=== PATIENT | male | born 1930 | race Caucasian/White ===

== ENCOUNTER 2017-06-12 16:47 | Emergency (ER) | payer MEDICARE, OTHER ==
[~2017-06-12] VITALS: Ht 167.6 cm; Wt 79.5 kg
[~2017-06-12 16:47] MED LIST: ALPR1 PO; AMLO5TAB22 PO; ASPI81TA82 PO; ATEN-102 PO; ATOR40TA PO; BRIM0.2S OP; COUM5TAB PO; DORZO2%O EACH EYE; DRON400 PO; FISH1000 PO; NITR.4 SL; OMPR20CCR PO
[2017-06-12 16:51] VITALS: BP 178/74; PULSE 58; RESP 16; TEMP 98.4; O2SAT 99
--- NOTE | 2017-06-12 17:21 | RADRPT ---
EXAM DATE/TIME: 06/12/2017 17:09 [facility] COMPARISON: No previous studies available for comparison. INDICATIONS : Right hip pain after slip and fall. MEDICAL HISTORY : Hypertension. Cardiovascular disease Atrial fibrillation. SURGICAL HISTORY : Partial colectomy. ENCOUNTER: Initial ACUITY: 2 days PAIN SCORE: 3/10 LOCATION: Right hip. FINDINGS: Examination of the right hip was performed with AP Pelvis. The primary and secondary trabecular janes tao of the femoral neck is intact. The hip joint is of normal width without significant sclerosis or bony hypertrophy. The acetabulum is grossly intact. CONCLUSION: Negative for fracture. Vlad Luo MD FACR on June 12, 2017 at 17:18 Board Certified Radiologist. This report was verified electronically.
--- NOTE | 2017-06-12 17:43 | RADRPT ---
EXAM DATE/TIME: 06/12/2017 17:19 [facility] COMPARISON: No previous studies available for comparison. INDICATIONS : Trauma, fall yesterday onto head. RADIATION DOSE: 48.66 CTDIvol (mGy) MEDICAL HISTORY : Cardiovascular disease. Hypertension. SURGICAL HISTORY : None. ENCOUNTER: Initial ACUITY: 2 days PAIN SCALE: 5/10 LOCATION: Bilateral head TECHNIQUE: Multiple contiguous axial images were obtained of the head. Using automated exposure control and adj ustment of the mA and/or kV according to patient size, radiation dose was kept as low as reasonably a chievable to obtain optimal diagnostic quality images. DICOM format image data is available electro nically for review and comparison. FINDINGS: CEREBRUM: Moderate diffuse cerebral volume loss. The ventricles are in the upper limits of normal for age. No evidence of midline shift, mass lesion, hemorrhage or acute infarction. No extra-axial fluid collect ions are seen. POSTERIOR FOSSA: The cerebellum and brainstem are intact. The 4th ventricle is midline. The cerebellopontine angle i s unremarkable. EXTRACRANIAL: The visualized portion of the orbits is intact. SKULL: The calvaria is intact. No evidence of skull fracture. CONCLUSION: 1. No acute intracranial abnormality. Emil Rodriguez MD on June 12, 2017 at 17:40 Board Certified Radiologist. This report was verified electronically.
--- NOTE | 2017-06-12 17:58 | PD ---
HPI Chief Complaint: Fall Time Seen by Provider: 17:26 Travel History International Travel<30 days: No Contact w/Intl Traveler<30days: No Traveled to known affect area: No History of Present Illness HPI Patient is a 87 year old male who comes in after a fall two days ago. He says he woke up at 4AM to use the bathroom and lost his balance and fell backwards. He denies any LOC. He is on Coumadin. He says he was feeling fine, but yesterday started to have pain to his right hip. He has been walking on both legs without an issue. [facility]. PFSH Past Medical History Hx Anticoagulant Therapy: Yes Arthritis: Yes Asthma: No Autoimmune Disease: No Anxiety: Yes Depression: No Heart Rhythm Problems: Yes (AFIB 12/2011) Cancer: No Cardiac Catheterization: Yes Cardiovascular Problems: Yes (A-fib) High Cholesterol: No Chemotherapy: No Chest Pain: Yes Congestive Heart Failure: No COPD: No Cerebrovascular Accident: No Diabetes: No Diminished Hearing: Yes Endocrine: No Gastrointestinal Disorders: Yes GERD: Yes Genitourinary: No Hiatal Hernia: No Hypertension: Yes Kidney Stones: No Musculoskeletal: Yes Neurologic: No Psychiatric: No Reproductive: No Respiratory: No Migraines: No Radiation Therapy: No Renal Failure: No Seizures: No Sleep Apnea: No Thyroid Disease: No Ulcer: No Past Surgical History Abdominal Surgery: Yes AICD: No Arteriovenous Shunt: No Cardiac Surgery: No Ear Surgery: No Endocrine Surgery: No Eye Surgery: No Genitourinary Surgery: No Gynecologic Surgery: No Hysterectomy: No Insulin Pump: No Joint Replacement: No Oral Surgery: No Pacemaker: No Thoracic Surgery: No Other Surgery: Yes (COLON JUL 05, 2010) Social History Alcohol Use: No Tobacco Use: No Substance Use: No Allergies-Medications (Allergen,Severity, Reaction): Coded Allergies: No Known Allergies (Verified , 07/27/15) Reported Meds & Prescriptions Reported Meds & Active Scripts Active Reported Warfarin 5 Mg Tab 5 Mg PO DAILY Warfarin 2.5 Mg Tab 2.5 Mg PO DAILY Omeprazole 20 Mg Tab 20 Mg PO DAILY ZyrTEC Itchy Eye Opth Drops (Ketotifen Opth Drops) 0.025% Drops 1 Drop EACH EYE BID PRN Flarex Opth Drops (Fluorometholone Acetate) 0.1% Susp 1 Drop EACH EYE DAILY PRN Dorzolamide Opth Drops (Dorzolamide HCl) 2% Soln 1 Drop EACH EYE TID Theratears Unit-Dose Opth Gel (Carboxymethylcellulose Sodium Opth Gel) 1% Gel 1 Drop EACH EYE HS PRN Atorvastatin (Atorvastatin Calcium) 40 Mg Tab 40 Mg PO HS Atenolol 50 Mg Tab 50 Mg PO DAILY Amlodipine (Amlodipine Besylate) 10 Mg Tab 10 Mg PO DAILY Alprazolam 1 Mg Tab 1 Mg PO BID Review of Systems Except as stated in HPI: all other systems reviewed are Neg General / Constitutional: No: Fever, Chills Eyes: No: Blurred Vision HENT: No: Headaches, Lightheadedness Cardiovascular: No: Chest Pain or Discomfort Respiratory: No: Shortness of Breath Gastrointestinal: No: Nausea Musculoskeletal: Positive: Pain Skin: No Rash, No Change in Pigmentation Neurologic: No: Weakness, Dizziness, Syncope Physical Exam Narrative GENERAL: Awake and alert, in no acute distress. SKIN: Focused skin assessment warm/dry. HEAD: Atraumatic. Normocephalic. EYES: Pupils equal and round and reactive. No scleral icterus. EOMI. ENT: Mucous membranes pink and moist. CARDIOVASCULAR: Regular rate and rhythm. No murmur appreciated. RESPIRATORY: No accessory muscle use. Clear to auscultation. Breath sounds equal bilaterally. MUSCULOSKELETAL: No obvious deformities. No clubbing. No cyanosis. No edema. No tenderness to palpation of the spine. Mild tenderness to palpation of the right hip. Full ROM of right leg. NEUROLOGICAL: Awake and alert. No obvious cranial nerve deficits. Motor grossly within normal limits. Normal speech. PSYCHIATRIC: Appropriate mood and affect; insight and judgment normal. Data Data Last Documented VS Vital Signs Date Time Temp Pulse Resp B/P (MAP) Pulse Ox O2 Delivery O2 Flow Rate FiO2 06/12/17 16:51 98.4 58 16 178/74 (108) 99 Orders Orders Act Partial Throm Time (Ptt) (06/12/17 16:55) Prothrombin Time / Inr (Pt) (06/12/17 16:55) Ct Brain W/O Iv Contrast(Rout) (06/12/17 ) Hip, Uni(Ap&Lat) W Ap Pelvis (06/12/17 ) Labs Laboratory Tests Test 06/12/17 17:[address] [facility] Medical Decision Making Medical Screen Exam Complete: Yes Emergency Medical Condition: Yes Medical Record Reviewed: Yes Differential Diagnosis ICH versus hip fracture versus contusion versus sprain Narrative Course Patient is an 87-year-old male who comes in complaining of hip pain after a fall 2 days ago. Is mild tenderness to palpation, full range of motion of the right leg. CT head performed shows no acute abnormalities. X-ray of the hip shows no acute abnormalities. Patient advised to take Tylenol at home for pain. Advised follow-up with his doctors. Advised to return to the ED as needed for any worsening symptoms. Diagnosis Primary Impression: Fall Qualified Codes: W19.XXXA - Unspecified fall, initial encounter Additional Impression: Hip pain Qualified Codes: M25.551 - Pain in right hip Patient Instructions: General Instructions, Hip Pain (ED) Additional Instructions: Take Tylenol as needed for pain. Follow up with your doctors. Return to the ED as needed for any worsening symptoms. Disposition: 01 DISCHARGE HOME Condition: Stable Jenny Hale MD Jun 12, 2017 17:58
[2017-06-12] MEDS ORDERED: OMEP20TA93 PO (17:59)
[2017-06-12] MEDS ORDERED: KETO0.02 EACH EYE (17:59)
[2017-06-12] MEDS ORDERED: AMLO10TA2 PO (17:59)
[2017-06-12] MEDS ORDERED: ATEN50TA PO (17:59)
[2017-06-12] MEDS ORDERED: ATOR40TA16 PO (17:59)
[2017-06-12] MEDS ORDERED: DORZ2SOL EACH EYE (17:59)
[2017-06-12] MEDS ORDERED: WARF-23 PO (17:59)
[2017-06-12] MEDS ORDERED: WARF-18 PO (17:59)
[2017-06-12] MEDS ORDERED: ALPR1TAB3 PO (17:59)
[2017-06-12] MEDS ORDERED: FLAR0.1S EACH EYE (17:59)
[2017-06-12] MEDS ORDERED: THER1GEL EACH EYE (17:59)
[2017-06-12 18:20] LABS: INTERNATIONAL NORMALIZED RATIO 3.6 RATIO; PROTHROMBIN TIME - PATIENT 36.3 SEC (9.8-11.6)
[2017-06-12 18:46] VITALS: BP 165/74; PULSE 52; RESP 18; O2SAT 97
== END 2017-06-12 19:09 | disposition home or self-care (01) ==
LOC: NEPD 16:47
DX: M25.551 Pain in right hip (principal); I10 Essential (primary) hypertension; I48.91 Unspecified atrial fibrillation; W01.0XXA Fall on same level from slipping, tripping and stumbling without subsequent striking against object, initial encounter; Z79.01 Long term (current) use of anticoagulants
CPT/HCPCS: 70450; 73502; 85610; 85730; 99285

== ENCOUNTER 2017-10-05 18:52 | Observation (INO) | payer OTHER, MEDICARE ==
[~2017-10-05 18:52] MED LIST changes: -ALPR1 PO; +ALPR1TAB3 PO; +AMLO10TA2 PO; -AMLO5TAB22 PO; -ASPI81TA82 PO; -ATEN-102 PO; +ATEN50TA PO; -ATOR40TA PO; +ATOR40TA16 PO; -BRIM0.2S OP; -COUM5TAB PO; +DORZ2SOL EACH EYE; -DORZO2%O EACH EYE; -DRON400 PO; -FISH1000 PO; +FLAR0.1S EACH EYE; +KETO0.02 EACH EYE; -NITR.4 SL; +OMEP20TA93 PO; -OMPR20CCR PO; +THER1GEL EACH EYE; +WARF-18 PO; +WARF-23 PO
[2017-10-05 19:01] VITALS: BP 179/77; PULSE 125; RESP 18; TEMP 97.8; O2SAT 95
[2017-10-05] MEDS ORDERED: METOPROLOL TARTRATE 5 MG/5 ML VIAL IV PUSH ONE (19:30)
[2017-10-05] MEDS ORDERED: SODIUM CHLOR 0.9% 250 ML INJ 250 ML IV ONE (19:30)
[2017-10-05] MEDS ORDERED: METOPROLOL TARTRATE 25 MG TAB PO ONE (19:45)
--- NOTE | 2017-10-05 19:47 | PD ---
HPI Chief Complaint: Cardiac Complaint Time Seen by Provider: 19:20 Travel History International Travel<30 days: No Contact w/Intl Traveler<30days: No Traveled to known affect area: No History of Present Illness HPI Patient is an 87-year-old male with a history of A. fib on Coumadin as well as on metoprolol patient takes 50 mg of metoprolol in the morning and 25 of metoprolol at night. He says at 5:00 tonight he suddenly felt his heart going rapidly. He has a history of A. fib and he knows when it is rapid he took his BP cuff and he saw his heart rate was over 130 and he then comes to the ER where he is in rapid A. fib at a rate of 120-140 his BP is 159/78. He took his second dose of metoprolol at home and it did not reduce his A. fib he comes into the ER still complaining that he is in rapid A. fib he is aware of his palpitations and his cardiac history. He is a very good historian patient denies chest pain he denies shortness of breath he denies dizziness he just says he knows was heart fast and he took it on his blood pressure cuff at home patient denies diabetes he is on amlodipine he is on metoprolol and this complaint began 2 hours prior to my examining him in the ER initial exam he is in rapid A. fib however he is with no other symptoms at this time. He has not been to the [facility] for this episode and he is treated mainly at the [facility] Past Medical History Hx Anticoagulant Therapy: Yes Arthritis: Yes Asthma: No Autoimmune Disease: No Anxiety: Yes Depression: No Heart Rhythm Problems: Yes (AFIB 12/2011) Cancer: No Cardiac Catheterization: Yes Cardiovascular Problems: Yes (A-fib) High Cholesterol: No Chemotherapy: No Chest Pain: Yes Congestive Heart Failure: No COPD: No Cerebrovascular Accident: No Diabetes: No Diminished Hearing: Yes Endocrine: No Gastrointestinal Disorders: Yes GERD: Yes Genitourinary: No Hiatal Hernia: No Hypertension: Yes Kidney Stones: No Musculoskeletal: Yes Neurologic: No Psychiatric: No Reproductive: No Respiratory: No Migraines: No Radiation Therapy: No Renal Failure: No Seizures: No Sleep Apnea: No Thyroid Disease: No Ulcer: No Past Surgical History Abdominal Surgery: Yes AICD: No Arteriovenous Shunt: No Cardiac Surgery: No Ear Surgery: No Endocrine Surgery: No Eye Surgery: No Genitourinary Surgery: No Gynecologic Surgery: No Hysterectomy: No Insulin Pump: No Joint Replacement: No Oral Surgery: No Pacemaker: No Thoracic Surgery: No Other Surgery: Yes (COLON JUL 05, 2010) Social History Alcohol Use: No Tobacco Use: No Substance Use: No Allergies-Medications (Allergen,Severity, Reaction): Coded Allergies: No Known Allergies (Verified Allergy, Unknown, 10/07/17) Reported Meds & Prescriptions Reported Meds & Active Scripts Active Reported Metoprolol Succinate/HCTZ 50-12.5 ER 50 Mg-12.5 Mg Tab 1 Tab PO DAILY Metoprolol Tartrate 25 Mg Tab 25 Mg PO DAILY Warfarin 5 Mg Tab 5 Mg PO MON/MON/MON Warfarin 2.5 Mg Tab 2.5 Mg PO //MON/SUN Omeprazole 20 Mg Tab 20 Mg PO DAILY ZyrTEC Itchy Eye Opth Drops (Ketotifen Opth Drops) 0.025% Drops 1 Drop EACH EYE BID PRN Flarex Opth Drops (Fluorometholone Acetate) 0.1% Susp 1 Drop EACH EYE DAILY PRN Dorzolamide Opth Drops (Dorzolamide HCl) 2% Soln 1 Drop EACH EYE TID Theratears Unit-Dose Opth Gel (Carboxymethylcellulose Sodium Opth Gel) 1% Gel 1 Drop EACH EYE HS PRN Atorvastatin (Atorvastatin Calcium) 40 Mg Tab 40 Mg PO HS Atenolol 50 Mg Tab 50 Mg PO DAILY Amlodipine (Amlodipine Besylate) 10 Mg Tab 10 Mg PO DAILY Alprazolam 1 Mg Tab 1 Mg PO BID Review of Systems Except as stated in HPI: all other systems reviewed are Neg Cardiovascular: Positive: Chest Pain or Discomfort, Palpitations Physical Exam Narrative GENERAL: awake alert wearing RX sunglasses and no apparent distress , Monitor 138 irregular HR SKIN: Warm and dry. HEAD: Atraumatic. Normocephalic. EYES: Pupils equal and round. No scleral icterus. No injection or drainage. ENT: No nasal bleeding or discharge. Mucous membranes pink and moist. NECK: Trachea midline. No JVD. CARDIOVASCULAR: irregularly iiregular Rate 120-138 RESPIRATORY: No accessory muscle use. Clear to auscultation. Breath sounds equal bilaterally. GASTROINTESTINAL: Abdomen soft, non-tender, nondistended. Hepatic and splenic margins not palpable. MUSCULOSKELETAL: Extremities without clubbing, cyanosis, or edema. No obvious deformities. NEUROLOGICAL: Awake and alert. No obvious cranial nerve deficits. Motor grossly within normal limits. Five out of 5 muscle strength in the arms and legs. Normal speech. PSYCHIATRIC: Appropriate mood and affect; insight and judgment normal. Data Data Last Documented VS Vital Signs Date Time Temp Pulse Resp B/P (MAP) Pulse Ox O2 Delivery O2 Flow Rate FiO2 10/05/17 21:51 59 16 134/66 (88) 98 Room Air 10/05/17 19:01 97.8 Orders Orders Electrocardiogram (10/05/17:) Complete Blood Count With Diff (10/05/17:) Comprehensive Metabolic Panel (10/05/17:) Ckmb (Isoenzyme) Profile (10/05/17:) Troponin I (10/05/17:) Prothrombin Time / Inr (Pt) (10/05/17:27) Chest, Single Ap (10/05/17:) Sodium Chlor 0.9% 250 Ml Inj (Ns 250 Ml (10/05/17 19:30) Metoprolol Tartrate Inj (Lopressor Inj) (10/05/17 19:30) Metoprolol Tartrate (Lopressor) (10/05/17 19:45) CKMB (10/05/17 19:35) CKMB% (10/05/17 19:35) Diltiazem (Cardizem) (10/05/17 21:15) Warfarin (Coumadin) (10/05/17 21:30) Alprazolam (Xanax) (10/05/17 21:30) Admit Order (Ed Use Only) (10/05/17 21:57) Labs Laboratory Tests Test 10/05/17 19:35 White Blood Count 7.2 TH/MM3 Red Blood Count 4.16 MIL/MM3 Hemoglobin 13.5 GM/DL Hematocrit 40.2 % Mean Corpuscular Volume 96.6 FL Mean Corpuscular Hemoglobin 32.4 PG Mean Corpuscular Hemoglobin Concent 33.5 % Red Cell Distribution Width 14.7 % Platelet Count 210 TH/MM3 Mean Platelet Volume 8.1 FL Neutrophils (%) (Auto) 61.2 % Lymphocytes (%) (Auto) 24.6 % Monocytes (%) (Auto) 6.7 % Eosinophils (%) (Auto) 6.6 % Basophils (%) (Auto) 0.9 % Neutrophils # (Auto) 4.4 TH/MM3 Lymphocytes # (Auto) 1.8 TH/MM3 Monocytes # (Auto) 0.5 TH/MM3 Eosinophils # (Auto) 0.5 TH/MM3 Basophils # (Auto) 0.1 TH/MM3 CBC Comment DIFF FINAL Differential Comment Prothrombin Time 19.6 SEC Prothromb Time International Ratio 1.9 RATIO Blood Urea Nitrogen 22 MG/DL Creatinine 1.36 MG/DL Random Glucose 177 MG/DL Total Protein 7.8 GM/DL Albumin 3.5 GM/DL Calcium Level 9.2 MG/DL Alkaline Phosphatase 103 U/L Aspartate Amino Transf (AST/SGOT) 29 U/L Alanine Aminotransferase (ALT/SGPT) 32 U/L Total Bilirubin 0.3 MG/DL Sodium Level 141 MEQ/L Potassium Level 4.0 MEQ/L Chloride Level 109 MEQ/L Carbon Dioxide Level 24.0 MEQ/L Anion Gap 8 MEQ/L Estimat Glomerular Filtration Rate 50 ML/MIN Total Creatine Kinase 126 U/L Creatine Kinase MB 1.7 NG/ML Troponin I LESS THAN 0.02 NG/ML MDM Medical Decision Making Medical Screen Exam Complete: Yes Emergency Medical Condition: Yes Differential Diagnosis Afib RVR and possible systemic cause versus medication non compliance vs fever vs viral illness causing RVR , pt or couamdin and reports detailed compliance with metoprolol and Norvasc Narrative Course pt given Lopress 2.5 IV and then 25 PO and eventual;ly goes into a sinus rhythm and rate 60 trop negative and admitted to [facility] for observation Frandy Negreet MD Oct 05, 2017 19:47
[2017-10-05 19:50] LABS: AUTOMATED NEUTROPHIL # 4.4 TH/MM3 (1.8-7.7); BASOPHIL # 0.1 TH/MM3 (0-0.2); BASOPHIL % 0.9 % (0.0-2.0); EOSINOPHIL # 0.5 TH/MM3 (0-0.4); EOSINOPHIL % 6.6 % (0.0-4.0); HEMATOCRIT 40.2 % (39.0-51.0); HEMOGLOBIN 13.5 GM/DL (13.0-17.0); LYMPH % 24.6 % (9.0-44.0); LYMPHOCYTE # 1.8 TH/MM3 (1.0-4.8); MEAN CELL VOLUME 96.6 FL (80.0-100.0); MEAN CORPUSCULAR HEMOGLOBIN 32.4 PG (27.0-34.0); MEAN CORPUSCULAR HGB CONC 33.5 % (32.0-36.0); MEAN PLATELET VOLUME 8.1 FL (7.0-11.0); MONO % 6.7 % (0.0-8.0); MONOCYTE # 0.5 TH/MM3 (0-0.9); NEUT % 61.2 % (16.0-70.0); PLATELET COUNT 210 TH/MM3 (150-450); RED BLOOD COUNT 4.16 MIL/MM3 (4.50-5.90); RED CELL DISTRIBUTION WIDTH 14.7 % (11.6-17.2); WHITE BLOOD COUNT 7.2 TH/MM3 (4.0-11.0)
[2017-10-05] MEDS ORDERED: METO-488 PO (19:52)
[2017-10-05] MEDS ORDERED: METO25TA3 PO (19:52)
--- NOTE | 2017-10-05 20:11 | RADRPT ---
EXAM DATE/TIME: 10/05/2017 19:31 [facility] COMPARISON: CHEST SINGLE AP, July 29, 2015, 15:24. INDICATIONS : Short of breath. MEDICAL HISTORY : A-fib. SURGICAL HISTORY : None. ENCOUNTER: Initial ACUITY: 2 days PAIN SCORE: 0/10 LOCATION: Bilateral chest FINDINGS: A single AP erect portable view of the chest was obtained and again demonstrates patchy by basilar op acity with partial obscuration left hemidiaphragm. The left costophrenic angle appears blunted. The h eart size is mildly prominent. The bony thorax is intact. Overlying echocardiogram leads are present. CONCLUSION: No significant change. Bibasilar airspace disease remains left greater than right. Pl ease a portion of this could represent scarring. Christoph Choi MD on October 05, 2017 at 20:08 Board Certified Radiologist. This report was verified electronically.
[2017-10-05 20:12] LABS: ALT (GPT) 32 U/L (12-78)
[2017-10-05 20:15] LABS: ALKALINE PHOSPHATASE 103 U/L (45-117); TOTAL BILIRUBIN ADULT 0.3 MG/DL (0.2-1.0); TOTAL PROTEIN 7.8 GM/DL (6.4-8.2); TROPONIN I LESS THAN 0.02 NG/ML (0.02-0.05)
[2017-10-05 20:16] LABS: ALBUMIN 3.5 GM/DL (3.4-5.0); AST (GOT) 29 U/L (15-37); BLOOD UREA NITROGEN 22 MG/DL (7-18); CALCIUM 9.2 MG/DL (8.5-10.1); CHLORIDE 109 MEQ/L (98-107); CREATININE 1.36 MG/DL (0.60-1.30); GLOMERULAR FILTRATION RATE 50 ML/MIN (>89); GLUCOSE,RANDOM 177 MG/DL (74-106); SODIUM (NA) 141 MEQ/L (136-145)
[2017-10-05 20:17] LABS: INTERNATIONAL NORMALIZED RATIO 1.9 RATIO; PROTHROMBIN TIME - PATIENT 19.6 SEC (9.8-11.6)
[2017-10-05 20:44] VITALS: BP 159/77; PULSE 114; RESP 16; O2SAT 99
[2017-10-05] MEDS ORDERED: DILTIAZEM HCL 30 MG TAB PO ONE (21:15)
[2017-10-05] MEDS ORDERED: WARFARIN SOD 2.5 MG TAB PO ONE (21:30)
[2017-10-05] MEDS ORDERED: ALPRAZolam 1 MG TAB PO ONE (21:30)
[2017-10-05 21:51] VITALS: BP 134/66; PULSE 59; RESP 16; O2SAT 98
[2017-10-06] MEDS ORDERED: BISACODYL 10 MG SUPP RECTAL PRN (00:15)
[2017-10-06] MEDS ORDERED: ONDANSETRON HCL 4 MG/2 ML VIAL IVP PRN (00:15)
[2017-10-06] MEDS ORDERED: ACETAMINOPHEN 325 MG TAB PO PRN (00:15)
[2017-10-06] MEDS ORDERED: SENNOSIDES 8.6 MG TAB PO PRN (00:15)
[2017-10-06] MEDS ORDERED: MAGNESIUM HYDROXIDE SUSP 30 ML CUP PO PRN (00:15)
[2017-10-06] MEDS ORDERED: NALOXONE HCL 0.4 MG/ML AMP IV PUSH PRN (00:15)
[2017-10-06] MEDS ORDERED: HEPARIN SODIUM - SQ 10,000 UNITS/ML VIAL SQ SCH (00:15)
[2017-10-06] MEDS ORDERED: SODIUM CHLORIDE 0.9% FLUSH 10 ML FLUSH IV FLUSH PRN (00:15)
[2017-10-06] MEDS ORDERED: LACTULOSE SYRUP 20 GM/30 ML CUP PO PRN (00:15)
--- NOTE | 2017-10-06 00:39 | HHI.HP ---
[facility] Admission Diagnosis afib RVR Diagnoses: Travel History International Travel<30 Days: No Contact w/Intl Traveler <30 Da: No Traveled to Known Affected Are: No History of Present Illness 87-year-old male with past medical history significant for atrial fibrillation anticoagulated on Coumadin, hypertension and hyperlipidemia presents to the emergency department for evaluation of heart palpitations. The patient states around 5 PM, following dinner, he noted that his heart was beating rapidly and he felt as if it were about to "beat out of his chest." The patient endorses associating shortness of breath and chest pressure. Symptoms have since resolved. He was found to be in atrial fibrillation with rapid ventricular response on arrival to the emergency department was given his home dose of metoprolol and converted to normal sinus rhythm. The patient denies any abdominal pain. No nausea/vomiting/diarrhea. No weakness. No lateralizing signs/symptoms. No fevers/chills. Review of Systems Except as stated in HPI: all other systems reviewed are Neg Past Family Social History Past Medical History Atrial fibrillation anticoagulated on Coumadin Hypertension Hyperlipidemia Past Surgical History Partial colectomy Reported Medications Reported Meds & Active Scripts Active Reported Metoprolol Succinate/HCTZ 50-12.5 ER 50 Mg-12.5 Mg Tab 1 Tab PO DAILY Metoprolol Tartrate 25 Mg Tab 25 Mg PO DAILY Warfarin 5 Mg Tab 5 Mg PO DAILY Warfarin 2.5 Mg Tab 2.5 Mg PO DAILY Omeprazole 20 Mg Tab 20 Mg PO DAILY ZyrTEC Itchy Eye Opth Drops (Ketotifen Opth Drops) 0.025% Drops 1 Drop EACH EYE BID PRN Flarex Opth Drops (Fluorometholone Acetate) 0.1% Susp 1 Drop EACH EYE DAILY PRN Dorzolamide Opth Drops (Dorzolamide HCl) 2% Soln 1 Drop EACH EYE TID Theratears Unit-Dose Opth Gel (Carboxymethylcellulose Sodium Opth Gel) 1% Gel 1 Drop EACH EYE HS PRN Atorvastatin (Atorvastatin Calcium) 40 Mg Tab 40 Mg PO HS Atenolol 50 Mg Tab 50 Mg PO DAILY Amlodipine (Amlodipine Besylate) 10 Mg Tab 10 Mg PO DAILY Alprazolam 1 Mg Tab 1 Mg PO BID Allergies: Coded Allergies: No Known Allergies (Verified , 07/27/15) Family History Negative for CAD/DM Social History Denies alcohol, tobacco and illicit drugs. Physical Exam Vital Signs Vital Signs Date Time Temp Pulse Resp B/P (MAP) Pulse Ox O2 Delivery O2 Flow Rate FiO2 10/05/17 21:51 59 16 134/66 (88) 98 Room Air 10/05/17 20:44 114 16 159/77 (104) 99 Room Air 10/05/17 19:46 118 99 Room Air 10/05/17 19:01 97.8 125 18 179/77 (111) 95 Physical Exam GENERAL: male lying in bed SKIN: No rashes, ecchymoses or lesions. Cool and dry. HEAD: Atraumatic. Normocephalic. No temporal or scalp tenderness. EYES: Pupils equal round and reactive. Extraocular motions intact. No scleral icterus. No injection or drainage. ENT: Nose without bleeding, purulent drainage or septal hematoma. Throat without erythema, tonsillar hypertrophy or exudate. Uvula midline. Airway patent. NECK: Trachea midline. No JVD or lymphadenopathy. Supple, nontender, no meningeal signs. CARDIOVASCULAR: Regular rate and rhythm without murmurs, gallops, or rubs. RESPIRATORY: Clear to auscultation. Breath sounds equal bilaterally. No wheezes , rales, or rhonchi. GASTROINTESTINAL: Abdomen soft, non-tender, nondistended. No hepato-splenomegaly , or palpable masses. No guarding. MUSCULOSKELETAL: Extremities without clubbing, cyanosis, or edema. No joint tenderness, effusion, or edema noted. No calf tenderness. NEUROLOGICAL: Awake and alert. Cranial nerves II through XII intact. Motor and sensory grossly within normal limits. Normal speech. Laboratory Laboratory Tests Test 10/05/17 19:35 White Blood Count 7.2 Red Blood Count 4.16 Hemoglobin 13.5 Hematocrit 40.2 Mean Corpuscular Volume 96.6 Mean Corpuscular Hemoglobin 32.4 Mean Corpuscular Hemoglobin Concent 33.5 Red Cell Distribution Width 14.7 Platelet Count 210 Mean Platelet Volume 8.1 Neutrophils (%) (Auto) 61.2 Lymphocytes (%) (Auto) 24.6 Monocytes (%) (Auto) 6.7 Eosinophils (%) (Auto) 6.6 Basophils (%) (Auto) 0.9 Neutrophils # (Auto) 4.4 Lymphocytes # (Auto) 1.8 Monocytes # (Auto) 0.5 Eosinophils # (Auto) 0.5 Basophils # (Auto) 0.1 CBC Comment DIFF FINAL Differential Comment Prothrombin Time 19.6 Prothromb Time International Ratio 1.9 Blood Urea Nitrogen 22 Creatinine 1.36 Random Glucose 177 Total Protein 7.8 Albumin 3.5 Calcium Level 9.2 Alkaline Phosphatase 103 Aspartate Amino Transf (AST/SGOT) 29 Alanine Aminotransferase (ALT/SGPT) 32 Total Bilirubin 0.3 Sodium Level 141 Potassium Level 4.0 Chloride Level 109 Carbon Dioxide Level 24.0 Anion Gap 8 Estimat Glomerular Filtration Rate 50 Total Creatine Kinase 126 Creatine Kinase MB 1.7 Troponin I LESS THAN 0.02 Result Diagram: 10/05/17193410/05/171934 Caprini VTE Risk Assessment Caprini VTE Risk Assessment: Mod/High Risk (score >= 2) Caprini Risk Assessment Model Point Value = 1 Point Value = 2 Point Value = 3 Point Value = 5 Age 41-60 Minor surgery BMI > 25 kg/m2 Swollen legs Varicose veins or History of unexplained or recurrent spontaneous Oral contraceptives or hormone replacement Sepsis (< 1 month) Serious lung disease, including pneumonia (< 1 month) Abnormal pulmonary function Acute myocardial infarction Congestive heart failure (< 1 month) History of inflammatory bowel disease Medical patient at bed rest Age 61-74 Arthroscopic surgery Major open surgery (> 45 min) Laparoscopic surgery (> 45 min) Malignancy Confined to bed (> 72 hours) Immobilizing plaster cast Central venous access Age >= 75 History of VTE Family history of VTE Factor V Leiden Prothrombin [id number] Lupus anticoagulant Anticardiolipin antibodies Elevated serum homocysteine Heparin-induced thrombocytopenia Other congenital or acquired thrombophilia Stroke (< 1 month) Elective arthroplasty Hip, pelvis, or leg fracture Acute spinal cord injury (< 1 month) Prophylaxis Regimen Total Risk Factor Score Risk Level Prophylaxis Regimen 0-1 Low Early ambulation 2 Moderate Order ONE of the following: *Sequential Compression Device (SCD) *Heparin 5000 units SQ BID 3-4 Higher Order ONE of the following medications: *Heparin 5000 units SQ TID *Enoxaparin/Lovenox 40 mg SQ daily (WT < 150 kg, CrCl > 30 mL/min) *Enoxaparin/Lovenox 30 mg SQ daily (WT < 150 kg, CrCl > 10-29 mL/min) *Enoxaparin/Lovenox 30 mg SQ BID (WT < 150 kg, CrCl > 30 mL/min) AND/OR *Sequential Compression Device (SCD) 5 or more Highest Order ONE of the following medications: *Heparin 5000 units SQ TID (Preferred with Epidurals) *Enoxaparin/Lovenox 40 mg SQ daily (WT < 150 kg, CrCl > 30 mL/min) *Enoxaparin/Lovenox 30 mg SQ daily (WT < 150 kg, CrCl > 10-29 mL/min) *Enoxaparin/Lovenox 30 mg SQ BID (WT < 150 kg, CrCl > 30 mL/min) AND *Sequential Compression Device (SCD) Assessment and Plan Assessment and Plan Assessment/plan: 1. Atrial fibrillation with rapid ventricular response Patient with known history of A. fib Continue anticoagulation with Coumadin Continue home metoprolol Patient converted to normal sinus rhythm, monitor on telemetry 2. Chest pressure/shortness of breath Likely secondary to A. fib Initial EKG showed A. fib with RVR, no ST segment elevations or depressions, personally reviewed Initial troponin negative ACS rule out pending; serial troponins/EKGs 3. Hypertension/hyperlipidemia Continue home medications FEN: Heart healthy diet Electrolytes: monitor and replete prn Coumadin Miriam Medina MD Oct 06, 2017 00:39
[2017-10-06 01:31] VITALS: BP 138/78; PULSE 50; RESP 16; O2SAT 99
[2017-10-06 02:35] LABS: TROPONIN I LESS THAN 0.02 NG/ML (0.02-0.05)
[2017-10-06 05:30] VITALS: BP 124/60; PULSE 50; RESP 18; TEMP 97.6; O2SAT 98
[2017-10-06 07:49] VITALS: PULSE 48
[2017-10-06 08:51] VITALS: BP 154/66; PULSE 50; RESP 20; TEMP 98.2; O2SAT 97
[2017-10-06] MEDS ORDERED: HYDROCHLOROTHIAZIDE 12.5 MG CAP PO SCH (09:00)
[2017-10-06] MEDS ORDERED: DOCUSATE SODIUM 50 MG/SENNA 8.6 MG TAB PO SCH (09:00)
[2017-10-06] MEDS ORDERED: PANTOPRAZOLE SOD 20 MG DELAYED RELEASE TAB PO SCH (09:00)
[2017-10-06] MEDS ORDERED: METOPROLOL SUCCINATE 50 MG EXTENDED RELEASE TAB PO SCH (09:00)
[2017-10-06] MEDS ORDERED: ALPRAZolam 1 MG TAB PO SCH (09:00)
[2017-10-06] MEDS ORDERED: SODIUM CHLORIDE 0.9% FLUSH 10 ML FLUSH IV FLUSH SCH (09:00)
--- NOTE | 2017-10-06 09:50 | PD.PN.STU ---
Subjective Remarks Patient reports that he is feeling better with no shortness of breath, chest pain, n/v, palpations. Objective Vitals Vital Signs Date Time Temp Pulse Resp B/P (MAP) Pulse Ox O2 Delivery O2 Flow Rate FiO2 10/06/17 08:51 98.2 50 20 154/66 (95) 97 10/06/17 05:30 97.6 50 18 124/60 (81) 98 10/06/17 01:31 50 16 138/78 (98) 99 Room Air 10/05/17 21:51 59 16 134/66 (88) 98 Room Air 10/05/17 20:44 114 16 159/77 (104) 99 Room Air 10/05/17 19:46 118 99 Room Air 10/05/17 19:01 97.8 125 18 179/77 (111) 95 I/O 10/05/17 10/05/17 10/05/17 10/06/17 10/06/17 10/06/17 07:00 15:00 23:00 07:00 15:00 23:00 Intake Total 0 ml Balance 0 ml Intake Oral 0 ml # Voids 0 Result Diagram: 10/05/17193410/05/171934 Objective Remarks general: No acute distress Cardiac: bradycardic with normal rhythm. No gallops, murmurs or rubs Resp: clear bilaterally throughout without rhonchi, wheezes, rales. extremities: no edema. A/P Assessment and Plan 1. Atrial fibrillation with rapid ventricular response Patient with known history of A. fib Continue anticoagulation with Coumadin Continue home metoprolol Patient converted to normal sinus rhythm, monitor on telemetry. 10/06 ekg shows sinus jann. Continue on metoprolol 50 mg. INR subtherapeutic on admission, continue monitoring. 2. Chest pressure/shortness of breath Likely secondary to A. fib Initial EKG showed A. fib with RVR, no ST segment elevations or depressions, personally reviewed Initial troponin negative ACS rule out pending; serial troponins/EKGs 10/06 3 serial troponins negative . EKG show sinus jann without ST segment elevations or depressions. 3. Elevated creatinine/BUN - baseline creatine 2016 1.29 and BUN 20. On admission creatine 1.37 and BUN 22. Possible chronic kidney disease. IVF and continue to monitor. 4. Hypertension/hyperlipidemia Continue home medications FEN: Heart healthy diet Electrolytes: monitor and replete prn Coumadin Ana Branham M3 Oct 06, 2017 09:50
[2017-10-06 10:13] LABS: TROPONIN I LESS THAN 0.02 NG/ML (0.02-0.05)
--- NOTE | 2017-10-06 11:35 | HHI.PR ---
Subjective Remarks Denies cp/sob back to normal sinus rythm no palpitations states yesterday felt some chest pressure when his heart rate went high. Objective Vitals Vital Signs Date Time Temp Pulse Resp B/P (MAP) Pulse Ox O2 Delivery O2 Flow Rate FiO2 10/06/17 08:51 98.2 50 20 154/66 (95) 97 10/06/17 05:30 97.6 50 18 124/60 (81) 98 10/06/17 01:31 50 16 138/78 (98) 99 Room Air 10/05/17 21:51 59 16 134/66 (88) 98 Room Air 10/05/17 20:44 114 16 159/77 (104) 99 Room Air 10/05/17 19:46 118 99 Room Air 10/05/17 19:01 97.8 125 18 179/77 (111) 95 I/O 10/05/17 10/05/17 10/05/17 10/06/17 10/06/17 10/06/17 07:00 15:00 23:00 07:00 15:00 23:00 Intake Total 0 ml Balance 0 ml Intake Oral 0 ml # Voids 0 Result Diagram: 10/05/17193410/05/171934 Imaging Last Impressions Chest X-Ray 10/05/171926 Signed Impressions: Service Date/Time: September 19:31 - CONCLUSION: No significant change. Bibasilar airspace disease remains left greater than right. Please a portion of this could represent scarring. Christoph Choi MD Objective Remarks AAOx3 S1S2 RRR, bradycardic Clear lungs BL No cristy aor jvd observed Medications and IVs Current Medications Medications (Trade) Dose Ordered Sig/Bernardino Route Start Time Stop Time Status Last Admin (NS Flush) 2 ml UNSCH PRN IV FLUSH 10/06/17 00:15 (NS Flush) 2 ml BID IV FLUSH 10/06/17 09:00 10/06/17 10:43 (Tylenol) 650 mg Q4H PRN PO 10/06/17 00:15 (Zofran Inj) 4 mg Q6H PRN IVP 10/06/17 00:15 (Narcan Inj) 0.4 mg UNSCH PRN IV PUSH 10/06/17 00:15 (Parvin-Colace) 1 tab BID PO 10/06/17 09:00 10/06/17 10:40 (Milk Of Magnesia Liq) 30 ml Q12H PRN PO 10/06/17 00:15 (Senokot) 17.2 mg Q12H PRN PO 10/06/17 00:15 (Dulcolax Supp) 10 mg DAILY PRN RECTAL 10/06/17 00:15 (Lactulose Liq) 30 ml DAILY PRN PO 10/06/17 00:15 (Xanax) 1 mg BID PO 10/06/17 09:00 10/06/17 10:40 (Norvasc) 10 mg DAILY PO 10/06/17 09:00 10/06/17 10:42 (Lipitor) 40 mg HS PO 10/06/17 21:00 (Coumadin) 5 mg DAILY@1600 PO 10/06/17 16:00 (Toprol Xl) 50 mg DAILY PO 10/06/17 09:00 (Protonix) 20 mg DAILY PO 10/06/17 09:00 10/06/17 10:41 (Microzide) 12.5 mg DAILY PO 10/06/17 09:00 10/06/17 10:42 A/P Problem List: (1) Atrial fibrillation with RVR ICD Code: I48.91 - Unspecified atrial fibrillation Status: Acute Plan: Back to normal sinus rythm trops negative x3 EKG afib w rvr check tsh check 2 D echo cardiology consult - Patient sees Dr Gil. Continue warfarin, monitor PT/INR daily. Slightly subtherapeutic INR. (2) Paroxysmal a-fib ICD Code: I48.0 - Paroxysmal atrial fibrillation Status: Acute Plan: Telemetry Back to sinus rythm continue beta juan antonio (3) Chest pain ICD Code: R07.9 - Chest pain Status: Acute Plan: Resolved. ACS ruled out. (4) CAD (coronary artery disease) ICD Code: I25.10 - CAD (coronary artery disease) Status: Acute Plan: Continue Coumadin, statin beta juan antonio c/o chest pressure when his heart rate was elevated Consult cardiology (5) Hypertension ICD Code: I10 - Hypertension Status: Acute Plan: Blood pressure stable. Continue amlodipine 10 mg p.o. daily, metoprolol succinate 50 mg p.o. daily. (6) Hyperlipidemia ICD Code: E78.5 - Hyperlipidemia Status: Acute Plan: Continue statin. Monitor lipid profile as an outpatient. (7) GERD (gastroesophageal reflux disease) ICD Code: K21.9 - GERD (gastroesophageal reflux disease) Status: Acute Plan: On PPI (8) AILYN (acute kidney injury) ICD Code: N17.9 - Acute kidney failure, unspecified Status: Acute Plan: Patient had a creatinine of 1.36 on admission. Upon review of medical records patient has a baseline creatinine between 1.1 and 1.2. Suspect a KI on CKD stage III. AKA likely due to prerenal azotemia and dehydration that could possibly lead to A. fib with RVR. Recheck BMP, patient was treated with IV fluids in the emergency department. Monitor BUN and creatinine, strict I's and O's, avoid nephrotoxins. (9) CKD (chronic kidney disease), stage III ICD Code: N18.3 - Chronic kidney disease, stage 3 (moderate) Status: Chronic Plan: As above. (10) Hyperglycemia ICD Code: R73.9 - Hyperglycemia, unspecified Status: Acute Plan: No previous history of diabetes mellitus. Check hemoglobin A1c. Assessment and Plan GI prophylaxis: PPI. DVT prophylaxis SCDs, on Coumadin. Discharge Planning Cardiology consulted. 2D echo pending. Problem Qualifiers (1) Chest pain: Qualified Codes: R07.9 - Chest pain, unspecified (2) CAD (coronary artery disease): Qualified Codes: I25.118 - Atherosclerotic heart disease of [place] coronary artery with other forms of angina pectoris (3) Hyperlipidemia: Qualified Codes: E78.5 - Hyperlipidemia, unspecified (4) GERD (gastroesophageal reflux disease): Qualified Codes: K21.9 - Gastro-esophageal reflux disease without esophagitis Himanshu Rowley MD Oct 06, 2017 11:35
[2017-10-06 11:54] VITALS: BP 148/60; PULSE 60; RESP 18; TEMP 97.9; O2SAT 96
[2017-10-06 13:14] LABS: INTERNATIONAL NORMALIZED RATIO 2.1 RATIO; PROTHROMBIN TIME - PATIENT 21.1 SEC (9.8-11.6)
[2017-10-06 13:24] LABS: BICARBONATE 24.8 MEQ/L (21.0-32.0); BLOOD UREA NITROGEN 20 MG/DL (7-18); CHLORIDE 109 MEQ/L (98-107); CREATININE 1.19 MG/DL (0.60-1.30); GLOMERULAR FILTRATION RATE 58 ML/MIN (>89); GLUCOSE,RANDOM 104 MG/DL (74-106); SODIUM (NA) 141 MEQ/L (136-145)
[2017-10-06] MEDS ORDERED: WARFARIN SOD 5 MG TAB PO SCH (16:00)
[2017-10-06 16:14] VITALS: BP 146/68; PULSE 60; RESP 20; TEMP 98.2; O2SAT 96
[2017-10-06 16:38] LABS: HEMOGLOBIN A1C 5.9 % (4.3-6.0)
[2017-10-06] MEDS ORDERED: ASPI-516 CHEW (16:41)
--- NOTE | 2017-10-06 17:35 | HHI.DCPOC ---
Discharge Care Plan Diagnosis: (1) Hyperglycemia (2) CKD (chronic kidney disease), stage III (3) AILYN (acute kidney injury) (4) Atrial fibrillation with RVR (5) Paroxysmal a-fib (6) Chest pain (7) CAD (coronary artery disease) (8) Hypertension (9) Hyperlipidemia (10) GERD (gastroesophageal reflux disease) Goals to Promote Your Health * To prevent worsening of your condition and complications * To maintain your health at the optimal level Directions to Meet Your Goals Take your medications as prescribed Follow your dietary instruction Follow activity as directed Keep your appointments as scheduled Take your immunizations and boosters as scheduled If your symptoms worsen call your PCP, if no PCP go to Urgent Care Center or Emergency Room Smoking is Dangerous to Your Health. Avoid second hand smoke Call the 24-hour hour crisis hotline for domestic abuse at Himanshu Rowley MD Oct 06, 2017 17:35
--- NOTE | 2017-10-06 17:36 | HHI.DS ---
Discharge Summary Admission Date Oct 05, 2017 at 21:59 Discharge Date: Oct 06, 2017 Admitting Diagnosis afib RVR (1) Atrial fibrillation with RVR ICD Code: I48.91 - Unspecified atrial fibrillation Diagnosis: Principal Status: Resolved (2) Paroxysmal a-fib ICD Code: I48.0 - Paroxysmal atrial fibrillation Diagnosis: Principal Status: Chronic (3) Chest pain ICD Code: R07.9 - Chest pain Diagnosis: Principal Status: Resolved (4) CAD (coronary artery disease) ICD Code: I25.10 - CAD (coronary artery disease) Diagnosis: Principal Status: Chronic (5) Hypertension ICD Code: I10 - Hypertension Diagnosis: Principal Status: Chronic (6) Hyperlipidemia ICD Code: E78.5 - Hyperlipidemia Diagnosis: Principal Status: Chronic (7) GERD (gastroesophageal reflux disease) ICD Code: K21.9 - GERD (gastroesophageal reflux disease) Status: Chronic (8) AILYN (acute kidney injury) ICD Code: N17.9 - Acute kidney failure, unspecified Status: Resolved (9) CKD (chronic kidney disease), stage III ICD Code: N18.3 - Chronic kidney disease, stage 3 (moderate) Status: Chronic (10) Hyperglycemia ICD Code: R73.9 - Hyperglycemia, unspecified Status: Acute Brief History - From Admission 87-year-old male with past medical history significant for atrial fibrillation anticoagulated on Coumadin, hypertension and hyperlipidemia presents to the emergency department for evaluation of heart palpitations. The patient states around 5 PM, following dinner, he noted that his heart was beating rapidly and he felt as if it were about to "beat out of his chest." The patient endorses associating shortness of breath and chest pressure. Symptoms have since resolved. He was found to be in atrial fibrillation with rapid ventricular response on arrival to the emergency department was given his home dose of metoprolol and converted to normal sinus rhythm. The patient denies any abdominal pain. No nausea/vomiting/diarrhea. No weakness. No lateralizing signs/symptoms. No fevers/chills. CBC/BMP: 10/05/17 1935 10/06/17 1255 Significant Findings Laboratory Tests Test 10/05/17 19:35 10/06/17 02:00 10/06/17 08:08 10/06/17 12:55 Red Blood Count 4.16 MIL/MM3 (4.50-5.90) Eosinophils (%) (Auto) 6.6 % (0.0-4.0) Eosinophils # (Auto) 0.5 TH/MM3 (0-0.4) Prothrombin Time 19.6 SEC (9.8-11.6) 21.1 SEC (9.8-11.6) Blood Urea Nitrogen 22 MG/DL (7-18) 20 MG/DL (7-18) Creatinine 1.36 MG/DL (0.60-1.30) Random Glucose 177 MG/DL (74-106) Chloride Level 109 MEQ/L (98-107) 109 MEQ/L (98-107) Estimat Glomerular Filtration Rate 50 ML/MIN (>89) 58 ML/MIN (>89) Troponin I LESS THAN 0.02 NG/ML LESS THAN 0.02 NG/ML LESS THAN 0.02 NG/ML PE at Discharge AAOx3 S1S2 RRR, bradycardic Clear lungs BL No cristy aor jvd observed Pt Condition on Discharge: Stable Discharge Disposition: Discharge Home Discharge Instructions DIET: Follow Instructions for: Heart Healthy Diet Activities you can perform: Regular-No Restrictions Activities to Avoid: Strenuous Activity Himanshu Rowley MD Oct 06, 2017 17:36
--- NOTE | 2017-10-06 17:40 | HHI.DS ---
Discharge Summary Admission Date Oct 05, 2017 at 21:59 Discharge Date: Oct 06, 2017 Admitting Diagnosis afib RVR (1) Atrial fibrillation with RVR ICD Code: I48.91 - Unspecified atrial fibrillation Diagnosis: Principal Status: Resolved (2) Paroxysmal a-fib ICD Code: I48.0 - Paroxysmal atrial fibrillation Diagnosis: Principal Status: Chronic (3) Chest pain ICD Code: R07.9 - Chest pain Diagnosis: Principal Status: Resolved (4) CAD (coronary artery disease) ICD Code: I25.10 - CAD (coronary artery disease) Diagnosis: Principal Status: Chronic (5) Hypertension ICD Code: I10 - Hypertension Diagnosis: Principal Status: Chronic (6) Hyperlipidemia ICD Code: E78.5 - Hyperlipidemia Diagnosis: Principal Status: Chronic (7) GERD (gastroesophageal reflux disease) ICD Code: K21.9 - GERD (gastroesophageal reflux disease) Diagnosis: Secondary Status: Chronic (8) AILYN (acute kidney injury) ICD Code: N17.9 - Acute kidney failure, unspecified Diagnosis: Principal Status: Resolved (9) CKD (chronic kidney disease), stage III ICD Code: N18.3 - Chronic kidney disease, stage 3 (moderate) Diagnosis: Secondary Status: Chronic (10) Hyperglycemia ICD Code: R73.9 - Hyperglycemia, unspecified Diagnosis: Principal Status: Acute (11) Prediabetes ICD Code: R73.03 - Prediabetes Diagnosis: Principal Status: Acute Procedures none Brief History - From Admission 87-year-old male with past medical history significant for atrial fibrillation anticoagulated on Coumadin, hypertension and hyperlipidemia presents to the emergency department for evaluation of heart palpitations. The patient states around 5 PM, following dinner, he noted that his heart was beating rapidly and he felt as if it were about to "beat out of his chest." The patient endorses associating shortness of breath and chest pressure. Symptoms have since resolved. He was found to be in atrial fibrillation with rapid ventricular response on arrival to the emergency department was given his home dose of metoprolol and converted to normal sinus rhythm. The patient denies any abdominal pain. No nausea/vomiting/diarrhea. No weakness. No lateralizing signs/symptoms. No fevers/chills. CBC/BMP: 10/05/17193410/06/17 1255 Significant Findings Laboratory Tests Test 10/05/17 19:35 10/06/17 02:00 10/06/17 08:08 10/06/17 12:55 Red Blood Count 4.16 MIL/MM3 (4.50-5.90) Eosinophils (%) (Auto) 6.6 % (0.0-4.0) Eosinophils # (Auto) 0.5 TH/MM3 (0-0.4) Prothrombin Time 19.6 SEC (9.8-11.6) 21.1 SEC (9.8-11.6) Blood Urea Nitrogen 22 MG/DL (7-18) 20 MG/DL (7-18) Creatinine 1.36 MG/DL (0.60-1.30) Random Glucose 177 MG/DL (74-106) Chloride Level 109 MEQ/L (98-107) 109 MEQ/L (98-107) Estimat Glomerular Filtration Rate 50 ML/MIN (>89) 58 ML/MIN (>89) Troponin I LESS THAN 0.02 NG/ML LESS THAN 0.02 NG/ML LESS THAN 0.02 NG/ML Imaging Last Impressions Chest X-Ray 10/05/171926 Signed Impressions: Service Date/Time: September 19:31 - CONCLUSION: No significant change. Bibasilar airspace disease remains left greater than right. Please a portion of this could represent scarring. Christoph Choi MD PE at Discharge AAOx3 S1S2 RRR, bradycardic Clear lungs BL No cristy aor jvd observed Pt update on day of discharge Denies cp/sob. Pt Condition on Discharge: Stable Discharge Disposition: Discharge Home Discharge Time: <= 30 minutes Discharge Instructions DIET: Follow Instructions for: Heart Healthy Diet Activities you can perform: Regular-No Restrictions Activities to Avoid: Strenuous Activity Follow up Referrals: PCP Follow-up - 2 Weeks Continued Medications: Alprazolam (Alprazolam) 1 Mg Tab 1 MG PO BID for Anxiety, TAB 0 Refills Amlodipine (Amlodipine) 10 Mg Tab 10 MG PO DAILY for Blood Pressure Management, #30 TAB 0 Refills Aspirin (Aspirin) 81 Mg Chew 81 MG CHEW DAILY, TAB 0 Refills Atenolol (Atenolol) 50 Mg Tab 50 MG PO DAILY for Blood Pressure Management, #30 TAB 0 Refills Atorvastatin (Atorvastatin) 40 Mg Tab 40 MG PO HS for Cholesterol Management, #30 TAB 0 Refills Carboxymethylcellulose Sodium Opth Gel (Theratears Unit-Dose Opth Gel) 1% Gel 1 DROP EACH EYE HS PRN for DRY EYE, #1 BOX 0 Refills Dorzolamide Opth Drops (Dorzolamide Opth Drops) 2% Soln 1 DROP EACH EYE TID for Glaucoma, #1 BOTTLE 0 Refills Fluorometholone Opth Drops (Flarex Opth Drops) 0.1% Susp 1 DROP EACH EYE DAILY PRN for DRY EYE, BOTTLE 0 Refills Ketotifen Opth Drops (ZyrTEC Itchy Eye Opth Drops) 0.025% Drops 1 DROP EACH EYE BID PRN for ALLERGIES, BOTTLE 0 Refills Metoprolol Succinate/HCTZ 50-12.5 ER (Metoprolol Succinate/HCTZ 50-12.5 ER) 50 Mg-12.5 Mg Tab 1 TAB PO DAILY, #30 TAB 0 Refills Metoprolol Tartrate (Metoprolol Tartrate) 25 Mg Tab 25 MG PO DAILY, #30 TAB 0 Refills Omeprazole (Omeprazole) 20 Mg Tab 20 MG PO DAILY, #30 TAB 0 Refills Warfarin (Warfarin) 2.5 Mg Tab 2.5 MG PO DAILY for Blood Clot Prevention, #30 TAB 0 Refills Warfarin (Warfarin) 5 Mg Tab 5 MG PO DAILY for Blood Clot Prevention, #30 TAB 0 Refills Himanshu Rowley MD Oct 06, 2017 17:40
--- NOTE | 2017-10-06 18:16 | MB ---
cc: Edwige Gil MD DATE: 10/06/2017 REASON FOR CONSULTATION: Atrial fibrillation. HISTORY OF PRESENT ILLNESS: The patient is an 87-year-old man who does have a history of atrial fibrillation, hypertension and hyperlipidemia. He presented to the emergency room after having sustained elevation in his heart rate. The patient describes that he is very compliant with his daily dosing of medication. He has also a p.r.n. dose of metoprolol to assist with episodes of RVR. He reports that he did have an elevated heart rate in the 120s. He rechecked it later and it was slightly higher. He subsequently took his metoprolol and despite his attempts, the heart rate increased into the 150s, precipitating his emergency room visit. The patient denied to me any chest pain. It is noted that this is a little inconsistent with some of the other documentation. He is currently pain free and has no symptoms. He is requesting discharge home. OUTPATIENT MEDICATIONS: Include metoprolol ER/HCTZ 50/12.5 daily, metoprolol tartrate 25 mg q. 12 hours p.r.n., Coumadin as directed, omeprazole, dorzolamide drops, atorvastatin 40 mg at bedtime, amlodipine 10 mg a day, ____ 1 mg b.i.d. ALLERGIES: NO KNOWN DRUG ALLERGIES. PAST SURGICAL HISTORY: Includes partial colectomy. SOCIAL HISTORY: The patient does not drink and is a former smoker. FAMILY HISTORY: Positive for OH and CVA. PAST MEDICAL HISTORY: Atrial fibrillation, bradycardia, coronary artery disease with mild to moderate disease by catheterization in 2004. His last stress test was nonischemic in 2014. He also has a history of GERD, hypertension, and hyperlipidemia. REVIEW OF SYSTEMS: Except as mentioned in the HPI, all 12 systems are negative. PHYSICAL EXAMINATION: VITAL SIGNS: 98.2, 60, 20, 146/68. GENERAL: He is a well-appearing man who is in no apparent distress. NECK: Free from JVD. LUNGS: Bilaterally clear to auscultation. CARDIOVASCULAR: He has a normal S1 and S2. No murmurs, rubs or gallops are appreciated. ABDOMEN: Soft. EXTREMITIES: Free from edema. LABORATORY DATA: Significant for an initial creatinine of 1.36 and subsequent of 1.19. He has serial troponins of less than 0.02/less than 0.02/less than 0.02. His INR is 2.1. EKG: Currently shows sinus bradycardia without any acute changes. Earlier ECG does show atrial fibrillation, RVR in the 130s. IMPRESSION: 1. Paroxysmal atrial fibrillation: The patient's last hospitalization for atrial fibrillation was 2 years ago. He is fairly well controlled on his metoprolol as an outpatient. We did discuss keeping the caffeine down and avoiding being dehydrated, as this can exacerbate the atrial fibrillation. He is agreeable. At this point, I do not see any reason why he cannot be discharged home. He will continue on his present meds. 2. History of coronary disease: The patient denied any chest pain to me. He does have known moderate disease. He has ruled out with serial enzymes. I will observe him closely at this point as an outpatient. He does know to go to the emergency room for any chest pain greater than 15 minutes. DISPOSITION: It is reasonable to discharge him home. MD YOLIE Ty/LOCO , 05:47 PM , 06:16 PM
--- NOTE | 2017-10-06 20:00 | EKG ---
Date Performed: 10/06/2017 Time Performed: 07:35:39 PTAGE: 87 years EKG: SINUS BRADYCARDIA POSSIBLE RIGHT VENTRICULAR CONDUCTION DELAY NONSPECIFIC T-WAVE ABNORMALIT Y BORDERLINE ECG INTERPRETATION BASED ON A DEFAULT AGE OF 40 YEARS \1 PREVIOUS TRACING : 10/06/2017 01.18 DOCTOR: Wilbert Dougherty Interpretating Date/Time 10/06/2017 19:59:14
[2017-10-06] MEDS ORDERED: ATORVASTATIN 40 MG TAB PO SCH (21:00)
--- NOTE | 2017-10-07 11:01 | EKG ---
Date Performed: 10/06/2017 Time Performed: 01:18:55 PTAGE: 87 years EKG: SINUS BRADYCARDIA POSSIBLE RIGHT VENTRICULAR CONDUCTION DELAY BORDERLINE ECG Compared to PREVIOUS TRACING , patient is no longer in atrial fibrillation. PREVIOUS TRACIN 018 19.07 DOCTOR: Wilbert Dougherty Interpretating Date/Time 10/07/2017 10:59:28
--- NOTE | 2017-10-07 11:01 | EKG ---
Date Performed: 10/05/2017 Time Performed: 19:07:50 PTAGE: 87 years EKG: ATRIAL FIBRILLATION WITH RAPID VENTRICULAR RESPONSE POSSIBLE RIGHT VENTRICULAR CONDUCTION D ELAY NONSPECIFIC ST & T-WAVE ABNORMALITY ABNORMAL RHYTHM ECG Cannot exclude ischemia ST-T changes are more prominent from prior tracing. PREVIOUS TRACING : 07/29/15 17.35 DOCTOR: Wilbert Dougherty Interpretating Date/Time 10/07/2017 10:58:51
== END 2017-10-06 18:31 | disposition home or self-care (01) ==
LOC: NEPC 18:52 → NEDA 21:59 → NEPGCP 10-06 01:26
PROVIDERS: ADMIT Hospitalist; ATTEND Hospitalist
DX: I48.0 Paroxysmal atrial fibrillation (principal); R07.9 Chest pain, unspecified; R06.02 Shortness of breath; I25.118 Atherosclerotic heart disease of native coronary artery with other forms of angina pectoris; I12.9 Hypertensive chronic kidney disease with stage 1 through stage 4 chronic kidney disease, or unspecified chronic kidney disease; N18.3 Chronic kidney disease, stage 3 (moderate); R79.89 Other specified abnormal findings of blood chemistry; E78.5 Hyperlipidemia, unspecified; R00.1 Bradycardia, unspecified; R79.1 Abnormal coagulation profile; K21.9 Gastro-esophageal reflux disease without esophagitis; N17.9 Acute kidney failure, unspecified; R73.03 Prediabetes; H91.90 Unspecified hearing loss, unspecified ear; M19.90 Unspecified osteoarthritis, unspecified site; F41.9 Anxiety disorder, unspecified; Z79.899 Other long term (current) drug therapy; Z79.01 Long term (current) use of anticoagulants
CPT/HCPCS: 71045; 80048; 80053; 82550; 82552; 83036; 84484; 85025; 85610; 93005; 96361; 96374; 99285; G0378; J7050

== ENCOUNTER 2017-10-07 08:59 | Observation (INO) | payer OTHER, MEDICARE ==
[~2017-10-07] VITALS: Ht 170.2 cm; Wt 79.0 kg
[2017-10-07] VITALS (11 sets, daily range): BP systolic 115–190; BP diastolic 56–94; PULSE 58–131; RESP 16–20; TEMP 97.7–98.2; O2SAT 96–99
[~2017-10-07 08:59] MED LIST changes: +ASPI-516 CHEW; +METO-488 PO; +METO25TA3 PO
[2017-10-07] MEDS ORDERED: SODIUM CHLORIDE 0.9% FLUSH 10 ML FLUSH IVF PRN (09:45)
[2017-10-07] MEDS ORDERED: SODIUM CHLORID 0.9% 500 ML INJ 500 ML IV ONE (09:45)
[2017-10-07] MEDS ORDERED: ASPIRIN 81 MG CHEW TAB PO ONE (09:45)
[2017-10-07] MEDS ORDERED: METOPROLOL TARTRATE 25 MG TAB PO ONE (09:45)
[2017-10-07] MEDS ORDERED: SODIUM CHLOR 0.9% 1000 ML INJ 1,000 ML IV ONE (09:45)
[2017-10-07] MEDS ORDERED: METOPROLOL TARTRATE 5 MG/5 ML VIAL IV PUSH ONE ×2 (09:45→11:15)
--- NOTE | 2017-10-07 09:50 | PD ---
HPI Chief Complaint: Cardiac Complaint Time Seen by Provider: 09:10 Travel History International Travel<30 days: No Contact w/Intl Traveler<30days: No Traveled to known affect area: No History of Present Illness HPI The patient is a 87-year-old male who presents to the emergency department for palpitations and elevated heart rate. The patient was just recently admitted to the hospital for atrial fibrillation with RVR and was discharged home yesterday. The patient states he got home yesterday, took his medications and then went to bed. The patient states he slept well throughout the night, however, waking this morning with palpitations. The patient states he checked his heart rate and it was elevated in the 130s and 140s. He did take a medicine prescribed for elevated heart rate, metoprolol, as directed. However, the palpitations continued. The patient states his symptoms have improved since arrival. The patient does take Coumadin as well as metoprolol for the atrial fibrillation. The patient is followed by his food stand manager, Dr. Gil, as well as the [facility] clinic. He denies any acute chest pain, shortness of breath, nausea, vomiting, lightheadedness, dizziness, or focal deficits. Symptoms are moderate. PFSH Past Medical History Hx Anticoagulant Therapy: Yes Arthritis: Yes Asthma: No Autoimmune Disease: No Anxiety: Yes Depression: No Heart Rhythm Problems: Yes (AFIB 12/2011) Cancer: No Cardiac Catheterization: Yes Cardiovascular Problems: Yes (A-fib) High Cholesterol: No Chemotherapy: No Chest Pain: Yes Congestive Heart Failure: No COPD: No Cerebrovascular Accident: No Diabetes: No Diminished Hearing: Yes Endocrine: No Gastrointestinal Disorders: Yes GERD: Yes Genitourinary: No Headaches: No Hiatal Hernia: No Heparin Induced Thrombocytopen: No Hypertension: Yes Implanted Vascular Access Dvce: No Kidney Stones: No Musculoskeletal: Yes Neurologic: No Psychiatric: No Reproductive: No Respiratory: No Migraines: No Radiation Therapy: No Renal Failure: No Seizures: No Sleep Apnea: No Thyroid Disease: No Ulcer: No ?: Not Past Surgical History Abdominal Surgery: Yes AICD: No Arteriovenous Shunt: No Cardiac Surgery: No Ear Surgery: No Endocrine Surgery: No Eye Surgery: No Genitourinary Surgery: No Gynecologic Surgery: No Hysterectomy: No Insulin Pump: No Joint Replacement: No Neurologic Surgery: No Oral Surgery: No Pacemaker: No Thoracic Surgery: No Other Surgery: Yes (COLON JUL 05, 2010) Family History Family Myocardial Infarction: No Social History Alcohol Use: No Tobacco Use: No Substance Use: No Allergies-Medications (Allergen,Severity, Reaction): Coded Allergies: No Known Allergies (Verified Adverse Reaction, Unknown, 10/07/17) Reported Meds & Prescriptions Reported Meds & Active Scripts Active Reported Aspirin 81 Mg Chew 81 Mg CHEW DAILY Metoprolol Succinate/HCTZ 50-12.5 ER 50 Mg-12.5 Mg Tab 1 Tab PO DAILY Metoprolol Tartrate 25 Mg Tab 25 Mg PO DAILY Warfarin 5 Mg Tab 5 Mg PO MON/MON/MON Warfarin 2.5 Mg Tab 2.5 Mg PO //MON/MON Omeprazole 20 Mg Tab 20 Mg PO DAILY ZyrTEC Itchy Eye Opth Drops (Ketotifen Opth Drops) 0.025% Drops 1 Drop EACH EYE BID PRN Flarex Opth Drops (Fluorometholone Acetate) 0.1% Susp 1 Drop EACH EYE DAILY PRN Dorzolamide Opth Drops (Dorzolamide HCl) 2% Soln 1 Drop EACH EYE TID Theratears Unit-Dose Opth Gel (Carboxymethylcellulose Sodium Opth Gel) 1% Gel 1 Drop EACH EYE HS PRN Atorvastatin (Atorvastatin Calcium) 40 Mg Tab 40 Mg PO HS Atenolol 50 Mg Tab 50 Mg PO DAILY Amlodipine (Amlodipine Besylate) 10 Mg Tab 10 Mg PO DAILY Alprazolam 1 Mg Tab 1 Mg PO BID Review of Systems Except as stated in HPI: all other systems reviewed are Neg General / Constitutional: No: Fever HENT: No: Lightheadedness Cardiovascular: Positive: Palpitations, Irregular Rhythm, Tachycardia, No: Chest Pain or Discomfort, Diaphoresis, Dyspnea on exertion Respiratory: No: Shortness of Breath Gastrointestinal: No: Nausea, Vomiting, Abdominal Pain Musculoskeletal: No: Weakness Neurologic: No: Dizziness, Focal Abnormalities Physical Exam Narrative GENERAL: Awake, alert, pleasant 87-year-old male who appears his stated age and is in no acute respiratory distress. SKIN: Focused skin assessment warm/dry. HEAD: Atraumatic. Normocephalic. EYES: Pupils equal and round. No injection or drainage. ENT: Moist mucous membranes. NECK: Trachea midline. No JVD. CARDIOVASCULAR: Irregularly irregular with a heart rate in the 120s. RESPIRATORY: No accessory muscle use. Clear to auscultation. Breath sounds equal bilaterally. GASTROINTESTINAL: Abdomen soft, non-tender, nondistended. No rebound tenderness. MUSCULOSKELETAL: No obvious deformities. No clubbing. No cyanosis. No edema. NEUROLOGICAL: Awake and alert. No obvious cranial nerve deficits. Motor grossly within normal limits. Normal speech. Nonfocal. PSYCHIATRIC: Appropriate mood and affect; insight and judgment normal. Data Data Last Documented VS Vital Signs Date Time Temp Pulse Resp B/P (MAP) Pulse Ox O2 Delivery O2 Flow Rate FiO2 10/07/17 10:41 112 16 146/78 (100) 99 Room Air 10/07/17 09:10 98.2 Orders Orders Sodium Chlor 0.9% 1000 Ml Inj (Ns 1000 M (10/07/17 09:45) Electrocardiogram (10/07/17 09:43) Ckmb (Isoenzyme) Profile (10/07/17 09:43) Complete Blood Count With Diff (10/07/17 09:43) Comprehensive Metabolic Panel (10/07/17 09:43) Magnesium (Mg) (10/07/17 09:43) Prothrombin Time / Inr (Pt) (10/07/17 09:43) Act Partial Throm Time (Ptt) (10/07/17 09:43) Troponin I (10/07/17 09:43) Ecg Monitoring (10/07/17 09:43) Bilateral Bp Monitoring (10/07/17 09:43) Iv Access Insert/Monitor (10/07/17 09:43) Oximetry (10/07/17 09:43) Oxygen Administration (10/07/17 09:43) Aspirin Chew (Aspirin Chew) (10/07/17 09:45) Sodium Chloride 0.9% Flush (Ns Flush) (10/07/17 09:45) Sodium Chlorid 0.9% 500 Ml Inj (Ns 500 M (10/07/17 09:45) Metoprolol Tartrate Inj (Lopressor Inj) (10/07/17 09:45) Metoprolol Tartrate (Lopressor) (10/07/17 09:45) CKMB (10/07/17 09:50) CKMB% (10/07/17 09:50) Metoprolol Tartrate Inj (Lopressor Inj) (10/07/17 11:15) Consult Cardiology (10/07/17 ) Admit Order (Ed Use Only) (10/07/17 12:22) Labs Laboratory Tests Test 10/07/17 09:50 White Blood Count 7.3 TH/MM3 Red Blood Count 4.33 MIL/MM3 Hemoglobin 14.1 GM/DL Hematocrit 41.9 % Mean Corpuscular Volume 96.8 FL Mean Corpuscular Hemoglobin 32.6 PG Mean Corpuscular Hemoglobin Concent 33.7 % Red Cell Distribution Width 14.8 % Platelet Count 204 TH/MM3 Mean Platelet Volume 8.4 FL Neutrophils (%) (Auto) 63.8 % Lymphocytes (%) (Auto) 22.0 % Monocytes (%) (Auto) 7.3 % Eosinophils (%) (Auto) 6.1 % Basophils (%) (Auto) 0.8 % Neutrophils # (Auto) 4.7 TH/MM3 Lymphocytes # (Auto) 1.6 TH/MM3 Monocytes # (Auto) 0.5 TH/MM3 Eosinophils # (Auto) 0.4 TH/MM3 Basophils # (Auto) 0.1 TH/MM3 CBC Comment DIFF FINAL Differential Comment Prothrombin Time 22.1 SEC Prothromb Time International Ratio 2.2 RATIO Activated Partial Thromboplast Time 30.1 SEC Blood Urea Nitrogen 17 MG/DL Creatinine 1.33 MG/DL Random Glucose 105 MG/DL Total Protein 7.4 GM/DL Albumin 3.3 GM/DL Calcium Level 8.9 MG/DL Magnesium Level 1.7 MG/DL Alkaline Phosphatase 96 U/L Aspartate Amino Transf (AST/SGOT) 27 U/L Alanine Aminotransferase (ALT/SGPT) 31 U/L Total Bilirubin 0.8 MG/DL Sodium Level 140 MEQ/L Potassium Level 3.7 MEQ/L Chloride Level 107 MEQ/L Carbon Dioxide Level 26.9 MEQ/L Anion Gap 6 MEQ/L Estimat Glomerular Filtration Rate 51 ML/MIN Total Creatine Kinase 150 U/L Creatine Kinase MB 2.3 NG/ML Troponin I LESS THAN 0.02 NG/ML MDM Medical Decision Making Medical Screen Exam Complete: Yes Emergency Medical Condition: Yes Medical Record Reviewed: Yes Interpretation(s) EKG reveals atrial fibrillation with RVR. Heart rate 101 initially. RSR prime in V1. Nonspecific ST and T-wave changes. Inverted T waves noted in lead V4, V5, V6. Laboratory Tests Test 10/07/17 09:50 White Blood Count 7.3 TH/MM3 Red Blood Count 4.33 MIL/MM3 Hemoglobin 14.1 GM/DL Hematocrit 41.9 % Mean Corpuscular Volume 96.8 FL Mean Corpuscular Hemoglobin 32.6 PG Mean Corpuscular Hemoglobin Concent 33.7 % Red Cell Distribution Width 14.8 % Platelet Count 204 TH/MM3 Mean Platelet Volume 8.4 FL Neutrophils (%) (Auto) 63.8 % Lymphocytes (%) (Auto) 22.0 % Monocytes (%) (Auto) 7.3 % Eosinophils (%) (Auto) 6.1 % Basophils (%) (Auto) 0.8 % Neutrophils # (Auto) 4.7 TH/MM3 Lymphocytes # (Auto) 1.6 TH/MM3 Monocytes # (Auto) 0.5 TH/MM3 Eosinophils # (Auto) 0.4 TH/MM3 Basophils # (Auto) 0.1 TH/MM3 CBC Comment DIFF FINAL Differential Comment Prothrombin Time 22.1 SEC Prothromb Time International Ratio 2.2 RATIO Activated Partial Thromboplast Time 30.1 SEC Blood Urea Nitrogen 17 MG/DL Creatinine 1.33 MG/DL Random Glucose 105 MG/DL Total Protein 7.4 GM/DL Albumin 3.3 GM/DL Calcium Level 8.9 MG/DL Magnesium Level 1.7 MG/DL Alkaline Phosphatase 96 U/L Aspartate Amino Transf (AST/SGOT) 27 U/L Alanine Aminotransferase (ALT/SGPT) 31 U/L Total Bilirubin 0.8 MG/DL Sodium Level 140 MEQ/L Potassium Level 3.7 MEQ/L Chloride Level 107 MEQ/L Carbon Dioxide Level 26.9 MEQ/L Anion Gap 6 MEQ/L Estimat Glomerular Filtration Rate 51 ML/MIN Total Creatine Kinase 150 U/L Creatine Kinase MB 2.3 NG/ML Troponin I LESS THAN 0.02 NG/ML Differential Diagnosis Differential diagnosis includes atrial fibrillation with RVR, ACS, pulmonary embolism, hyperthyroidism, sepsis, electrolyte abnormality, dehydration. Narrative Course IV was established, labs are drawn and sent, and the patient was placed on cardiac telemetry monitoring and continuous pulse oximetry monitoring. EKG was ordered and interpreted. The patient was administered Lopressor 1.25 mg intravenously and metoprolol 25 mg orally. INR is therapeutic at 2.2. Labs otherwise are unremarkable. Troponin is less than 0.02. The patient's heart rate was controlled with Lopressor and metoprolol. The patient did need a second dose of metoprolol intravenously. The patient's heart rate came down into the 70s and 80s. However, the patient's heart rate then went back up over 100. The patient was seen in the emergency department by his food stand manager, Dr. Gil, who recommends 23 hour observation to medicine. Dr. Gil plans on changing the patient's medications from metoprolol to sotalol as he continues to have symptoms. [facility] Physician Communication Physician Communication I discussed the patient with Dr. Andres who agrees with 23 hour observation. Diagnosis Primary Impression: Atrial fibrillation with RVR Admitting Information Admitting Physician Requests: Observation Med/Other Pt SpecificInfo: No Change to Meds Condition: Stable Charly Cardozo MD Oct 07, 2017 09:50
[2017-10-07 10:31] LABS: AUTOMATED NEUTROPHIL # 4.7 TH/MM3 (1.8-7.7); BASOPHIL # 0.1 TH/MM3 (0-0.2); BASOPHIL % 0.8 % (0.0-2.0); EOSINOPHIL # 0.4 TH/MM3 (0-0.4); EOSINOPHIL % 6.1 % (0.0-4.0); HEMATOCRIT 41.9 % (39.0-51.0); HEMOGLOBIN 14.1 GM/DL (13.0-17.0); LYMPHOCYTE # 1.6 TH/MM3 (1.0-4.8); MEAN CELL VOLUME 96.8 FL (80.0-100.0); MEAN CORPUSCULAR HEMOGLOBIN 32.6 PG (27.0-34.0); MEAN CORPUSCULAR HGB CONC 33.7 % (32.0-36.0); MEAN PLATELET VOLUME 8.4 FL (7.0-11.0); MONO % 7.3 % (0.0-8.0); MONOCYTE # 0.5 TH/MM3 (0-0.9); NEUT % 63.8 % (16.0-70.0); PLATELET COUNT 204 TH/MM3 (150-450); RED BLOOD COUNT 4.33 MIL/MM3 (4.50-5.90); RED CELL DISTRIBUTION WIDTH 14.8 % (11.6-17.2); WHITE BLOOD COUNT 7.3 TH/MM3 (4.0-11.0)
[2017-10-07 10:39] LABS: INTERNATIONAL NORMALIZED RATIO 2.2 RATIO; PROTHROMBIN TIME - PATIENT 22.1 SEC (9.8-11.6)
[2017-10-07 10:43] LABS: ALBUMIN 3.3 GM/DL (3.4-5.0); AST (GOT) 27 U/L (15-37); BICARBONATE 26.9 MEQ/L (21.0-32.0); BLOOD UREA NITROGEN 17 MG/DL (7-18); CALCIUM 8.9 MG/DL (8.5-10.1); CHLORIDE 107 MEQ/L (98-107); CREATININE 1.33 MG/DL (0.60-1.30); GLOMERULAR FILTRATION RATE 51 ML/MIN (>89); GLUCOSE,RANDOM 105 MG/DL (74-106); MAGNESIUM 1.7 MG/DL (1.5-2.5); SODIUM (NA) 140 MEQ/L (136-145)
[2017-10-07 10:44] LABS: ALT (GPT) 31 U/L (12-78)
[2017-10-07 10:48] LABS: ALKALINE PHOSPHATASE 96 U/L (45-117); TOTAL BILIRUBIN ADULT 0.8 MG/DL (0.2-1.0); TOTAL PROTEIN 7.4 GM/DL (6.4-8.2); TROPONIN I LESS THAN 0.02 NG/ML (0.02-0.05)
[2017-10-07] MEDS ORDERED: SOTALOL HCL 80 MG TAB PO ONE (12:30)
--- NOTE | 2017-10-07 12:44 | MB ---
cc: Edwige Gil MD DATE: 10/07/2017 REASON FOR CONSULTATION: Paroxysmal atrial fibrillation. HISTORY OF PRESENT ILLNESS: The patient is an 87-year-old man who does have a history of atrial fibrillation, hypertension, and CAD, who presented to the emergency room yesterday and had paroxysmal atrial fibrillation to the 150s. This was his first hospitalization in 2 years. He did spontaneously convert back into sinus bradycardia and was discharged home. This morning, the patient again had episodes of atrial fibrillation with escalation of his heart rate, despite taking his standard medications. This precipitated his emergency room visit. ALLERGIES: NO KNOWN DRUG ALLERGIES. OUTPATIENT MEDICATIONS: 1. Coumadin. 2. Atorvastatin 40 mg at bedtime. 3. Metoprolol ER 50 mg a day. 4. Metoprolol HCT 12.5. 5. Metoprolol tartrate p.r.n. 6. Amlodipine 10 mg a day. 7. Alprazolam 1 mg b.i.d. 8. Aspirin. PAST MEDICAL HISTORY: Significant for atrial fibrillation, bradycardia, CAD with mild to moderate disease by catheterization in 2004. His last stress test was in 2014 and was nonischemic. He also has a history of hypertension, hyperlipidemia, and GERD. REVIEW OF SYSTEMS: Except as mentioned in the HPI, all 12 systems are negative. PHYSICAL EXAMINATION: VITAL SIGNS: Heart rate is currently 112, respirations 16, blood pressure 146/78. GENERAL: He is a well-appearing man, who is in no apparent distress. NECK: Free from JVD. LUNGS: Bilaterally clear to auscultation. CARDIOVASCULAR: He has a normal S1 and S2. The rhythm is irregularly irregular. ABDOMEN: Soft. EXTREMITIES: Free from edema. DIAGNOSTIC STUDIES: Lab values significant for a creatinine of 1.33. His troponin is less than 0.02. EKG shows atrial fibrillation with rapid ventricular rate. IMPRESSION AND RECOMMENDATIONS: Paroxysmal atrial fibrillation -- The patient does have a longstanding history of the same. He has had multiple recent episodes now of the atrial fibrillation despite taking proper medications. This may have been slightly exacerbated by some relative dehydration; however, I do feel at this point we do need to alter his therapy. I am going to add sotalol and reduce his metoprolol dosing. We will continue him on the Coumadin. He does need to be observed for this, so we can evaluate for potential evaluate for potential QT prolongation. MD YOLIE Ty/SHARI , 12:23 PM , 12:43 PM
[2017-10-07] MEDS ORDERED: NALOXONE HCL 0.4 MG/ML AMP IV PUSH PRN (13:45)
[2017-10-07] MEDS ORDERED: SODIUM CHLORIDE 0.9% FLUSH 10 ML FLUSH IV FLUSH PRN (13:45)
--- NOTE | 2017-10-07 14:09 | HHI.HP ---
[facility] Admission Diagnosis Alexandro simpson with RVR Diagnoses: Chief Complaint: Palpitations Travel History International Travel<30 Days: No Contact w/Intl Traveler <30 Da: No Traveled to Known Affected Are: No History of Present Illness This is an 87-year-old male with past medical history of CAD, atrial fibrillation on chronic articulation with Coumadin, hypertension, hyperlipidemia who is very well-known to me and was recently discharged on 10/06 after an episode of atrial fibrillation with RVR. During that hospital stay the patient was kept in the observation unit, given an extra dose of beta juan antonio and restarted on his home medications. Cardiology was consulted and Dr. Gil. The patient to be discharged home back on his medications. The patient states that he went home and he was feeling really good, went to sleep and really slept well but when he woke up he was feeling palpitations and chest pressure. When he took his blood pressure he saw that his heart rate was elevated and decided to called EMS services. The patient states right now palpitations are gone, denies chest pain, shortness of breath, denies fevers, chills, denies nausea, vomiting or diarrhea. The patient has been seen in the emergency department and was given a dose of metoprolol IV which controlled his heart rate. Dr. Gil was called on consultation by the emergency department physician and she determined to keep the patient observation to change his medications. Review of Systems As per HPI, other systems reviewed by me and negative. Past Family Social History Past Medical History Atrial fibrillation anticoagulated on Coumadin Hypertension Hyperlipidemia Past Surgical History Partial colectomy Reported Medications Reported Meds & Active Scripts Active Reported Aspirin 81 Mg Chew 81 Mg CHEW DAILY Metoprolol Succinate/HCTZ 50-12.5 ER 50 Mg-12.5 Mg Tab 1 Tab PO DAILY Metoprolol Tartrate 25 Mg Tab 25 Mg PO DAILY Warfarin 5 Mg Tab 5 Mg PO MON/MON/MON Warfarin 2.5 Mg Tab 2.5 Mg PO //SAT/SUN Omeprazole 20 Mg Tab 20 Mg PO DAILY ZyrTEC Itchy Eye Opth Drops (Ketotifen Opth Drops) 0.025% Drops 1 Drop EACH EYE BID PRN Flarex Opth Drops (Fluorometholone Acetate) 0.1% Susp 1 Drop EACH EYE DAILY PRN Dorzolamide Opth Drops (Dorzolamide HCl) 2% Soln 1 Drop EACH EYE TID Theratears Unit-Dose Opth Gel (Carboxymethylcellulose Sodium Opth Gel) 1% Gel 1 Drop EACH EYE HS PRN Atorvastatin (Atorvastatin Calcium) 40 Mg Tab 40 Mg PO HS Atenolol 50 Mg Tab 50 Mg PO DAILY Amlodipine (Amlodipine Besylate) 10 Mg Tab 10 Mg PO DAILY Alprazolam 1 Mg Tab 1 Mg PO BID Allergies: Coded Allergies: No Known Allergies (Verified Allergy, Unknown, 10/07/17) Active Ordered Medications Current Medications Medications (Trade) Dose Ordered Sig/Bernardino Route Start Time Stop Time Status Last Admin (NS Flush) 2 ml UNSCH PRN IVF 10/07/17 09:45 (Betapace) 80 mg Q12HR PO 10/07/17 21:00 (NS Flush) 2 ml UNSCH PRN IV FLUSH 10/07/17 13:45 UNV (NS Flush) 2 ml BID IV FLUSH 10/07/17 21:00 UNV (Narcan Inj) 0.4 mg UNSCH PRN IV PUSH 10/07/17 13:45 UNV (Parvin-Colace) 1 tab BID PO 10/07/17 21:00 UNV Family History Negative for CAD/DM Social History Denies alcohol, tobacco and illicit drugs. Physical Exam Vital Signs Vital Signs Date Time Temp Pulse Resp B/P (MAP) Pulse Ox O2 Delivery O2 Flow Rate FiO2 10/07/17 12:48 98 Room Air 10/07/17 12:48 98 Room Air 10/07/17 12:47 96 16 125/62 (83) 98 Room Air 10/07/17 10:41 112 16 146/78 (100) 99 Room Air 10/07/17 10:10 123 19 190/67 (108) 97 Room Air 10/07/17 09:15 131 20 137/94 (108) 96 Room Air 10/07/17 09:15 116 20 97 Room Air 10/07/17 09:10 98.2 104 20 137/94 (108) 96 Physical Exam GENERAL: This is a well-nourished, well-developed patient, in no apparent distress. SKIN: No rashes, ecchymoses or lesions. Cool and dry. HEAD: Atraumatic. Normocephalic. No temporal or scalp tenderness. EYES: Pupils equal round and reactive. Extraocular motions intact. No scleral icterus. No injection or drainage. ENT: Nose without bleeding, purulent drainage or septal hematoma. Throat without erythema, tonsillar hypertrophy or exudate. Uvula midline. Airway patent. NECK: Trachea midline. No JVD or lymphadenopathy. Supple, nontender, no meningeal signs. CARDIOVASCULAR: Irregularly irregular rhythm without murmurs rubs gallops. RESPIRATORY: Clear to auscultation. Breath sounds equal bilaterally. No wheezes , rales, or rhonchi. GASTROINTESTINAL: Abdomen soft, non-tender, nondistended. No hepato-splenomegaly , or palpable masses. No guarding. MUSCULOSKELETAL: Extremities without clubbing, cyanosis, or edema. No joint tenderness, effusion, or edema noted. No calf tenderness. Negative Homans sign bilaterally. NEUROLOGICAL: Awake and alert. Cranial nerves II through XII intact. Motor and sensory grossly within normal limits. Five out of 5 muscle strength in all muscle groups. Normal speech. Laboratory Laboratory Tests Test 10/07/17 09:50 White Blood Count 7.3 Red Blood Count 4.33 Hemoglobin 14.1 Hematocrit 41.9 Mean Corpuscular Volume 96.8 Mean Corpuscular Hemoglobin 32.6 Mean Corpuscular Hemoglobin Concent 33.7 Red Cell Distribution Width 14.8 Platelet Count 204 Mean Platelet Volume 8.4 Neutrophils (%) (Auto) 63.8 Lymphocytes (%) (Auto) 22.0 Monocytes (%) (Auto) 7.3 Eosinophils (%) (Auto) 6.1 Basophils (%) (Auto) 0.8 Neutrophils # (Auto) 4.7 Lymphocytes # (Auto) 1.6 Monocytes # (Auto) 0.5 Eosinophils # (Auto) 0.4 Basophils # (Auto) 0.1 CBC Comment DIFF FINAL Differential Comment Prothrombin Time 22.1 Prothromb Time International Ratio 2.2 Activated Partial Thromboplast Time 30.1 Blood Urea Nitrogen 17 Creatinine 1.33 Random Glucose 105 Total Protein 7.4 Albumin 3.3 Calcium Level 8.9 Magnesium Level 1.7 Alkaline Phosphatase 96 Aspartate Amino Transf (AST/SGOT) 27 Alanine Aminotransferase (ALT/SGPT) 31 Total Bilirubin 0.8 Sodium Level 140 Potassium Level 3.7 Chloride Level 107 Carbon Dioxide Level 26.9 Anion Gap 6 Estimat Glomerular Filtration Rate 51 Total Creatine Kinase 150 Creatine Kinase MB 2.3 Troponin I LESS THAN 0.02 Result Diagram: 10/07/1750 10/07/17 0950 Caprini VTE Risk Assessment Caprini VTE Risk Assessment: Mod/High Risk (score >= 2) Caprini Risk Assessment Model Point Value = 1 Point Value = 2 Point Value = 3 Point Value = 5 Age 41-60 Minor surgery BMI > 25 kg/m2 Swollen legs Varicose veins or History of unexplained or recurrent spontaneous Oral contraceptives or hormone replacement Sepsis (< 1 month) Serious lung disease, including pneumonia (< 1 month) Abnormal pulmonary function Acute myocardial infarction Congestive heart failure (< 1 month) History of inflammatory bowel disease Medical patient at bed rest Age 61-74 Arthroscopic surgery Major open surgery (> 45 min) Laparoscopic surgery (> 45 min) Malignancy Confined to bed (> 72 hours) Immobilizing plaster cast Central venous access Age >= 75 History of VTE Family history of VTE Factor V Leiden Prothrombin [id number] Lupus anticoagulant Anticardiolipin antibodies Elevated serum homocysteine Heparin-induced thrombocytopenia Other congenital or acquired thrombophilia Stroke (< 1 month) Elective arthroplasty Hip, pelvis, or leg fracture Acute spinal cord injury (< 1 month) Prophylaxis Regimen Total Risk Factor Score Risk Level Prophylaxis Regimen 0-1 Low Early ambulation 2 Moderate Order ONE of the following: *Sequential Compression Device (SCD) *Heparin 5000 units SQ BID 3-4 Higher Order ONE of the following medications: *Heparin 5000 units SQ TID *Enoxaparin/Lovenox 40 mg SQ daily (WT < 150 kg, CrCl > 30 mL/min) *Enoxaparin/Lovenox 30 mg SQ daily (WT < 150 kg, CrCl > 10-29 mL/min) *Enoxaparin/Lovenox 30 mg SQ BID (WT < 150 kg, CrCl > 30 mL/min) AND/OR *Sequential Compression Device (SCD) 5 or more Highest Order ONE of the following medications: *Heparin 5000 units SQ TID (Preferred with Epidurals) *Enoxaparin/Lovenox 40 mg SQ daily (WT < 150 kg, CrCl > 30 mL/min) *Enoxaparin/Lovenox 30 mg SQ daily (WT < 150 kg, CrCl > 10-29 mL/min) *Enoxaparin/Lovenox 30 mg SQ BID (WT < 150 kg, CrCl > 30 mL/min) AND *Sequential Compression Device (SCD) Assessment and Plan Problem List: (1) Atrial fibrillation with RVR ICD Code: I48.91 - Unspecified atrial fibrillation Status: Resolved (2) CAD (coronary artery disease) ICD Code: I25.10 - CAD (coronary artery disease) Status: Chronic (3) Hypertension ICD Code: I10 - Hypertension Status: Chronic (4) Hyperlipidemia ICD Code: E78.5 - Hyperlipidemia Status: Chronic (5) Prediabetes ICD Code: R73.03 - Prediabetes Status: Acute (6) Chest pressure ICD Code: R07.89 - Other chest pain Assessment and Plan 41-year-old male with history of CAD, hypertension, hyperlipidemia, atrial fibrillation on chronic articulation with Coumadin who had been recently observed for an episode of atrial fibrillation with rapid ventricular response and discharge on 10/06 after his current medications were continued and cardiology was consulted, presents back for recurrent A. fib with RVR. EKG reviewed by me showed atrial fibrillation with RVR with a ventricular rate of 10 1 bpm and a QTC of 406. Place the patient outpatient observation Cardiology consulted by emergency department physician recommended adding sotalol and discontinuation of metoprolol and atenolol. Continue warfarin for chronic articulation, monitor PT/INR. Monitor on telemetry Follow-up cardiac enzymes since patient complained of chest pressure episode of A. fib with RVR. Patient has CKD stage III baseline creatinine between 1.1 and 1.3. Recent hemoglobin A1c is 5.9, the patient is prediabetic. Patient to discuss with his primary care physician regarding metformin use. BP seems to be stable, continue amlodipine 10 mg p.o. daily. Patient is chest pain-free, continue aspirin, statin, sotalol. DVT prophylaxis: Coumadin and therapeutic INR. Code Status Full code Discussed Condition With Patient, ED physician. Himanshu Rowley MD Oct 07, 2017 14:09
[2017-10-07] MEDS ORDERED: NON-FORMULARY DRUG (Ketotifen Opth Drops (ZyrTEC Itchy Eye Opth Drops) 1 DROP) EACH EYE PRN (14:15)
[2017-10-07] MEDS ORDERED: FLUOROMETHOLONE 0.1% OPHT SUSP 5 ML BTL EACH EYE PRN (14:15)
[2017-10-07] MEDS ORDERED: ARTIFICIAL TEARS OPTH SOLN 15 ML BTL EACH EYE PRN (15:15)
[2017-10-07] MEDS ORDERED: WARFARIN SOD 2.5 MG TAB PO SCH (16:00)
--- NOTE | 2017-10-07 16:42 | EKG ---
Date Performed: 10/07/2017 Time Performed: 09:09:31 PTAGE: 87 years EKG: ATRIAL FIBRILLATION WITH RAPID VENTRICULAR RESPONSE NONSPECIFIC ST & T-WAVE CHANGES ABNORMA L RHYTHM ECG Compared to PREVIOUS TRACING , the patient is in atrial fibrillation. PREVIOUS TRACIN10/06/2017 07 .35 DOCTOR: Edwige Gil Interpretating Date/Time 10/07/2017 16:42:05
[2017-10-07 17:07] LABS: TROPONIN I LESS THAN 0.02 NG/ML (0.02-0.05)
[2017-10-07] MEDS: DORZOLAMIDE 2% OPTH SOLN 200 DROP/10 ML BTLO EACH EYE SCH (18:00)
[2017-10-07] MEDS: SODIUM CHLORIDE 0.9% FLUSH 10 ML FLUSH IV FLUSH SCH (20:58)
[2017-10-07] MEDS: WARFARIN SOD 2.5 MG TAB PO SCH (20:58)
[2017-10-07] MEDS: SOTALOL HCL 80 MG TAB PO SCH (21:00)
[2017-10-07] MEDS: ATORVASTATIN 40 MG TAB PO SCH (21:01)
[2017-10-07] MEDS: DOCUSATE SODIUM 50 MG/SENNA 8.6 MG TAB PO SCH (21:01)
[2017-10-07] MEDS: ALPRAZolam 1 MG TAB PO PRN (22:38)
[2017-10-07 22:46] LABS: TROPONIN I LESS THAN 0.02 NG/ML (0.02-0.05)
[2017-10-08 03:22] VITALS: BP 128/62; PULSE 62; RESP 17; TEMP 98.4; O2SAT 98
[2017-10-08 03:54] LABS: BICARBONATE 24.6 MEQ/L (21.0-32.0); BLOOD UREA NITROGEN 17 MG/DL (7-18); CALCIUM 8.2 MG/DL (8.5-10.1); CHLORIDE 113 MEQ/L (98-107); CREATININE 1.12 MG/DL (0.60-1.30); GLOMERULAR FILTRATION RATE 62 ML/MIN (>89); GLUCOSE,RANDOM 94 MG/DL (74-106); SODIUM (NA) 144 MEQ/L (136-145)
[2017-10-08 03:58] LABS: TROPONIN I LESS THAN 0.02 NG/ML (0.02-0.05)
--- NOTE | 2017-10-08 08:22 | HHI.PR ---
Subjective Remarks in no acute distress. resting comfortably with no chest pain or sob. no new complaints. Objective Vitals Vital Signs Date Time Temp Pulse Resp B/P (MAP) Pulse Ox O2 Delivery O2 Flow Rate FiO2 10/08/17 03:22 98.4 62 17 128/62 (84) 98 10/07/17 23:45 98.1 62 18 132/58 (82) 97 10/07/17 20:55 76 10/07/17 19:18 97.7 58 18 133/63 (86) 97 10/07/17 16:34 98.1 59 16 127/56 (79) 99 10/07/17 14:10 55 18 115/59 (77) 98 10/07/17 12:48 98 Room Air 10/07/17 12:48 98 Room Air 10/07/17 12:47 96 16 125/62 (83) 98 Room Air 10/07/17 10:41 112 16 146/78 (100) 99 Room Air 10/07/17 10:10 123 19 190/67 (108) 97 Room Air 10/07/17 09:15 131 20 137/94 (108) 96 Room Air 10/07/17 09:15 116 20 97 Room Air 10/07/17 09:10 98.2 104 20 137/94 (108) 96 I/O 10/07/17 10/07/17 10/07/17 10/08/17 10/08/17 10/08/17 07:00 15:00 23:00 07:00 15:00 23:00 Intake Total 1500 ml 200 ml Output Total 275 ml Balance 1500 ml -275 ml 200 ml Intake Oral 200 ml IV Total 1500 ml Output Urine Total 275 ml Result Diagram: 10/07/17 0950 10/08/17 0255 Objective Remarks GENERAL: This is a well-nourished, well-developed patient, in no apparent distress. CARDIOVASCULAR: Regular rate and regular rhythm without murmurs, gallops, or rubs. RESPIRATORY: Clear to auscultation. Breath sounds equal bilaterally. No wheezes , rales, or rhonchi. GASTROINTESTINAL: Abdomen soft, non-tender, nondistended. Normal, active bowel sounds MUSCULOSKELETAL: Extremities without clubbing, cyanosis, or edema. NEURO: Alert & Oriented x4 to person, place, time, situation. Moves all ext x4 Medications and IVs Inpatient Medications Alprazolam (Xanax) 1 mg BID PRN PO anxiety Last administered on 10/07/17at 22:38 ; Start 10/07/17 at 22:30 Amlodipine Besylate (Norvasc) 10 mg DAILY PO ; Start 10/08/17 at 09:00 Artificial Tears (Tears Naturale Opth Soln) 1 drop HS PRN EACH EYE DRY EYES; Start 10/07/17 at 15:15 Aspirin (Aspirin Chew) 81 mg DAILY CHEW ; Start 10/08/17 at 09:00 Atorvastatin Calcium (Lipitor) 40 mg HS PO Last administered on 10/07/17at 21:01 ; Start 10/07/17 at 21:00 Dorzolamide HCl (Trusopt 2% Opth Soln) 1 drop TID EACH EYE ; Start 10/07/17 at 18:00 Fluorometholone (Fml Liquifilm Opth Susp) 1 drop DAILY PRN EACH EYE DRY EYE; Start 10/07/17 at 14:15 Metoprolol Tartrate (Lopressor Inj) 5 mg ONCE ONCE IV PUSH Last administered on 10/07/17at 11:20; Start 10/07/17 at 11:15; Stop 10/07/17 at 11:18; Status DC Metoprolol Tartrate (Lopressor) 25 mg ONCE ONCE PO Last administered on at 10:04; Start 10/07/17 at 09:45; Stop 10/07/17 at 09:46; Status DC Naloxone HCl (Narcan Inj) 0.4 mg UNSCH PRN IV PUSH SEE LABEL COMMENTS; Start at 13:45 Non-Formulary Medication 1 drop BID PRN EACH EYE ALLERGIES; Start 10/07/17 at 14:15; Stop 10/07/17 at 15:13; Status DC Pantoprazole Sodium (Protonix) 20 mg DAILY PO ; Start 10/08/17 at 09:00 Senna/Docusate Sodium (Parvin-Colace) 1 tab BID PO Last administered on at 21:01; Start 10/07/17 at 21:00 Sodium Chloride (NS Flush) 2 ml BID IV FLUSH Last administered on 10/07/17at 20: 58; Start 10/07/17 at 21:00 Sotalol HCl (Betapace) 80 mg Q12HR PO Last administered on 10/07/17at 21:00; Start 10/07/17 at 21:00 Warfarin Sodium (Coumadin) 5 mg MoWeFr@2000 PO ; Start 10/09/17 at 20:00 A/P Problem List: (1) Atrial fibrillation with RVR ICD Code: I48.91 - Unspecified atrial fibrillation Status: Resolved (2) CAD (coronary artery disease) ICD Code: I25.10 - CAD (coronary artery disease) Status: Chronic (3) Hypertension ICD Code: I10 - Hypertension Status: Chronic (4) Hyperlipidemia ICD Code: E78.5 - Hyperlipidemia Status: Chronic (5) Prediabetes ICD Code: R73.03 - Prediabetes Status: Acute (6) Chest pressure ICD Code: R07.89 - Other chest pain Assessment and Plan 41-year-old male with history of CAD, hypertension, hyperlipidemia, atrial fibrillation on chronic articulation with Coumadin who had been recently observed for an episode of atrial fibrillation with rapid ventricular response and discharge on 10/06 after his current medications were continued and cardiology was consulted, presents back for recurrent A. fib with RVR. Plan; - cardiology consult appreciated and started on Sotalol. -continue Coumadin with INR monitoring. Discharge Planning when cleared by cardiology. Jesus Cevallos MD Oct 08, 2017 08:22
[2017-10-08 08:56] VITALS: BP 128/64; PULSE 56; RESP 16; TEMP 98.6; O2SAT 98
--- NOTE | 2017-10-08 09:03 | PD.CARD.PN ---
Subjective Subjective Remarks Pt without CV complaints Objective Medications Current Medications Medications (Trade) Dose Ordered Sig/Bernardino Route Start Time Stop Time Status Last Admin (Betapace) 80 mg Q12HR PO 10/07/17 21:00 10/07/17 21:00 (NS Flush) 2 ml UNSCH PRN IV FLUSH 10/07/17 13:45 (NS Flush) 2 ml BID IV FLUSH 10/07/17 21:00 10/07/17 20:58 (Narcan Inj) 0.4 mg UNSCH PRN IV PUSH 10/07/17 13:45 (Parvin-Colace) 1 tab BID PO 10/07/17 21:00 10/07/17 21:01 (Norvasc) 10 mg DAILY PO 10/08/17 09:00 (Aspirin Chew) 81 mg DAILY CHEW 10/08/17 09:00 (Lipitor) 40 mg HS PO 10/07/17 21:00 10/07/17 21:01 (Trusopt 2% Opth Soln) 1 drop TID EACH EYE 10/07/17 18:00 (Fml Liquifilm Opth Susp) 1 drop DAILY PRN EACH EYE 10/07/17 14:15 (Tears Naturale Opth Soln) 1 drop HS PRN EACH EYE 10/07/17 15:15 (Protonix) 20 mg DAILY PO 10/08/17 09:00 (Coumadin) 2.5 mg SuTuThSa@1999 PO 10/07/17 20:00 10/07/17 20:58 (Coumadin) 5 mg MoWeFr@1999 PO 10/09/17 20:00 (Xanax) 1 mg BID PRN PO 10/07/17 22:30 10/07/17 22:38 Pharmacy Profile Note 0 ml @ 0 mls/hr UNSCH OTHER 10/08/17 09:00 Vital Signs / I&O Vital Signs Date Time Temp Pulse Resp B/P (MAP) Pulse Ox O2 Delivery O2 Flow Rate FiO2 10/08/17 08:56 98.6 56 16 128/64 (85) 98 10/08/17 03:22 98.4 62 17 128/62 (84) 98 10/07/17 23:45 98.1 62 18 132/58 (82) 97 10/07/17 20:55 76 10/07/17 19:18 97.7 58 18 133/63 (86) 97 10/07/17 16:34 98.1 59 16 127/56 (79) 99 10/07/17 14:10 55 18 115/59 (77) 98 10/07/17 12:48 98 Room Air 10/07/17 12:48 98 Room Air 10/07/17 12:47 96 16 125/62 (83) 98 Room Air 10/07/17 10:41 112 16 146/78 (100) 99 Room Air 10/07/17 10:10 123 19 190/67 (108) 97 Room Air 10/07/17 09:15 131 20 137/94 (108) 96 Room Air 10/07/17 09:15 116 20 97 Room Air 10/07/17 09:10 98.2 104 20 137/94 (108) 96 I/O 10/07/17 10/07/17 10/07/17 10/08/17 10/08/17 10/08/17 07:00 15:00 23:00 07:00 15:00 23:00 Intake Total 1500 ml 200 ml Output Total 275 ml 350 ml Balance 1500 ml -275 ml 200 ml -350 ml Intake Oral 200 ml IV Total 1500 ml Output Urine Total 275 ml 350 ml # Voids 1 Physical Exam GENERAL: Well developed, well nourished. No acute distress. HEENT: Jugular venous pressure is normal. CHEST: Lungs clear to auscultation bilaterally. Unlabored respiratory effort. CARDIAC: Regular rate and rhythm without S3, S4, or murmur. ABDOMEN: Soft, nontender, no hepatosplenomegaly. Bowel sounds present. EXTREMITIES: No clubbing, cyanosis, or edema. Laboratory Laboratory Tests Test 10/07/17 09:50 10/07/17 16:00 10/07/17 21:00 10/08/17 02:55 White Blood Count 7.3 TH/MM3 Red Blood Count 4.33 MIL/MM3 Hemoglobin 14.1 GM/DL Hematocrit 41.9 % Mean Corpuscular Volume 96.8 FL Mean Corpuscular Hemoglobin 32.6 PG Mean Corpuscular Hemoglobin Concent 33.7 % Red Cell Distribution Width 14.8 % Platelet Count 204 TH/MM3 Mean Platelet Volume 8.4 FL Neutrophils (%) (Auto) 63.8 % Lymphocytes (%) (Auto) 22.0 % Monocytes (%) (Auto) 7.3 % Eosinophils (%) (Auto) 6.1 % Basophils (%) (Auto) 0.8 % Neutrophils # (Auto) 4.7 TH/MM3 Lymphocytes # (Auto) 1.6 TH/MM3 Monocytes # (Auto) 0.5 TH/MM3 Eosinophils # (Auto) 0.4 TH/MM3 Basophils # (Auto) 0.1 TH/MM3 CBC Comment DIFF FINAL Differential Comment Prothrombin Time 22.1 SEC Prothromb Time International Ratio 2.2 RATIO Activated Partial Thromboplast Time 30.1 SEC Blood Urea Nitrogen 17 MG/DL 17 MG/DL Creatinine 1.33 MG/DL 1.12 MG/DL Random Glucose 105 MG/DL 94 MG/DL Total Protein 7.4 GM/DL Albumin 3.3 GM/DL Calcium Level 8.9 MG/DL 8.2 MG/DL Magnesium Level 1.7 MG/DL Alkaline Phosphatase 96 U/L Aspartate Amino Transf (AST/SGOT) 27 U/L Alanine Aminotransferase (ALT/SGPT) 31 U/L Total Bilirubin 0.8 MG/DL Sodium Level 140 MEQ/L 144 MEQ/L Potassium Level 3.7 MEQ/L 3.8 MEQ/L Chloride Level 107 MEQ/L 113 MEQ/L Carbon Dioxide Level 26.9 MEQ/L 24.6 MEQ/L Anion Gap 6 MEQ/L 6 MEQ/L Estimat Glomerular Filtration Rate 51 ML/MIN 62 ML/MIN Total Creatine Kinase 150 U/L 169 U/L 142 U/L 136 U/L Creatine Kinase MB 2.3 NG/ML Troponin I LESS THAN 0.02 NG/ML LESS THAN 0.02 NG/ML LESS THAN 0.02 NG/ML LESS THAN 0.02 NG/ML Assessment and Plan Problem List: (1) Paroxysmal a-fib ICD Codes: I48.0 - Paroxysmal atrial fibrillation Status: Chronic Plan: back in sinus -changing over to sotalol, he did not get am dose yesterday as requested -Check ECG for QT prolongation -stop metoprolol -continue coumadin (2) CAD (coronary artery disease) ICD Codes: I25.10 - CAD (coronary artery disease) Status: Chronic Plan: stable and asymptomatic (3) Hypertension ICD Codes: I10 - Hypertension Status: Chronic (4) CKD (chronic kidney disease), stage III ICD Codes: N18.3 - Chronic kidney disease, stage 3 (moderate) Status: Chronic Plan: keep off diuretic as he has a tendency to get dehydrated (5) Hyperlipidemia ICD Codes: E78.5 - Hyperlipidemia Status: Chronic Edwige Gil MD Oct 08, 2017 09:03
[2017-10-08] MEDS: DOCUSATE SODIUM 50 MG/SENNA 8.6 MG TAB PO SCH ×2 (09:39→21:00)
[2017-10-08] MEDS: PANTOPRAZOLE SOD 20 MG DELAYED RELEASE TAB PO SCH (09:39)
[2017-10-08] MEDS: SOTALOL HCL 80 MG TAB PO SCH ×2 (09:39→22:38)
[2017-10-08] MEDS: ASPIRIN 81 MG CHEW TAB CHEW SCH (09:39)
[2017-10-08] MEDS: DORZOLAMIDE 2% OPTH SOLN 200 DROP/10 ML BTLO EACH EYE SCH ×3 (09:40→17:38)
[2017-10-08] MEDS: SODIUM CHLORIDE 0.9% FLUSH 10 ML FLUSH IV FLUSH SCH ×2 (09:40→21:00)
[2017-10-08 12:27] VITALS: BP 141/65; PULSE 51; RESP 16; TEMP 97.8; O2SAT 98
[2017-10-08 15:26] VITALS: BP 138/66; PULSE 51; RESP 16; TEMP 97.8; O2SAT 98
--- NOTE | 2017-10-08 15:36 | EKG ---
Date Performed: 10/07/2017 Time Performed: 20:11:19 PTAGE: 87 years EKG: SINUS BRADYCARDIA WITH SINUS ARRHYTHMIA POSSIBLE RIGHT VENTRICULAR CONDUCTION DELAY NONSPEC IFIC T-WAVE ABNORMALITY BORDERLINE ECG Compared to PREVIOUS TRACING , the patient is back in Sinus rhythm . PREVIOUS TRACIN10/07/2017 09.09 DOCTOR: Edwige Gil Interpretating Date/Time 10/08/2017 15:35:10
--- NOTE | 2017-10-08 15:36 | EKG ---
Date Performed: 10/08/2017 Time Performed: 03:28:56 PTAGE: 87 years EKG: SINUS BRADYCARDIA POSSIBLE RIGHT VENTRICULAR CONDUCTION DELAY NONSPECIFIC T-WAVE ABNORMALIT Y BORDERLINE ECG Since PREVIOUS TRACING , no significant change noted PREVIOUS TRACIN10/07/2017 20.11 DOCTOR: Edwige Gil Interpretating Date/Time 10/08/2017 15:35:23
--- NOTE | 2017-10-08 15:37 | EKG ---
Date Performed: 10/08/2017 Time Performed: 11:12:11 PTAGE: 87 years EKG: SINUS BRADYCARDIA WITH MARKED SINUS ARRHYTHMIA POSSIBLE RIGHT VENTRICULAR CONDUCTION DELAY NONSPECIFIC T-WAVE ABNORMALITY BORDERLINE ECG Since PREVIOUS TRACING , no significant change noted PREVIOUS TRACIN10/08/2017 03.28 DOCTOR: Edwige Gil Interpretating Date/Time 10/08/2017 15:35:32
[2017-10-08] MEDS: WARFARIN SOD 2.5 MG TAB PO SCH (20:35)
[2017-10-08 21:27] VITALS: BP 144/70; PULSE 53; RESP 18; TEMP 98.3; O2SAT 97
[2017-10-08] MEDS: ATORVASTATIN 40 MG TAB PO SCH (22:38)
[2017-10-08] MEDS: LACTOBACILLUS ACIDOPHILUS TAB PO SCH (22:38)
[2017-10-08] MEDS: ALPRAZolam 1 MG TAB PO PRN (22:38)
[2017-10-09] VITALS (7 sets, daily range): BP systolic 117–151; BP diastolic 58–68; PULSE 49–52; RESP 16–18; TEMP 97.6–98.1; O2SAT 95–97
[2017-10-09] MEDS ORDERED: SOTA80 PO (07:44)
[2017-10-09 08:06] LABS: INTERNATIONAL NORMALIZED RATIO 2.4 RATIO
[2017-10-09] MEDS: DOCUSATE SODIUM 50 MG/SENNA 8.6 MG TAB PO SCH ×3 (09:00→20:35)
--- NOTE | 2017-10-09 09:28 | PD.CARD.PN ---
Subjective Subjective Remarks Pt without CV complaints Objective Medications Current Medications Medications (Trade) Dose Ordered Sig/Bernardino Route Start Time Stop Time Status Last Admin (Betapace) 80 mg Q12HR PO 10/07/17 21:00 10/08/17 22:38 (NS Flush) 2 ml UNSCH PRN IV FLUSH 10/07/17 13:45 (NS Flush) 2 ml BID IV FLUSH 10/07/17 21:00 10/08/17 09:40 (Narcan Inj) 0.4 mg UNSCH PRN IV PUSH 10/07/17 13:45 (Parvin-Colace) 1 tab BID PO 10/07/17 21:00 10/08/17 09:39 (Norvasc) 10 mg DAILY PO 10/08/17 09:00 10/08/17 09:39 (Aspirin Chew) 81 mg DAILY CHEW 10/08/17 09:00 10/08/17 09:39 (Lipitor) 40 mg HS PO 10/07/17 21:00 10/08/17 22:38 (Trusopt 2% Opth Soln) 1 drop TID EACH EYE 10/07/17 18:00 10/08/17 17:38 (Fml Liquifilm Opth Susp) 1 drop DAILY PRN EACH EYE 10/07/17 14:15 (Tears Naturale Opth Soln) 1 drop HS PRN EACH EYE 10/07/17 15:15 (Protonix) 20 mg DAILY PO 10/08/17 09:00 10/08/17 09:39 (Coumadin) 2.5 mg SuTuThSa@1999 PO 10/07/17 20:00 10/08/17 20:35 (Coumadin) 5 mg MoWeFr@2000 PO 10/09/17 20:00 (Xanax) 1 mg BID PRN PO 10/07/17 22:30 10/08/17 22:38 Pharmacy Profile Note 0 ml @ 0 mls/hr UNSCH OTHER 10/08/17 09:00 (Lactinex) 1 tab Q12HR PO 10/08/17 21:00 10/08/17 22:38 Vital Signs / I&O Vital Signs Date Time Temp Pulse Resp B/P (MAP) Pulse Ox O2 Delivery O2 Flow Rate FiO2 10/09/17 07:43 98.1 52 16 126/61 (82) 95 10/09/17 03:31 97.7 49 18 117/58 (77) 96 10/08/17 21:27 98.3 53 18 144/70 (94) 97 10/08/17 15:26 97.8 51 16 138/66 (90) 98 10/08/17 12:27 97.8 51 16 141/65 (90) 98 I/O 10/08/17 10/08/17 10/08/17 10/09/17 10/09/17 10/09/17 07:00 15:00 23:00 07:00 15:00 23:00 Intake Total 200 ml 500 ml Output Total 350 ml Balance 200 ml -350 ml 500 ml Intake Oral 200 ml 500 ml Output Urine Total 350 ml # Voids 1 Physical Exam GENERAL: Well developed, well nourished. No acute distress. HEENT: Jugular venous pressure is normal. CHEST: Lungs clear to auscultation bilaterally. Unlabored respiratory effort. CARDIAC: Regular rate and rhythm without S3, S4, or murmur. ABDOMEN: Soft, nontender, no hepatosplenomegaly. Bowel sounds present. EXTREMITIES: No clubbing, cyanosis, or edema. Laboratory Laboratory Tests Test 10/08/17 18:20 10/09/17 06:42 Prothrombin Time 24.0 SEC Prothromb Time International Ratio 2.4 RATIO Assessment and Plan Problem List: (1) Paroxysmal a-fib ICD Codes: I48.0 - Paroxysmal atrial fibrillation Status: Chronic Plan: back in sinus -changed over to sotalol s/p 3 doses (metoprolol stopped) -Check ECG for QT prolongation: stable -continue coumadin -mi for d/c follow up this week (2) CAD (coronary artery disease) ICD Codes: I25.10 - CAD (coronary artery disease) Status: Chronic (3) Hypertension ICD Codes: I10 - Hypertension Status: Chronic (4) CKD (chronic kidney disease), stage III ICD Codes: N18.3 - Chronic kidney disease, stage 3 (moderate) Status: Chronic (5) Hyperlipidemia ICD Codes: E78.5 - Hyperlipidemia Status: Chronic Edwige Gil MD Oct 09, 2017 09:28
[2017-10-09] MEDS: DORZOLAMIDE 2% OPTH SOLN 200 DROP/10 ML BTLO EACH EYE SCH ×3 (09:37→17:35)
[2017-10-09] MEDS: LACTOBACILLUS ACIDOPHILUS TAB PO SCH ×2 (09:38→20:56)
[2017-10-09] MEDS: PANTOPRAZOLE SOD 20 MG DELAYED RELEASE TAB PO SCH (09:38)
[2017-10-09] MEDS: SOTALOL HCL 80 MG TAB PO SCH ×3 (09:38→22:23)
--- NOTE | 2017-10-09 09:38 | HHI.DCPOC ---
Discharge Care Plan Diagnosis: (1) GERD (gastroesophageal reflux disease) (2) Hyperlipidemia (3) Hypertension (4) CAD (coronary artery disease) (5) Atrial fibrillation with RVR Your Health Problems Are: Chest Pain Additional Problems Palpitations Goals to Promote Your Health * To prevent worsening of your condition and complications * To maintain your health at the optimal level Directions to Meet Your Goals Take your medications as prescribed Follow your dietary instruction Follow activity as directed Keep your appointments as scheduled Take your immunizations and boosters as scheduled If your symptoms worsen call your PCP, if no PCP go to Urgent Care Center or Emergency Room Smoking is Dangerous to Your Health. Avoid second hand smoke Call the 24-hour hour crisis hotline for domestic abuse at Gilles Oliver Oct 09, 2017 09:38
[2017-10-09] MEDS: ASPIRIN 81 MG CHEW TAB CHEW SCH (09:41)
[2017-10-09] MEDS: SODIUM CHLORIDE 0.9% FLUSH 10 ML FLUSH IV FLUSH SCH ×2 (09:42→20:56)
--- NOTE | 2017-10-09 10:30 | HHI.PR ---
Subjective Remarks in no acute distress. denies chest pain or sob. no new complaints. Objective Vitals Vital Signs Date Time Temp Pulse Resp B/P (MAP) Pulse Ox O2 Delivery O2 Flow Rate FiO2 10/09/17 07:43 98.1 52 16 126/61 (82) 95 10/09/17 03:31 97.7 49 18 117/58 (77) 96 10/08/17 21:27 98.3 53 18 144/70 (94) 97 10/08/17 15:26 97.8 51 16 138/66 (90) 98 10/08/17 12:27 97.8 51 16 141/65 (90) 98 I/O 10/08/17 10/08/17 10/08/17 10/09/17 10/09/17 10/09/17 07:00 15:00 23:00 07:00 15:00 23:00 Intake Total 200 ml 500 ml Output Total 350 ml Balance 200 ml -350 ml 500 ml Intake Oral 200 ml 500 ml Output Urine Total 350 ml # Voids 1 Result Diagram: 10/07/17 0950 10/08/17 0255 Objective Remarks GENERAL: This is a well-nourished, well-developed patient, in no apparent distress. CARDIOVASCULAR: Regular rate and regular rhythm without murmurs, gallops, or rubs. RESPIRATORY: Clear to auscultation. Breath sounds equal bilaterally. No wheezes , rales, or rhonchi. GASTROINTESTINAL: Abdomen soft, non-tender, nondistended. Normal, active bowel sounds MUSCULOSKELETAL: Extremities without clubbing, cyanosis, or edema. NEURO: Alert & Oriented x4 to person, place, time, situation. Moves all ext x4 Procedures none Medications and IVs Inpatient Medications Alprazolam (Xanax) 1 mg BID PRN PO anxiety Last administered on 10/08/17at 22:38 ; Start 10/07/17 at 22:30 Amlodipine Besylate (Norvasc) 10 mg DAILY PO Last administered on 10/09/17at 09: 38; Start 10/08/17 at 09:00 Artificial Tears (Tears Naturale Opth Soln) 1 drop HS PRN EACH EYE DRY EYES; Start 10/07/17 at 15:15 Aspirin (Aspirin Chew) 81 mg DAILY CHEW Last administered on 10/09/17at 09:41; Start 10/08/17 at 09:00 Atorvastatin Calcium (Lipitor) 40 mg HS PO Last administered on 10/08/17 22:38 ; Start 10/07/17 at 21:00 Dorzolamide HCl (Trusopt 2% Opth Soln) 1 drop TID EACH EYE Last administered on 10/09/17 09:37; Start 10/07/17 at 18:00 Fluorometholone (Fml Liquifilm Opth Susp) 1 drop DAILY PRN EACH EYE DRY EYE; Start 10/07/17 at 14:15 Lactobacillus Acidophilus (Lactinex) 1 tab Q12HR PO Last administered on 09:38; Start 10/08/17 at 21:00 Metoprolol Tartrate (Lopressor Inj) 5 mg ONCE ONCE IV PUSH Last administered on 10/07/17at 11:20; Start 10/07/17 at 11:15; Stop 10/07/17 at 11:18; Status DC Metoprolol Tartrate (Lopressor) 25 mg ONCE ONCE PO Last administered on at 10:04; Start 10/07/17 at 09:45; Stop 10/08/17 at 09:10; Status DC Naloxone HCl (Narcan Inj) 0.4 mg UNSCH PRN IV PUSH SEE LABEL COMMENTS; Start at 13:45 Non-Formulary Medication 1 drop BID PRN EACH EYE ALLERGIES; Start 10/07/17 at 14:15; Stop 10/07/17 at 15:13; Status DC Pantoprazole Sodium (Protonix) 20 mg DAILY PO Last administered on 10/09/17at 09 :38; Start 10/08/17 at 09:00 Pharmacy Profile Note 0 ml @ 0 mls/hr UNSCH OTHER ; Start 10/08/17 at 09:00 Senna/Docusate Sodium (Parvin-Colace) 1 tab BID PO Last administered on 09:39; Start 10/07/17 at 21:00 Sodium Chloride (NS Flush) 2 ml BID IV FLUSH Last administered on 10/09/17 09: 42; Start 10/07/17 at 21:00 Sotalol HCl (Betapace) 80 mg Q12HR PO Last administered on 10/09/17 09:38; Start 10/07/17 at 21:00 Warfarin Sodium (Coumadin) 5 mg MoWeFr@1999 PO ; Start 10/09/17 at 20:00 A/P Problem List: (1) Atrial fibrillation with RVR ICD Code: I48.91 - Unspecified atrial fibrillation Status: Resolved (2) CAD (coronary artery disease) ICD Code: I25.10 - CAD (coronary artery disease) Status: Chronic (3) Hypertension ICD Code: I10 - Hypertension Status: Chronic (4) Hyperlipidemia ICD Code: E78.5 - Hyperlipidemia Status: Chronic (5) Prediabetes ICD Code: R73.03 - Prediabetes Status: Acute (6) Chest pressure ICD Code: R07.89 - Other chest pain Assessment and Plan 41-year-old male with history of CAD, hypertension, hyperlipidemia, atrial fibrillation on chronic articulation with Coumadin who had been recently observed for an episode of atrial fibrillation with rapid ventricular response and discharge on 10/06 after his current medications were continued and cardiology was consulted, presents back for recurrent A. fib with RVR. Plan; - cardiology consult appreciated and started on Sotalol. -continue Coumadin with INR monitoring. -cleared for discharge by cardiology. Discharge Planning dc home today. see med list. f/u; pcp and cardiology. d/w the patient. previously d/w . Jesus Cevallos MD Oct 09, 2017 10:29
--- NOTE | 2017-10-09 10:33 | HHI.DS ---
Discharge Summary Admission Date Oct 07, 2017 at 12:24 Discharge Date: Oct 09, 2017 Admitting Diagnosis Alexandro simpson with RVR (1) Atrial fibrillation with RVR ICD Code: I48.91 - Unspecified atrial fibrillation Diagnosis: Principal Status: Resolved (2) CAD (coronary artery disease) ICD Code: I25.10 - CAD (coronary artery disease) Diagnosis: Secondary Status: Chronic (3) Hypertension ICD Code: I10 - Hypertension Diagnosis: Secondary Status: Chronic (4) Hyperlipidemia ICD Code: E78.5 - Hyperlipidemia Diagnosis: Secondary Status: Chronic (5) Prediabetes ICD Code: R73.03 - Prediabetes Diagnosis: Secondary Status: Acute (6) Chest pressure ICD Code: R07.89 - Other chest pain Diagnosis: Principal Procedures none Brief History - From Admission This is an 87-year-old male with past medical history of CAD, atrial fibrillation on chronic articulation with Coumadin, hypertension, hyperlipidemia who is very well-known to me and was recently discharged on 10/06 after an episode of atrial fibrillation with RVR. During that hospital stay the patient was kept in the observation unit, given an extra dose of beta juan antonio and restarted on his home medications. Cardiology was consulted and Dr. Gil. The patient to be discharged home back on his medications. The patient states that he went home and he was feeling really good, went to sleep and really slept well but when he woke up he was feeling palpitations and chest pressure. When he took his blood pressure he saw that his heart rate was elevated and decided to called EMS services. The patient states right now palpitations are gone, denies chest pain, shortness of breath, denies fevers, chills, denies nausea, vomiting or diarrhea. The patient has been seen in the emergency department and was given a dose of metoprolol IV which controlled his heart rate. Dr. Gil was called on consultation by the emergency department physician and she determined to keep the patient observation to change his medications. CBC/BMP: 10/07/17 0950 10/08/17 0255 Significant Findings Laboratory Tests Test 10/07/17 09:50 10/07/17 16:00 10/07/17 21:00 10/08/17 02:55 Red Blood Count 4.33 MIL/MM3 (4.50-5.90) Eosinophils (%) (Auto) 6.1 % (0.0-4.0) Prothrombin Time 22.1 SEC (9.8-11.6) Creatinine 1.33 MG/DL (0.60-1.30) Albumin 3.3 GM/DL (3.4-5.0) Estimat Glomerular Filtration Rate 51 ML/MIN (>89) 62 ML/MIN (>89) Troponin I LESS THAN 0.02 NG/ML LESS THAN 0.02 NG/ML LESS THAN 0.02 NG/ML LESS THAN 0.02 NG/ML Calcium Level 8.2 MG/DL (8.5-10.1) Chloride Level 113 MEQ/L (98-107) Test 10/08/17 18:20 10/09/17 06:42 Prothrombin Time 24.0 SEC (9.8-11.6) PE at Discharge GENERAL: This is a well-nourished, well-developed patient, in no apparent distress. CARDIOVASCULAR: Regular rate and regular rhythm without murmurs, gallops, or rubs. RESPIRATORY: Clear to auscultation. Breath sounds equal bilaterally. No wheezes , rales, or rhonchi. GASTROINTESTINAL: Abdomen soft, non-tender, nondistended. Normal, active bowel sounds MUSCULOSKELETAL: Extremities without clubbing, cyanosis, or edema. NEURO: Alert & Oriented x4 to person, place, time, situation. Moves all ext x4 Hospital Course 41-year-old male with history of CAD, hypertension, hyperlipidemia, atrial fibrillation on chronic articulation with Coumadin who had been recently observed for an episode of atrial fibrillation with rapid ventricular response and discharge on 10/06 after his current medications were continued and cardiology was consulted, presents back for recurrent A. fib with RVR. Plan; - cardiology consult appreciated and started on Sotalol. -continue Coumadin with INR monitoring. Pt Condition on Discharge: Stable Discharge Disposition: Discharge Home Discharge Time: <= 30 minutes Discharge Instructions DIET: Follow Instructions for: Heart Healthy Diet Activities you can perform: Regular-No Restrictions Jesus Cevallos MD Oct 09, 2017 10:33
--- NOTE | 2017-10-09 10:33 | EKG ---
Date Performed: 10/09/2017 Time Performed: 03:37:15 PTAGE: 87 years EKG: SINUS BRADYCARDIA WITH SINUS ARRHYTHMIA POSSIBLE RIGHT VENTRICULAR CONDUCTION DELAY NONSPEC IFIC T-WAVE ABNORMALITY BORDERLINE ECG Since the PREVIOUS TRACING , no significant change noted PREVIOUS TRACIN10/08/2017 11.12 DOCTOR: Carl Chowdary Interpretating Date/Time 10/09/2017 10:30:57
[2017-10-09] MEDS ORDERED: WARFARIN SOD 5 MG TAB PO SCH ×2 (16:00→20:00)
[2017-10-09] MEDS ORDERED: LOPERAMIDE HCL 2 MG CAP PO PRN (17:00)
--- NOTE | 2017-10-09 17:14 | EKG ---
Date Performed: 10/09/2017 Time Performed: 09:18:03 PTAGE: 87 years EKG: SINUS BRADYCARDIA WITH SINUS ARRHYTHMIA POSSIBLE RIGHT VENTRICULAR CONDUCTION DELAY NONSPEC IFIC T-WAVE ABNORMALITY Since the previous tracing, no significant change noted BORDERLINE ECG PREVIOUS TRACING : 10/09/2017 03.37 DOCTOR: Carl Chowdary Interpretating Date/Time 10/09/2017 17:11:36
[2017-10-09] MEDS ORDERED: NITROGLYCERIN 0.4 MG SL 25 TABS/BTL SL PRN (18:00)
[2017-10-09] MEDS: ATORVASTATIN 40 MG TAB PO SCH (20:56)
[2017-10-09] MEDS: ALPRAZolam 1 MG TAB PO PRN (22:23)
[2017-10-10 00:03] VITALS: PULSE 39
[2017-10-10 01:17] VITALS: BP 117/60; PULSE 48; PULSE 53; RESP 18; TEMP 97.7; O2SAT 97
[2017-10-10 02:56] VITALS: PULSE 47
[2017-10-10 04:10] VITALS: BP 117/55; PULSE 54; RESP 18; TEMP 97.9; O2SAT 96
[2017-10-10 07:11] LABS: INTERNATIONAL NORMALIZED RATIO 2.1 RATIO
[2017-10-10 07:58] VITALS: BP 125/56; PULSE 66; RESP 16; TEMP 97.9; O2SAT 95
--- NOTE | 2017-10-10 08:36 | PD.CARD.PN ---
Subjective Subjective Remarks Pt without CV complaints this am, did have CP yesterday Objective Medications Current Medications Medications (Trade) Dose Ordered Sig/Bernardino Route Start Time Stop Time Status Last Admin (Betapace) 80 mg Q12HR PO 10/07/17 21:00 10/09/17 22:23 (NS Flush) 2 ml UNSCH PRN IV FLUSH 10/07/17 13:45 (NS Flush) 2 ml BID IV FLUSH 10/07/17 21:00 10/09/17 20:56 (Narcan Inj) 0.4 mg UNSCH PRN IV PUSH 10/07/17 13:45 (Parvin-Colace) 1 tab BID PO 10/07/17 21:00 10/08/17 09:39 (Norvasc) 10 mg DAILY PO 10/08/17 09:00 10/09/17 09:38 (Aspirin Chew) 81 mg DAILY CHEW 10/08/17 09:00 10/09/17 09:41 (Lipitor) 40 mg HS PO 10/07/17 21:00 10/09/17 20:56 (Trusopt 2% Opth Soln) 1 drop TID EACH EYE 10/07/17 18:00 10/09/17 17:35 (Fml Liquifilm Opth Susp) 1 drop DAILY PRN EACH EYE 10/07/17 14:15 (Tears Naturale Opth Soln) 1 drop HS PRN EACH EYE 10/07/17 15:15 (Protonix) 20 mg DAILY PO 10/08/17 09:00 10/09/17 09:38 (Coumadin) 2.5 mg SuTuThSa@2000 PO 10/07/17 20:00 10/08/17 20:35 (Coumadin) 5 mg MoWeFr@2000 PO 10/09/17 20:00 10/09/17 20:56 (Xanax) 1 mg BID PRN PO 10/07/17 22:30 10/09/17 22:23 Pharmacy Profile Note 0 ml @ 0 mls/hr UNSCH OTHER 10/08/17 09:00 (Lactinex) 1 tab Q12HR PO 10/08/17 21:00 10/09/17 20:56 (Imodium) 2 mg Q6H PRN PO 10/09/17 17:00 10/09/17 17:34 (Nitrostat Sl) 0.4 mg Q5M PRN SL 10/09/17 18:00 10/09/17 21:56 Vital Signs / I&O Vital Signs Date Time Temp Pulse Resp B/P (MAP) Pulse Ox O2 Delivery O2 Flow Rate FiO2 10/10/17 07:58 97.9 66 16 125/56 (79) 95 10/10/17 04:10 97.9 54 18 117/55 (75) 96 10/10/17 02:56 47 10/10/17 01:17 97.7 53 18 117/60 (79) 97 10/10/17 00:03 39 10/09/17 22:06 50 18 127/60 (82) 95 10/09/17 20:45 97.7 49 16 142/68 (92) 97 10/09/17 20:07 51 10/09/17 15:21 97.8 51 16 143/63 (89) 96 10/09/17 11:30 97.6 52 16 151/67 (95) 96 I/O 10/09/17 10/09/17 10/09/17 10/10/17 10/10/17 10/10/17 07:00 15:00 23:00 07:00 15:00 23:00 Intake Total 500 ml 500 ml Output Total 150 ml 200 ml Balance 500 ml 350 ml -200 ml Intake Oral 500 ml 500 ml Output Urine Total 150 ml 200 ml # Bowel Movements 4 Physical Exam GENERAL: Well developed, well nourished. No acute distress. HEENT: Jugular venous pressure is normal. CHEST: Lungs clear to auscultation bilaterally. Unlabored respiratory effort. CARDIAC: Regular rate and rhythm without S3, S4, or murmur. ABDOMEN: Soft, nontender, no hepatosplenomegaly. Bowel sounds present. EXTREMITIES: No clubbing, cyanosis, or edema. Laboratory Laboratory Tests Test 10/09/17 15:10 10/09/17 18:45 10/09/17 21:00 10/10/17 06:13 Troponin I LESS THAN 0.02 NG/ML LESS THAN 0.02 NG/ML LESS THAN 0.02 NG/ML Prothrombin Time 21.0 SEC Prothromb Time International Ratio 2.1 RATIO Assessment and Plan Problem List: (1) Paroxysmal a-fib ICD Codes: I48.0 - Paroxysmal atrial fibrillation Status: Chronic Plan: back in sinus -changed over to sotalol s/p 3 doses (metoprolol stopped) -Check ECG for QT prolongation: stable (2) CAD (coronary artery disease) ICD Codes: I25.10 - CAD (coronary artery disease) Status: Chronic Plan: CP short relieved with NTG -laci nuc today -ok for d/c if no ischemia -ok for PRN NTG at d/c and add imdur 30 mg a day (3) Hypertension ICD Codes: I10 - Hypertension Status: Chronic (4) CKD (chronic kidney disease), stage III ICD Codes: N18.3 - Chronic kidney disease, stage 3 (moderate) Status: Chronic (5) Hyperlipidemia ICD Codes: E78.5 - Hyperlipidemia Status: Chronic Edwige Gil MD Oct 10, 2017 08:36
[2017-10-10] MEDS ORDERED: ISOSORBIDE MONONITRATE 30 MG CR TAB (IMDUR) PO SCH (08:45)
[2017-10-10] MEDS: DOCUSATE SODIUM 50 MG/SENNA 8.6 MG TAB PO SCH (09:00)
--- NOTE | 2017-10-10 09:32 | HHI.PR ---
Subjective Remarks in no acute distress. had some chest pain yesterday which has resolved. awaiting stress test today. Objective Vitals Vital Signs Date Time Temp Pulse Resp B/P (MAP) Pulse Ox O2 Delivery O2 Flow Rate FiO2 10/10/17 07:58 97.9 66 16 125/56 (79) 95 10/10/17 04:10 97.9 54 18 117/55 (75) 96 10/10/17 02:56 47 10/10/17 01:17 97.7 53 18 117/60 (79) 97 10/10/17 00:03 39 10/09/17 22:06 50 18 127/60 (82) 95 10/09/17 20:45 97.7 49 16 142/68 (92) 97 10/09/17 20:07 51 10/09/17 15:21 97.8 51 16 143/63 (89) 96 10/09/17 11:30 97.6 52 16 151/67 (95) 96 I/O 10/09/17 10/09/17 10/09/17 10/10/17 10/10/17 10/10/17 07:00 15:00 23:00 07:00 15:00 23:00 Intake Total 500 ml 500 ml Output Total 150 ml 200 ml Balance 500 ml 350 ml -200 ml Intake Oral 500 ml 500 ml Output Urine Total 150 ml 200 ml # Bowel Movements 4 Result Diagram: 10/07/17 0950 10/08/17 0255 Objective Remarks GENERAL: This is a well-nourished, well-developed patient, in no apparent distress. CARDIOVASCULAR: Regular rate and regular rhythm without murmurs, gallops, or rubs. RESPIRATORY: Clear to auscultation. Breath sounds equal bilaterally. No wheezes , rales, or rhonchi. GASTROINTESTINAL: Abdomen soft, non-tender, nondistended. Normal, active bowel sounds MUSCULOSKELETAL: Extremities without clubbing, cyanosis, or edema. NEURO: Alert & Oriented x4 to person, place, time, situation. Moves all ext x4 Procedures none Medications and IVs Inpatient Medications Alprazolam (Xanax) 1 mg BID PRN PO anxiety Last administered on 10/09/17at 22:23 ; Start 10/07/17 at 22:30 Amlodipine Besylate (Norvasc) 10 mg DAILY PO Last administered on 10/09/17at 09: 38; Start 10/08/17 at 09:00 Artificial Tears (Tears Naturale Opth Soln) 1 drop HS PRN EACH EYE DRY EYES; Start 10/07/17 at 15:15 Aspirin (Aspirin Chew) 81 mg DAILY CHEW Last administered on 10/09/17at 09:41; Start 10/08/17 at 09:00 Atorvastatin Calcium (Lipitor) 40 mg HS PO Last administered on 10/09/17 20:56 ; Start 10/07/17 at 21:00 Dorzolamide HCl (Trusopt 2% Opth Soln) 1 drop TID EACH EYE Last administered on 10/09/17at 17:35; Start 10/07/17 at 18:00 Fluorometholone (Fml Liquifilm Opth Susp) 1 drop DAILY PRN EACH EYE DRY EYE; Start 10/07/17 at 14:15 Isosorbide Mononitrate (Imdur) 30 mg DAILY@07 PO ; Start 10/10/17 at 08:45 Lactobacillus Acidophilus (Lactinex) 1 tab Q12HR PO Last administered on at 20:56; Start 10/08/17 at 21:00 Loperamide HCl (Imodium) 2 mg Q6H PRN PO DIARRHEA Last administered on at 17:34; Start 10/09/17 at 17:00 Metoprolol Tartrate (Lopressor Inj) 5 mg ONCE ONCE IV PUSH Last administered on 10/07/17at 11:20; Start 10/07/17 at 11:15; Stop 10/07/17 at 11:18; Status DC Metoprolol Tartrate (Lopressor) 25 mg ONCE ONCE PO Last administered on at 10:04; Start 10/07/17 at 09:45; Stop 10/08/17 at 09:10; Status DC Naloxone HCl (Narcan Inj) 0.4 mg UNSCH PRN IV PUSH SEE LABEL COMMENTS; Start at 13:45 Nitroglycerin (Nitrostat Sl) 0.4 mg Q5M PRN SL CHEST PAIN Last administered on 10/09/17at 21:56; Start 10/09/17 at 18:00 Non-Formulary Medication 1 drop BID PRN EACH EYE ALLERGIES; Start 10/07/17 at 14:15; Stop 10/07/17 at 15:13; Status DC Pantoprazole Sodium (Protonix) 20 mg DAILY PO Last administered on 10/09/17at 09 :38; Start 10/08/17 at 09:00 Pharmacy Profile Note 0 ml @ 0 mls/hr UNSCH OTHER ; Start 10/08/17 at 09:00 Senna/Docusate Sodium (Parvin-Colace) 1 tab BID PO Last administered on at 09:39; Start 10/07/17 at 21:00 Sodium Chloride (NS Flush) 2 ml BID IV FLUSH Last administered on 10/09/17at 20: 56; Start 10/07/17 at 21:00 Sotalol HCl (Betapace) 80 mg Q12HR PO Last administered on 10/09/17at 22:23; Start 10/07/17 at 21:00 Warfarin Sodium (Coumadin) 5 mg MoWeFr@2000 PO Last administered on 10/09/17at 20:56; Start 10/09/17 at 20:00 A/P Problem List: (1) Atrial fibrillation with RVR ICD Code: I48.91 - Unspecified atrial fibrillation Status: Resolved (2) CAD (coronary artery disease) ICD Code: I25.10 - CAD (coronary artery disease) Status: Chronic (3) Hypertension ICD Code: I10 - Hypertension Status: Chronic (4) Hyperlipidemia ICD Code: E78.5 - Hyperlipidemia Status: Chronic (5) Prediabetes ICD Code: R73.03 - Prediabetes Status: Acute (6) Chest pressure ICD Code: R07.89 - Other chest pain Assessment and Plan 41-year-old male with history of CAD, hypertension, hyperlipidemia, atrial fibrillation on chronic articulation with Coumadin who had been recently observed for an episode of atrial fibrillation with rapid ventricular response and discharge on 10/06 after his current medications were continued and cardiology was consulted, presents back for recurrent A. fib with RVR. chest pain Plan; - cardiology consult appreciated and started on Sotalol. -continue Coumadin with INR monitoring. -for stress test toady. -added Imdur. Discharge Planning dc home today if stress test is negative. see med list. f/u; pcp and cardiology. d/w the patient. d/w . Jesus Cevallos MD Oct 10, 2017 09:32
[2017-10-10] MEDS ORDERED: NITR0.4S SL (09:34)
[2017-10-10] MEDS ORDERED: ISOS30TA3 PO (09:34)
[2017-10-10] MEDS: SOTALOL HCL 80 MG TAB PO SCH (10:13)
[2017-10-10] MEDS: LACTOBACILLUS ACIDOPHILUS TAB PO SCH (10:13)
[2017-10-10] MEDS: ASPIRIN 81 MG CHEW TAB CHEW SCH (10:14)
[2017-10-10] MEDS: PANTOPRAZOLE SOD 20 MG DELAYED RELEASE TAB PO SCH (10:14)
[2017-10-10] MEDS: DORZOLAMIDE 2% OPTH SOLN 200 DROP/10 ML BTLO EACH EYE SCH ×3 (10:15→19:26)
[2017-10-10] MEDS: SODIUM CHLORIDE 0.9% FLUSH 10 ML FLUSH IV FLUSH SCH (10:16)
[2017-10-10 11:33] VITALS: BP 115/65; PULSE 97; RESP 16; TEMP 98.5; O2SAT 48
[2017-10-10] MEDS ORDERED: REGADENOSON INJ 0.4 MG/5 ML SYR ONE (12:54)
--- NOTE | 2017-10-10 15:36 | EKG ---
Date Performed: 10/09/2017 Time Performed: 18:33:52 PTAGE: 87 years EKG: SINUS BRADYCARDIA POSSIBLE RIGHT VENTRICULAR CONDUCTION DELAY BORDERLINE ECG Since the PREVIOUS TRACING , no significant change noted PREVIOUS TRACIN10/09/2017 15.15 DOCTOR: Antonio Francisco Interpretating Date/Time 10/10/2017 15:25:04
--- NOTE | 2017-10-10 15:36 | EKG ---
Date Performed: 10/09/2017 Time Performed: 21:36:30 PTAGE: 87 years EKG: SINUS BRADYCARDIA POSSIBLE RIGHT VENTRICULAR CONDUCTION DELAY NONSPECIFIC T-WAVE ABNORMALIT Y BORDERLINE ECG Since the PREVIOUS TRACING , no significant change noted PREVIOUS TRACIN10/09/2017 18.33 DOCTOR: Antonio Francisco Interpretating Date/Time 10/10/2017 15:25:13
--- NOTE | 2017-10-10 15:36 | EKG ---
Date Performed: 10/09/2017 Time Performed: 15:15:02 PTAGE: 87 years EKG: SINUS BRADYCARDIA WITH SINUS ARRHYTHMIA POSSIBLE RIGHT VENTRICULAR CONDUCTION DELAY NONSPEC IFIC T-WAVE ABNORMALITY BORDERLINE ECG Since the PREVIOUS TRACING , no significant change noted PREVIOUS TRACIN10/09/2017 09.18 DOCTOR: Antonio Francisco Interpretating Date/Time 10/10/2017 15:24:55
--- NOTE | 2017-10-10 17:57 | RADRPT ---
EXAM DATE/TIME: 10/10/2017 12:47 [facility] COMPARISON: MYOCARDIAL PERF PHARM SPECT, GATED W/EF, July 31, 2015, 9:24. INDICATIONS : Chest pain and tachycardia. Atrial fibrillation. DOSE: 26.2 mCi Tc99m Myoview at stress. 8.6 mCi Tc99m Myoview at rest. 0.4 mg Lexiscan STRESS SYMPTOMS: Stomach pressure. EJECTION FRACTION: 69% MEDICAL HISTORY : Angina. A-Fibb and RVR SURGICAL HISTORY : ENCOUNTER: Initial ACUITY: 3 days PAIN SCALE: 3/10 LOCATION: Bilateral chest TECHNIQUE: The patient underwent pharmacologic stress with infusion of prescribed dose. Continuous ECG tracing was monitored during stress. Gated SPECT imaging was performed after stress and conventional SPECT i maging was performed at rest. The examination was performed on a SPECT/CT scanner, both attenuation and non-corrected datasets were reviewed. FINDINGS: DISTRIBUTION: The maximum perfused segment at stress is in the lateral wall. PERFUSION STUDY: The pattern of perfusion at stress is within normal limits. GATED STUDY: There is intact wall motion and thickening without hypokinetic or dyskinetic segments. CONCLUSION: Normal examination. No evidence of fixed or stress-induced perfusion abnormalities. Normal wall motion and ejection fraction. RISK CATEGORY: Low (<1% Annual Mortality Rate) Bobby Medina MD on October 10, 2017 at 17:52 Board Certified Radiologist. This report was verified electronically.
== END 2017-10-10 20:21 | disposition home or self-care (01) ==
LOC: NEPC 08:59 → NEDA 12:24 → NEPFCDU 14:28
PROVIDERS: ADMIT Internal Medicine; ATTEND Internal Medicine
DX: I48.0 Paroxysmal atrial fibrillation (principal); R00.1 Bradycardia, unspecified; I25.10 Atherosclerotic heart disease of native coronary artery without angina pectoris; I12.9 Hypertensive chronic kidney disease with stage 1 through stage 4 chronic kidney disease, or unspecified chronic kidney disease; N18.3 Chronic kidney disease, stage 3 (moderate); E78.5 Hyperlipidemia, unspecified; R73.03 Prediabetes; K21.9 Gastro-esophageal reflux disease without esophagitis; F41.9 Anxiety disorder, unspecified; M19.90 Unspecified osteoarthritis, unspecified site; H91.90 Unspecified hearing loss, unspecified ear; Z79.01 Long term (current) use of anticoagulants; Z79.899 Other long term (current) drug therapy; Z79.82 Long term (current) use of aspirin
CPT/HCPCS: 78452; 80048; 80053; 82550; 82552; 83735; 84484; 85025; 85610; 85730; 87328; 87329; 87493; 87506; 93005; 93017; 96361; 96374; 96376; 99285; A9502; G0378; J2785; J7030; J7040

== ENCOUNTER 2017-10-18 19:55 | Inpatient (IN) | payer MEDICARE, OTHER ==
[~2017-10-18] VITALS: Ht 167.6 cm; Wt 74.0 kg
[~2017-10-18 19:55] MED LIST changes: -ATEN50TA PO; +ISOS30TA3 PO; -METO-488 PO; -METO25TA3 PO; +NITR0.4S SL; +SOTA80 PO
[2017-10-18 20:05] VITALS: BP 126/82; PULSE 95; RESP 16; O2SAT 97
[2017-10-18 20:06] VITALS: BP 126/82; O2SAT 98
--- NOTE | 2017-10-18 20:14 | PD ---
HPI . 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 pt is awake alert . He reports eating dinner and watching TV suddenly felt his heart start rapid and irregular, pt is found by EMS to be RVR 120-160 BPM iveder Baez anIVP with good results BP is within NL limits EKG in [facility] afib RVR 107 PFSH Past Medical History Hx Anticoagulant Therapy: Yes Arthritis: Yes Asthma: No Autoimmune Disease: No Anxiety: Yes Depression: No Heart Rhythm Problems: Yes (AFIB 12/2011 AFIB WITH RVR) Cancer: No (father passed of cancer, son brain cancer) Cardiac Catheterization: Yes Cardiovascular Problems: Yes (A-fib with RVR) High Cholesterol: Yes Chemotherapy: No Chest Pain: Yes Congestive Heart Failure: No COPD: No Cerebrovascular Accident: No Diabetes: No Diminished Hearing: Yes Endocrine: No Gastrointestinal Disorders: Yes GERD: Yes Genitourinary: No Headaches: No Hiatal Hernia: No Heparin Induced Thrombocytopen: No Hypertension: Yes Immune Disorder: Yes Implanted Vascular Access Dvce: No Kidney Stones: No Musculoskeletal: Yes Neurologic: No Psychiatric: No Reproductive: No Respiratory: No Migraines: No Radiation Therapy: No Renal Failure: No Seizures: No Sleep Apnea: No Thyroid Disease: No Ulcer: No Past Surgical History Abdominal Surgery: Yes AICD: No Arteriovenous Shunt: No Cardiac Surgery: No Ear Surgery: No Endocrine Surgery: No Eye Surgery: No Genitourinary Surgery: No Gynecologic Surgery: No Hysterectomy: No Insulin Pump: No Joint Replacement: No Neurologic Surgery: No Oral Surgery: No Pacemaker: No Thoracic Surgery: No Other Surgery: Yes (COLON JUL 05, 2010) Social History Alcohol Use: No Tobacco Use: No Substance Use: No Allergies-Medications (Allergen,Severity, Reaction): Coded Allergies: No Known Allergies (Verified Allergy, Unknown, 10/07/17) Reported Meds & Prescriptions Reported Meds & Active Scripts Active Nitrostat SL (Nitroglycerin) 0.4 Mg Subl 0.4 Mg SL Q5M PRN take one tab every five minutes as needed for chest pain- upto three doses. Isosorbide Mononitrate ER (Isosorbide Mononitrate) 30 Mg [place] 30 Mg PO DAILY@ 07 30 Days Sorine (Sotalol HCl) 80 Mg Tab 80 Mg PO Q12HR Reported Aspirin 81 Mg Chew 81 Mg CHEW DAILY Warfarin 5 Mg Tab 5 Mg PO MON/MON/MON Warfarin 2.5 Mg Tab 2.5 Mg PO //SAT/SUN Omeprazole 20 Mg Tab 20 Mg PO DAILY ZyrTEC Itchy Eye Opth Drops (Ketotifen Opth Drops) 0.025% Drops 1 Drop EACH EYE BID PRN Flarex Opth Drops (Fluorometholone Acetate) 0.1% Susp 1 Drop EACH EYE DAILY PRN Dorzolamide Opth Drops (Dorzolamide HCl) 2% Soln 1 Drop EACH EYE TID Theratears Unit-Dose Opth Gel (Carboxymethylcellulose Sodium Opth Gel) 1% Gel 1 Drop EACH EYE HS PRN Atorvastatin (Atorvastatin Calcium) 40 Mg Tab 40 Mg PO HS Amlodipine (Amlodipine Besylate) 10 Mg Tab 10 Mg PO DAILY Alprazolam 1 Mg Tab 1 Mg PO BID Review of Systems Except as stated in HPI: all other systems reviewed are Neg Cardiovascular: Positive: Palpitations Physical Exam Narrative GENERAL: pt awake alert non toxic no acute CP SKIN: Warm and dry. no diaphoresis , multiple hyper pigmented plaques appear benign over back area HEAD: Atraumatic. Normocephalic. EYES: Pupils equal and round. No scleral icterus. No injection or drainage. ENT: No nasal bleeding or discharge. Mucous membranes pink and moist. NECK: Trachea midline. No JVD. CARDIOVASCULAR: heart irregularly irregular RESPIRATORY: No accessory muscle use. Clear to auscultation. Breath sounds equal bilaterally. GASTROINTESTINAL: Abdomen soft, non-tender, nondistended. Hepatic and splenic margins not palpable. MUSCULOSKELETAL: Extremities without clubbing, cyanosis, or edema. No obvious deformities. NEUROLOGICAL: Awake and alert. No obvious cranial nerve deficits. Motor grossly within normal limits. Five out of 5 muscle strength in the arms and legs. Normal speech. PSYCHIATRIC: Appropriate mood and affect; insight and judgment normal. Data Data Last Documented VS Vital Signs Date Time Temp Pulse Resp B/P (MAP) Pulse Ox O2 Delivery O2 Flow Rate FiO2 4/25/18 20:14 94 98 Room Air 10/18/17 20:06 126/82 (97) 10/18/17 20:05 16 Orders Orders Complete Blood Count With Diff (10/18/17 20:21) Comprehensive Metabolic Panel (10/18/17 20:21) Ckmb (Isoenzyme) Profile (10/18/17 20:21) Troponin I (10/18/17 20:21) Lipase (10/18/17 20:21) Chest, Single Ap (10/18/17 20:21) Electrocardiogram (10/18/17 ) Sotalol (Betapace) (10/18/17 21:30) Warfarin (Coumadin) (10/18/17 21:30) Alprazolam (Xanax) (10/18/17 21:30) CKMB (10/18/17 20:20) CKMB% (10/18/17 20:20) Calcium Gluconate Inj (Calcium Gluconate (10/18/17 22:00) Atorvastatin (Lipitor) (10/18/17 22:15) Atorvastatin (Lipitor) (10/18/17 22:15) Admit Order (Ed Use Only) (10/18/17 23:36) Labs Laboratory Tests Test 10/18/17 20:20 White Blood Count 9.9 TH/MM3 Red Blood Count 3.99 MIL/MM3 Hemoglobin 13.1 GM/DL Hematocrit 38.4 % Mean Corpuscular Volume 96.2 FL Mean Corpuscular Hemoglobin 33.0 PG Mean Corpuscular Hemoglobin Concent 34.2 % Red Cell Distribution Width 14.5 % Platelet Count 189 TH/MM3 Mean Platelet Volume 8.4 FL Neutrophils (%) (Auto) 63.1 % Lymphocytes (%) (Auto) 20.0 % Monocytes (%) (Auto) 8.0 % Eosinophils (%) (Auto) 7.8 % Basophils (%) (Auto) 1.1 % Neutrophils # (Auto) 6.2 TH/MM3 Lymphocytes # (Auto) 2.0 TH/MM3 Monocytes # (Auto) 0.8 TH/MM3 Eosinophils # (Auto) 0.8 TH/MM3 Basophils # (Auto) 0.1 TH/MM3 CBC Comment DIFF FINAL Differential Comment Blood Urea Nitrogen 19 MG/DL Creatinine 0.95 MG/DL Random Glucose 84 MG/DL Total Protein 5.5 GM/DL Albumin 2.5 GM/DL Calcium Level 6.7 MG/DL Alkaline Phosphatase 71 U/L Aspartate Amino Transf (AST/SGOT) 30 U/L Alanine Aminotransferase (ALT/SGPT) 20 U/L Total Bilirubin 0.4 MG/DL Sodium Level 144 MEQ/L Potassium Level 3.6 MEQ/L Chloride Level 119 MEQ/L Carbon Dioxide Level 16.7 MEQ/L Anion Gap 8 MEQ/L Estimat Glomerular Filtration Rate 75 ML/MIN Protein Corrected Calcium 7.5 MG/DL Total Creatine Kinase 116 U/L Creatine Kinase MB 1.2 NG/ML Troponin I LESS THAN 0.02 NG/ML Lipase 56 U/L MDM Medical Decision Making Medical Screen Exam Complete: Yes Emergency Medical Condition: Yes Medical Record Reviewed: Yes Differential Diagnosis afib RVR , from anxiety , from fever , from medical non compliance , vs electrolyte abnormality other Narrative Course pt has good response to the cardizem given by paramedics and Nitro and heart rate slowed dowwn to 90s and pt feel much improved. Pt admitted to tele for calcium correction and obseervation and sotalol given in ER After 4 hrs pt falls asleep and he goes back into sinus rhythm with pwaves befroe every QRS, sinus jann ,, BP normal Diagnosis Primary Impression: Atrial fibrillation with RVR Admitting Information Admitting Physician Requests: Observation Frandy Negrete MD Oct 18, 2017 20:14
--- NOTE | 2017-10-18 20:54 | RADRPT ---
EXAM DATE/TIME: 10/18/2017 20:29 [facility] COMPARISON: CHEST PA & LAT, February 10, 2015, 7:17. CHEST SINGLE AP, October 05, 2017, 19:31. INDICATIONS : Palpitations. MEDICAL HISTORY : Hypercholesterolemia. Hypertension Gastroesophageal reflux disease. AFIB. SURGICAL HISTORY : Cardiac cath. ENCOUNTER: Initial ACUITY: 1 day PAIN SCORE: 5/10 LOCATION: Bilateral chest FINDINGS: Bibasilar infiltrates are again noted, not significantly changed. No large effusion. No pneumothorax. Heart size stable, within normal limits. CONCLUSION: Recurrent or persistent bibasilar airspace disease. Theron Webb MD on October 18, 2017 at 20:50 Board Certified Radiologist. This report was verified electronically.
[2017-10-18 21:13] LABS: AUTOMATED NEUTROPHIL # 6.2 TH/MM3 (1.8-7.7); BASOPHIL # 0.1 TH/MM3 (0-0.2); BASOPHIL % 1.1 % (0.0-2.0); EOSINOPHIL # 0.8 TH/MM3 (0-0.4); EOSINOPHIL % 7.8 % (0.0-4.0); HEMATOCRIT 38.4 % (39.0-51.0); HEMOGLOBIN 13.1 GM/DL (13.0-17.0); MEAN CELL VOLUME 96.2 FL (80.0-100.0); MEAN CORPUSCULAR HGB CONC 34.2 % (32.0-36.0); MEAN PLATELET VOLUME 8.4 FL (7.0-11.0); MONOCYTE # 0.8 TH/MM3 (0-0.9); NEUT % 63.1 % (16.0-70.0); PLATELET COUNT 189 TH/MM3 (150-450); RED BLOOD COUNT 3.99 MIL/MM3 (4.50-5.90); RED CELL DISTRIBUTION WIDTH 14.5 % (11.6-17.2); WHITE BLOOD COUNT 9.9 TH/MM3 (4.0-11.0)
[2017-10-18] MEDS ORDERED: SOTALOL HCL 80 MG TAB PO ONE (21:30)
[2017-10-18] MEDS ORDERED: ALPRAZolam 1 MG TAB PO ONE (21:30)
[2017-10-18] MEDS ORDERED: WARFARIN SOD 5 MG TAB PO ONE (21:30)
[2017-10-18 21:39] LABS: ALBUMIN 2.5 GM/DL (3.4-5.0); ALKALINE PHOSPHATASE 71 U/L (45-117); ALT (GPT) 20 U/L (12-78); AST (GOT) 30 U/L (15-37); BICARBONATE 16.7 MEQ/L (21.0-32.0); BLOOD UREA NITROGEN 19 MG/DL (7-18); CALCIUM 6.7 MG/DL (8.5-10.1); CALCIUM-PROTEIN CORRECTED 7.5 MG/DL (8.5-10.1); CHLORIDE 119 MEQ/L (98-107); CREATININE 0.95 MG/DL (0.60-1.30); GLOMERULAR FILTRATION RATE 75 ML/MIN (>89); GLUCOSE,RANDOM 84 MG/DL (74-106); SODIUM (NA) 144 MEQ/L (136-145); TOTAL BILIRUBIN ADULT 0.4 MG/DL (0.2-1.0); TOTAL PROTEIN 5.5 GM/DL (6.4-8.2); TROPONIN I LESS THAN 0.02 NG/ML (0.02-0.05)
[2017-10-18] MEDS ORDERED: CALCIUM GLUCONATE INJ 1 GM in DEXTROSE 5% IN WATER 100ML INJ 100 ML IV ONE ×2 (22:00)
[2017-10-18] MEDS ORDERED: ATORVASTATIN 20 MG TAB PO ONE (22:15)
[2017-10-18] MEDS ORDERED: ATORVASTATIN 40 MG TAB PO ONE (22:15)
[2017-10-18] MEDS ORDERED: IOHEXOL 350 MG/ML 100 ML BTL (for Cath Lab) OTHER ONE (23:40)
[2017-10-19] VITALS (9 sets, daily range): BP systolic 117–157; BP diastolic 56–65; PULSE 42–50; RESP 16–18; TEMP 97.5–97.8; O2SAT 95–99
[2017-10-19] MEDS ORDERED: SODIUM CHLORIDE 0.9% FLUSH 10 ML FLUSH IV FLUSH PRN (00:45)
[2017-10-19] MEDS ORDERED: BISACODYL 10 MG SUPP RECTAL PRN (00:45)
[2017-10-19] MEDS ORDERED: LACTULOSE SYRUP 20 GM/30 ML CUP PO PRN (00:45)
[2017-10-19] MEDS ORDERED: MAGNESIUM HYDROXIDE SUSP 30 ML CUP PO PRN (00:45)
[2017-10-19] MEDS ORDERED: NALOXONE HCL 0.4 MG/ML AMP IV PUSH PRN (00:45)
[2017-10-19] MEDS ORDERED: ACETAMINOPHEN 325 MG TAB PO PRN (00:45)
[2017-10-19] MEDS ORDERED: SENNOSIDES 8.6 MG TAB PO PRN (00:45)
[2017-10-19] MEDS ORDERED: ONDANSETRON HCL 4 MG/2 ML VIAL IVP PRN (00:45)
--- NOTE | 2017-10-19 00:52 | HHI.HP ---
[facility] Admission Diagnosis afibRVR Diagnoses: Travel History International Travel<30 Days: No Contact w/Intl Traveler <30 Da: No Traveled to Known Affected Are: No History of Present Illness 87-year-old male with a past medical history significant for CAD, atrial fibrillation on chronic articulation with Coumadin, hypertension and hyperlipidemia presents to the emergency department for the evaluation of chest palpitations. The patient reports that he was having dinner around 5 PM when he felt as though his heart was going to beat out of his chest. He took his blood pressure on his home machine and states it was high and his heart rate was elevated in the 160s. He called EMS who found the patient to be in A. fib with RVR with a heart rate between 120 and 1 60 bpm. He was given IV Cardizem with subsequent lowering of his heart rate. The patient denies any chest pain or shortness of breath. No abdominal pain. No nausea/vomiting/diarrhea. No fatigue/weakness. No lateralizing signs/symptoms. No fevers/chills. Review of Systems Except as stated in HPI: all other systems reviewed are Neg Past Family Social History Past Medical History Atrial fibrillation anticoagulated on Coumadin Hypertension Hyperlipidemia Past Surgical History Partial colectomy Reported Medications Reported Meds & Active Scripts Active Nitrostat SL (Nitroglycerin) 0.4 Mg Subl 0.4 Mg SL Q5M PRN take one tab every five minutes as needed for chest pain- upto three doses. Isosorbide Mononitrate ER (Isosorbide Mononitrate) 30 Mg Delonte 30 Mg PO DAILY@ 07 30 Days Sorine (Sotalol HCl) 80 Mg Tab 80 Mg PO Q12HR Reported Aspirin 81 Mg Chew 81 Mg CHEW DAILY Warfarin 5 Mg Tab 5 Mg PO MON/WED/FRI Warfarin 2.5 Mg Tab 2.5 Mg PO //SAT/SUN Omeprazole 20 Mg Tab 20 Mg PO DAILY ZyrTEC Itchy Eye Opth Drops (Ketotifen Opth Drops) 0.025% Drops 1 Drop EACH EYE BID PRN Flarex Opth Drops (Fluorometholone Acetate) 0.1% Susp 1 Drop EACH EYE DAILY PRN Dorzolamide Opth Drops (Dorzolamide HCl) 2% Soln 1 Drop EACH EYE TID Theratears Unit-Dose Opth Gel (Carboxymethylcellulose Sodium Opth Gel) 1% Gel 1 Drop EACH EYE HS PRN Atorvastatin (Atorvastatin Calcium) 40 Mg Tab 40 Mg PO HS Amlodipine (Amlodipine Besylate) 10 Mg Tab 10 Mg PO DAILY Alprazolam 1 Mg Tab 1 Mg PO BID Allergies: Coded Allergies: No Known Allergies (Verified Allergy, Unknown, 10/07/17) Family History Negative for CAD/DM Social History Denies alcohol, tobacco and illicit drugs. Physical Exam Vital Signs Vital Signs Date Time Temp Pulse Resp B/P (MAP) Pulse Ox O2 Delivery O2 Flow Rate FiO2 10/18/17 20:14 94 98 Room Air 10/18/17 20:06 126/82 (97) 98 10/18/17 20:05 95 16 126/82 (97) 97 Room Air Physical Exam GENERAL: This is a well-nourished, well-developed patient, in no apparent distress. SKIN: No rashes, ecchymoses or lesions. Cool and dry. HEAD: Atraumatic. Normocephalic. No temporal or scalp tenderness. EYES: Pupils equal round and reactive. Extraocular motions intact. No scleral icterus. No injection or drainage. ENT: Nose without bleeding, purulent drainage or septal hematoma. Throat without erythema, tonsillar hypertrophy or exudate. Uvula midline. Airway patent. NECK: Trachea midline. No JVD or lymphadenopathy. Supple, nontender, no meningeal signs. CARDIOVASCULAR: Tachycardic. Irregularly irregular rhythm without murmurs rubs gallops. RESPIRATORY: Clear to auscultation. Breath sounds equal bilaterally. No wheezes , rales, or rhonchi. GASTROINTESTINAL: Abdomen soft, non-tender, nondistended. No hepato-splenomegaly , or palpable masses. No guarding. MUSCULOSKELETAL: Extremities without clubbing, cyanosis, or edema. No joint tenderness, effusion, or edema noted. No calf tenderness. Negative Homans sign bilaterally. NEUROLOGICAL: Awake and alert. Cranial nerves II through XII intact. Motor and sensory grossly within normal limits. Five out of 5 muscle strength in all muscle groups. Normal speech. Laboratory Laboratory Tests Test 10/18/17 20:20 White Blood Count 9.9 Red Blood Count 3.99 Hemoglobin 13.1 Hematocrit 38.4 Mean Corpuscular Volume 96.2 Mean Corpuscular Hemoglobin 33.0 Mean Corpuscular Hemoglobin Concent 34.2 Red Cell Distribution Width 14.5 Platelet Count 189 Mean Platelet Volume 8.4 Neutrophils (%) (Auto) 63.1 Lymphocytes (%) (Auto) 20.0 Monocytes (%) (Auto) 8.0 Eosinophils (%) (Auto) 7.8 Basophils (%) (Auto) 1.1 Neutrophils # (Auto) 6.2 Lymphocytes # (Auto) 2.0 Monocytes # (Auto) 0.8 Eosinophils # (Auto) 0.8 Basophils # (Auto) 0.1 CBC Comment DIFF FINAL Differential Comment Blood Urea Nitrogen 19 Creatinine 0.95 Random Glucose 84 Total Protein 5.5 Albumin 2.5 Calcium Level 6.7 Alkaline Phosphatase 71 Aspartate Amino Transf (AST/SGOT) 30 Alanine Aminotransferase (ALT/SGPT) 20 Total Bilirubin 0.4 Sodium Level 144 Potassium Level 3.6 Chloride Level 119 Carbon Dioxide Level 16.7 Anion Gap 8 Estimat Glomerular Filtration Rate 75 Protein Corrected Calcium 7.5 Total Creatine Kinase 116 Creatine Kinase MB 1.2 Troponin I LESS THAN 0.02 Lipase 56 Result Diagram: 10/18/17201910/18/172019 Caprini VTE Risk Assessment Caprini VTE Risk Assessment: Mod/High Risk (score >= 2) Caprini Risk Assessment Model Point Value = 1 Point Value = 2 Point Value = 3 Point Value = 5 Age 41-60 Minor surgery BMI > 25 kg/m2 Swollen legs Varicose veins or History of unexplained or recurrent spontaneous Oral contraceptives or hormone replacement Sepsis (< 1 month) Serious lung disease, including pneumonia (< 1 month) Abnormal pulmonary function Acute myocardial infarction Congestive heart failure (< 1 month) History of inflammatory bowel disease Medical patient at bed rest Age 61-74 Arthroscopic surgery Major open surgery (> 45 min) Laparoscopic surgery (> 45 min) Malignancy Confined to bed (> 72 hours) Immobilizing plaster cast Central venous access Age >= 75 History of VTE Family history of VTE Factor V Leiden Prothrombin [id number] Lupus anticoagulant Anticardiolipin antibodies Elevated serum homocysteine Heparin-induced thrombocytopenia Other congenital or acquired thrombophilia Stroke (< 1 month) Elective arthroplasty Hip, pelvis, or leg fracture Acute spinal cord injury (< 1 month) Prophylaxis Regimen Total Risk Factor Score Risk Level Prophylaxis Regimen 0-1 Low Early ambulation 2 Moderate Order ONE of the following: *Sequential Compression Device (SCD) *Heparin 5000 units SQ BID 3-4 Higher Order ONE of the following medications: *Heparin 5000 units SQ TID *Enoxaparin/Lovenox 40 mg SQ daily (WT < 150 kg, CrCl > 30 mL/min) *Enoxaparin/Lovenox 30 mg SQ daily (WT < 150 kg, CrCl > 10-29 mL/min) *Enoxaparin/Lovenox 30 mg SQ BID (WT < 150 kg, CrCl > 30 mL/min) AND/OR *Sequential Compression Device (SCD) 5 or more Highest Order ONE of the following medications: *Heparin 5000 units SQ TID (Preferred with Epidurals) *Enoxaparin/Lovenox 40 mg SQ daily (WT < 150 kg, CrCl > 30 mL/min) *Enoxaparin/Lovenox 30 mg SQ daily (WT < 150 kg, CrCl > 10-29 mL/min) *Enoxaparin/Lovenox 30 mg SQ BID (WT < 150 kg, CrCl > 30 mL/min) AND *Sequential Compression Device (SCD) Assessment and Plan Assessment and Plan Assessment/plan: Assessment/plan: 1. Atrial fibrillation with rapid ventricular response Patient with known history of A. fib Continue anticoagulation with Coumadin Continue home sotalol. Patient reports compliance with his home medications. Telemetry Cardiology consulted as patient continues to have RVR despite medication compliance and recent changing of his beta-juan antonio 2. Hypocalcemia Status post IV repletion in the ED Calcium carbonate twice daily Monitor 3. Hypertension/hyperlipidemia Continue home medications FEN: Heart healthy diet Electrolytes: monitor and replete prn Coumadin Miriam Medina MD Oct 19, 2017 00:52
[2017-10-19] MEDS: ISOSORBIDE MONONITRATE 30 MG CR TAB (IMDUR) PO SCH (07:00)
[2017-10-19] MEDS: CALCIUM CARBONATE 1.25 GM (CA 500 MG) TAB PO SCH ×2 (09:50→20:05)
[2017-10-19] MEDS: DOCUSATE SODIUM 50 MG/SENNA 8.6 MG TAB PO SCH ×2 (09:50→20:05)
[2017-10-19] MEDS: ASPIRIN 81 MG CHEW TAB CHEW SCH (09:51)
[2017-10-19] MEDS: SOTALOL HCL 80 MG TAB PO SCH ×2 (09:51→20:07)
[2017-10-19] MEDS: SODIUM CHLORIDE 0.9% FLUSH 10 ML FLUSH IV FLUSH SCH ×2 (09:52→20:08)
[2017-10-19] MEDS: PANTOPRAZOLE SOD 20 MG DELAYED RELEASE TAB PO SCH (09:52)
--- NOTE | 2017-10-19 11:15 | HHI.PR ---
Subjective Remarks Follow up on patient with afib with RVR. Patient seen and examined. Patient states he feels a little tired this morning but otherwise has no complaints. He denies any dizziness, headache or vision changes. He denies any palpitations , chest pain or dyspnea. He denies any n/v or abdominal pain. He denies urinary or bowel difficulties. Patient states yesterday while sitting down at home he developed midsternal chest pressure with associated chest palpitations, dyspnea and mild dizziness. He checked his HR which was in the 120s. He denies any associated diaphoresis, near syncope, nausea or vomiting. He took 2 NTG but he is unsure if it helped him at all. He reports compliance with his medications. He denies any recent illness. 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 Gil 3-4 days ago and they discussed him having a cardiac ablation procedure which he is agreeable to. He has an upcoming appointment with Dr. Barlow on November 01. Objective Vitals Vital Signs Date Time Temp Pulse Resp B/P (MAP) Pulse Ox O2 Delivery O2 Flow Rate FiO2 10/19/17 08:04 97.8 50 18 118/56 (76) 96 10/19/17 04:42 97.7 42 18 125/56 (79) 99 10/19/17 04:22 42 10/19/17 02:10 43 16 117/58 (77) 97 Room Air 10/18/17 20:14 94 98 Room Air 10/18/17 20:06 126/82 (97) 98 10/18/17 20:05 95 16 126/82 (97) 97 Room Air I/O 10/18/17 10/18/17 10/18/17 10/19/17 10/19/17 10/19/17 07:00 15:00 23:00 07:00 15:00 23:00 Intake Total 110 ml Balance 110 ml Intake IV Total 110 ml Result Diagram: 10/18/17201910/18/172019 Imaging Last Impressions Chest X-Ray 10/18/172020 Signed Impressions: Service Date/Time: Wednesday, October 18, 2017 20:29 - CONCLUSION: Recurrent or persistent bibasilar airspace disease. Theron Webb MD Objective Remarks GENERAL: This is a well-nourished, well-developed elderly male patient, in no apparent distress. Awake and alert. Sitting up in hospital bed. SKIN: No rashes, ecchymoses or lesions. Cool and dry. HEAD: Atraumatic. Normocephalic. No temporal or scalp tenderness. EYES: Pupils equal round and reactive. Extraocular motions intact. No scleral icterus. No injection or drainage. ENT: Nose without bleeding, purulent drainage or septal hematoma. Throat without erythema, tonsillar hypertrophy or exudate. Uvula midline. Airway patent. NECK: Trachea midline. No JVD or lymphadenopathy. Supple, nontender, no meningeal signs. CARDIOVASCULAR: Regular rate and rhythm without any murmurs, rubs or gallops. RESPIRATORY: Clear to auscultation. Breath sounds equal bilaterally. No wheezes , rales, or rhonchi. GASTROINTESTINAL: Abdomen soft, non-tender, nondistended. No hepato-splenomegaly , or palpable masses. No guarding. MUSCULOSKELETAL: Extremities without clubbing, cyanosis, or edema. No joint tenderness, effusion, or edema noted. No calf tenderness. NEUROLOGICAL: Awake and alert. Cranial nerves II through XII grossly intact. Motor and sensory grossly within normal limits. No focal neurologic findings appreciated. Normal speech. Medications and IVs Current Medications Medications (Trade) Dose Ordered Sig/Bernardino Route Start Time Stop Time Status Last Admin (Oscal) 500 mg Q12HR PO 10/19/17 09:00 10/19/17 09:50 (NS Flush) 2 ml UNSCH PRN IV FLUSH 10/19/17 00:45 (NS Flush) 2 ml BID IV FLUSH 10/19/17 09:00 10/19/17 09:52 (Tylenol) 650 mg Q4H PRN PO 10/19/17 00:45 (Zofran Inj) 4 mg Q6H PRN IVP 10/19/17 00:45 (Narcan Inj) 0.4 mg UNSCH PRN IV PUSH 10/19/17 00:45 (Parvin-Colace) 1 tab BID PO 10/19/17 09:00 10/19/17 09:50 (Milk Of Magnesia Liq) 30 ml Q12H PRN PO 10/19/17 00:45 (Senokot) 17.2 mg Q12H PRN PO 10/19/17 00:45 (Dulcolax Supp) 10 mg DAILY PRN RECTAL 10/19/17 00:45 (Lactulose Liq) 30 ml DAILY PRN PO 10/19/17 00:45 (Norvasc) 10 mg DAILY PO 10/19/17 09:00 10/19/17 09:50 (Aspirin Chew) 81 mg DAILY CHEW 10/19/17 09:00 10/19/17 09:51 (Lipitor) 40 mg HS PO 10/19/17 21:00 (Imdur) 30 mg DAILY@07 PO 10/19/17 07:00 (Betapace) 80 mg Q12HR PO 10/19/17 09:00 10/19/17 09:51 (Coumadin) 2.5 mg DAILY@1600 PO 10/19/17 16:00 (Protonix) 20 mg DAILY PO 10/19/17 09:00 10/19/17 09:52 A/P Assessment and Plan 87-year-old male with a past medical history significant for CAD, atrial fibrillation on chronic anticoagulation with Coumadin, hypertension and hyperlipidemia who was just discharged on 10/11/17 following admission for atrial fibrillation with RVR who presents to [facility] ED with complaints of palpitations and rapid heart beat. Atrial fibrillation with rapid ventricular response Patient with known history of A. 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 Consult pharmacy to dose. -Continue home sotalol with holding parameters. -continue on telemetry -check TSH level. Obtain mag level. Hypocalcemia Status post IV repletion in the ED -continue calcium carbonate twice daily -continue to monitor Hypertension/hyperlipidemia -Continue home medications FEN: Heart healthy diet Electrolytes: monitor and replete prn Coumadin Discharge Planning Discharge pending cardiology clearance Lola Almaraz Oct 19, 2017 11:15
[2017-10-19 13:04] LABS: INTERNATIONAL NORMALIZED RATIO 2.2 RATIO; PROTHROMBIN TIME - PATIENT 21.9 SEC (9.8-11.6)
[2017-10-19] MEDS ORDERED: KETOTIFEN EACH EYE (14:00)
[2017-10-19] MEDS ORDERED: WARFARIN SOD 2.5 MG TAB PO SCH (16:00)
--- NOTE | 2017-10-19 16:26 | EKG ---
Date Performed: 10/18/2017 Time Performed: 20:08:43 PTAGE: 87 years EKG: ATRIAL FIBRILLATION WITH RAPID VENTRICULAR RESPONSE NONSPECIFIC ST & T-WAVE ABNORMALITY ABN ORMAL RHYTHM ECG PREVIOUS TRACING : 10/09/2017 21.36 Since the previous tracing, no significant change noted DOCTOR: Antonio Francisco Interpretating Date/Time 10/19/2017 16:24:04
[2017-10-19] MEDS: DORZOLAMIDE 2% OPTH SOLN 200 DROP/10 ML BTLO EACH EYE SCH (18:00)
--- NOTE | 2017-10-19 18:30 | MB ---
cc: Nataliya Barlow MD, Hanscy MD Bartholomew,Edwige Ramirez MD [facility] Christoph Lester DO DATE: 10/19/2017 HISTORY OF PRESENT ILLNESS: Mr. MAHER is an 87-year-old gentleman with history of coronary artery disease, atrial fibrillation, followed by Dr. Gil on anticoagulation who woke up during the night with palpitation. He was found in atrial fibrillation with biventricular response, went to the emergency room when he was admitted, subsequently converting to sinus rhythm. This is one of the multiple emergency room visits for atrial fibrillation. The patient is usually followed by the [place]. The chart was reviewed. The patient was evaluated. ALLERGIES: NONE REPORTED. SOCIAL HISTORY: Negative for smoking and drinking. FAMILY HISTORY: Noncontributory to his current medical condition. MEDICATIONS: 1. Imdur 30 mg a day. 2. Sotalol 80 mg every 12 hours 3. Aspirin 81 mg a day, 4. Coumadin 5 mg Monday, Monday, Monday, the other days 2.5 mg. 5. Omeprazole. 6. Atorvastatin. 7. Amlodipine. 8. Alprazolam. During hospitalization, no further medication was added. REVIEW OF SYSTEMS: He referred no chest pain, no chest discomfort, no palpitation. No fever. PHYSICAL EXAMINATION: GENERAL: Alert, fully oriented. VITAL SIGNS: Blood pressure 157/65, pulse 46, respiratory rate 18. LUNGS: Ventilated. CARDIOVASCULAR: S1, S2, bradycardic. ABDOMEN: Soft, no mass. EXTREMITIES: No edema. CARDIOLOGY STUDIES: Electrocardiogram during hospitalization showed atrial fibrillation with biventricular response. Telemetry currently shows bradycardia. LABORATORY DATA: Hemoglobin is 13.1, white blood cell 9.9. Potassium 2.6, creatinine is 0.95. Troponin less than 0.02. TSH 0.92. INR is 2.2. ASSESSMENT AND RECOMMENDATION: Mr. MAHER has atrial fibrillation with biventricular response. This is one of the multiple hospitalizations. He is fully anticoagulated. He is back into sinus rhythm. Electrophysiology study and ablation discussed with the gentleman. The risks, the nature and the benefit of the procedure are clearly stated to him. Risks include pneumothorax, cardiac perforation, stroke and even . The patient understood and agreed to proceed. There is issue with anesthesia. There was a case this afternoon that was canceled because of lack of an anesthesia support. If the gentleman is stable, I am going to send him home and readmit him for atrial fibrillation ablation. Case extensively discussed with him. I will see him in the morning for followup. MD MANDI Reese/ , 05:35 PM , 06:29 PM
[2017-10-19] MEDS: ATORVASTATIN 40 MG TAB PO SCH (20:05)
[2017-10-19] MEDS: CARBOXYMETHYLCELL SOD 0.5% OPTH SOLN 15 ML BTL EACH EYE PRN (20:08)
[2017-10-19] MEDS: ALPRAZolam 1 MG TAB PO PRN (21:34)
[2017-10-20] VITALS (17 sets, daily range): BP systolic 104–160; BP diastolic 58–89; PULSE 41–122; RESP 16–22; TEMP 97.6–98.7; O2SAT 96–100
[2017-10-20] MEDS: ISOSORBIDE MONONITRATE 30 MG CR TAB (IMDUR) PO SCH ×2 (06:11→09:08)
[2017-10-20 07:16] LABS: AUTOMATED NEUTROPHIL # 3.7 TH/MM3 (1.8-7.7); BASOPHIL % 0.7 % (0.0-2.0); EOSINOPHIL # 0.6 TH/MM3 (0-0.4); EOSINOPHIL % 8.7 % (0.0-4.0); HEMATOCRIT 37.2 % (39.0-51.0); HEMOGLOBIN 12.7 GM/DL (13.0-17.0); LYMPH % 24.9 % (9.0-44.0); LYMPHOCYTE # 1.6 TH/MM3 (1.0-4.8); MEAN CELL VOLUME 96.3 FL (80.0-100.0); MEAN CORPUSCULAR HEMOGLOBIN 32.8 PG (27.0-34.0); MEAN PLATELET VOLUME 8.3 FL (7.0-11.0); MONOCYTE # 0.6 TH/MM3 (0-0.9); NEUT % 56.7 % (16.0-70.0); PLATELET COUNT 188 TH/MM3 (150-450); RED BLOOD COUNT 3.86 MIL/MM3 (4.50-5.90); RED CELL DISTRIBUTION WIDTH 14.3 % (11.6-17.2); WHITE BLOOD COUNT 6.5 TH/MM3 (4.0-11.0)
[2017-10-20 07:21] LABS: INTERNATIONAL NORMALIZED RATIO 2.4 RATIO; PROTHROMBIN TIME - PATIENT 24.5 SEC (9.8-11.6)
[2017-10-20 08:02] LABS: CALCIUM 8.9 MG/DL (8.5-10.1); CREATININE 1.25 MG/DL (0.60-1.30)
[2017-10-20] MEDS: CALCIUM CARBONATE 1.25 GM (CA 500 MG) TAB PO SCH ×2 (09:07→20:28)
[2017-10-20] MEDS: ASPIRIN 81 MG CHEW TAB CHEW SCH (09:07)
[2017-10-20] MEDS: DOCUSATE SODIUM 50 MG/SENNA 8.6 MG TAB PO SCH ×2 (09:08→20:32)
[2017-10-20] MEDS: PANTOPRAZOLE SOD 20 MG DELAYED RELEASE TAB PO SCH (09:08)
--- NOTE | 2017-10-20 09:08 | HHI.PR ---
Subjective Remarks Follow up on patient with afib with RVR. Patient seen and examined. Patient states he feels well. He denies any complaints of chest pain or palpitations. Denies any shortness of breath. Denies any fever chills. Denies any nausea, vomiting or abdominal pain. He is very concerned about his medications and making sure that he takes them properly. Objective Vitals Vital Signs Date Time Temp Pulse Resp B/P (MAP) Pulse Ox O2 Delivery O2 Flow Rate FiO2 10/20/17 08:19 98.7 55 18 160/73 (102) 98 10/20/17 04:18 97.9 43 16 112/58 (76) 96 10/20/17 04:11 41 10/20/17 00:58 98.4 61 16 139/59 (85) 96 10/20/17 00:28 46 10/19/17 21:57 97.5 50 16 142/63 (89) 95 10/19/17 16:25 97.8 46 18 157/65 (95) 98 10/19/17 15:00 50 10/19/17 12:20 97.5 45 133/64 (87) 95 I/O 10/19/17 10/19/17 10/19/17 10/20/17 10/20/17 10/20/17 07:00 15:00 23:00 07:00 15:00 23:00 Intake Total 110 ml Balance 110 ml Intake IV Total 110 ml Result Diagram: 10/20/17 0646 10/20/17 0646 Imaging Last Impressions Chest X-Ray 10/18/172020 Signed Impressions: Service Date/Time: Wednesday, October 18, 2017 20:29 - CONCLUSION: Recurrent or persistent bibasilar airspace disease. Theron Webb MD Objective Remarks GENERAL: This is a well-nourished, well-developed elderly male patient, in no apparent distress. Awake and alert. Lying in hospital bed. Appears comfortable. SKIN: Warm and dry. HEAD: Atraumatic. Normocephalic. No temporal or scalp tenderness. EYES: Pupils equal round and reactive. Extraocular motions intact. No scleral icterus. No injection or drainage. ENT: Nose without bleeding or purulent drainage. Airway patent. MMM. NECK: Trachea midline. CARDIOVASCULAR: Slightly irregular, bradycardic without any murmurs, rubs or gallops. RESPIRATORY: Clear to auscultation. Breath sounds equal bilaterally. No wheezes , rales, or rhonchi. GASTROINTESTINAL: Abdomen soft, non-tender, nondistended. No hepato-splenomegaly , or palpable masses. No guarding. MUSCULOSKELETAL: Extremities without clubbing, cyanosis, or edema. No calf tenderness. NEUROLOGICAL: Awake and alert. Cranial nerves II through XII grossly intact. Motor and sensory grossly within normal limits. No focal neurologic findings appreciated. Normal speech. PSYCHIATRIC: Appropriate mood and affect. Normal judgment and insight. Procedures None Medications and IVs Current Medications Medications (Trade) Dose Ordered Sig/Bernardino Route Start Time Stop Time Status Last Admin (Oscal) 500 mg Q12HR PO 10/19/17 09:00 10/19/17 20:05 (NS Flush) 2 ml UNSCH PRN IV FLUSH 10/19/17 00:45 (NS Flush) 2 ml BID IV FLUSH 10/19/17 09:00 10/19/17 20:08 (Tylenol) 650 mg Q4H PRN PO 10/19/17 00:45 (Zofran Inj) 4 mg Q6H PRN IVP 10/19/17 00:45 (Narcan Inj) 0.4 mg UNSCH PRN IV PUSH 10/19/17 00:45 (Parvin-Colace) 1 tab BID PO 10/19/17 09:00 10/19/17 20:05 (Milk Of Magnesia Liq) 30 ml Q12H PRN PO 10/19/17 00:45 (Senokot) 17.2 mg Q12H PRN PO 10/19/17 00:45 (Dulcolax Supp) 10 mg DAILY PRN RECTAL 10/19/17 00:45 (Lactulose Liq) 30 ml DAILY PRN PO 10/19/17 00:45 (Norvasc) 10 mg DAILY PO 10/19/17 09:00 10/19/17 09:50 (Aspirin Chew) 81 mg DAILY CHEW 10/19/17 09:00 10/19/17 09:51 (Lipitor) 40 mg HS PO 10/19/17 21:00 10/19/17 20:05 (Imdur) 30 mg DAILY@07 PO 10/19/17 07:00 (Betapace) 80 mg Q12HR PO 10/19/17 09:00 Future Hold 10/19/17 20:07 (Coumadin) 2.5 mg SuTuThSa PO 10/19/17 16:00 10/19/17 17:23 (Protonix) 20 mg DAILY PO 10/19/17 09:00 10/19/17 09:52 Pharmacy Profile Note 0 ml @ 0 mls/hr UNSCH OTHER 10/19/17 11:30 (Coumadin) 5 mg MoWeFr PO 10/20/17 16:00 (Trusopt 2% Opth Soln) 1 drop TID EACH EYE 10/19/17 18:00 10/19/17 18:00 (Fml Liquifilm Opth Susp) 1 drop DAILY PRN EACH EYE 10/19/17 14:00 (Refresh Tears 0.5% Opth Soln) 1 drop HS PRN EACH EYE 10/19/17 15:00 10/19/17 20:08 Patient Own Medication PT OWN MED: Ketoti... BID PRN EACH EYE 10/19/17 14:00 Future Hold (Xanax) 1 mg Q12HR PRN PO 10/19/17 20:45 10/19/17 21:34 A/P Assessment and Plan 87-year-old male with a past medical history significant for CAD, atrial fibrillation on chronic anticoagulation with Coumadin, hypertension and hyperlipidemia who was just discharged on 10/11/17 following admission for atrial fibrillation with RVR who presents to [facility] ED with complaints of palpitations and rapid heart beat. Atrial fibrillation with rapid ventricular response Patient with known history of A. fib, medication compliant Patient with HR 120-160s per EMS, now bradycardic. TSH level and Mag level WNL. Troponin less than 0.[address] Barlow, appreciate assistance -plan for outpatient cardiac ablation per Dr. Barlow -Patient is therapeutic on his Coumadin, INR 2.4 Continue anticoagulation with Coumadin. Consult pharmacy to dose. -Continue home sotalol with holding parameters due to bradycardia -continue on telemetry AILYN, GFR 55 Suspect secondary to poor oral intake -give small IVF bolus followed by maintenance fluids 42 mL/h -monitor kidney function Hypocalcemia, resolved s/p IV repletion and po repletion Status post IV repletion in the ED -continue calcium carbonate twice daily Hypertension/hyperlipidemia -Continue Imdur, Norvasc, Betapace and Lipitor FEN: Heart healthy diet Electrolytes: monitor and replete prn Coumadin Discharge Planning Discharge pending cardiology clearance Lola Almaraz Oct 20, 2017 09:08
[2017-10-20] MEDS: SODIUM CHLORIDE 0.9% FLUSH 10 ML FLUSH IV FLUSH SCH ×2 (09:09→20:28)
--- NOTE | 2017-10-20 13:17 | HHI.PR ---
Subjective Remarks Some chest pain Objective Vital Signs Date Time Temp Pulse Resp B/P (MAP) Pulse Ox O2 Delivery O2 Flow Rate FiO2 10/20/17 11:19 97.6 53 16 145/70 (95) 98 10/20/17 08:19 98.7 55 18 160/73 (102) 98 10/20/17 04:18 97.9 43 16 112/58 (76) 96 10/20/17 04:11 41 10/20/17 00:58 98.4 61 16 139/59 (85) 96 10/20/17 00:28 46 10/19/17 21:57 97.5 50 16 142/63 (89) 95 10/19/17 16:25 97.8 46 18 157/65 (95) 98 10/19/17 15:00 50 I/O 10/19/17 10/19/17 10/19/17 10/20/17 10/20/17 10/20/17 07:00 15:00 23:00 07:00 15:00 23:00 Intake Total 110 ml Balance 110 ml Intake IV Total 110 ml Result Diagram: 10/20/17 0646 10/20/17 0646 Imaging Alert, fully oriented Lungs: ventilated Heart: s1, S2 regular, no gallop abdomen: soft, no mass ext: no edema Last Impressions Chest X-Ray 10/18/172020 Signed Impressions: Service Date/Time: Wednesday, October 18, 2017 20:29 - CONCLUSION: Recurrent or persistent bibasilar airspace disease. Theron Webb MD Current Medications Medications (Trade) Dose Ordered Sig/Bernardino Route Start Time Stop Time Status Last Admin (Oscal) 500 mg Q12HR PO 10/19/17 09:00 10/20/17 09:07 (NS Flush) 2 ml UNSCH PRN IV FLUSH 10/19/17 00:45 (NS Flush) 2 ml BID IV FLUSH 10/19/17 09:00 10/20/17 09:09 (Tylenol) 650 mg Q4H PRN PO 10/19/17 00:45 (Zofran Inj) 4 mg Q6H PRN IVP 10/19/17 00:45 (Narcan Inj) 0.4 mg UNSCH PRN IV PUSH 10/19/17 00:45 (Parvin-Colace) 1 tab BID PO 10/19/17 09:00 10/20/17 09:08 (Milk Of Magnesia Liq) 30 ml Q12H PRN PO 10/19/17 00:45 (Senokot) 17.2 mg Q12H PRN PO 10/19/17 00:45 (Dulcolax Supp) 10 mg DAILY PRN RECTAL 10/19/17 00:45 (Lactulose Liq) 30 ml DAILY PRN PO 10/19/17 00:45 (Norvasc) 10 mg DAILY PO 10/19/17 09:00 10/20/17 09:07 (Aspirin Chew) 81 mg DAILY CHEW 10/19/17 09:00 10/20/17 09:07 (Lipitor) 40 mg HS PO 10/19/17 21:00 10/19/17 20:05 (Imdur) 30 mg DAILY@07 PO 10/19/17 07:00 10/20/17 09:08 (Betapace) 80 mg Q12HR PO 10/19/17 09:00 Future Hold 10/19/17 20:07 (Coumadin) 2.5 mg SuTuThSa PO 10/19/17 16:00 10/19/17 17:23 (Protonix) 20 mg DAILY PO 10/19/17 09:00 10/20/17 09:08 Pharmacy Profile Note 0 ml @ 0 mls/hr UNSCH OTHER 10/19/17 11:30 (Coumadin) 5 mg MoWeFr PO 10/20/17 16:00 (Trusopt 2% Opth Soln) 1 drop TID EACH EYE 10/19/17 18:00 10/19/17 18:00 (Fml Liquifilm Opth Susp) 1 drop DAILY PRN EACH EYE 10/19/17 14:00 (Refresh Tears 0.5% Opth Soln) 1 drop HS PRN EACH EYE 10/19/17 15:00 10/19/17 20:08 Patient Own Medication PT OWN MED: Ketoti... BID PRN EACH EYE 10/19/17 14:00 Future Hold (Xanax) 1 mg Q12HR PRN PO 10/19/17 20:45 10/19/17 21:34 Assessment and Plan Problem List: (1) Atrial fibrillation with RVR ICD Codes: I48.91 - Unspecified atrial fibrillation Status: Resolved Plan: In sinus rhythm Refers chest pain Nuclear stress study will be requested Transfer to [facility] (2) Chest pain ICD Codes: R07.9 - Chest pain Status: Resolved Plan: Stress study requested (3) Hypertension ICD Codes: I10 - Hypertension Status: Chronic Plan: SBP 145 Nataliya Barlow MD Oct 20, 2017 13:17
[2017-10-20] MEDS ORDERED: SODIUM CHLOR 0.9% 1000 ML INJ 1,000 ML IV SCH (14:00)
[2017-10-20] MEDS ORDERED: SODIUM CHLORID 0.9% 500 ML INJ 500 ML IV ONE (14:00)
[2017-10-20] MEDS: DORZOLAMIDE 2% OPTH SOLN 200 DROP/10 ML BTLO EACH EYE SCH ×3 (14:31→19:05)
[2017-10-20] MEDS ORDERED: WARFARIN SOD 5 MG TAB PO SCH (16:00)
[2017-10-20] MEDS: NITROGLYCERIN 0.4 MG SL 25 TABS/BTL SL PRN ×2 (19:03→19:16)
[2017-10-20] MEDS: ATORVASTATIN 40 MG TAB PO SCH (20:28)
[2017-10-20] MEDS: MORPHINE SULFATE 2 MG/ML SYRINGE IV PUSH PRN ×2 (20:30→23:44)
[2017-10-20] MEDS: ALPRAZolam 1 MG TAB PO PRN (21:35)
--- NOTE | 2017-10-20 23:45 | EKG ---
Date Performed: 10/20/2017 Time Performed: 11:29:57 PTAGE: 87 years EKG: SINUS BRADYCARDIA WITH MARKED SINUS ARRHYTHMIA NONSPECIFIC T-WAVE ABNORMALITY BORDERLINE EC G Compared to PREVIOUS TRACING , previously Afib DOCTOR: Kishan Banegas Interpretating Date/Time 10/20/2017 23:44:55
[2017-10-21] VITALS (28 sets, daily range): BP systolic 101–147; BP diastolic 51–77; PULSE 48–106; RESP 15–20; TEMP 97.6–98.2; O2SAT 97–99
[2017-10-21 04:23] LABS: INTERNATIONAL NORMALIZED RATIO 2.7 RATIO; PROTHROMBIN TIME - PATIENT 27.1 SEC (9.8-11.6)
[2017-10-21 04:38] LABS: BICARBONATE 24.8 MEQ/L (21.0-32.0); CALCIUM 8.4 MG/DL (8.5-10.1); CREATININE 1.22 MG/DL (0.60-1.30)
--- NOTE | 2017-10-21 07:53 | HHI.PR ---
Subjective Remarks Patient seen and examined this morning. His vitals are stable he is afebrile. Is resting comfortably. Says he sleepy. Endorse "mild" chest pain. Denies SOB or difficulty breathing. Objective Vital Signs Date Time Temp Pulse Resp B/P (MAP) Pulse Ox O2 Delivery O2 Flow Rate FiO2 10/21/17 07:01 48 10/21/17 06:03 51 10/21/17 05:00 55 10/21/17 04:00 59 10/21/17 04:00 52 10/21/17 03:48 98.0 58 15 101/51 (68) 97 10/21/17 03:00 56 10/21/17 02:34 56 10/21/17 02:00 102 10/21/17 01:00 106 10/21/17 00:00 104 10/21/17 00:00 103 10/20/17 23:48 97.9 93 18 104/63 (77) 99 10/20/17 23:00 102 10/20/17 21:00 106 10/20/17 20:20 97.7 115 18 142/89 (106) 98 10/20/17 20:00 122 10/20/17 20:00 109 10/20/17 19:00 122 10/20/17 18:00 50 10/20/17 17:21 98.7 47 22 144/67 (92) 100 10/20/17 16:47 52 10/20/17 13:00 52 10/20/17 11:19 97.6 53 16 145/70 (95) 98 10/20/17 08:19 98.7 55 18 160/73 (102) 98 I/O 10/20/17 10/20/17 10/20/17 10/21/17 10/21/17 10/21/17 07:00 15:00 23:00 07:00 15:00 23:00 Intake Total 720 ml 1110 ml Output Total 475 ml Balance 720 ml 635 ml Intake Oral 720 ml 480 ml IV Total 630 ml Output Urine Total 475 ml # Voids 1 # Bowel Movements 1 Result Diagram: 10/20/17 0646 10/21/17 0356 Imaging Last Impressions Chest X-Ray 10/18/172020 Signed Impressions: Service Date/Time: Wednesday, October 18, 2017 20:29 - CONCLUSION: Recurrent or persistent bibasilar airspace disease. Theron Webb MD Objective Remarks GENERAL: Well-appearing, no acute distress SKIN: Warm and dry. HEAD: Normocephalic. EYES: No scleral icterus. No injection or drainage. NECK: Supple, trachea midline. No JVD or lymphadenopathy. CARDIOVASCULAR: RRR, no murmurs appreciated RESPIRATORY: Breath sounds equal bilaterally. No accessory muscle use. GASTROINTESTINAL: Abdomen soft, non-tender, nondistended. MUSCULOSKELETAL: No cyanosis, or edema. A/P Problem List: (1) AILYN (acute kidney injury) ICD Code: N17.9 - Acute kidney failure, unspecified Status: Resolved (2) Atrial fibrillation with RVR ICD Code: I48.91 - Unspecified atrial fibrillation Status: Resolved (3) Chest pain ICD Code: R07.9 - Chest pain Status: Resolved (4) Hypertension ICD Code: I10 - Hypertension Status: Chronic (5) Hyperlipidemia ICD Code: E78.5 - Hyperlipidemia Status: Chronic Assessment and Plan Summary this is an 87-year-old male with medical history significant for coronary artery disease, A. fib on Coumadin, hypertension and hyperlipidemia who presented to [place] ED complaining of rapid heartbeat and palpitations. The patient was discharged on October 11 for an admission of A. fib with RVR. A. fib with RVR/CP Heart rate in the 120s-160s on admission, has resolved, in sinus rhythm, intermittent bradycardia noted Troponin negative 3 Dr. Barlow has seen and evaluated the patient: stress test ordered. Sotalol on hold due to bradycardia INR 2.7, continue Coumadin AILYN follow CR, improved with hydration Hypocalcemia replaced, stable Hypertension/hyperlipidemia continue home meds DVT prophylaxis: Therapeutic on Coumadin Discharge Planning Pending cardiac clearance stress test pending Isabella Haile MD Oct 21, 2017 07:53
[2017-10-21] MEDS: ASPIRIN 81 MG CHEW TAB CHEW SCH (08:41)
[2017-10-21] MEDS: PANTOPRAZOLE SOD 20 MG DELAYED RELEASE TAB PO SCH (08:41)
[2017-10-21] MEDS: SODIUM CHLORIDE 0.9% FLUSH 10 ML FLUSH IV FLUSH SCH ×2 (08:42→19:59)
[2017-10-21] MEDS: CALCIUM CARBONATE 1.25 GM (CA 500 MG) TAB PO SCH ×2 (08:42→19:58)
[2017-10-21] MEDS: DOCUSATE SODIUM 50 MG/SENNA 8.6 MG TAB PO SCH ×2 (08:42→19:59)
[2017-10-21] MEDS: CARBOXYMETHYLCELL SOD 0.5% OPTH SOLN 15 ML BTL EACH EYE PRN (08:43)
[2017-10-21] MEDS: DORZOLAMIDE 2% OPTH SOLN 200 DROP/10 ML BTLO EACH EYE SCH ×3 (08:43→18:21)
--- NOTE | 2017-10-21 12:56 | HHI.DCPOC ---
Discharge Care Plan Diagnosis: (1) Atrial fibrillation with RVR Goals to Promote Your Health * To prevent worsening of your condition and complications * To maintain your health at the optimal level Directions to Meet Your Goals Take your medications as prescribed Follow your dietary instruction Follow activity as directed Keep your appointments as scheduled Take your immunizations and boosters as scheduled If your symptoms worsen call your PCP, if no PCP go to Urgent Care Center or Emergency Room Smoking is Dangerous to Your Health. Avoid second hand smoke Call the 24-hour hour crisis hotline for domestic abuse at Isabella Haile MD Oct 21, 2017 12:56
[2017-10-21] MEDS: ATORVASTATIN 40 MG TAB PO SCH (19:59)
[2017-10-21] MEDS: ALPRAZolam 1 MG TAB PO PRN (20:00)
[2017-10-22] VITALS (26 sets, daily range): BP systolic 111–145; BP diastolic 50–76; PULSE 47–96; RESP 18–20; TEMP 97.6–98.3; O2SAT 96–98
[2017-10-22 04:50] LABS: INTERNATIONAL NORMALIZED RATIO 3.1 RATIO; PROTHROMBIN TIME - PATIENT 31.3 SEC (9.8-11.6)
[2017-10-22] MEDS: ISOSORBIDE MONONITRATE 30 MG CR TAB (IMDUR) PO SCH (06:00)
--- NOTE | 2017-10-22 07:12 | HHI.PR ---
Subjective Remarks Patient seen and examined this morning. His vitals are stable he is afebrile. Is resting comfortably. Continues to be bradycardic. Patient states he has been admitted to the hospital 3 times since October 06 for the same issue. He states he takes medications exactly as prescribed. [facility] Patient states sometimes his heart rate goes as low as the 40s at home but then he can go also up to the 120s. He denies any chest pain, shortness of breath, or palpitations. Objective Vital Signs Date Time Temp Pulse Resp B/P (MAP) Pulse Ox O2 Delivery O2 Flow Rate FiO2 10/22/17 07:01 47 10/22/17 05:58 48 10/22/17 05:00 50 10/22/17 04:00 60 10/22/17 04:00 98.0 60 20 111/50 (70) 97 10/22/17 03:00 55 10/22/17 02:00 57 10/22/17 01:00 63 10/22/17 00:00 98.3 60 18 118/60 (79) 96 10/22/17 00:00 60 10/21/17 23:00 62 10/21/17 22:00 60 10/21/17 21:00 66 10/21/17 20:00 Room Air 10/21/17 20:00 61 10/21/17 20:00 98.2 61 20 147/72 (97) 97 10/21/17 18:01 66 10/21/17 17:00 72 10/21/17 16:01 62 10/21/17 15:45 97.8 55 18 129/66 (87) 99 10/21/17 15:00 56 10/21/17 14:00 72 10/21/17 13:00 72 10/21/17 12:01 64 10/21/17 11:15 97.7 58 18 131/60 (83) 99 10/21/17 11:00 56 10/21/17 10:00 54 10/21/17 09:00 64 10/21/17 08:45 97.6 66 18 147/77 (100) 97 10/21/17 08:00 58 I/O 10/21/17 10/21/17 10/21/17 10/22/17 10/22/1718 07:00 15:00 23:00 07:00 15:00 23:00 Intake Total 1110 ml 1581 ml 480 ml Output Total 475 ml 1750 ml 600 ml Balance 635 ml -169 ml -120 ml Intake Oral 480 ml 600 ml 480 ml IV Total 630 ml 981 ml Output Urine Total 475 ml 1750 ml 600 ml # Voids 6 # Bowel Movements 0 0 Result Diagram: 10/20/17 0646 10/21/17 0356 Imaging Last Impressions Chest X-Ray 10/18/172020 Signed Impressions: Service Date/Time: Wednesday, October 18, 2017 20:29 - CONCLUSION: Recurrent or persistent bibasilar airspace disease. Theron Webb MD Objective Remarks GENERAL: Well-appearing, no acute distress SKIN: Warm and dry. HEAD: Normocephalic. EYES: No scleral icterus. No injection or drainage. NECK: Supple, trachea midline. No JVD or lymphadenopathy. CARDIOVASCULAR: RRR, no murmurs appreciated RESPIRATORY: Breath sounds equal bilaterally. No accessory muscle use. GASTROINTESTINAL: Abdomen soft, non-tender, nondistended. MUSCULOSKELETAL: No cyanosis, or edema. A/P Problem List: (1) AILYN (acute kidney injury) ICD Code: N17.9 - Acute kidney failure, unspecified Status: Resolved (2) Atrial fibrillation with RVR ICD Code: I48.91 - Unspecified atrial fibrillation Status: Resolved (3) Chest pain ICD Code: R07.9 - Chest pain Status: Resolved (4) Hypertension ICD Code: I10 - Hypertension Status: Chronic (5) Hyperlipidemia ICD Code: E78.5 - Hyperlipidemia Status: Chronic Assessment and Plan Summary this is an 87-year-old male with medical history significant for coronary artery disease, A. fib on Coumadin, hypertension and hyperlipidemia who presented to [place] ED complaining of rapid heartbeat and palpitations. The patient was discharged on October 11 for an admission of A. fib with RVR. A. fib with RVR/CP Heart rate in the 120s-160s on admission, has resolved, in sinus rhythm, intermittent bradycardia noted Troponin negative 3 Dr. Barlow has seen and evaluated the patient: stress test ordered. Sotalol on hold due to bradycardia INR 3.1, continue Coumadin AILYN follow CR, improved with hydration Hypocalcemia replaced, stable Hypertension/hyperlipidemia continue home meds DVT prophylaxis: Therapeutic on Coumadin Discharge Planning Pending cardiac clearance--> patient's sotalol has been held for the past 3 days. Will need cardiology's input on whether this should be resumed at a lower dose or discharge the patient without a beta-juan antonio. Isabella Haile MD Oct 22, 2017 07:12
[2017-10-22] MEDS: PANTOPRAZOLE SOD 20 MG DELAYED RELEASE TAB PO SCH (08:21)
[2017-10-22] MEDS: CALCIUM CARBONATE 1.25 GM (CA 500 MG) TAB PO SCH ×2 (08:21→20:51)
[2017-10-22] MEDS: ASPIRIN 81 MG CHEW TAB CHEW SCH (08:21)
[2017-10-22] MEDS: DOCUSATE SODIUM 50 MG/SENNA 8.6 MG TAB PO SCH ×2 (08:21→20:52)
[2017-10-22] MEDS: SODIUM CHLORIDE 0.9% FLUSH 10 ML FLUSH IV FLUSH SCH ×2 (08:21→20:51)
[2017-10-22] MEDS: DORZOLAMIDE 2% OPTH SOLN 200 DROP/10 ML BTLO EACH EYE SCH ×3 (08:22→18:00)
[2017-10-22] MEDS: MORPHINE SULFATE 2 MG/ML SYRINGE IV PUSH PRN (12:19)
[2017-10-22] MEDS: NITROGLYCERIN 0.4 MG SL 25 TABS/BTL SL PRN (12:22)
--- NOTE | 2017-10-22 12:36 | HHI.FPPN ---
Addendum to progress note ADDENDUM Reason for addendum: Additonal documentation Additional information per nurse, cards had cleared patient for discharge. patient then developed cheat pain 01/02. vitals remained stable. got a dose of nitro this provided some relied. nurse had already place a call back out to cardiology. will hold dc. stat trop and ekg. Isabella Haile MD Oct 22, 2017 12:36
[2017-10-22 14:48] LABS: TROPONIN I LESS THAN 0.02 NG/ML (0.02-0.05)
[2017-10-22] MEDS ORDERED: WARFARIN SOD 2.5 MG TAB PO SCH (16:00)
--- NOTE | 2017-10-22 17:17 | MB ---
cc: BassamKishan Beth DATE: 10/22/2017 CHIEF COMPLAINT: Chest pain, consideration of cardiac catheterization. HISTORY OF PRESENT ILLNESS: Teddy Aragon is a pleasant 87-year-old male who sees my partner, Dr. Gil, in the office and presented due to chest pain and palpitations. Apparently, he has been in multiple times this month, mostly due to atrial fibrillation with rapid ventricular response. He also has mentioned, briefly, during these episodes that he has been having some chest pain. He underwent a pharmacologic nuclear stress test on last admission, which was negative for ischemia. Today, he was possibly being considered for discharge when he started having chest pain. Chest pain was around the center of his chest, but it was difficult for him to locate the actual area. It was a squeezing or tightness in nature. He used the words "it felt like someone was sitting on my chest." He was given a nitro and he started to feel better. I was asked to see him for further considerations from a cardiovascular standpoint on how to treat him. PAST MEDICAL HISTORY: 1. Atrial fibrillation, anticoagulated, on Coumadin therapy. 2. Hypertension. 3. Hyperlipidemia. 4. Mild coronary artery disease by cardiac catheterization. PAST SURGICAL HISTORY: 1. Partial colectomy. 2. Cardiac catheterization (09/15/2004) with LAD of 25-40%. 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 Left circumflex is dominant with no significant disease. Right coronary artery is nondominant in nature. ALLERGIES: NO KNOWN DRUG ALLERGIES. MEDICATIONS: 1. Coumadin 5 mg Monday, Monday, Monday; 2.5 mg Monday, , Monday, Monday. 2. Lipitor 40 mg every night. 3. Imdur 30 mg daily. 4. Nitro sublingual as needed. 5. Sotalol 80 mg b.i.d. 6. Norvasc 10 mg daily. 7. Aspirin 81 mg daily. 8. Xanax 1 mg b.i.d. 9. Flarex ophthalmic drops each eye daily as needed for dry eyes. 10. Dorzolamide each eye t.i.d. 11. Omeprazole 20 mg daily. FAMILY HISTORY: Denies premature coronary artery disease or sudden cardiac within the family. SOCIAL HISTORY: Denies alcohol, tobacco or drug abuse. REVIEW OF SYSTEMS: Fourteen systems were reviewed including osteopathic pertinent positives and negatives above, otherwise negative. PHYSICAL EXAMINATION: VITAL SIGNS: Temperature 97.6, heart rate 67, blood pressure 136/74, respirations 18, pulse oximetry 98% on room air. GENERAL: The patient appears well, in no acute distress, alert, awake and oriented x 3. HEENT: Extraocular muscles intact. Mucous membranes moist. NECK: Supple. No JVD at 45 degrees. No carotid bruits heard bilaterally. Carotid upstroke is brisk in nature. HEART: Regular rate and rhythm. Positive for and second heart sounds were noted. No murmurs, gallops or rubs. LUNGS: Clear to auscultation bilaterally. No wheezes, rales or rhonchi. ABDOMEN: Soft, nontender, nondistended, no organomegaly noted. EXTREMITIES: Show no clubbing, cyanosis or edema. Femoral and distal pulses intact bilaterally. NEUROLOGIC: No focal deficits. SKIN: Warm, dry and intact. OSTEOPATHIC: No kyphoscoliosis, lordosis or paraspinal tender points. LABORATORY DATA: Hemoglobin 12.7, hematocrit 37.2, platelets 188. INR 3.1. Potassium 3.8, BUN 21, creatinine 1.22. Troponin negative x 3. Electrocardiogram (10/22/2017, at 12:41) sinus rhythm with sinus arrhythmia, nonspecific ST-T wave changes inferolaterally. No significant change from previous. IMPRESSIONS: 1. Chest pain concerning for coronary insufficiency. 2. Atrial fibrillation with rapid ventricular response. 3. Hyperlipidemia. 4. Hypertension. RECOMMENDATIONS: 1. Mr. Teddy Aragon has had on and off chest pain through multiple admissions and a negative stress test. 2. Chest pain today was typical for angina, which came on as a pressure-like sensation and went away with nitroglycerin. Due to the typical nature of this, I believe he should have an ischemic evaluation. As he recently had a stress test, which was negative, but continues to have the episodes of pain, I feel that he should undergo cardiac catheterization. Risks, benefits and alternatives were explained to him and he consented to such. 3. We will hold his Coumadin and continue to watch his INRs. Once they are low enough, we will plan his cardiac catheterization. Thank you for allowing me to see Teddy Aragon. If there are any questions, please do not hesitate to call. DO SAMY Dior/DREW , 03:56 PM , 05:16 PM
[2017-10-22 19:51] LABS: TROPONIN I LESS THAN 0.02 NG/ML (0.02-0.05)
[2017-10-22] MEDS: ATORVASTATIN 40 MG TAB PO SCH (20:51)
[2017-10-22] MEDS: ALPRAZolam 1 MG TAB PO PRN (20:51)
[2017-10-23] VITALS (31 sets, daily range): BP systolic 109–134; BP diastolic 54–88; PULSE 50–172; RESP 14–20; TEMP 97.7–98.3; O2SAT 95–99
[2017-10-23] MEDS: ISOSORBIDE MONONITRATE 30 MG CR TAB (IMDUR) PO SCH (05:57)
[2017-10-23 06:53] LABS: INTERNATIONAL NORMALIZED RATIO 2.3 RATIO; PROTHROMBIN TIME - PATIENT 23.1 SEC (9.8-11.6)
--- NOTE | 2017-10-23 07:54 | HHI.PR ---
Subjective Remarks Feeling ok Objective Vital Signs Date Time Temp Pulse Resp B/P (MAP) Pulse Ox O2 Delivery O2 Flow Rate FiO2 10/23/17 06:00 59 10/23/17 05:00 58 10/23/17 04:00 98.1 59 18 119/58 (78) 98 10/23/17 04:00 56 10/23/17 03:00 58 10/23/17 02:00 55 10/23/17 01:00 60 10/23/17 00:00 56 10/23/17 00:00 98.3 56 20 109/55 (73) 96 10/22/17 23:00 55 10/22/17 22:00 57 10/22/17 21:00 67 10/22/17 20:00 59 10/22/17 20:00 98.0 57 20 144/76 (98) 96 10/22/17 20:00 Room Air 10/22/17 18:01 96 10/22/17 17:00 82 10/22/17 16:01 62 10/22/17 15:15 97.7 62 18 133/69 (90) 97 10/22/17 15:00 65 10/22/17 14:01 68 10/22/17 13:01 78 10/22/17 12:00 78 10/22/17 11:15 97.6 67 18 136/74 (94) 98 10/22/17 11:00 62 10/22/17 10:00 62 10/22/17 09:00 80 10/22/17 08:15 97 Room Air 10/22/17 08:15 97.8 73 18 145/76 (99) 97 10/22/17 08:00 54 I/O 10/22/17 10/22/17 10/22/17 10/23/17 10/23/17 10/23/17 07:00 15:00 23:00 07:00 15:00 23:00 Intake Total 480 ml 720 ml 480 ml Output Total 600 ml 955 ml 600 ml Balance -120 ml -235 ml -120 ml Intake Oral 480 ml 720 ml 480 ml Output Urine Total 600 ml 955 ml 600 ml # Voids 3 # Bowel Movements 0 0 1 Result Diagram: 10/20/17 0646 10/21/17 0356 Imaging Alert, fully oriented, in bed Lungs: ventilated Heart: s1, S2 regular, no gallop Abdomen: soft, no mass Ext: no edema Last Impressions Chest X-Ray 10/18/172020 Signed Impressions: Service Date/Time: Wednesday, October 18, 2017 20:29 - CONCLUSION: Recurrent or persistent bibasilar airspace disease. Theron Webb MD Current Medications Medications (Trade) Dose Ordered Sig/Bernardino Route Start Time Stop Time Status Last Admin (Oscal) 500 mg Q12HR PO 10/19/17 09:00 10/22/17 20:51 (NS Flush) 2 ml UNSCH PRN IV FLUSH 10/19/17 00:45 (NS Flush) 2 ml BID IV FLUSH 10/19/17 09:00 10/22/17 20:51 (Tylenol) 650 mg Q4H PRN PO 10/19/17 00:45 (Zofran Inj) 4 mg Q6H PRN IVP 10/19/17 00:45 (Narcan Inj) 0.4 mg UNSCH PRN IV PUSH 10/19/17 00:45 (Parvin-Colace) 1 tab BID PO 10/19/17 09:00 10/21/17 08:42 (Milk Of Magnesia Liq) 30 ml Q12H PRN PO 10/19/17 00:45 (Senokot) 17.2 mg Q12H PRN PO 10/19/17 00:45 (Dulcolax Supp) 10 mg DAILY PRN RECTAL 10/19/17 00:45 (Lactulose Liq) 30 ml DAILY PRN PO 10/19/17 00:45 (Norvasc) 10 mg DAILY PO 10/19/17 09:00 10/22/17 08:21 (Aspirin Chew) 81 mg DAILY CHEW 10/19/17 09:00 10/22/17 08:21 (Lipitor) 40 mg HS PO 10/19/17 21:00 10/22/17 20:51 (Imdur) 30 mg DAILY@07 PO 10/19/17 07:00 10/23/17 05:57 (Betapace) 80 mg Q12HR PO 10/19/17 09:00 Future Hold 10/19/17 20:07 (Protonix) 20 mg DAILY PO 10/19/17 09:00 10/22/17 08:21 (Trusopt 2% Opth Soln) 1 drop TID EACH EYE 10/19/17 18:00 10/22/17 18:00 (Fml Liquifilm Opth Susp) 1 drop DAILY PRN EACH EYE 10/19/17 14:00 (Refresh Tears 0.5% Opth Soln) 1 drop HS PRN EACH EYE 10/19/17 15:00 10/21/17 08:43 Patient Own Medication PT OWN MED: Ketoti... BID PRN EACH EYE 10/19/17 14:00 Future Hold (Xanax) 1 mg Q12HR PRN PO 10/19/17 20:45 10/22/17 20:51 (Nitrostat Sl) 0.4 mg Q5M PRN SL 10/20/17 17:15 10/22/17 12:22 (Morphine Inj) 2 mg Q3H PRN IV PUSH 10/20/17 17:15 10/20/17 23:44 Assessment and Plan Problem List: (1) Atrial fibrillation with RVR ICD Codes: I48.91 - Unspecified atrial fibrillation Status: Resolved Plan: In sinus rhythm Chest pain most of the time is in the setting of atrial fibrillation Negative enzymes Negative nuclear stress study, no acute ST changes Seen by Dr Banegas this weekend He will decide about the possibility of intervention. From there ablation will be scheduled (2) Chest pain ICD Codes: R07.9 - Chest pain Status: Resolved Plan: Previous stress study negative No EKG changes asymptomatic today (3) Hypertension ICD Codes: I10 - Hypertension Status: Chronic Plan: SBP 119 Nataliya Barlow MD Oct 23, 2017 07:54
[2017-10-23] MEDS: DORZOLAMIDE 2% OPTH SOLN 200 DROP/10 ML BTLO EACH EYE SCH ×3 (09:28→18:09)
[2017-10-23] MEDS: SODIUM CHLORIDE 0.9% FLUSH 10 ML FLUSH IV FLUSH SCH ×2 (09:28→20:34)
[2017-10-23] MEDS: DOCUSATE SODIUM 50 MG/SENNA 8.6 MG TAB PO SCH ×2 (09:28→20:34)
[2017-10-23] MEDS: CALCIUM CARBONATE 1.25 GM (CA 500 MG) TAB PO SCH ×2 (09:28→20:34)
[2017-10-23] MEDS: ASPIRIN 81 MG CHEW TAB CHEW SCH (09:28)
[2017-10-23] MEDS: PANTOPRAZOLE SOD 20 MG DELAYED RELEASE TAB PO SCH (09:29)
[2017-10-23] MEDS ORDERED: AMIODARONE INJ 450 MG in D5W (EXCEL BAG) INJ 241 ML IV PRN (10:30)
[2017-10-23] MEDS ORDERED: AMIODARONE INJ 450 MG in SODIUM CHLOR 0.9% (EXCEL) INJ 241 ML IV PRN (10:30)
[2017-10-23] MEDS ORDERED: AMIODARONE 150 MG/D5W 97 ML BOLUS 10 MINUTES IV ONE ×2 (10:30)
[2017-10-23] MEDS ORDERED: AMIODARONE INJ 300 MG in DEXTROSE 5% IN WATER 100ML INJ 94 ML IV ONE ×2 (10:45)
[2017-10-23] MEDS: AMIODARONE INJ 450 MG in SODIUM CHLOR 0.9% (EXCEL) INJ 241 ML IV PRN ×2 (11:29→19:19)
--- NOTE | 2017-10-23 12:30 | PD.CARD.PN ---
Subjective Subjective Remarks No further chest pain Now in Afib with RVR this morning Objective Medications Current Medications Medications (Trade) Dose Ordered Sig/Bernardino Route Start Time Stop Time Status Last Admin (Oscal) 500 mg Q12HR PO 10/19/17 09:00 10/23/17 09:28 (NS Flush) 2 ml UNSCH PRN IV FLUSH 10/19/17 00:45 (NS Flush) 2 ml BID IV FLUSH 10/19/17 09:00 10/23/17 09:28 (Tylenol) 650 mg Q4H PRN PO 10/19/17 00:45 (Zofran Inj) 4 mg Q6H PRN IVP 10/19/17 00:45 (Narcan Inj) 0.4 mg UNSCH PRN IV PUSH 10/19/17 00:45 (Parvin-Colace) 1 tab BID PO 10/19/17 09:00 10/23/17 09:28 (Milk Of Magnesia Liq) 30 ml Q12H PRN PO 10/19/17 00:45 (Senokot) 17.2 mg Q12H PRN PO 10/19/17 00:45 (Dulcolax Supp) 10 mg DAILY PRN RECTAL 10/19/17 00:45 (Lactulose Liq) 30 ml DAILY PRN PO 10/19/17 00:45 (Norvasc) 10 mg DAILY PO 10/19/17 09:00 10/23/17 09:28 (Aspirin Chew) 81 mg DAILY CHEW 10/19/17 09:00 10/23/17 09:28 (Lipitor) 40 mg HS PO 10/19/17 21:00 10/22/17 20:51 (Imdur) 30 mg DAILY@07 PO 10/19/17 07:00 10/23/17 05:57 (Betapace) 80 mg Q12HR PO 10/19/17 09:00 Future Hold 10/19/17 20:07 (Protonix) 20 mg DAILY PO 10/19/17 09:00 10/23/17 09:29 (Trusopt 2% Opth Soln) 1 drop TID EACH EYE 10/19/17 18:00 10/23/17 09:28 (Fml Liquifilm Opth Susp) 1 drop DAILY PRN EACH EYE 10/19/17 14:00 (Refresh Tears 0.5% Opth Soln) 1 drop HS PRN EACH EYE 10/19/17 15:00 10/21/17 08:43 Patient Own Medication PT OWN MED: Ketoti... BID PRN EACH EYE 10/19/17 14:00 Future Hold (Xanax) 1 mg Q12HR PRN PO 10/19/17 20:45 10/22/17 20:51 (Nitrostat Sl) 0.4 mg Q5M PRN SL 10/20/17 17:15 10/22/17 12:22 (Morphine Inj) 2 mg Q3H PRN IV PUSH 10/20/17 17:15 10/20/17 23:44 Amiodarone HCl 450 mg/Sodium Chloride 250 ml @ 33.33 mls/ hr TITRATE PRN IV 10/23/17 10:45 10/23/17 11:29 Vital Signs / I&O Vital Signs Date Time Temp Pulse Resp B/P (MAP) Pulse Ox O2 Delivery O2 Flow Rate FiO2 10/23/17 11:31 103 18 126/83 (97) 97 10/23/17 11:29 120 121/82 10/23/17 11:24 98.0 112 18 121/82 (95) 95 10/23/17 11:21 160 121/82 10/23/17 08:53 97.7 67 14 130/88 (102) 96 10/23/17 08:53 96 Room Air 10/23/17 06:00 59 10/23/17 05:00 58 10/23/17 04:00 98.1 59 18 119/58 (78) 98 10/23/17 04:00 56 10/23/17 03:00 58 10/23/17 02:00 55 10/23/17 01:00 60 10/23/17 00:00 56 10/23/17 00:00 98.3 56 20 109/55 (73) 96 10/22/17 23:00 55 10/22/17 22:00 57 10/22/17 21:00 67 10/22/17 20:00 59 10/22/17 20:00 98.0 57 20 144/76 (98) 96 10/22/17 20:00 Room Air 10/22/17 18:01 96 10/22/17 17:00 82 10/22/17 16:01 62 10/22/17 15:15 97.7 62 18 133/69 (90) 97 10/22/17 15:00 65 10/22/17 14:01 68 10/22/17 13:01 78 I/O 10/22/17 10/22/17 10/22/17 10/23/17 10/23/17 10/23/17 07:00 15:00 23:00 07:00 15:00 23:00 Intake Total 480 ml 720 ml 480 ml 100 ml Output Total 600 ml 955 ml 600 ml Balance -120 ml -235 ml -120 ml 100 ml Intake Oral 480 ml 720 ml 480 ml IV Total 100 ml Output Urine Total 600 ml 955 ml 600 ml # Voids 3 # Bowel Movements 0 0 1 Physical Exam GENERAL: NAD, AAOx3 SKIN: Warm and dry. HEAD: Atraumatic. Normocephalic. EYES: Pupils equal and round. No scleral icterus. No injection or drainage. ENT: No nasal bleeding or discharge. Mucous membranes pink and moist. NECK: Trachea midline. No JVD. CARDIOVASCULAR: Irregularly irregular RESPIRATORY: No accessory muscle use. Clear to auscultation. Breath sounds equal bilaterally. GASTROINTESTINAL: Abdomen soft, non-tender, nondistended. Hepatic and splenic margins not palpable. MUSCULOSKELETAL: Extremities without clubbing, cyanosis, or edema. No obvious deformities. NEUROLOGICAL: Awake and alert. No obvious cranial nerve deficits. Motor grossly within normal limits. Five out of 5 muscle strength in the arms and legs. Normal speech. PSYCHIATRIC: Appropriate mood and affect; insight and judgment normal. Laboratory Laboratory Tests Test 10/22/17 13:31 10/22/17 18:39 10/23/17 05:33 Total Creatine Kinase 61 U/L 67 U/L Troponin I LESS THAN 0.02 NG/ML LESS THAN 0.02 NG/ML Prothrombin Time 23.1 SEC Prothromb Time International Ratio 2.3 RATIO Assessment and Plan Problem List: (1) Atrial fibrillation with RVR ICD Codes: I48.91 - Unspecified atrial fibrillation Status: Resolved (2) Chest pain ICD Codes: R07.9 - Chest pain Status: Resolved (3) CAD (coronary artery disease) ICD Codes: I25.10 - CAD (coronary artery disease) Status: Chronic (4) Hypertension ICD Codes: I10 - Hypertension Status: Chronic (5) Hyperlipidemia ICD Codes: E78.5 - Hyperlipidemia Status: Chronic Assessment and Plan 1) Afib with RVR Started on Amiodarone Dr. Cain gunderson, considering ablation depending on results for cardiac catheterization 2) Chest pain, some concerning typical components Stress test negative Due to typical nature, will plan for cardiac catheterization NPO after midnight, possible tomorrow depending on INR level Kishan Banegas DO Oct 23, 2017 12:30
--- NOTE | 2017-10-23 14:53 | HHI.PR ---
Subjective Remarks Patient has no complaints. Denies any chest pain, shortness of breath, nausea or vomiting. Hopeful he can have his cardiac catheterization tomorrow. Objective Vitals Vital Signs Date Time Temp Pulse Resp B/P (MAP) Pulse Ox O2 Delivery O2 Flow Rate FiO2 10/23/17 13:00 86 10/23/17 12:00 132 10/23/17 11:31 103 18 126/83 (97) 97 10/23/17 11:29 120 121/82 10/23/17 11:24 98.0 112 18 121/82 (95) 95 10/23/17 11:21 160 121/82 10/23/17 11:00 162 10/23/17 10:24 172 10/23/17 10:00 116 10/23/17 09:00 74 10/23/17 08:53 97.7 67 14 130/88 (102) 96 10/23/17 08:53 96 Room Air 10/23/17 08:00 104 10/23/17 07:00 58 10/23/17 06:00 59 10/23/17 05:00 58 10/23/17 04:00 98.1 59 18 119/58 (78) 98 10/23/17 04:00 56 10/23/17 03:00 58 10/23/17 02:00 55 10/23/17 01:00 60 10/23/17 00:00 56 10/23/17 00:00 98.3 56 20 109/55 (73) 96 10/22/17 23:00 55 10/22/17 22:00 57 10/22/17 21:00 67 10/22/17 20:00 59 10/22/17 20:00 98.0 57 20 144/76 (98) 96 10/22/17 20:00 Room Air 10/22/17 18:01 96 10/22/17 17:00 82 10/22/17 16:01 62 10/22/17 15:15 97.7 62 18 133/69 (90) 97 10/22/17 15:00 65 I/O 10/22/17 10/22/17 10/22/17 10/23/17 10/23/17 10/23/17 07:00 15:00 23:00 07:00 15:00 23:00 Intake Total 480 ml 720 ml 480 ml 100 ml Output Total 600 ml 955 ml 600 ml Balance -120 ml -235 ml -120 ml 100 ml Intake Oral 480 ml 720 ml 480 ml IV Total 100 ml Output Urine Total 600 ml 955 ml 600 ml # Voids 3 # Bowel Movements 0 0 1 Result Diagram: 10/20/17 0646 10/21/17 0356 Imaging Last Impressions Chest X-Ray 10/18/172020 Signed Impressions: Service Date/Time: Wednesday, October 18, 2017 20:29 - CONCLUSION: Recurrent or persistent bibasilar airspace disease. Theron Webb MD Objective Remarks GENERAL: Wearing sunglasses. CARDIOVASCULAR: Irregularly irregular, no murmurs appreciated RESPIRATORY: Breath sounds equal bilaterally. No accessory muscle use. GASTROINTESTINAL: Abdomen soft, non-tender, nondistended. MUSCULOSKELETAL: No cyanosis, or edema. Procedures None A/P Assessment and Plan Summary this is an 87-year-old male with medical history significant for coronary artery disease, A. fib on Coumadin, hypertension and hyperlipidemia who presented to [facility] complaining of rapid heartbeat and palpitations. The patient was discharged on October 11 for an admission of A. fib with RVR. A. fib with RVR/CP Heart rate in the 120s-160s on admission, has resolved, in sinus rhythm, intermittent bradycardia noted Troponin negative 3 Dr. Barlow has seen and evaluated the patient: stress test ordered. Possible ablation pending cardiac cath results INR 2.3, continue Coumadin Patient developed chest pains. Dr. Banegas evaluated the patient recommended cardiac catheterization. However his INR was too high today therefore Cardiac cath will be scheduled for tomorrow. Patient went back to A. fib with RVR status post amiodarone done IV and now on an amiodarone gtt. HR improved. AILYN resolved Hypocalcemia replaced, stable Hypertension/hyperlipidemia continue home meds DVT prophylaxis: Therapeutic on Coumadin Discharge Planning Patient scheduled for cardiac cath in a.m. if INR better Sarah Gracia MD Oct 23, 2017 14:53
[2017-10-23] MEDS ORDERED: MORPHINE SULFATE 4 MG/ML INJ IV PUSH PRN (20:15)
[2017-10-23] MEDS: ATORVASTATIN 40 MG TAB PO SCH (20:34)
[2017-10-23] MEDS: ALPRAZolam 1 MG TAB PO PRN (20:36)
--- NOTE | 2017-10-23 20:55 | EKG ---
Date Performed: 10/23/2017 Time Performed: 04:39:34 PTAGE: 87 years EKG: Sinus rhythm with PAC(s) Anterolateral T wave changes are nonspecific Borderline ECG PREVIOUS TRACING : 10/22/2017 20.20 Since the previous tracing, no significant change noted DOCTOR: Hugo Rogers Interpretating Date/Time 10/23/2017 20:54:54
--- NOTE | 2017-10-23 21:11 | EKG ---
Date Performed: 10/22/2017 Time Performed: 20:20:44 PTAGE: 87 years EKG: Sinus rhythm Anterior T wave changes are nonspecific Borderline ECG PREVIOUS TRACING : 10/22/2017 12.41 Since the previous tracing, no significant change noted DOCTOR: Hugo Rogers Interpretating Date/Time 10/23/2017 21:09:27
--- NOTE | 2017-10-23 21:28 | EKG ---
Date Performed: 10/22/2017 Time Performed: 12:41:42 PTAGE: 87 years EKG: Sinus arrhythmia Inferior/lateral ST changes are nonspecific Borderline ECG PREVIOUS TRACING : 10/20/2017 11.29 Since the previous tracing, no significant change noted DOCTOR: Hugo Rogers Interpretating Date/Time 10/23/2017 21:27:31
[2017-10-24] VITALS (28 sets, daily range): BP systolic 122–142; BP diastolic 60–68; PULSE 48–84; RESP 16–19; TEMP 97.8–98.2; O2SAT 97–98
[2017-10-24] MEDS: ISOSORBIDE MONONITRATE 30 MG CR TAB (IMDUR) PO SCH (06:13)
[2017-10-24 06:40] LABS: INTERNATIONAL NORMALIZED RATIO 1.8 RATIO; PROTHROMBIN TIME - PATIENT 18.1 SEC (9.8-11.6)
[2017-10-24 06:50] LABS: BICARBONATE 24.6 MEQ/L (21.0-32.0); CALCIUM 8.7 MG/DL (8.5-10.1); CREATININE 1.34 MG/DL (0.60-1.30)
[2017-10-24 07:07] LABS: AUTOMATED NEUTROPHIL # 4.4 TH/MM3 (1.8-7.7); BASOPHIL % 0.5 % (0.0-2.0); EOSINOPHIL # 0.5 TH/MM3 (0-0.4); EOSINOPHIL % 7.6 % (0.0-4.0); HEMATOCRIT 36.7 % (39.0-51.0); HEMOGLOBIN 12.7 GM/DL (13.0-17.0); LYMPH % 19.9 % (9.0-44.0); LYMPHOCYTE # 1.4 TH/MM3 (1.0-4.8); MEAN CELL VOLUME 96.1 FL (80.0-100.0); MEAN CORPUSCULAR HEMOGLOBIN 33.2 PG (27.0-34.0); MEAN CORPUSCULAR HGB CONC 34.5 % (32.0-36.0); MEAN PLATELET VOLUME 8.3 FL (7.0-11.0); MONO % 7.9 % (0.0-8.0); MONOCYTE # 0.5 TH/MM3 (0-0.9); NEUT % 64.1 % (16.0-70.0); PLATELET COUNT 196 TH/MM3 (150-450); RED BLOOD COUNT 3.81 MIL/MM3 (4.50-5.90); WHITE BLOOD COUNT 6.9 TH/MM3 (4.0-11.0)
[2017-10-24] MEDS: DOCUSATE SODIUM 50 MG/SENNA 8.6 MG TAB PO SCH ×3 (09:00→20:45)
[2017-10-24] MEDS: DORZOLAMIDE 2% OPTH SOLN 200 DROP/10 ML BTLO EACH EYE SCH ×3 (09:00→18:00)
[2017-10-24] MEDS: SODIUM CHLORIDE 0.9% FLUSH 10 ML FLUSH IV FLUSH SCH ×2 (09:00→20:45)
[2017-10-24] MEDS: CALCIUM CARBONATE 1.25 GM (CA 500 MG) TAB PO SCH ×2 (09:58→20:45)
[2017-10-24] MEDS: ASPIRIN 81 MG CHEW TAB CHEW SCH (09:58)
[2017-10-24] MEDS: PANTOPRAZOLE SOD 20 MG DELAYED RELEASE TAB PO SCH (09:58)
[2017-10-24] MEDS ORDERED: LIDOCAINE HCL 1% PF 30 ML VIAL ONE (11:07)
[2017-10-24] MEDS ORDERED: VERAPAMIL HCL 5 MG/2 ML VIAL ONE (11:16)
[2017-10-24] MEDS ORDERED: MIDAZOLAM HCL 2 MG/2 ML VIAL ONE (11:26)
[2017-10-24] MEDS ORDERED: CLOPIDOGREL 300 MG TAB ONE (12:24)
[2017-10-24] MEDS ORDERED: SODIUM CHLOR 0.9% 1000 ML INJ 1,000 ML IV SCH (12:50)
--- NOTE | 2017-10-24 12:51 | CATHPROC ---
Krush HIS Report Study Information Study Number Scheduled Start Study Start [id number] 10/23/2017 Oct 24 2017 11:18AM Referring Institution Admit Source Facility Department 1 Other [facility] - Private Investigator Physician and Clinical Staff Initial Kishan Funes Customer Engagement Manager Isaac Rain,ORION Customer Engagement Manager Beverly Lea RN Recorder Wang Benton RN Scrub Maryana Phillip,RT(R) (BS) Procedures Performed Procedure Location (Site) Vessel Name Coronary Angiograms LCA Left Coronary Coronary Angiograms RCA Right Coronary Drug Eluting Inflatio LAD Mid Left Coronary L Heart Cath PTCA LAD Mid Left Coronary Wire insertion Radial (right) Radial Art. Equipment Time Humidifier Operator Description Size Mfg Part Number Used/Scraped CATHETER, FR4 BERENSTEIN [id number] 11:27 ANGIO[employer]DYNAMICS FR 4 Used 65CM *[id number] TRANSDUCER, TRUWAVE [id number] 11:27 [employer] * Used W/STOCKCOCK *[id number] *[id number] *[id number] 11:27 [email or web address] PACK, CCL CUSTOM * Used *[id number] 11:27 [email or web address] SUPPORT, ARTERIAL ADULT 45096 *[id number] Used [id number] 12:10 [employer] BALLOON, 2.0 X 20MM EUPHORA 20MM Used *[id number] BALLOON, 3.0 X 15MM NC [id number] 12:20 [employer] 15MM Used EUPHORA *[id number] 12:16 [employer] STENT, 3.0 26MM BETI 3.0 26MM Used *[id number] 11:49 [employer]/AVE EBU 3.5 Z2 GUIDE CATHETER FR 6 Used *[id number] 12:12 [employer] MEDICAL 30 RACHEL INDEFLATOR Used *[id number] BAND, RADIAL COMPRESSION TR [id number] 12:30 [employer] MEDICAL 24CM Used SHORT 24 *[id number] 11:27 [employer] MEDICAL WIRE, EXCHANGE 260CM 3MMJ 260CM Used *[id number] 11:27 NAMIC MANIFOLD, 4 PORT * Used *[id number] 11:27 [employer]COMED OMNIPAQUE, 350 MG, 150ML 150ML [id number] Used [id number] 11:27 [employer] MEDICAL BLANKET,WARM AIR CCL * Used *[id number] SHEATH, FR6 TRANSRADIAL [id number] 11:27 Graspr FR 6 Used SLENDER 10CM *[id number] 11:51 [employer] PRIME WIRE, VERRATA 185CM 185CM Used *[id number] Equipment Model, Serial, Lot Number and Expiration Data Description Model Number Serial Number Lot Number Expiration Date STENT, 3.0 26MM BETI [id number] 07-23-2019 History: Current Medications Medication Dosage/Unit Route Frequency Last Date/Time Taken ASA NORVASC Statins (any) History: Allergies Allergy Reaction No Known Allergies History: Risk Factors Family History of Hypertension Dyslipidemia Previous [place] Previous Heart Failure Premature CAD Yes Yes No No No Prior Valve Prior PCI Prior CABG Surgery No No No Cerebrovascular Peripheral Artery Chronic Lung On Dialysis Diabetes Disease Disease Disease No No No No No History: Stress Tests Stress or Imaging Studies Performed Yes Standard Exercise Stress Test No Stress Echo No Stress Test SPECT Stress Test SPECT Result Stress Test SPECT Ischemia Risk/Extent Yes Positive Low Stress Test CMR No Cardiac CTA Coronary Calcium Score No No History: Arrhythmias Selection Items Atrial fibrillation History: Other Current Smoker No Labs Hgb (g/dl) Hct (%) WBC (l/cumm) Platelets (thousands) 11.60-17.00 35.00-51.00 4.00-11.00 150.00-450.00 12.7 36.7 6.9 196 Glucose (mg/dl) BUN (mg/dl) Creatinine (mg/dl) BUN:Creatinine (1:x) 74.00-106.00 7.00-18.00 0.50-1.30 10.00-20.00 87 23 1.3 17.7 Na (meq/l) K (meq/l) 136.00-145.00 3.50-5.10 142 3.8 INR (PTT:PT) 0.90-1.10 1.8 CPK-MB (ng/ML) 0.50-3.60 Not Drawn Medication Medication Total Dose (Bolus/Oral) Medication Total Dosage/Unit 1% XYLOCAINE 20 mL FENTANYL 25 mcg HEPARIN 4500 units NTG (IC) 200 mcg PLAVIX 600 mg RADIAL COCKTAIL 5 mL (Bolus) VERSED 0.5 mg Medications (Bolus/Oral) Medication Time Given Dosage/Unit Administered By Reason 1% XYLOCAINE 10/24/2017 11:32:48 AM 20 mL Kishan Banegas 20 mL 1% XYLOCAINE given by Kishan Banegas in Right Radial via Subcutaneous. VERSED 10/24/2017 11:33:39 AM 0.5 mg Beverly Lea 0.5 mg VERSED given by Beverly Lea, ORION via Peripheral IV. FENTANYL 10/24/2017 11:34:00 AM 25 mcg Beverly Lea 25 mcg FENTANYL given by Beverly Lea, ORION via Peripheral IV. Ntg 200mcg Verapamil 2.5mg Heparin RADIAL COCKTAIL 10/24/2017 11:35:00 AM 5 mL (Bolus) Kishan Banegas 3000U 5 mL (Bolus) RADIAL COCKTAIL given by Kishan Banegas via Radial. Using [Solution Name]. Reason: Ntg 200mcg Verapamil 2.5mg Heparin 3000U. 3100 u heparin HEPARIN 10/24/2017 11:50:56 AM 4500 units Beverly Lea 4500 units HEPARIN given by Beverly Lea, ORION via Peripheral IV. NTG (IC) 10/24/2017 12:24:45 PM 200 mcg Kishan Banegas 200 mcg NTG (IC) given by Kishan Banegas via Intra-coronary. PLAVIX 10/24/2017 12:29:14 PM 600 mg Kishan Banegas 600 mg PLAVIX given by Kishan Banegas via Oral. Final Case Assessment Cardiovascular HR Rhythm NIBP Chest Pain 63 reg 131/58 0 Edema Present Skin color Skin None Normal Warm Circulatory - Right Pulses Dorsalis Pedis Femoral Radial 2 2 2 Scale (0,1,2,3,4,d) Scale (0,1,2,3,4,d) Neurological State Oriented to time-place- Alert Moves all extremities person Respiration - General Respiration Rate SpO2 (%) (B/min) 18 98 Chronological Log Time Study Chronological Log 10:54:00 Patient Name, D.O.B, / Armband Verified By R.N. 10:55:00 Patient arrived via Bed. Vitals capture started with the following parameters, Patient=Adult, Interval=5 min, Initial Pr tvrthy=745 mmHg, 11:17:59 Deflation Rate=5 mmHg, Cuff placed on Unknown 11:18:13 Consent signed by the physician and the patient and verified by the Private Investigator staff. 11:18:14 Pre-op and post- op instructions given; patient acknowledges understanding of instructions. 11:18:16 Verbal Stimulation=2 Physical Stimulation=2 Airway=2 Respiration=2 TOTAL=8. (0=absent, 1=li mited, 2=present) 11:18:27 Patient has been NPO for Less than 6Hrs. 11:18:28 Skin Breakdown- none per pt 11:18:48 Reference ECG taken 11:21:34 Emir Prominences Protected 11:21:42 Right groin and right radial prepped with 2% chlorhexidine, and draped after a 3 min. waiti ng time. 11:22:08 HR=66 bpm, UXZR=287/65 mmhg, SpO2=96.0 %, Resp=13 B/min, Pain=0, Erika=10, Soto=2 11:22:36 Pressure channel 1 zeroed. 11:27:09 HR=70 bpm, BJES=033/75 mmhg, SpO2=97.0 %, Resp=19 B/min, Pain=0, Erika=10, Soto=2 11:32:10 HR=67 bpm, LBLD=709/72 mmhg, SpO2=95.0 %, Resp=15 B/min, Pain=0, Erika=10, Soto=2 Time Out. Correct patient, correct procedure, correct physician, power injector loaded, or not loaded with contrast with 11:32:42 surgical team present. Time Out Concurred by MD and individual staff in procedure. 11:32:46 Case Start 11:32:48 20 mL 1% XYLOCAINE given by Kishan Banegas in Right Radial via Subcutaneous. 11:33:39 0.5 mg VERSED given by Beverly Lea, RN via Peripheral IV. 11:34:00 25 mcg FENTANYL given by Beverly Lea, RN via Peripheral IV. 11:34:14 Access site was Radial Artery. right 11:34:24 A wire was inserted via Radial (right). A SHEATH, FR6 TRANSRADIAL SLENDER 10CM FR 6 was advanced into the Radial (right) using the Perc utaneous 11:34:33 technique. 5 mL (Bolus) RADIAL COCKTAIL given by Kishan Banegas via Radial. Using [Solution Name]. Re ason: Ntg 200mcg 11:35:00 Verapamil 2.5mg Heparin 3000U. 3100 u heparin A JR 4.0 INFINITI CATHETER FR 5 was advanced over a wire. OMNIPAQUE, 350 MG, 150ML 150ML was us ed for 11:35:35 injections. 11:37:09 HR=79 bpm, ORUF=173/53 mmhg, SpO2=97.0 %, Resp=15 B/min, Pain=0, Erika=10, Soto=2 Recorded Pressure: LV, HR=69, Condition=Condition 1 11:38:21 (Left Ventricle) LV 117/0/7 Recorded Pressure: LV, Ao, HR=68, Condition=Condition 1 11:38:46 (Left Ventricle) LV 124/1/8, (Aorta) Ao 117/51/78 Recorded Pressure: Ao, HR=69, Condition=Condition 1 11:39:09 (Aorta) Ao 110/50/74 11:39:33 The RCA was injected and visualized at various angles. OMNIPAQUE, 350 MG, 150ML 150ML used . 11:40:27 Catheter was removed A JL 3.5 INFINITI CATHETER FR 5 was advanced over a wire. OMNIPAQUE, 350 MG, 150ML 150ML was us ed for 11:40:48 injections. 11:42:43 HR=72 bpm, UETX=887/67 mmhg, SpO2=91.0 %, Resp=14 B/min, Pain=0, Erika=10, Soto=2 11:42:50 The LCA was injected and visualized at various angles. OMNIPAQUE, 350 MG, 150ML 150ML used . 11:47:10 HR=64 bpm, PUXP=813/65 mmhg, SpO2=95 %, Resp=23 B/min, Pain=0, Erika=10, Soto=2 11:47:34 Catheter was removed After removing the current catheter a EBU 3.5 Z2 GUIDE CATHETER FR 6 was advanced over a WIRE, EXCHANGE 11:48:38 260CM 3MMJ 260CM. 11:50:56 4500 units HEPARIN given by Beverly Lea, ORION via Peripheral IV. 11:51:07 A PRIME WIRE, VERRATA 185CM 185CM was inserted via Radial (right). 11:52:11 HR=64 bpm, GRIE=659/65 mmhg, SpO2=93.0 %, Resp=12 B/min, Pain=0, Erika=10, Soto=2 11:55:37 Pressure channel 1 zeroed. 11:57:10 HR=63 bpm, OJOU=869/66 mmhg, SpO2=94 %, Resp=21 B/min, Pain=0, Erika=10, Soto=2 12:02:11 HR=59 bpm, YIBG=085/64 mmhg, SpO2=96.0 %, Resp=15 B/min, Pain=0, Erika=10, Soto=2 12:02:27 Flow Wire was was placed in the LAD Mid. The FFR measures ~FFR~ percent. The IFR measures 0 .8 Percent. 12:07:53 HR=57 bpm, YASB=434/65 mmhg, SpO2=97.0 %, Resp=13 B/min, Pain=0, Erika=10, Soto=2 12:11:08 A BALLOON, 2.0 X 20MM EUPHORA 20MM was inserted over PRIME WIRE, VERRATA 185CM 185CM via th e LAD Mid. A BALLOON, 2.0 X 20MM EUPHORA 20MM over a PRIME WIRE, VERRATA 185CM 185CM in the LAD Mid was in flated 12:11:53 using a 30 RACHEL INDEFLATOR at 8 rachel for 20 sec. 12:12:09 HR=60 bpm, RWTT=704/69 mmhg, SpO2=95 %, Resp=14 B/min, Pain=0, Erika=10, Soto=2 12:13:26 Balloon Removed. A STENT, 3.0 26MM BETI 3.0 26MM was advanced through a EBU 3.5 Z2 GUIDE CATHETER FR 6 over a IA ELICEO WIRE, 12:14:47 VERRATA 185CM 185CM. A STENT, 3.0 26MM BETI 3.0 26MM was deployed using a 30 RACHEL INDEFLATOR at 12 atmospheres for 30 seconds in 12:16:46 the LAD Mid. 12:17:10 HR=57 bpm, HMFL=743/66 mmhg, SpO2=97.0 %, Resp=36 B/min, Pain=0, Erika=10, Soto=2 12:17:34 ACT (Normal Range 90-180) = 414 12:18:22 The LCA was injected and visualized at various angles. OMNIPAQUE, 350 MG, 150ML 150ML used . 12:18:57 Delivery device removed 12:19:47 Activated Clotting Time Drawn A BALLOON, 3.0 X 15MM NC EUPHORA 15MM was inserted over PRIME WIRE, VERRATA 185CM 185CM via the LAD 12:21:08 Mid. A BALLOON, 3.0 X 15MM NC EUPHORA 15MM over a PRIME WIRE, VERRATA 185CM 185CM in the LAD Mid was inflated 12:21:43 using a 30 RACHEL INDEFLATOR at 16 rachel for 10 sec. 12:22:13 HR=61 bpm, NFFM=456/69 mmhg, SpO2=96.0 %, Resp=23 B/min, Pain=0, Erika=10, Soto=2 A BALLOON, 3.0 X 15MM NC EUPHORA 15MM over a PRIME WIRE, VERRATA 185CM 185CM in the LAD Mid was inflated 12:22:32 using a 30 RACHEL INDEFLATOR at 14 rachel for 10 sec. A BALLOON, 3.0 X 15MM NC EUPHORA 15MM over a PRIME WIRE, VERRATA 185CM 185CM in the LAD Mid was inflated 12:23:01 using a 30 RACHEL INDEFLATOR at 20 rachel for 30 sec. 12:23:48 Balloon Removed. 12:24:01 The LCA was injected and visualized at various angles. OMNIPAQUE, 350 MG, 150ML 150ML used . 12:24:45 200 mcg NTG (IC) given by Kishan Banegas via Intra-coronary. 12:27:12 HR=64 bpm, HPNG=073/58 mmhg, SpO2=94.0 %, Resp=12 B/min, Pain=0, Erika=10, Soto=2 12::57 Wire removed 12:28:03 Catheter was removed 12:28:36 ACT (Normal Range 90-180) = 414 12:29:14 600 mg PLAVIX given by Kishan Banegas via Oral. Assessment: Final Case, HR=63 BPM, Rhythm=reg, KRRK=505/58 mmhg, Chest Pain=0, Edema=None, [place] r=Normal, Skin = Warm 12:29:31 Right Pulses: Gurinder Ped=2, Femoral=2, Radial=2 Neurological: State=Alert, Ox3, [place] Respiration: Resp=18 B/min, SpO2=98 % 12:30:03 Catheter(s) removed without difficulty Radial Compression Device Used. 13 mLs of air placed in BAND, RADIAL COMPRESSION TR SHORT 24 24 CM. Affected 12:30:05 hand 99 % O2 saturation. 12:30:24 Case End 12:30:26 Sterile dressing applied to site 12:30:26 No case complications noted. 12:30:27 Cine recording checked. 12:30:30 Bedside Report will be given. 12:30:31 Implantable Device card placed in patient's chart. 12:30:34 Verbal Stimulation=2 Physical Stimulation=2 Airway=2 Respiration=2 TOTAL=8. (0=absent, 1=li mited, 2=present) 12:30:43 A Left Heart Cath was performed. 12:30:47 Clinical correlaton risk stratification. 12:32:11 HR=60 bpm, ADTO=784/55 mmhg, SpO2=98.0 %, Resp=25 B/min, Pain=0, Erika=10, Soto=2 End Study - Contrast Media Used In Study Contrast Total Opened (mL) Total Used (mL) Total Wasted (mL) Omnipaque 220 220 0 End Study - Maximum Contrast Load Max Contrast Load (mL) 297.2 End Study - Radiation Exposure Fluoro Time (minutes) 12.8 End Study - Sheaths Sheaths Pulled By Sheath Hold Time (min) Maryana Phillip End Study - Patient Disposition Complications Transferred To Interventional Outcome No Regular Bed successful
--- NOTE | 2017-10-24 13:54 | HHI.PR ---
Subjective Remarks No chest pain Objective Vital Signs Date Time Temp Pulse Resp B/P (MAP) Pulse Ox O2 Delivery O2 Flow Rate FiO2 10/24/17 11:00 97 Room Air 10/24/17 10:00 60 10/24/17 09:02 97.8 56 18 122/63 (82) 97 10/24/17 09:00 64 10/24/17 08:00 84 10/24/17 07:00 51 10/24/17 06:30 55 10/24/17 05:27 51 10/24/17 04:00 52 10/24/17 03:49 98.0 62 18 122/60 (80) 98 10/24/17 03:00 51 10/24/17 02:38 49 10/24/17 01:37 49 10/24/17 00:00 48 10/23/17 23:37 97.9 52 16 118/54 (75) 98 10/23/17 23:00 50 10/23/17 22:07 51 10/23/17 21:00 50 10/23/17 20:00 54 10/23/17 19:45 Room Air 10/23/17 19:45 97.8 55 18 134/65 (88) 98 10/23/17 19:19 56 131/66 10/23/17 19:00 56 10/23/17 18:00 52 10/23/17 17:00 56 10/23/17 16:00 54 10/23/17 15:26 98.1 60 18 116/66 (83) 99 10/23/17 15:00 69 10/23/17 14:00 66 I/O 10/23/17 10/23/17 10/23/17 10/24/17 10/24/17 10/24/17 07:00 15:00 23:00 07:00 15:00 23:00 Intake Total 480 ml 100 ml 720 ml 240 ml Output Total 600 ml 440 ml 725 ml Balance -120 ml 100 ml 280 ml -485 ml Intake Oral 480 ml 720 ml 240 ml IV Total 100 ml Output Urine Total 600 ml 440 ml 725 ml # Bowel Movements 1 Result Diagram: 10/24/17 0530 10/24/17 0530 Imaging Alert, fully oriented lungs: ventilated Heart: S1, S2 regular Abdomen: soft, no mass Ext: no edema Last Impressions Chest X-Ray 10/18/172020 Signed Impressions: Service Date/Time: Wednesday, October 18, 2017 20:29 - CONCLUSION: Recurrent or persistent bibasilar airspace disease. Theron Webb MD Current Medications Medications (Trade) Dose Ordered Sig/Bernardino Route Start Time Stop Time Status Last Admin (Oscal) 500 mg Q12HR PO 10/19/17 09:00 10/24/17 09:58 (NS Flush) 2 ml UNSCH PRN IV FLUSH 10/19/17 00:45 (NS Flush) 2 ml BID IV FLUSH 10/19/17 09:00 10/23/17 09:28 (Tylenol) 650 mg Q4H PRN PO 10/19/17 00:45 (Zofran Inj) 4 mg Q6H PRN IVP 10/19/17 00:45 (Narcan Inj) 0.4 mg UNSCH PRN IV PUSH 10/19/17 00:45 (Parvin-Colace) 1 tab BID PO 10/19/17 09:00 10/23/17 09:28 (Milk Of Magnesia Liq) 30 ml Q12H PRN PO 10/19/17 00:45 (Senokot) 17.2 mg Q12H PRN PO 10/19/17 00:45 (Dulcolax Supp) 10 mg DAILY PRN RECTAL 10/19/17 00:45 (Lactulose Liq) 30 ml DAILY PRN PO 10/19/17 00:45 (Norvasc) 10 mg DAILY PO 10/19/17 09:00 10/24/17 09:58 (Aspirin Chew) 81 mg DAILY CHEW 10/19/17 09:00 10/24/17 09:58 (Lipitor) 40 mg HS PO 10/19/17 21:00 10/23/17 20:34 (Imdur) 30 mg DAILY@07 PO 10/19/17 07:00 10/24/17 06:13 (Betapace) 80 mg Q12HR PO 10/19/17 09:00 Future Hold 10/19/17 20:07 (Protonix) 20 mg DAILY PO 10/19/17 09:00 10/24/17 09:58 (Trusopt 2% Opth Soln) 1 drop TID EACH EYE 10/19/17 18:00 10/23/17 18:09 (Fml Liquifilm Opth Susp) 1 drop DAILY PRN EACH EYE 10/19/17 14:00 (Refresh Tears 0.5% Opth Soln) 1 drop HS PRN EACH EYE 10/19/17 15:00 10/21/17 08:43 Patient Own Medication PT OWN MED: Ketoti... BID PRN EACH EYE 10/19/17 14:00 Future Hold (Xanax) 1 mg Q12HR PRN PO 10/19/17 20:45 10/23/17 20:36 (Nitrostat Sl) 0.4 mg Q5M PRN SL 10/20/17 17:15 10/22/17 12:22 Amiodarone HCl 450 mg/Sodium Chloride 250 ml @ 33.33 mls/ hr TITRATE PRN IV 10/23/17 10:45 10/23/17 19:19 (Morphine Inj) 2 mg Q3H PRN IV PUSH 10/23/17 20:15 Sodium Chloride 1,000 ml @ 100 mls/hr Q10H IV 10/24/17 12:50 10/24/17 18:49 (Plavix) 75 mg DAILY PO 10/25/17 09:00 Assessment and Plan Problem List: (1) Atrial fibrillation with RVR ICD Codes: I48.91 - Unspecified atrial fibrillation Status: Resolved Plan: In sinus rhythm SP PTCA plus stent to LAD Just received plavix loading dose Medical management for now amio PO added Ablation will be postponed for now (2) Chest pain ICD Codes: R07.9 - Chest pain Status: Resolved Plan: No chest pain reported (3) Hypertension ICD Codes: I10 - Hypertension Status: Chronic Plan: SBP 122 Nataliya Barlow MD October 24, 2017 13:54
--- NOTE | 2017-10-24 14:05 | HHI.PR ---
Subjective Remarks Patient feels fine. Denies any chest pain, shortness of breath, nausea or vomiting. He is status post cardiac cath this morning Objective Vitals Vital Signs Date Time Temp Pulse Resp B/P (MAP) Pulse Ox O2 Delivery O2 Flow Rate FiO2 10/24/17 11:00 97 Room Air 10/24/17 10:00 60 10/24/17 09:02 97.8 56 18 122/63 (82) 97 10/24/17 09:00 64 10/24/17 08:00 84 10/24/17 07:00 51 10/24/17 06:30 55 10/24/17 05:27 51 10/24/17 04:00 52 10/24/17 03:49 98.0 62 18 122/60 (80) 98 10/24/17 03:00 51 10/24/17 02:38 49 10/24/17 01:37 49 10/24/17 00:00 48 10/23/17 23:37 97.9 52 16 118/54 (75) 98 10/23/17 23:00 50 10/23/17 22:07 51 10/23/17 21:00 50 10/23/17 20:00 54 10/23/17 19:45 Room Air 10/23/17 19:45 97.8 55 18 134/65 (88) 98 10/23/17 19:19 56 131/66 10/23/17 19:00 56 10/23/17 18:00 52 10/23/17 17:00 56 10/23/17 16:00 54 10/23/17 15:26 98.1 60 18 116/66 (83) 99 10/23/17 15:00 69 10/23/17 14:00 66 I/O 10/23/17 10/23/17 10/23/17 10/24/17 10/24/17 10/24/17 07:00 15:00 23:00 07:00 15:00 23:00 Intake Total 480 ml 100 ml 720 ml 240 ml Output Total 600 ml 440 ml 725 ml Balance -120 ml 100 ml 280 ml -485 ml Intake Oral 480 ml 720 ml 240 ml IV Total 100 ml Output Urine Total 600 ml 440 ml 725 ml # Bowel Movements 1 Result Diagram: 10/24/1730 10/24/17 05 Imaging Last Impressions Chest X-Ray 10/18/172020 Signed Impressions: Service Date/Time: Wednesday, October 18, 2017 20:29 - CONCLUSION: Recurrent or persistent bibasilar airspace disease. Theron Webb MD Objective Remarks GENERAL: Wearing sunglasses. CARDIOVASCULAR: Irregularly irregular, no murmurs appreciated RESPIRATORY: Breath sounds equal bilaterally. No accessory muscle use. GASTROINTESTINAL: Abdomen soft, non-tender, nondistended. MUSCULOSKELETAL: No cyanosis, or edema. Procedures None A/P Assessment and Plan Summary this is an 87-year-old male with medical history significant for coronary artery disease, A. fib on Coumadin, hypertension and hyperlipidemia who presented to [place] ED complaining of rapid heartbeat and palpitations. The patient was discharged on October 11 for an admission of A. fib with RVR. A. fib with RVR/CP presented w atrial fib w rvr w intermittent bradycardia Troponin negative 3 s/p cardiac cath w drug eluding stent to LAD. on ASA, plavix and coumadin. Dr. Barlow following and would like to postpone ablation for now. on amiodarone I spoke w Dr. Banegas and he would like pt back on the coumadin in addition to the ASA and plavix, I have resumed his coumadin dose and consulted pharmacy AILYN resolved Hypocalcemia replaced, stable Hypertension/hyperlipidemia continue home meds DVT prophylaxis: Coumadin Discharge Planning awaiting cardiac clearance Sarah Gracia MD October 24, 2017 14:05
[2017-10-24] MEDS: WARFARIN SOD 2.5 MG TAB PO SCH (18:53)
[2017-10-24] MEDS: ATORVASTATIN 40 MG TAB PO SCH (20:45)
[2017-10-24] MEDS: ALPRAZolam 1 MG TAB PO PRN (21:12)
--- NOTE | 2017-10-24 23:42 | PD.CARD.PN ---
Subjective Subjective Remarks Patient was seen earlier today after cardiac catheterization, late entry note No further chest pain Back in sinus rhythm on Amiodarone Objective Medications Current Medications Medications (Trade) Dose Ordered Sig/Bernardino Route Start Time Stop Time Status Last Admin (Oscal) 500 mg Q12HR PO 10/19/17 09:00 10/24/17 20:45 (NS Flush) 2 ml UNSCH PRN IV FLUSH 10/19/17 00:45 (NS Flush) 2 ml BID IV FLUSH 10/19/17 09:00 10/24/17 20:45 (Tylenol) 650 mg Q4H PRN PO 10/19/17 00:45 (Zofran Inj) 4 mg Q6H PRN IVP 10/19/17 00:45 (Narcan Inj) 0.4 mg UNSCH PRN IV PUSH 10/19/17 00:45 (Parvin-Colace) 1 tab BID PO 10/19/17 09:00 10/23/17 09:28 (Milk Of Magnesia Liq) 30 ml Q12H PRN PO 10/19/17 00:45 (Senokot) 17.2 mg Q12H PRN PO 10/19/17 00:45 (Dulcolax Supp) 10 mg DAILY PRN RECTAL 10/19/17 00:45 (Lactulose Liq) 30 ml DAILY PRN PO 10/19/17 00:45 (Norvasc) 10 mg DAILY PO 10/19/17 09:00 10/24/17 09:58 (Aspirin Chew) 81 mg DAILY CHEW 10/19/17 09:00 10/24/17 09:58 (Lipitor) 40 mg HS PO 10/19/17 21:00 10/24/17 20:45 (Imdur) 30 mg DAILY@07 PO 10/19/17 07:00 10/24/17 06:13 (Betapace) 80 mg Q12HR PO 10/19/17 09:00 Future Hold 10/19/17 20:07 (Protonix) 20 mg DAILY PO 10/19/17 09:00 10/24/17 09:58 (Trusopt 2% Opth Soln) 1 drop TID EACH EYE 10/19/17 18:00 10/24/17 18:00 (Fml Liquifilm Opth Susp) 1 drop DAILY PRN EACH EYE 10/19/17 14:00 (Refresh Tears 0.5% Opth Soln) 1 drop HS PRN EACH EYE 10/19/17 15:00 10/21/17 08:43 Patient Own Medication PT OWN MED: Ketoti... BID PRN EACH EYE 10/19/17 14:00 Future Hold (Xanax) 1 mg Q12HR PRN PO 10/19/17 20:45 10/24/17 21:12 (Nitrostat Sl) 0.4 mg Q5M PRN SL 10/20/17 17:15 10/22/17 12:22 (Morphine Inj) 2 mg Q3H PRN IV PUSH 10/23/17 20:15 (Plavix) 75 mg DAILY PO 10/25/17 09:00 (Cordarone) 200 mg DAILY PO 10/25/17 09:00 (Coumadin) 2.5 mg SuTuThSa@16 PO 10/24/17 18:30 10/24/17 18:53 (Coumadin) 5 mg MoWeFr@16 PO 10/25/17 16:00 Pharmacy Profile Note 0 ml @ 0 mls/hr UNSCH OTHER 10/24/17 14:15 Vital Signs / I&O Vital Signs Date Time Temp Pulse Resp B/P (MAP) Pulse Ox O2 Delivery O2 Flow Rate FiO2 10/24/17 22:00 70 10/24/17 21:00 62 10/24/17 20:00 62 10/24/17 19:32 98.1 76 19 137/68 (91) 98 10/24/17 19:32 98 Room Air 10/24/17 19:00 67 10/24/17 18:00 70 10/24/17 17:00 64 10/24/17 16:13 65 10/24/17 15:29 62 10/24/17 15:15 98.2 77 16 122/65 (84) 97 10/24/17 14:01 98.1 64 16 132/67 (88) 97 10/24/17 14:00 65 10/24/17 13:00 61 10/24/17 11:00 97 Room Air 10/24/17 10:00 60 10/24/17 09:02 97.8 56 18 122/63 (82) 97 10/24/17 09:00 64 10/24/17 08:00 84 10/24/17 07:00 51 10/24/17 06:30 55 10/24/17 05:27 51 10/24/17 04:00 52 10/24/17 03:49 98.0 62 18 122/60 (80) 98 10/24/17 03:00 51 10/24/17 02:38 49 10/24/17 01:37 49 10/24/17 00:00 48 I/O 10/24/17 10/24/17 10/24/17 10/25/17 10/25/17 10/25/17 07:00 15:00 23:00 07:00 15:00 23:00 Intake Total 240 ml 720 ml Output Total 725 ml 900 ml Balance -485 ml -180 ml Intake Oral 240 ml 720 ml Output Urine Total 725 ml 900 ml Physical Exam GENERAL: NAD, AAOx3 SKIN: Warm and dry. HEAD: Atraumatic. Normocephalic. EYES: Pupils equal and round. No scleral icterus. No injection or drainage. ENT: No nasal bleeding or discharge. Mucous membranes pink and moist. NECK: Trachea midline. No JVD. CARDIOVASCULAR: RRR RESPIRATORY: No accessory muscle use. Clear to auscultation. Breath sounds equal bilaterally. GASTROINTESTINAL: Abdomen soft, non-tender, nondistended. Hepatic and splenic margins not palpable. MUSCULOSKELETAL: Extremities without clubbing, cyanosis, or edema. No obvious deformities. NEUROLOGICAL: Awake and alert. No obvious cranial nerve deficits. Motor grossly within normal limits. Five out of 5 muscle strength in the arms and legs. Normal speech. PSYCHIATRIC: Appropriate mood and affect; insight and judgment normal. Laboratory Laboratory Tests Test 10/24/17 05:30 White Blood Count 6.9 TH/MM3 Red Blood Count 3.81 MIL/MM3 Hemoglobin 12.7 GM/DL Hematocrit 36.7 % Mean Corpuscular Volume 96.1 FL Mean Corpuscular Hemoglobin 33.2 PG Mean Corpuscular Hemoglobin Concent 34.5 % Red Cell Distribution Width 14.0 % Platelet Count 196 TH/MM3 Mean Platelet Volume 8.3 FL Neutrophils (%) (Auto) 64.1 % Lymphocytes (%) (Auto) 19.9 % Monocytes (%) (Auto) 7.9 % Eosinophils (%) (Auto) 7.6 % Basophils (%) (Auto) 0.5 % Neutrophils # (Auto) 4.4 TH/MM3 Lymphocytes # (Auto) 1.4 TH/MM3 Monocytes # (Auto) 0.5 TH/MM3 Eosinophils # (Auto) 0.5 TH/MM3 Basophils # (Auto) 0.0 TH/MM3 CBC Comment DIFF FINAL Differential Comment Prothrombin Time 18.1 SEC Prothromb Time International Ratio 1.8 RATIO Blood Urea Nitrogen 23 MG/DL Creatinine 1.34 MG/DL Random Glucose 87 MG/DL Calcium Level 8.7 MG/DL Sodium Level 142 MEQ/L Potassium Level 3.8 MEQ/L Chloride Level 110 MEQ/L Carbon Dioxide Level 24.6 MEQ/L Anion Gap 7 MEQ/L Estimat Glomerular Filtration Rate 51 ML/MIN Assessment and Plan Problem List: (1) Atrial fibrillation with RVR ICD Codes: I48.91 - Unspecified atrial fibrillation Status: Resolved (2) Chest pain ICD Codes: R07.9 - Chest pain Status: Resolved (3) CAD (coronary artery disease) ICD Codes: I25.10 - CAD (coronary artery disease) Status: Chronic (4) Hypertension ICD Codes: I10 - Hypertension Status: Chronic (5) Hyperlipidemia ICD Codes: E78.5 - Hyperlipidemia Status: Chronic Assessment and Plan 1) Afib with RVR Started on Amiodarone, switched to oral Dr. Barlow following, will consideration ablation depending on heart rates during hospital course, on hold for now due to Plavix load for PCI Discussed with Dr. Barlow 2) Chest pain, some concerning typical components Typical chest pain, concerning for unstable angina while at rest, relieved with nitro s/p PCI of LAD with AD ASA/Plavix/Statin No BB for now as he was significantly bradycardiac previously, now on Amiodarone Hold on SARAH-I due to CKD and receiving contrast load from cath 3) Plan for ASA/Plavix/Coumadin on discharge Stop ASA in 30 days and con't on Plavix/Coumadin Kishan Banegas DO October 24, 2017 23:42
[2017-10-25] VITALS (34 sets, daily range): BP systolic 116–151; BP diastolic 53–77; PULSE 52–201; RESP 14–18; TEMP 97.8–98.2; O2SAT 96–99
--- NOTE | 2017-10-25 01:22 | MA ---
cc: Kishan Banegas DO DATE: 10/24/2017 DATE OF PROCEDURE: 10/24/2017 PROCEDURE: Left heart catheterization, coronary angiogram, moderate sedation 60 minutes, IFR LAD, Klever drug-eluting stent (3 x 26) to the LAD. PREPROCEDURE DIAGNOSIS: Typical angina with known coronary artery disease. POSTPROCEDURE DIAGNOSIS: Coronary artery disease, status post [place] drug-eluting stent (3 x 26) to the LAD. MEDICATIONS: Versed 0.5 mg, fentanyl 25 mcg, verapamil 2.5 mg, ____ 200 mcg, heparin 7600 units, Plavix 600 mg. CONTRAST USED: 210 mL. FLUOROSCOPY: 12.8 minutes. MODERATE SEDATION: 60 minutes. FRAILTY SCORE: 4. ESTIMATED BLOOD LOSS: 10 mL. PROCEDURAL SUMMARY: Teddy Aragon is a pleasant 87-year-old male who originally presented due to atrial fibrillation. He has been in and out multiple times over the past month with atrial fibrillation with rapid ventricular response and has complained of chest pain. He did undergo stress testing before which was essentially negative for ischemia. In seeing him over the past few days, he has had typical angina which is relieved by nitroglycerin while at rest. This was concerning for unstable angina, and as he has had multiple admissions where he has mentioned chest pain, I felt it was reasonable for him to undergo cardiac catheterization. Risks, benefits and alternatives were explained to him and he consented to such. He was brought to the lab and prepped in the usual sterile fashion. The right radial artery was accessed using a modified Seldinger technique and placement of a 5/6 Hungarian slender sheath. This was easily aspirated and flushed. A JR4 was advanced over J-wire to the ascending aorta and across the aortic valve for measurement of left ventricular pressure. This was pulled back across the aortic valve, showing no significant gradient of aortic stenosis. JR4 was used to perform selective angiography of the right coronary artery system. This was exchanged out for a JL3.5, which was used to perform selective angiography of the left coronary artery system. Please see notes below for intervention. FINDINGS: Left main: Normal size vessel with adequate reflux and 20% disease. It bifurcates into an LAD and circumflex. LAD: Normal size vessel with 10% disease throughout the proximal portion. Mid portion has tandem lesions which are overall a long tubular lesion of 70%. It gives off 2 major diagonals with no significant disease. Left circumflex: Large vessel overall with 2 obtuse marginals. It does supply a PDA, as it is a dominant vessel. RCA: Small, nondominant vessel. LVEDP: 8. INTERVENTION: Because of the patient's typical angina and at least a moderate lesion in the LAD, I felt that this should be further evaluated. An EBU 3.5 guide was engaged into the left main. The patient was given heparin as an anticoagulant. The Verrata wire was advanced into the distal LAD. IFR value was 0.80, showing significant stenosis. I felt that the tandem lesions should both be intervened on at this time. A compliant balloon (2 x 20) was used across the lesions to predilate. An [place] drug-eluting stent (3 x 26) was then placed over both lesions and inflated. This was postdilated with a noncompliant balloon (3 x 15). Final angiogram shows a well opposed stent with no perforations or dissections. The patient was loaded with 600 mg of Plavix. A radial band was placed over the arteriotomy site for hemostasis. The patient left the chemical laboratory tester cardiovascularly stable. IMPRESSIONS: 1. Typical angina/coronary artery disease, status post [place] drug-eluting stent (3 x 26) to the left anterior descending. 2. Atrial fibrillation. 3. Chronic kidney disease. RECOMMENDATIONS: 1. Teddy Aragon underwent PCI as above and will be recommended aspirin and Plavix therapy. This was discussed with Dr. Barlow before stenting, as there is consideration that he may need AFib ablation, but obviously his coronary artery disease needs to be treated. 2. He will continue on his Coumadin therapy for his atrial fibrillation. Most likely, the plan will be to discharge him on aspirin, Plavix and Coumadin therapy and stop the aspirin in 30 days, and continue on Coumadin and Plavix therapy. 3. I will not place him on beta juan antonio therapy at this time, as he previously was significantly bradycardic with heart rates in the 40s and 50s. For now, he will be placed on amiodarone therapy per Dr. Barlow's recommendation. 4. For now, we will not place him on SARAH inhibitor therapy, as he does have significant chronic kidney disease and received a contrast load. 5. He will continue on his statin therapy. 6. Dr. Barlow and myself will continue to follow him, and Dr. Barlow will decide further on his management of atrial fibrillation, whether it be medical or consideration of ablation. Thank you for allowing me to see Teddy Aragon. If there are any questions, please do not hesitate to call. DO SAMY Dior/LOCO , 12:29 AM , 01:21 AM
[2017-10-25] MEDS: ISOSORBIDE MONONITRATE 30 MG CR TAB (IMDUR) PO SCH (06:17)
[2017-10-25 06:45] LABS: AUTOMATED NEUTROPHIL # 4.8 TH/MM3 (1.8-7.7); BASOPHIL # 0.1 TH/MM3 (0-0.2); BASOPHIL % 0.7 % (0.0-2.0); EOSINOPHIL # 0.5 TH/MM3 (0-0.4); EOSINOPHIL % 6.9 % (0.0-4.0); HEMATOCRIT 35.1 % (39.0-51.0); HEMOGLOBIN 12.1 GM/DL (13.0-17.0); LYMPH % 20.7 % (9.0-44.0); LYMPHOCYTE # 1.5 TH/MM3 (1.0-4.8); MEAN CELL VOLUME 95.7 FL (80.0-100.0); MEAN CORPUSCULAR HEMOGLOBIN 32.9 PG (27.0-34.0); MEAN CORPUSCULAR HGB CONC 34.3 % (32.0-36.0); MEAN PLATELET VOLUME 8.3 FL (7.0-11.0); MONO % 7.9 % (0.0-8.0); MONOCYTE # 0.6 TH/MM3 (0-0.9); NEUT % 63.8 % (16.0-70.0); PLATELET COUNT 191 TH/MM3 (150-450); RED BLOOD COUNT 3.67 MIL/MM3 (4.50-5.90); WHITE BLOOD COUNT 7.5 TH/MM3 (4.0-11.0)
[2017-10-25 06:59] LABS: BICARBONATE 24.9 MEQ/L (21.0-32.0); CALCIUM 8.7 MG/DL (8.5-10.1); CREATININE 1.12 MG/DL (0.60-1.30)
[2017-10-25 07:06] LABS: INTERNATIONAL NORMALIZED RATIO 1.6 RATIO; PROTHROMBIN TIME - PATIENT 16.3 SEC (9.8-11.6)
[2017-10-25] MEDS: AMIODARONE 200 MG TAB PO SCH (07:59)
[2017-10-25] MEDS: CLOPIDOGREL 75 MG TAB PO SCH (08:00)
[2017-10-25] MEDS: DOCUSATE SODIUM 50 MG/SENNA 8.6 MG TAB PO SCH ×2 (08:00→21:00)
[2017-10-25] MEDS: PANTOPRAZOLE SOD 20 MG DELAYED RELEASE TAB PO SCH (08:00)
[2017-10-25] MEDS: CALCIUM CARBONATE 1.25 GM (CA 500 MG) TAB PO SCH ×2 (08:00→21:33)
[2017-10-25] MEDS: ASPIRIN 81 MG CHEW TAB CHEW SCH (08:00)
[2017-10-25] MEDS: SODIUM CHLORIDE 0.9% FLUSH 10 ML FLUSH IV FLUSH SCH ×2 (08:01→21:33)
[2017-10-25] MEDS: DORZOLAMIDE 2% OPTH SOLN 200 DROP/10 ML BTLO EACH EYE SCH ×3 (08:48→18:36)
--- NOTE | 2017-10-25 09:06 | HHI.PR ---
Subjective Remarks Palpitation Objective Vital Signs Date Time Temp Pulse Resp B/P (MAP) Pulse Ox O2 Delivery O2 Flow Rate FiO2 10/25/17 07:36 98 Room Air 10/25/17 07:32 97.8 154 14 151/77 (101) 99 10/25/17 07:00 78 10/25/17 06:05 62 10/25/17 05:06 63 10/25/17 04:00 64 10/25/17 03:45 98.2 58 17 126/66 (86) 98 10/25/17 03:00 57 10/25/17 02:37 54 10/25/17 01:05 57 10/25/17 00:02 59 10/24/17 23:35 98.1 60 18 142/67 (92) 98 10/24/17 23:00 57 10/24/17 22:00 70 10/24/17 21:00 62 10/24/17 20:00 62 10/24/17 19:32 98.1 76 19 137/68 (91) 98 10/24/17 19:32 98 Room Air 10/24/17 19:00 67 10/24/17 18:00 70 10/24/17 17:00 64 10/24/17 16:13 65 10/24/17 15:29 62 10/24/17 15:15 98.2 77 16 122/65 (84) 97 10/24/17 14:01 98.1 64 16 132/67 (88) 97 10/24/17 14:00 65 10/24/17 13:00 61 10/24/17 11:00 97 Room Air 10/24/17 10:00 60 10/24/17 09:02 97.8 56 18 122/63 (82) 97 10/24/17 09:00 64 I/O 10/24/17 10/24/17 10/24/17 10/25/17 10/25/17 10/25/17 07:00 15:00 23:00 07:00 15:00 23:00 Intake Total 240 ml 720 ml 480 ml Output Total 725 ml 900 ml 625 ml Balance -485 ml -180 ml -145 ml Intake Oral 240 ml 720 ml 480 ml Output Urine Total 725 ml 900 ml 625 ml Result Diagram: 10/25/17 0445 10/25/17 0445 Imaging Alert, fully oriented lungs: ventilated Heart: s1, s2 regular abdomen: obese, no mass Ext: no edema Last Impressions Chest X-Ray 10/18/172020 Signed Impressions: Service Date/Time: Wednesday, October 18, 2017 20:29 - CONCLUSION: Recurrent or persistent bibasilar airspace disease. Theron Webb MD Current Medications Medications (Trade) Dose Ordered Sig/Bernardino Route Start Time Stop Time Status Last Admin (Oscal) 500 mg Q12HR PO 10/19/17 09:00 10/25/17 08:00 (NS Flush) 2 ml UNSCH PRN IV FLUSH 10/19/17 00:45 (NS Flush) 2 ml BID IV FLUSH 10/19/17 09:00 10/25/17 08:01 (Tylenol) 650 mg Q4H PRN PO 10/19/17 00:45 (Zofran Inj) 4 mg Q6H PRN IVP 10/19/17 00:45 (Narcan Inj) 0.4 mg UNSCH PRN IV PUSH 10/19/17 00:45 (Parvin-Colace) 1 tab BID PO 10/19/17 09:00 10/25/17 08:00 (Milk Of Magnesia Liq) 30 ml Q12H PRN PO 10/19/17 00:45 (Senokot) 17.2 mg Q12H PRN PO 10/19/17 00:45 (Dulcolax Supp) 10 mg DAILY PRN RECTAL 10/19/17 00:45 (Lactulose Liq) 30 ml DAILY PRN PO 10/19/17 00:45 (Norvasc) 10 mg DAILY PO 10/19/17 09:00 10/25/17 08:49 (Aspirin Chew) 81 mg DAILY CHEW 10/19/17 09:00 10/25/17 08:00 (Lipitor) 40 mg HS PO 10/19/17 21:00 10/24/17 20:45 (Imdur) 30 mg DAILY@07 PO 10/19/17 07:00 10/25/17 06:17 (Betapace) 80 mg Q12HR PO 10/19/17 09:00 Future Hold 10/19/17 20:07 (Protonix) 20 mg DAILY PO 10/19/17 09:00 10/25/17 08:00 (Trusopt 2% Opth Soln) 1 drop TID EACH EYE 10/19/17 18:00 10/25/17 08:48 (Fml Liquifilm Opth Susp) 1 drop DAILY PRN EACH EYE 10/19/17 14:00 (Refresh Tears 0.5% Opth Soln) 1 drop HS PRN EACH EYE 10/19/17 15:00 10/21/17 08:43 Patient Own Medication PT OWN MED: Ketoti... BID PRN EACH EYE 10/19/17 14:00 Future Hold (Xanax) 1 mg Q12HR PRN PO 10/19/17 20:45 10/24/17 21:12 (Nitrostat Sl) 0.4 mg Q5M PRN SL 10/20/17 17:15 10/22/17 12:22 (Morphine Inj) 2 mg Q3H PRN IV PUSH 10/23/17 20:15 (Plavix) 75 mg DAILY PO 10/25/17 09:00 10/25/17 08:00 (Cordarone) 200 mg DAILY PO 10/25/17 09:00 10/25/17 07:59 (Coumadin) 2.5 mg SuTuThSa@16 PO 10/24/17 18:30 10/24/17 18:53 (Coumadin) 5 mg MoWeFr@16 PO 10/25/17 16:00 Pharmacy Profile Note 0 ml @ 0 mls/hr UNSCH OTHER 10/24/17 14:15 Assessment and Plan Problem List: (1) Atrial fibrillation with RVR ICD Codes: I48.91 - Unspecified atrial fibrillation Status: Resolved Plan: Patient developed atrial fibrillation with a ventricular rate of 200 this morning Back into sinus rhythm Received 600 mg of plavix yesterday. Because concern about platelets quality, l will have to wait until next Monday before ablation considered. Case discussed with Dr Banegas and the patient. Patient worry about going home and have to be back because of the frequency of his arrhythmia The best approach may be to keep him in house for now I defer that decision to the managing team. (2) Chest pain ICD Codes: R07.9 - Chest pain Status: Resolved Plan: Chest pain during arrhythmia (3) Hypertension ICD Codes: I10 - Hypertension Status: Chronic Plan: SBP 151 Nataliya Barlow MD October 25, 2017 09:05
--- NOTE | 2017-10-25 09:23 | PD.CARD.PN ---
Subjective Subjective Remarks [place] chest pain when heart rates at 200 this morning AFib with RVR this morning, converted back to sinus rhythm Objective Medications Current Medications Medications (Trade) Dose Ordered Sig/Bernardino Route Start Time Stop Time Status Last Admin (Oscal) 500 mg Q12HR PO 10/19/17 09:00 10/25/17 08:00 (NS Flush) 2 ml UNSCH PRN IV FLUSH 10/19/17 00:45 (NS Flush) 2 ml BID IV FLUSH 10/19/17 09:00 10/25/17 08:01 (Tylenol) 650 mg Q4H PRN PO 10/19/17 00:45 (Zofran Inj) 4 mg Q6H PRN IVP 10/19/17 00:45 (Narcan Inj) 0.4 mg UNSCH PRN IV PUSH 10/19/17 00:45 (Parvin-Colace) 1 tab BID PO 10/19/17 09:00 10/25/17 08:00 (Milk Of Magnesia Liq) 30 ml Q12H PRN PO 10/19/17 00:45 (Senokot) 17.2 mg Q12H PRN PO 10/19/17 00:45 (Dulcolax Supp) 10 mg DAILY PRN RECTAL 10/19/17 00:45 (Lactulose Liq) 30 ml DAILY PRN PO 10/19/17 00:45 (Norvasc) 10 mg DAILY PO 10/19/17 09:00 10/25/17 08:49 (Aspirin Chew) 81 mg DAILY CHEW 10/19/17 09:00 10/25/17 08:00 (Lipitor) 40 mg HS PO 10/19/17 21:00 10/24/17 20:45 (Imdur) 30 mg DAILY@07 PO 10/19/17 07:00 10/25/17 06:17 (Betapace) 80 mg Q12HR PO 10/19/17 09:00 Future Hold 10/19/17 20:07 (Protonix) 20 mg DAILY PO 10/19/17 09:00 10/25/17 08:00 (Trusopt 2% Opth Soln) 1 drop TID EACH EYE 10/19/17 18:00 10/25/17 08:48 (Fml Liquifilm Opth Susp) 1 drop DAILY PRN EACH EYE 10/19/17 14:00 (Refresh Tears 0.5% Opth Soln) 1 drop HS PRN EACH EYE 10/19/17 15:00 10/21/17 08:43 Patient Own Medication PT OWN MED: Ketoti... BID PRN EACH EYE 10/19/17 14:00 Future Hold (Xanax) 1 mg Q12HR PRN PO 10/19/17 20:45 10/24/17 21:12 (Nitrostat Sl) 0.4 mg Q5M PRN SL 10/20/17 17:15 10/22/17 12:22 (Morphine Inj) 2 mg Q3H PRN IV PUSH 10/23/17 20:15 (Plavix) 75 mg DAILY PO 10/25/17 09:00 10/25/17 08:00 (Cordarone) 200 mg DAILY PO 10/25/17 09:00 10/25/17 07:59 (Coumadin) 2.5 mg SuTuThSa@16 PO 10/24/17 18:30 10/24/17 18:53 (Coumadin) 5 mg MoWeFr@16 PO 10/25/17 16:00 Pharmacy Profile Note 0 ml @ 0 mls/hr UNSCH OTHER 10/24/17 14:15 Vital Signs / I&O Vital Signs Date Time Temp Pulse Resp B/P (MAP) Pulse Ox O2 Delivery O2 Flow Rate FiO2 10/25/17 09:00 63 10/25/17 08:06 114 10/25/17 08:00 138 10/25/17 07:36 98 Room Air 10/25/17 07:32 97.8 154 14 151/77 (101) 99 10/25/17 07:18 201 10/25/17 07:16 117 10/25/17 07:00 78 10/25/17 06:05 62 10/25/17 05:06 63 10/25/17 04:00 64 10/25/17 03:45 98.2 58 17 126/66 (86) 98 10/25/17 03:00 57 10/25/17 02:37 54 10/25/17 01:05 57 10/25/17 00:02 59 10/24/17 23:35 98.1 60 18 142/67 (92) 98 10/24/17 23:00 57 10/24/17 22:00 70 10/24/17 21:00 62 10/24/17 20:00 62 10/24/17 19:32 98.1 76 19 137/68 (91) 98 10/24/17 19:32 98 Room Air 10/24/17 19:00 67 10/24/17 18:00 70 10/24/17 17:00 64 10/24/17 16:13 65 10/24/17 15:29 62 10/24/17 15:15 98.2 77 16 122/65 (84) 97 10/24/17 14:01 98.1 64 16 132/67 (88) 97 10/24/17 14:00 65 10/24/17 13:00 61 10/24/17 11:00 97 Room Air 10/24/17 10:00 60 I/O 10/24/17 10/24/17 10/24/17 10/25/17 10/25/17 10/25/17 07:00 15:00 23:00 07:00 15:00 23:00 Intake Total 240 ml 720 ml 480 ml Output Total 725 ml 900 ml 625 ml Balance -485 ml -180 ml -145 ml Intake Oral 240 ml 720 ml 480 ml Output Urine Total 725 ml 900 ml 625 ml Physical Exam GENERAL: NAD, AAOx3 SKIN: Warm and dry. HEAD: Atraumatic. Normocephalic. EYES: Pupils equal and round. No scleral icterus. No injection or drainage. ENT: No nasal bleeding or discharge. Mucous membranes pink and moist. NECK: Trachea midline. No JVD. CARDIOVASCULAR: RRR RESPIRATORY: No accessory muscle use. Clear to auscultation. Breath sounds equal bilaterally. GASTROINTESTINAL: Abdomen soft, non-tender, nondistended. Hepatic and splenic margins not palpable. MUSCULOSKELETAL: Extremities without clubbing, cyanosis, or edema. No obvious deformities. NEUROLOGICAL: Awake and alert. No obvious cranial nerve deficits. Motor grossly within normal limits. Five out of 5 muscle strength in the arms and legs. Normal speech. PSYCHIATRIC: Appropriate mood and affect; insight and judgment normal. Laboratory Laboratory Tests Test 10/25/17 04:45 White Blood Count 7.5 TH/MM3 Red Blood Count 3.67 MIL/MM3 Hemoglobin 12.1 GM/DL Hematocrit 35.1 % Mean Corpuscular Volume 95.7 FL Mean Corpuscular Hemoglobin 32.9 PG Mean Corpuscular Hemoglobin Concent 34.3 % Red Cell Distribution Width 14.0 % Platelet Count 191 TH/MM3 Mean Platelet Volume 8.3 FL Neutrophils (%) (Auto) 63.8 % Lymphocytes (%) (Auto) 20.7 % Monocytes (%) (Auto) 7.9 % Eosinophils (%) (Auto) 6.9 % Basophils (%) (Auto) 0.7 % Neutrophils # (Auto) 4.8 TH/MM3 Lymphocytes # (Auto) 1.5 TH/MM3 Monocytes # (Auto) 0.6 TH/MM3 Eosinophils # (Auto) 0.5 TH/MM3 Basophils # (Auto) 0.1 TH/MM3 CBC Comment DIFF FINAL Differential Comment Prothrombin Time 16.3 SEC Prothromb Time International Ratio 1.6 RATIO Blood Urea Nitrogen 22 MG/DL Creatinine 1.12 MG/DL Random Glucose 80 MG/DL Calcium Level 8.7 MG/DL Sodium Level 142 MEQ/L Potassium Level 3.9 MEQ/L Chloride Level 109 MEQ/L Carbon Dioxide Level 24.9 MEQ/L Anion Gap 8 MEQ/L Estimat Glomerular Filtration Rate 62 ML/MIN Assessment and Plan Problem List: (1) Atrial fibrillation with RVR ICD Codes: I48.91 - Unspecified atrial fibrillation Status: Resolved (2) Chest pain ICD Codes: R07.9 - Chest pain Status: Resolved (3) CAD (coronary artery disease) ICD Codes: I25.10 - CAD (coronary artery disease) Status: Chronic (4) Hypertension ICD Codes: I10 - Hypertension Status: Chronic (5) Hyperlipidemia ICD Codes: E78.5 - Hyperlipidemia Status: Chronic Assessment and Plan 1) Afib with RVR Started on Amiodarone, switched to oral Discussed with Dr. Barlow at the bedside Possible ablation on Monday due to Plavix load 2) Chest pain, some concerning typical components Typical chest pain, concerning for unstable angina while at rest, relieved with nitro s/p PCI of LAD with AD ASA/Plavix/Statin Will attempt to add BB therapy Hold on SARAH-I due to CKD and receiving contrast load from cath 3) Plan for ASA/Plavix/Coumadin on discharge Stop ASA in 30 days and con't on Plavix/Coumadin Kishan Banegas DO October 25, 2017 09:23
[2017-10-25] MEDS ORDERED: PILL SPLITTER OTHER PRN (09:45)
[2017-10-25] MEDS: METOPROLOL TARTRATE 25 MG TAB PO SCH ×2 (09:55→21:32)
--- NOTE | 2017-10-25 14:24 | HHI.PR ---
Subjective Remarks Pt states that this morning, he was washing his face and brushing his teeth and went back to bed when he started experiencing chest pains and palpitations. He feels better now and is chest pain free. This really scared him. He rather stay in hospital and get ablation next monday. denies any nausea or vomiting. Objective Vitals Vital Signs Date Time Temp Pulse Resp B/P (MAP) Pulse Ox O2 Delivery O2 Flow Rate FiO2 10/25/17 13:00 64 10/25/17 12:00 72 10/25/17 11:49 98.0 59 16 121/66 (84) 98 10/25/17 11:00 66 10/25/17 10:00 68 10/25/17 09:00 63 10/25/17 08:06 114 10/25/17 08:00 138 10/25/17 07:36 98 Room Air 10/25/17 07:32 97.8 154 14 151/77 (101) 99 10/25/17 07:18 201 10/25/17 07:16 117 10/25/17 07:00 78 10/25/17 06:05 62 10/25/17 05:06 63 10/25/17 04:00 64 10/25/17 03:45 98.2 58 17 126/66 (86) 98 10/25/17 03:00 57 10/25/17 02:37 54 10/25/17 01:05 57 10/25/17 00:02 59 10/24/17 23:35 98.1 60 18 142/67 (92) 98 10/24/17 23:00 57 10/24/17 22:00 70 10/24/17 21:00 62 10/24/17 20:00 62 10/24/17 19:32 98.1 76 19 137/68 (91) 98 10/24/17 19:32 98 Room Air 10/24/17 19:00 67 10/24/17 18:00 70 10/24/17 17:00 64 10/24/17 16:13 65 10/24/17 15:29 62 10/24/17 15:15 98.2 77 16 122/65 (84) 97 I/O 10/24/17 10/24/17 10/24/17 10/25/17 10/25/17 10/25/17 07:00 15:00 23:00 07:00 15:00 23:00 Intake Total 240 ml 720 ml 480 ml Output Total 725 ml 900 ml 625 ml Balance -485 ml -180 ml -145 ml Intake Oral 240 ml 720 ml 480 ml Output Urine Total 725 ml 900 ml 625 ml Result Diagram: 10/25/17 0445 10/25/17 0445 Imaging Last Impressions Chest X-Ray 10/18/172020 Signed Impressions: Service Date/Time: Wednesday, October 18, 2017 20:29 - CONCLUSION: Recurrent or persistent bibasilar airspace disease. Theron Webb MD Objective Remarks GENERAL: Wearing sunglasses. CARDIOVASCULAR: Irregularly irregular, no murmurs appreciated RESPIRATORY: Breath sounds equal bilaterally. No accessory muscle use. GASTROINTESTINAL: Abdomen soft, non-tender MUSCULOSKELETAL: No edema. Procedures None A/P Assessment and Plan Summary this is an 87-year-old male with medical history significant for coronary artery disease, A. fib on Coumadin, hypertension and hyperlipidemia who presented to [facility] ED complaining of rapid heartbeat and palpitations. The patient was discharged on October 11 for an admission of A. fib with RVR. A. fib with RVR/CP presented w atrial fib w rvr w intermittent bradycardia Troponin negative 3 s/p cardiac cath w drug eluding stent to LAD. on ASA, plavix and coumadin. Dr. Barlow following and recommends cardiac ablation next monday. on amiodarone, pharmacy consulted for coumadin mgt. AILYN resolved Hypocalcemia replaced, stable Hypertension/hyperlipidemia continue home meds DVT prophylaxis: Coumadin Discharge Planning scheduled for cardiac ablation for next monday Sarah Gracia MD October 25, 2017 14:24
[2017-10-25] MEDS: WARFARIN SOD 5 MG TAB PO SCH (16:21)
[2017-10-25] MEDS: ALPRAZolam 1 MG TAB PO PRN (21:33)
[2017-10-25] MEDS: ATORVASTATIN 40 MG TAB PO SCH (21:33)
[2017-10-26] VITALS (27 sets, daily range): BP systolic 104–144; BP diastolic 53–70; PULSE 48–86; RESP 16–18; TEMP 97.5–98.1; O2SAT 98–100
[2017-10-26 06:51] LABS: INTERNATIONAL NORMALIZED RATIO 1.8 RATIO; PROTHROMBIN TIME - PATIENT 17.8 SEC (9.8-11.6)
[2017-10-26] MEDS: ISOSORBIDE MONONITRATE 30 MG CR TAB (IMDUR) PO SCH (07:09)
[2017-10-26] MEDS: CLOPIDOGREL 75 MG TAB PO SCH (09:17)
[2017-10-26] MEDS: PANTOPRAZOLE SOD 20 MG DELAYED RELEASE TAB PO SCH (09:17)
[2017-10-26] MEDS: DOCUSATE SODIUM 50 MG/SENNA 8.6 MG TAB PO SCH (09:17)
[2017-10-26] MEDS: METOPROLOL TARTRATE 25 MG TAB PO SCH ×2 (09:18→20:48)
[2017-10-26] MEDS: AMIODARONE 200 MG TAB PO SCH (09:18)
[2017-10-26] MEDS: CALCIUM CARBONATE 1.25 GM (CA 500 MG) TAB PO SCH ×2 (09:18→20:48)
[2017-10-26] MEDS: ASPIRIN 81 MG CHEW TAB CHEW SCH (09:18)
[2017-10-26] MEDS: SODIUM CHLORIDE 0.9% FLUSH 10 ML FLUSH IV FLUSH SCH ×2 (09:20→20:57)
[2017-10-26] MEDS: DORZOLAMIDE 2% OPTH SOLN 200 DROP/10 ML BTLO EACH EYE SCH ×3 (09:21→18:14)
--- NOTE | 2017-10-26 11:14 | HHI.PR ---
Subjective Remarks Patient complaining of some shortness of breath however says no chest pain since yesterday. No nausea vomiting no palpitations. Still with lightheadedness. No diaphoresis, nausea, chest pain. Objective Vitals Vital Signs Date Time Temp Pulse Resp B/P (MAP) Pulse Ox O2 Delivery O2 Flow Rate FiO2 10/26/17 07:41 98.1 62 16 104/53 (70) 99 10/26/17 07:41 99 Room Air 10/26/17 07:00 51 10/26/17 06:00 56 10/26/17 05:00 56 10/26/17 04:00 56 10/26/17 03:34 97.9 55 17 139/70 (93) 99 10/26/17 03:00 58 10/26/17 02:00 48 10/26/17 01:10 49 10/26/17 00:00 48 10/25/17 23:14 98.0 57 18 116/53 (74) 98 10/25/17 23:00 52 10/25/17 22:00 56 10/25/17 21:25 Room Air 10/25/17 21:25 98.2 61 18 140/65 (90) 96 10/25/17 21:00 64 10/25/17 20:00 68 10/25/17 19:00 71 10/25/17 18:00 100 10/25/17 17:00 62 10/25/17 16:00 60 10/25/17 15:41 97.8 62 18 145/73 (97) 99 10/25/17 15:00 88 10/25/17 14:00 66 10/25/17 13:00 64 10/25/17 12:00 72 10/25/17 11:49 98.0 59 16 121/66 (84) 98 I/O 10/25/17 10/25/17 10/25/17 10/26/17 10/26/17 10/26/17 07:00 15:00 23:00 07:00 15:00 23:00 Intake Total 480 ml 480 ml 240 ml Output Total 625 ml 600 ml 475 ml Balance -145 ml -120 ml -235 ml Intake Oral 480 ml 480 ml 240 ml Output Urine Total 625 ml 600 ml 475 ml Result Diagram: 10/25/17 0445 10/25/17 0445 Imaging Last Impressions Chest X-Ray 10/18/172020 Signed Impressions: Service Date/Time: Wednesday, October 18, 2017 20:29 - CONCLUSION: Recurrent or persistent bibasilar airspace disease. Theron Webb MD Objective Remarks GENERAL: margarito elderly male, appears in nad. SKIN: Warm and dry. CARDIOVASCULAR: Irregularly irregular, no murmurs appreciated. RESPIRATORY: No accessory muscle use. Clear to auscultation. Breath sounds equal bilaterally. GASTROINTESTINAL: Abdomen soft, non-tender, nondistended. Hepatic and splenic margins not palpable. MUSCULOSKELETAL: Extremities without clubbing, cyanosis, or edema. No obvious deformities. NEUROLOGICAL: Awake and alert. No obvious cranial nerve deficits. Motor grossly within normal limits. Five out of 5 muscle strength in the arms and legs. Normal speech. PSYCHIATRIC: Appropriate mood and affect; insight and judgment normal. Procedures None A/P Assessment and Plan Margarito 87-year-old male with medical history significant for coronary artery disease, A. fib on Coumadin, hypertension and hyperlipidemia who presented to [place] ED complaining of rapid heartbeat and palpitations. The patient was discharged on October 11 for an admission of A. fib with RVR. A. fib with RVR/CP presented w atrial fib w rvr w intermittent bradycardia Troponin negative 3 s/p cardiac cath w drug eluding stent to LAD. on ASA, plavix and coumadin. Dr. Barlow following and recommends cardiac ablation next monday. on amiodarone, pharmacy consulted for Coumadin mgt. AILYN resolved Hypocalcemia replaced, stable Hypertension/hyperlipidemia continue home meds DVT prophylaxis: Coumadin Discharge Planning scheduled for cardiac ablation for next Monday by Corrie Medina MD October 26, 2017 11:14
[2017-10-26] MEDS: WARFARIN SOD 2.5 MG TAB PO SCH (16:27)
--- NOTE | 2017-10-26 17:54 | PD.CARD.PN ---
Subjective Subjective Remarks Patient was seen earlier in the late morning, late entry note [place] chest pain when heart rates at 200 yesterday, no chest pain/AFib with RVR since Continues in sinus jann Objective Medications Current Medications Medications (Trade) Dose Ordered Sig/Bernardino Route Start Time Stop Time Status Last Admin (Oscal) 500 mg Q12HR PO 10/19/17 09:00 10/26/17 09:18 (NS Flush) 2 ml UNSCH PRN IV FLUSH 10/19/17 00:45 (NS Flush) 2 ml BID IV FLUSH 10/19/17 09:00 10/26/17 09:20 (Tylenol) 650 mg Q4H PRN PO 10/19/17 00:45 (Zofran Inj) 4 mg Q6H PRN IVP 10/19/17 00:45 (Narcan Inj) 0.4 mg UNSCH PRN IV PUSH 10/19/17 00:45 (Parvin-Colace) 1 tab BID PO 10/19/17 09:00 10/26/17 09:17 (Milk Of Magnesia Liq) 30 ml Q12H PRN PO 10/19/17 00:45 (Senokot) 17.2 mg Q12H PRN PO 10/19/17 00:45 (Dulcolax Supp) 10 mg DAILY PRN RECTAL 10/19/17 00:45 (Lactulose Liq) 30 ml DAILY PRN PO 10/19/17 00:45 (Norvasc) 10 mg DAILY PO 10/19/17 09:00 10/26/17 09:18 (Aspirin Chew) 81 mg DAILY CHEW 10/19/17 09:00 10/26/17 09:18 (Lipitor) 40 mg HS PO 10/19/17 21:00 10/25/17 21:33 (Imdur) 30 mg DAILY@07 PO 10/19/17 07:00 10/26/17 07:09 (Betapace) 80 mg Q12HR PO 10/19/17 09:00 Future Hold 10/19/17 20:07 (Protonix) 20 mg DAILY PO 10/19/17 09:00 10/26/17 09:17 (Trusopt 2% Opth Soln) 1 drop TID EACH EYE 10/19/17 18:00 10/26/17 14:02 (Fml Liquifilm Opth Susp) 1 drop DAILY PRN EACH EYE 10/19/17 14:00 (Refresh Tears 0.5% Opth Soln) 1 drop HS PRN EACH EYE 10/19/17 15:00 10/21/17 08:43 Patient Own Medication PT OWN MED: Ketoti... BID PRN EACH EYE 10/19/17 14:00 Future Hold (Xanax) 1 mg Q12HR PRN PO 10/19/17 20:45 10/25/17 21:33 (Nitrostat Sl) 0.4 mg Q5M PRN SL 10/20/17 17:15 10/22/17 12:22 (Morphine Inj) 2 mg Q3H PRN IV PUSH 10/23/17 20:15 (Plavix) 75 mg DAILY PO 10/25/17 09:00 10/26/17 09:17 (Cordarone) 200 mg DAILY PO 10/25/17 09:00 10/26/17 09:18 (Coumadin) 2.5 mg SuTuThSa@16 PO 10/24/17 18:30 10/26/17 16:27 (Coumadin) 5 mg MoWeFr@16 PO 10/25/17 16:00 10/25/17 16:21 Pharmacy Profile Note 0 ml @ 0 mls/hr UNSCH OTHER 10/24/17 14:15 (Lopressor) 12.5 mg Q12HR PO 10/25/17 09:30 10/26/17 09:18 (Pill Splitter) 1 ea UNSCH PRN OTHER 10/25/17 09:45 Vital Signs / I&O Vital Signs Date Time Temp Pulse Resp B/P (MAP) Pulse Ox O2 Delivery O2 Flow Rate FiO2 10/26/17 16:00 52 10/26/17 15:23 98.0 56 16 138/65 (89) 98 10/26/17 15:00 58 10/26/17 14:00 56 10/26/17 13:00 58 10/26/17 11:23 97.5 49 16 112/59 (76) 100 10/26/17 11:01 53 10/26/17 10:00 62 10/26/17 09:00 86 10/26/17 08:00 54 10/26/17 07:41 98.1 62 16 104/53 (70) 99 5/3/18 07:41 99 Room Air 10/26/17 07:00 51 10/26/17 06:00 56 10/26/17 05:00 56 10/26/17 04:00 56 10/26/17 03:34 97.9 55 17 139/70 (93) 99 10/26/17 03:00 58 10/26/17 02:00 48 10/26/17 01:10 49 10/26/17 00:00 48 10/25/17 23:14 98.0 57 18 116/53 (74) 98 10/25/17 23:00 52 10/25/17 22:00 56 10/25/17 21:25 Room Air 10/25/17 21:25 98.2 61 18 140/65 (90) 96 10/25/17 21:00 64 10/25/17 20:00 68 10/25/17 19:00 71 10/25/17 18:00 100 I/O 10/25/17 10/25/17 10/25/17 10/26/17 10/26/17 10/26/17 07:00 15:00 23:00 07:00 15:00 23:00 Intake Total 480 ml 480 ml 240 ml 960 ml Output Total 625 ml 600 ml 475 ml Balance -145 ml -120 ml -235 ml 960 ml Intake Oral 480 ml 480 ml 240 ml 960 ml Output Urine Total 625 ml 600 ml 475 ml # Voids 3 # Bowel Movements 1 Physical Exam GENERAL: NAD, AAOx3 SKIN: Warm and dry. HEAD: Atraumatic. Normocephalic. EYES: Pupils equal and round. No scleral icterus. No injection or drainage. ENT: No nasal bleeding or discharge. Mucous membranes pink and moist. NECK: Trachea midline. No JVD. CARDIOVASCULAR: RRR RESPIRATORY: No accessory muscle use. Clear to auscultation. Breath sounds equal bilaterally. GASTROINTESTINAL: Abdomen soft, non-tender, nondistended. Hepatic and splenic margins not palpable. MUSCULOSKELETAL: Extremities without clubbing, cyanosis, or edema. No obvious deformities. NEUROLOGICAL: Awake and alert. No obvious cranial nerve deficits. Motor grossly within normal limits. Five out of 5 muscle strength in the arms and legs. Normal speech. PSYCHIATRIC: Appropriate mood and affect; insight and judgment normal. Laboratory Laboratory Tests Test 10/26/17 06:16 Prothrombin Time 17.8 SEC Prothromb Time International Ratio 1.8 RATIO Assessment and Plan Problem List: (1) Atrial fibrillation with RVR ICD Codes: I48.91 - Unspecified atrial fibrillation Status: Resolved (2) Chest pain ICD Codes: R07.9 - Chest pain Status: Resolved (3) CAD (coronary artery disease) ICD Codes: I25.10 - CAD (coronary artery disease) Status: Chronic (4) Hypertension ICD Codes: I10 - Hypertension Status: Chronic (5) Hyperlipidemia ICD Codes: E78.5 - Hyperlipidemia Status: Chronic Assessment and Plan 1) Afib with RVR Started on Amiodarone, switched to oral Discussed with Dr. Barlow at the bedside Possible ablation on Monday due to Plavix load 2) Chest pain, some concerning typical components Typical chest pain, concerning for unstable angina while at rest, relieved with nitro s/p PCI of LAD with AD ASA/Plavix/Statin BB low dose as bradycardic Hold on SARAH-I due to CKD and receiving contrast load from cath 3) Plan for ASA/Plavix/Coumadin on discharge Stop ASA in 30 days and con't on Plavix/Coumadin Kishan Banegas DO October 26, 2017 17:54
[2017-10-26] MEDS: ATORVASTATIN 40 MG TAB PO SCH (20:48)
[2017-10-26] MEDS: ALPRAZolam 1 MG TAB PO PRN (20:52)
[2017-10-27] VITALS (27 sets, daily range): BP systolic 107–131; BP diastolic 56–69; PULSE 50–84; RESP 18–20; TEMP 97.8–98.4; O2SAT 97–99
[2017-10-27 06:13] LABS: PROTHROMBIN TIME - PATIENT 20.6 SEC (9.8-11.6)
[2017-10-27] MEDS: AMIODARONE 200 MG TAB PO SCH (08:25)
[2017-10-27] MEDS: ISOSORBIDE MONONITRATE 30 MG CR TAB (IMDUR) PO SCH (08:26)
[2017-10-27] MEDS: CALCIUM CARBONATE 1.25 GM (CA 500 MG) TAB PO SCH ×2 (08:26→21:03)
[2017-10-27] MEDS: ASPIRIN 81 MG CHEW TAB CHEW SCH (08:26)
[2017-10-27] MEDS: PANTOPRAZOLE SOD 20 MG DELAYED RELEASE TAB PO SCH (08:26)
[2017-10-27] MEDS: DOCUSATE SODIUM 50 MG/SENNA 8.6 MG TAB PO SCH ×3 (08:26→21:04)
[2017-10-27] MEDS: CLOPIDOGREL 75 MG TAB PO SCH (08:26)
[2017-10-27] MEDS: FLUOROMETHOLONE 0.1% OPHT SUSP 5 ML BTL EACH EYE PRN (08:27)
[2017-10-27] MEDS: DORZOLAMIDE 2% OPTH SOLN 200 DROP/10 ML BTLO EACH EYE SCH ×3 (08:28→17:19)
[2017-10-27] MEDS: SODIUM CHLORIDE 0.9% FLUSH 10 ML FLUSH IV FLUSH SCH ×2 (08:29→21:12)
--- NOTE | 2017-10-27 10:10 | HHI.PR ---
Subjective Remarks In the chair, eating with sunglasses on. Says he feel better today no more chest pain or sob. No lightheadedness. Objective Vitals Vital Signs Date Time Temp Pulse Resp B/P (MAP) Pulse Ox O2 Delivery O2 Flow Rate FiO2 10/27/17 08:15 98.1 59 18 131/69 (89) 99 10/27/17 08:13 97 Room Air 10/27/17 05:18 53 10/27/17 04:10 57 10/27/17 04:00 98.0 53 18 107/56 (73) 98 10/27/17 03:10 57 10/27/17 02:03 55 10/27/17 01:00 57 10/27/17 00:00 58 10/27/17 00:00 98.0 55 18 125/64 (84) 98 10/26/17 23:00 51 10/26/17 22:00 57 10/26/17 21:00 55 10/26/17 20:00 97.5 63 18 144/70 (94) 98 10/26/17 20:00 63 10/26/17 20:00 98 Room Air 10/26/17 19:00 63 10/26/17 18:00 58 10/26/17 17:00 50 10/26/17 16:00 52 10/26/17 15:23 98.0 56 16 138/65 (89) 98 10/26/17 15:00 58 10/26/17 14:00 56 10/26/17 13:00 58 10/26/17 11:23 97.5 49 16 112/59 (76) 100 10/26/17 11:01 53 I/O 10/26/17 10/26/17 10/26/17 10/27/17 10/27/17 10/27/17 07:00 15:00 23:00 07:00 15:00 23:00 Intake Total 240 ml 960 ml 600 ml Output Total 475 ml Balance -235 ml 960 ml 600 ml Intake Oral 240 ml 960 ml 600 ml Output Urine Total 475 ml # Voids 3 3 # Bowel Movements 1 Result Diagram: 10/25/17 0445 10/25/17444 Imaging Last Impressions Chest X-Ray 10/18/172020 Signed Impressions: Service Date/Time: Wednesday, October 18, 2017 20:29 - CONCLUSION: Recurrent or persistent bibasilar airspace disease. Theron Webb MD Objective Remarks GENERAL: pleasant elderly male, appears in nad. SKIN: Warm and dry. CARDIOVASCULAR: Irregularly irregular, no murmurs appreciated. RESPIRATORY: No accessory muscle use. Clear to auscultation. Breath sounds equal bilaterally. GASTROINTESTINAL: Abdomen soft, non-tender, nondistended. Hepatic and splenic margins not palpable. MUSCULOSKELETAL: Extremities without clubbing, cyanosis, or edema. No obvious deformities. NEUROLOGICAL: Awake and alert. No obvious cranial nerve deficits. Motor grossly within normal limits. Five out of 5 muscle strength in the arms and legs. Normal speech. PSYCHIATRIC: Appropriate mood and affect; insight and judgment normal. Procedures None A/P Assessment and Plan Margarito 87-year-old male with medical history significant for coronary artery disease, A. fib on Coumadin, hypertension and hyperlipidemia who presented to [facility] ED complaining of rapid heartbeat and palpitations. The patient was discharged on October 11 for an admission of A. fib with RVR. A. fib with RVR/CP presented w atrial fib w rvr w intermittent bradycardia Troponin negative 3 s/p cardiac cath w drug eluding stent to LAD. on ASA, plavix and coumadin. Dr. Barlow following and recommends cardiac ablation next monday. on amiodarone, pharmacy consulted for Coumadin mgt. AILYN resolved Hypocalcemia replaced, stable Hypertension/hyperlipidemia continue home meds DVT prophylaxis: Coumadin Discharge Planning scheduled for cardiac ablation for next Monday by Corrie Medina MD October 27, 2017 10:10
[2017-10-27] MEDS: METOPROLOL TARTRATE 25 MG TAB PO SCH ×2 (12:36→21:04)
--- NOTE | 2017-10-27 12:45 | PD.CARD.PN ---
Subjective Subjective Remarks No chest pain/SOB Telemetry with sinus bradycardia Objective Medications Current Medications Medications (Trade) Dose Ordered Sig/Bernardino Route Start Time Stop Time Status Last Admin (Oscal) 500 mg Q12HR PO 10/19/17 09:00 10/27/17 08:26 (NS Flush) 2 ml UNSCH PRN IV FLUSH 10/19/17 00:45 (NS Flush) 2 ml BID IV FLUSH 10/19/17 09:00 10/27/17 08:29 (Tylenol) 650 mg Q4H PRN PO 10/19/17 00:45 (Zofran Inj) 4 mg Q6H PRN IVP 10/19/17 00:45 (Narcan Inj) 0.4 mg UNSCH PRN IV PUSH 10/19/17 00:45 (Parvin-Colace) 1 tab BID PO 10/19/17 09:00 10/27/17 08:26 (Milk Of Magnesia Liq) 30 ml Q12H PRN PO 10/19/17 00:45 (Senokot) 17.2 mg Q12H PRN PO 10/19/17 00:45 (Dulcolax Supp) 10 mg DAILY PRN RECTAL 10/19/17 00:45 (Lactulose Liq) 30 ml DAILY PRN PO 10/19/17 00:45 (Norvasc) 10 mg DAILY PO 10/19/17 09:00 10/27/17 08:26 (Aspirin Chew) 81 mg DAILY CHEW 10/19/17 09:00 10/27/17 08:26 (Lipitor) 40 mg HS PO 10/19/17 21:00 10/26/17 20:48 (Imdur) 30 mg DAILY@07 PO 10/19/17 07:00 10/27/17 08:26 (Betapace) 80 mg Q12HR PO 10/19/17 09:00 Future Hold 10/19/17 20:07 (Protonix) 20 mg DAILY PO 10/19/17 09:00 10/27/17 08:26 (Trusopt 2% Opth Soln) 1 drop TID EACH EYE 10/19/17 18:00 10/27/17 12:35 (Fml Liquifilm Opth Susp) 1 drop DAILY PRN EACH EYE 10/19/17 14:00 10/27/17 08:27 (Refresh Tears 0.5% Opth Soln) 1 drop HS PRN EACH EYE 10/19/17 15:00 10/21/17 08:43 Patient Own Medication PT OWN MED: Ketoti... BID PRN EACH EYE 10/19/17 14:00 Future Hold (Xanax) 1 mg Q12HR PRN PO 10/19/17 20:45 10/26/17 20:52 (Nitrostat Sl) 0.4 mg Q5M PRN SL 10/20/17 17:15 10/22/17 12:22 (Morphine Inj) 2 mg Q3H PRN IV PUSH 10/23/17 20:15 (Plavix) 75 mg DAILY PO 10/25/17 09:00 10/27/17 08:26 (Cordarone) 200 mg DAILY PO 10/25/17 09:00 10/27/17 08:25 (Coumadin) 2.5 mg SuTuThSa@16 PO 10/24/17 18:30 10/26/17 16:27 (Coumadin) 5 mg MoWeFr@16 PO 10/25/17 16:00 10/25/17 16:21 Pharmacy Profile Note 0 ml @ 0 mls/hr UNSCH OTHER 10/24/17 14:15 (Lopressor) 12.5 mg Q12HR PO 10/25/17 09:30 10/27/17 12:36 (Pill Splitter) 1 ea UNSCH PRN OTHER 10/25/17 09:45 Vital Signs / I&O Vital Signs Date Time Temp Pulse Resp B/P (MAP) Pulse Ox O2 Delivery O2 Flow Rate FiO2 10/27/17 12:32 98.0 63 18 126/66 (86) 99 10/27/17 08:15 98.1 59 18 131/69 (89) 99 10/27/17 08:13 97 Room Air 10/27/17 05:18 53 10/27/17 04:10 57 10/27/17 04:00 98.0 53 18 107/56 (73) 98 10/27/17 03:10 57 10/27/17 02:03 55 10/27/17 01:00 57 10/27/17 00:00 58 10/27/17 00:00 98.0 55 18 125/64 (84) 98 10/26/17 23:00 51 10/26/17 22:00 57 10/26/17 21:00 55 10/26/17 20:00 97.5 63 18 144/70 (94) 98 10/26/17 20:00 63 10/26/17 20:00 98 Room Air 10/26/17 19:00 63 10/26/17 18:00 58 10/26/17 17:00 50 10/26/17 16:00 52 10/26/17 15:23 98.0 56 16 138/65 (89) 98 10/26/17 15:00 58 10/26/17 14:00 56 10/26/17 13:00 58 I/O 10/26/17 10/26/17 10/26/17 10/27/17 10/27/17 10/27/17 07:00 15:00 23:00 07:00 15:00 23:00 Intake Total 240 ml 960 ml 600 ml Output Total 475 ml Balance -235 ml 960 ml 600 ml Intake Oral 240 ml 960 ml 600 ml Output Urine Total 475 ml # Voids 3 3 # Bowel Movements 1 Physical Exam GENERAL: NAD, AAOx3 SKIN: Warm and dry. HEAD: Atraumatic. Normocephalic. EYES: Pupils equal and round. No scleral icterus. No injection or drainage. ENT: No nasal bleeding or discharge. Mucous membranes pink and moist. NECK: Trachea midline. No JVD. CARDIOVASCULAR: RRR RESPIRATORY: No accessory muscle use. Clear to auscultation. Breath sounds equal bilaterally. GASTROINTESTINAL: Abdomen soft, non-tender, nondistended. Hepatic and splenic margins not palpable. MUSCULOSKELETAL: Extremities without clubbing, cyanosis, or edema. No obvious deformities. NEUROLOGICAL: Awake and alert. No obvious cranial nerve deficits. Motor grossly within normal limits. Five out of 5 muscle strength in the arms and legs. Normal speech. PSYCHIATRIC: Appropriate mood and affect; insight and judgment normal. Laboratory Laboratory Tests Test 10/27/17 05:30 Prothrombin Time 20.6 SEC Prothromb Time International Ratio 2.0 RATIO Assessment and Plan Problem List: (1) Atrial fibrillation with RVR ICD Codes: I48.91 - Unspecified atrial fibrillation Status: Resolved (2) Chest pain ICD Codes: R07.9 - Chest pain Status: Resolved (3) CAD (coronary artery disease) ICD Codes: I25.10 - CAD (coronary artery disease) Status: Chronic (4) Hypertension ICD Codes: I10 - Hypertension Status: Chronic (5) Hyperlipidemia ICD Codes: E78.5 - Hyperlipidemia Status: Chronic Assessment and Plan 1) Afib with RVR Started on Amiodarone, switched to oral Discussed with Dr. Barlow at the bedside Possible ablation on Monday due to Plavix load 2) Chest pain, some concerning typical components Typical chest pain, concerning for unstable angina while at rest, relieved with nitro s/p PCI of LAD with AD ASA/Plavix/Statin/SARAH-I BB low dose as bradycardic 3) Plan for ASA/Plavix/Coumadin on discharge Stop ASA in 30 days and con't on Plavix/Coumadin 4) Will follow peripherally for now Dr. Barlow to consider further about ablation Please call with questions/concerns Kishan Banegas DO October 27, 2017 12:45
[2017-10-27] MEDS: WARFARIN SOD 5 MG TAB PO SCH (15:27)
[2017-10-27] MEDS: ATORVASTATIN 40 MG TAB PO SCH (21:04)
[2017-10-27] MEDS: ALPRAZolam 1 MG TAB PO PRN (21:06)
[2017-10-28] VITALS (25 sets, daily range): BP systolic 99–140; BP diastolic 45–70; PULSE 42–64; RESP 16–20; TEMP 97.6–98.7; O2SAT 98–100
[2017-10-28 06:07] LABS: INTERNATIONAL NORMALIZED RATIO 2.2 RATIO; PROTHROMBIN TIME - PATIENT 22.3 SEC (9.8-11.6)
[2017-10-28] MEDS: ISOSORBIDE MONONITRATE 30 MG CR TAB (IMDUR) PO SCH (06:16)
--- NOTE | 2017-10-28 08:43 | PD.CARD.PN ---
Subjective Subjective Remarks Pt feels well, NSR on tele Objective Medications Current Medications Medications (Trade) Dose Ordered Sig/Bernardino Route Start Time Stop Time Status Last Admin (Oscal) 500 mg Q12HR PO 10/19/17 09:00 10/27/17 21:03 (NS Flush) 2 ml UNSCH PRN IV FLUSH 10/19/17 00:45 (NS Flush) 2 ml BID IV FLUSH 10/19/17 09:00 10/27/17 21:12 (Tylenol) 650 mg Q4H PRN PO 10/19/17 00:45 (Zofran Inj) 4 mg Q6H PRN IVP 10/19/17 00:45 (Narcan Inj) 0.4 mg UNSCH PRN IV PUSH 10/19/17 00:45 (Parvin-Colace) 1 tab BID PO 10/19/17 09:00 10/27/17 08:26 (Milk Of Magnesia Liq) 30 ml Q12H PRN PO 10/19/17 00:45 (Senokot) 17.2 mg Q12H PRN PO 10/19/17 00:45 (Dulcolax Supp) 10 mg DAILY PRN RECTAL 10/19/17 00:45 (Lactulose Liq) 30 ml DAILY PRN PO 10/19/17 00:45 (Norvasc) 10 mg DAILY PO 10/19/17 09:00 10/27/17 08:26 (Aspirin Chew) 81 mg DAILY CHEW 10/19/17 09:00 10/27/17 08:26 (Lipitor) 40 mg HS PO 10/19/17 21:00 10/27/17 21:04 (Imdur) 30 mg DAILY@07 PO 10/19/17 07:00 10/28/17 06:16 (Betapace) 80 mg Q12HR PO 10/19/17 09:00 Future Hold 10/19/17 20:07 (Protonix) 20 mg DAILY PO 10/19/17 09:00 10/27/17 08:26 (Trusopt 2% Opth Soln) 1 drop TID EACH EYE 10/19/17 18:00 10/27/17 17:19 (Fml Liquifilm Opth Susp) 1 drop DAILY PRN EACH EYE 10/19/17 14:00 10/27/17 08:27 (Refresh Tears 0.5% Opth Soln) 1 drop HS PRN EACH EYE 10/19/17 15:00 10/21/17 08:43 Patient Own Medication PT OWN MED: Ketoti... BID PRN EACH EYE 10/19/17 14:00 Future Hold (Xanax) 1 mg Q12HR PRN PO 10/19/17 20:45 10/27/17 21:06 (Nitrostat Sl) 0.4 mg Q5M PRN SL 10/20/17 17:15 10/22/17 12:22 (Morphine Inj) 2 mg Q3H PRN IV PUSH 10/23/17 20:15 (Plavix) 75 mg DAILY PO 10/25/17 09:00 10/27/17 08:26 (Cordarone) 200 mg DAILY PO 10/25/17 09:00 10/27/17 08:25 (Coumadin) 2.5 mg SuTuThSa@16 PO 10/24/17 18:30 10/26/17 16:27 (Coumadin) 5 mg MoWeFr@16 PO 10/25/17 16:00 10/27/17 15:27 Pharmacy Profile Note 0 ml @ 0 mls/hr UNSCH OTHER 10/24/17 14:15 (Lopressor) 12.5 mg Q12HR PO 10/25/17 09:30 10/27/17 21:04 (Pill Splitter) 1 ea UNSCH PRN OTHER 10/25/17 09:45 (Prinivil) 5 mg DAILY PO 10/28/17 09:00 Vital Signs / I&O Vital Signs Date Time Temp Pulse Resp B/P (MAP) Pulse Ox O2 Delivery O2 Flow Rate FiO2 10/28/17 06:00 48 10/28/17 05:00 48 10/28/17 04:00 97.7 48 20 126/53 (77) 98 10/28/17 04:00 51 10/28/17 03:00 50 10/28/17 02:00 50 10/28/17 01:00 48 10/28/17 00:00 97.9 48 20 121/53 (75) 99 10/28/17 00:00 48 10/27/17 23:00 50 10/27/17 22:00 50 10/27/17 21:00 56 10/27/17 20:00 55 10/27/17 20:00 Room Air 10/27/17 20:00 98.4 56 20 129/66 (87) 98 10/27/17 19:00 60 10/27/17 18:35 68 10/27/17 17:15 62 10/27/17 16:00 62 10/27/17 15:25 97.8 56 18 121/60 (80) 97 10/27/17 15:00 57 10/27/17 14:00 56 10/27/17 13:00 58 10/27/17 12:32 98.0 63 18 126/66 (86) 99 10/27/17 12:00 66 10/27/17 11:00 55 10/27/17 10:00 68 10/27/17 09:00 68 I/O 10/27/17 10/27/17 10/27/17 10/28/17 10/28/17 10/28/17 07:00 15:00 23:00 07:00 15:00 23:00 Intake Total 600 ml 720 ml 720 ml Output Total 975 ml 700 ml Balance 600 ml -255 ml 20 ml Intake Oral 600 ml 720 ml 720 ml Output Urine Total 975 ml 700 ml # Voids 3 # Bowel Movements 1 Physical Exam GENERAL: This is a well-nourished, well-developed patient, in no apparent distress. CARDIOVASCULAR: Regular rate and rhythm without murmurs, gallops, or rubs. RESPIRATORY: Clear to auscultation. Breath sounds equal bilaterally. No wheezes , rales, or rhonchi. GASTROINTESTINAL: Abdomen soft, non-tender, nondistended. Normal active bowel sounds MUSCULOSKELETAL: Extremities without clubbing, cyanosis, or edema. NEURO: Alert & Oriented x4 to person, place, time, situation. Moves all ext x4 Laboratory Laboratory Tests Test 10/28/17 05:11 Prothrombin Time 22.3 SEC Prothromb Time International Ratio 2.2 RATIO Imaging Last Impressions Chest X-Ray 10/18/172020 Signed Impressions: Service Date/Time: Wednesday, October 18, 2017 20:29 - CONCLUSION: Recurrent or persistent bibasilar airspace disease. Theron Webb MD Assessment and Plan Problem List: (1) Atrial fibrillation with RVR ICD Codes: I48.91 - Unspecified atrial fibrillation Status: Resolved Plan: For ablation by [facility] on Monday, npo monday night after mid. (2) Chest pain ICD Codes: R07.9 - Chest pain Status: Resolved (3) CAD (coronary artery disease) ICD Codes: I25.10 - CAD (coronary artery disease) Status: Chronic (4) Hypertension ICD Codes: I10 - Hypertension Status: Chronic (5) Hyperlipidemia ICD Codes: E78.5 - Hyperlipidemia Status: Chronic Assessment and Plan Will be aviailable as needed this weekend, Dr. goldstein to plan for ablation Monday. Henrique Madrid MD October 28, 2017 08:43
[2017-10-28] MEDS: FLUOROMETHOLONE 0.1% OPHT SUSP 5 ML BTL EACH EYE PRN (09:15)
[2017-10-28] MEDS: CARBOXYMETHYLCELL SOD 0.5% OPTH SOLN 15 ML BTL EACH EYE PRN ×2 (09:16→13:37)
[2017-10-28] MEDS: PANTOPRAZOLE SOD 20 MG DELAYED RELEASE TAB PO SCH (09:17)
[2017-10-28] MEDS: DORZOLAMIDE 2% OPTH SOLN 200 DROP/10 ML BTLO EACH EYE SCH ×3 (09:17→18:24)
[2017-10-28] MEDS: LISINOPRIL 5 MG TAB PO SCH (09:17)
[2017-10-28] MEDS: CALCIUM CARBONATE 1.25 GM (CA 500 MG) TAB PO SCH ×2 (09:22→21:11)
[2017-10-28] MEDS: METOPROLOL TARTRATE 25 MG TAB PO SCH ×2 (09:22→21:11)
[2017-10-28] MEDS: AMIODARONE 200 MG TAB PO SCH (09:22)
[2017-10-28] MEDS: DOCUSATE SODIUM 50 MG/SENNA 8.6 MG TAB PO SCH ×2 (09:22→21:00)
[2017-10-28] MEDS: SODIUM CHLORIDE 0.9% FLUSH 10 ML FLUSH IV FLUSH SCH ×2 (09:23→21:11)
[2017-10-28] MEDS: ASPIRIN 81 MG CHEW TAB CHEW SCH (09:23)
[2017-10-28] MEDS: CLOPIDOGREL 75 MG TAB PO SCH (10:47)
--- NOTE | 2017-10-28 15:26 | HHI.PR ---
Subjective Remarks Says no suggestive breast chest pain or lightheadedness when he is walking in the room. Feels tired at this time and sleepy. Eating fairly well. No nausea vomiting no diarrhea or constipation. No diaphoresis. Objective Vitals Vital Signs Date Time Temp Pulse Resp B/P (MAP) Pulse Ox O2 Delivery O2 Flow Rate FiO2 10/28/17 14:00 62 10/28/17 13:00 56 10/28/17 12:01 98.4 50 16 99/45 (63) 98 10/28/17 12:01 50 10/28/17 11:00 64 10/28/17 10:00 64 10/28/17 09:00 56 10/28/17 08:00 99 Room Air 10/28/17 08:00 98.7 50 18 118/60 (79) 99 10/28/17 08:00 50 10/28/17 06:00 48 10/28/17 05:00 48 10/28/17 04:00 97.7 48 20 126/53 (77) 98 10/28/17 04:00 51 10/28/17 03:00 50 10/28/17 02:00 50 10/28/17 01:00 48 10/28/17 00:00 97.9 48 20 121/53 (75) 99 10/28/17 00:00 48 10/27/17 23:00 50 10/27/17 22:00 50 10/27/17 21:00 56 10/27/17 20:00 55 10/27/17 20:00 Room Air 10/27/17 20:00 98.4 56 20 129/66 (87) 98 10/27/17 19:00 60 10/27/17 18:35 68 10/27/17 17:15 62 10/27/17 16:00 62 I/O 10/27/17 10/27/17 10/27/17 10/28/17 10/28/17 10/28/17 07:00 15:00 23:00 07:00 15:00 23:00 Intake Total 600 ml 720 ml 720 ml Output Total 975 ml 700 ml Balance 600 ml -255 ml 20 ml Intake Oral 600 ml 720 ml 720 ml Output Urine Total 975 ml 700 ml # Voids 3 # Bowel Movements 1 Result Diagram: 10/25/17 0445 10/25/17 0445 Objective Remarks GENERAL: pleasant elderly male, appears in nad. SKIN: Warm and dry. CARDIOVASCULAR: Irregularly irregular, no murmurs appreciated. RESPIRATORY: No accessory muscle use. Clear to auscultation. Breath sounds equal bilaterally. GASTROINTESTINAL: Abdomen soft, non-tender, nondistended. Hepatic and splenic margins not palpable. MUSCULOSKELETAL: Extremities without clubbing, cyanosis, or edema. No obvious deformities. NEUROLOGICAL: Awake and alert. No obvious cranial nerve deficits. Motor grossly within normal limits. Five out of 5 muscle strength in the arms and legs. Normal speech. PSYCHIATRIC: Appropriate mood and affect; insight and judgment normal. Procedures None A/P Assessment and Plan Margarito 87-year-old male with medical history significant for coronary artery disease, A. fib on Coumadin, hypertension and hyperlipidemia who presented to [place] ED complaining of rapid heartbeat and palpitations. The patient was discharged on October 11 for an admission of A. fib with RVR. A. fib with RVR/CP presented w atrial fib w rvr w intermittent bradycardia Troponin negative 3 s/p cardiac cath w drug eluding stent to LAD. on ASA, plavix and coumadin. Dr. Barlow following and recommends cardiac ablation next monday. on amiodarone, pharmacy consulted for Coumadin mgt. AILYN resolved Hypocalcemia replaced, stable Hypertension/hyperlipidemia continue home meds DVT prophylaxis: Coumadin Discharge Planning scheduled for cardiac ablation for next Monday by Corrie Medina MD October 28, 2017 15:26
[2017-10-28] MEDS: WARFARIN SOD 2.5 MG TAB PO SCH (16:44)
[2017-10-28] MEDS: ATORVASTATIN 40 MG TAB PO SCH (21:11)
[2017-10-28] MEDS: ALPRAZolam 1 MG TAB PO PRN (21:13)
[2017-10-29] VITALS (27 sets, daily range): BP systolic 104–128; BP diastolic 46–66; PULSE 42–70; RESP 16–20; TEMP 97.9–98.5; O2SAT 98–99
[2017-10-29] MEDS: ISOSORBIDE MONONITRATE 30 MG CR TAB (IMDUR) PO SCH (06:19)
[2017-10-29 07:11] LABS: INTERNATIONAL NORMALIZED RATIO 2.5 RATIO; PROTHROMBIN TIME - PATIENT 25.2 SEC (9.8-11.6)
[2017-10-29] MEDS: CLOPIDOGREL 75 MG TAB PO SCH (08:31)
[2017-10-29] MEDS: CALCIUM CARBONATE 1.25 GM (CA 500 MG) TAB PO SCH ×2 (08:31→20:56)
[2017-10-29] MEDS: LISINOPRIL 5 MG TAB PO SCH (08:31)
[2017-10-29] MEDS: METOPROLOL TARTRATE 25 MG TAB PO SCH ×2 (08:31→20:57)
[2017-10-29] MEDS: PANTOPRAZOLE SOD 20 MG DELAYED RELEASE TAB PO SCH (08:32)
[2017-10-29] MEDS: AMIODARONE 200 MG TAB PO SCH (08:32)
[2017-10-29] MEDS: DOCUSATE SODIUM 50 MG/SENNA 8.6 MG TAB PO SCH ×2 (08:32→21:00)
[2017-10-29] MEDS: ASPIRIN 81 MG CHEW TAB CHEW SCH (08:32)
[2017-10-29] MEDS: SODIUM CHLORIDE 0.9% FLUSH 10 ML FLUSH IV FLUSH SCH ×2 (08:32→20:58)
--- NOTE | 2017-10-29 08:33 | HHI.PR ---
Subjective Remarks In nad. Feels tired. However able to ambulate without any problems no chest pain lightheadedness or palpitations. No n/v/d/c. Objective Vitals Vital Signs Date Time Temp Pulse Resp B/P (MAP) Pulse Ox O2 Delivery O2 Flow Rate FiO2 10/29/17 06:12 52 10/29/17 05:00 42 10/29/17 04:00 48 10/29/17 03:15 98.4 58 18 114/66 (82) 98 10/29/17 03:00 49 10/29/17 02:00 48 10/29/17 01:00 46 10/29/17 00:00 44 10/28/17 23:12 97.6 45 16 105/47 (66) 98 10/28/17 23:00 42 10/28/17 22:00 46 10/28/17 21:00 48 10/28/17 20:00 58 10/28/17 19:11 97.6 60 18 140/70 (93) 100 10/28/17 19:11 Room Air 10/28/17 19:00 60 10/28/17 18:00 60 10/28/17 17:00 58 10/28/17 16:00 52 10/28/17 16:00 98.0 48 16 111/54 (73) 99 10/28/17 15:00 52 10/28/17 14:00 62 10/28/17 13:00 56 10/28/17 12:01 98.4 50 16 99/45 (63) 98 10/28/17 12:01 50 10/28/17 11:00 64 10/28/17 10:00 64 10/28/17 09:00 56 I/O 10/28/17 10/28/17 10/28/17 10/29/17 10/29/17 10/29/17 07:00 15:00 23:00 07:00 15:00 23:00 Intake Total 720 ml 820 ml 240 ml Output Total 700 ml 550 ml 425 ml Balance 20 ml 270 ml -185 ml Intake Oral 720 ml 820 ml 240 ml Output Urine Total 700 ml 550 ml 425 ml # Bowel Movements 1 Result Diagram: 10/25/17 0445 10/25/17 0445 Objective Remarks GENERAL: pleasant elderly male, appears in nad. SKIN: Warm and dry. CARDIOVASCULAR: Irregularly irregular, no murmurs appreciated. RESPIRATORY: No accessory muscle use. Clear to auscultation. Breath sounds equal bilaterally. GASTROINTESTINAL: Abdomen soft, non-tender, nondistended. Hepatic and splenic margins not palpable. MUSCULOSKELETAL: Extremities without clubbing, cyanosis, or edema. No obvious deformities. NEUROLOGICAL: Awake and alert. No obvious cranial nerve deficits. Motor grossly within normal limits. Five out of 5 muscle strength in the arms and legs. Normal speech. PSYCHIATRIC: Appropriate mood and affect; insight and judgment normal. Procedures None A/P Assessment and Plan Pleasant 87-year-old male with medical history significant for coronary artery disease, A. fib on Coumadin, hypertension and hyperlipidemia who presented to [place] ED complaining of rapid heartbeat and palpitations. The patient was discharged on October 11 for an admission of A. fib with RVR. A. fib with RVR/CP presented w atrial fib w rvr w intermittent bradycardia Troponin negative 3 s/p cardiac cath w drug eluding stent to LAD. on ASA, plavix and coumadin. Dr. Barlow following and recommends cardiac ablation next monday. on amiodarone, pharmacy consulted for Coumadin mgt. AILYN resolved Hypocalcemia replaced, stable Hypertension/hyperlipidemia continue home meds DVT prophylaxis: Coumadin Discharge Planning scheduled for cardiac ablation for next Monday by Corrie Medina MD October 29, 2017 08:33
[2017-10-29] MEDS: DORZOLAMIDE 2% OPTH SOLN 200 DROP/10 ML BTLO EACH EYE SCH (08:34)
[2017-10-29] MEDS: FLUOROMETHOLONE 0.1% OPHT SUSP 5 ML BTL EACH EYE PRN (08:34)
[2017-10-29] MEDS: WARFARIN SOD 2.5 MG TAB PO SCH (15:55)
[2017-10-29] MEDS: ATORVASTATIN 40 MG TAB PO SCH (20:58)
[2017-10-29] MEDS: ALPRAZolam 1 MG TAB PO PRN (20:58)
[2017-10-30] VITALS (24 sets, daily range): BP systolic 106–131; BP diastolic 50–63; PULSE 40–92; RESP 16–18; TEMP 97.8–98.2; O2SAT 96–99
[2017-10-30] MEDS: ISOSORBIDE MONONITRATE 30 MG CR TAB (IMDUR) PO SCH (06:24)
[2017-10-30 06:51] LABS: INTERNATIONAL NORMALIZED RATIO 2.6 RATIO; PROTHROMBIN TIME - PATIENT 25.8 SEC (9.8-11.6)
--- NOTE | 2017-10-30 08:51 | HHI.PR ---
Subjective Remarks The patient is with diarrhea today nonbloody. No abdominal pain. No fever or chills. Says he is eating fairly well. No nausea vomiting. Says no chest pain or shortness of breath overnight. No palpitations. Objective Vitals Vital Signs Date Time Temp Pulse Resp B/P (MAP) Pulse Ox O2 Delivery O2 Flow Rate FiO2 10/30/17 07:37 Room Air 10/30/17 06:04 49 10/30/17 05:00 42 10/30/17 04:00 44 10/30/17 03:24 98.0 49 18 106/57 (73) 96 10/30/17 03:00 43 10/30/17 02:00 44 10/30/17 01:00 40 10/30/17 00:00 46 10/29/17 23:11 98.1 47 20 104/46 (65) 98 10/29/17 23:00 47 10/29/17 22:00 50 10/29/17 21:00 56 10/29/17 20:41 98.1 55 18 128/57 (80) 99 10/29/17 20:41 99 Room Air 10/29/17 20:00 54 10/29/17 19:00 58 10/29/17 18:00 70 10/29/17 17:00 48 10/29/17 16:14 98.1 49 16 108/56 (73) 98 10/29/17 16:14 49 10/29/17 15:00 46 10/29/17 14:00 52 10/29/17 13:00 52 10/29/17 11:30 97.9 48 18 112/58 (76) 98 10/29/17 11:30 48 10/29/17 11:00 52 10/29/17 10:00 56 10/29/17 09:00 60 I/O 10/29/17 10/29/17 10/29/17 10/30/17 10/30/17 10/30/17 07:00 15:00 23:00 07:00 15:00 23:00 Intake Total 240 ml 1200 ml 240 ml Output Total 425 ml 1100 ml 475 ml Balance -185 ml 100 ml -235 ml Intake Oral 240 ml 1200 ml 240 ml Output Urine Total 425 ml 1100 ml 475 ml # Bowel Movements 1 Imaging Last Impressions Chest X-Ray 10/18/172020 Signed Impressions: Service Date/Time: Wednesday, October 18, 2017 20:29 - CONCLUSION: Recurrent or persistent bibasilar airspace disease. Theron Webb MD Objective Remarks GENERAL: margarito elderly male, appears in nad. SKIN: Warm and dry. CARDIOVASCULAR: Irregularly irregular, no murmurs appreciated. RESPIRATORY: No accessory muscle use. Clear to auscultation. Breath sounds equal bilaterally. GASTROINTESTINAL: Abdomen soft, non-tender, nondistended. Hepatic and splenic margins not palpable. MUSCULOSKELETAL: Extremities without clubbing, cyanosis, or edema. No obvious deformities. NEUROLOGICAL: Awake and alert. No obvious cranial nerve deficits. Motor grossly within normal limits. Five out of 5 muscle strength in the arms and legs. Normal speech. PSYCHIATRIC: Appropriate mood and affect; insight and judgment normal. Procedures None A/P Assessment and Plan Margarito 87-year-old male with medical history significant for coronary artery disease, A. fib on Coumadin, hypertension and hyperlipidemia who presented to [place] ED complaining of rapid heartbeat and palpitations. The patient was discharged on October 11 for an admission of A. fib with RVR. A. fib with RVR/CP presented w atrial fib w rvr w intermittent bradycardia Troponin negative 3 s/p cardiac cath w drug eluding stent to LAD. on ASA, plavix and coumadin. Dr. Barlow following and recommends cardiac ablation 10/31/17 on amiodarone, pharmacy consulted for Coumadin mgt. AILYN resolved Hypocalcemia replaced, stable Hypertension/hyperlipidemia continue home meds DVT prophylaxis: Coumadin Discharge Planning scheduled for cardiac ablation for Monday10/31/17 by Corrie Medina MD October 30, 2017 08:51
[2017-10-30] MEDS: PANTOPRAZOLE SOD 20 MG DELAYED RELEASE TAB PO SCH (08:55)
[2017-10-30] MEDS: CLOPIDOGREL 75 MG TAB PO SCH (08:55)
[2017-10-30] MEDS: ASPIRIN 81 MG CHEW TAB CHEW SCH (08:56)
[2017-10-30] MEDS: LISINOPRIL 5 MG TAB PO SCH (08:56)
[2017-10-30] MEDS: AMIODARONE 200 MG TAB PO SCH (08:56)
[2017-10-30] MEDS: METOPROLOL TARTRATE 25 MG TAB PO SCH ×2 (08:56→21:55)
[2017-10-30] MEDS: CALCIUM CARBONATE 1.25 GM (CA 500 MG) TAB PO SCH ×2 (08:56→21:55)
[2017-10-30] MEDS: SODIUM CHLORIDE 0.9% FLUSH 10 ML FLUSH IV FLUSH SCH ×2 (08:57→21:55)
[2017-10-30] MEDS: FLUOROMETHOLONE 0.1% OPHT SUSP 5 ML BTL EACH EYE PRN (08:57)
[2017-10-30] MEDS: DORZOLAMIDE 2% OPTH SOLN 200 DROP/10 ML BTLO EACH EYE SCH ×3 (08:57→17:12)
[2017-10-30] MEDS: DOCUSATE SODIUM 50 MG/SENNA 8.6 MG TAB PO SCH ×2 (09:00→21:00)
[2017-10-30] MEDS: LACTOBACILLUS ACIDOPHILUS TAB PO SCH ×2 (09:14→21:54)
[2017-10-30] MEDS ORDERED: LOPERAMIDE HCL 2 MG CAP PO PRN (09:15)
[2017-10-30] MEDS ORDERED: WARFARIN SOD 1 MG TAB PO ONE (16:00)
[2017-10-30] MEDS: ATORVASTATIN 40 MG TAB PO SCH (21:55)
[2017-10-30] MEDS: ALPRAZolam 1 MG TAB PO PRN (21:56)
[2017-10-31] VITALS (23 sets, daily range): BP systolic 104–131; BP diastolic 50–67; PULSE 42–92; RESP 16–18; TEMP 97.8–98.8; O2SAT 96–99
[2017-10-31] MEDS: ISOSORBIDE MONONITRATE 30 MG CR TAB (IMDUR) PO SCH (06:12)
[2017-10-31 06:57] LABS: INTERNATIONAL NORMALIZED RATIO 2.5 RATIO; PROTHROMBIN TIME - PATIENT 25.2 SEC (9.8-11.6)
[2017-10-31 07:04] LABS: BICARBONATE 24.5 MEQ/L (21.0-32.0); CALCIUM 8.8 MG/DL (8.5-10.1); CREATININE 1.3 MG/DL (0.60-1.30)
[2017-10-31 07:08] LABS: AUTOMATED NEUTROPHIL # 3.5 TH/MM3 (1.8-7.7); BASOPHIL % 0.6 % (0.0-2.0); EOSINOPHIL # 0.5 TH/MM3 (0-0.4); EOSINOPHIL % 8.7 % (0.0-4.0); HEMOGLOBIN 12.1 GM/DL (13.0-17.0); LYMPH % 24.9 % (9.0-44.0); LYMPHOCYTE # 1.5 TH/MM3 (1.0-4.8); MEAN CELL VOLUME 96.4 FL (80.0-100.0); MEAN CORPUSCULAR HEMOGLOBIN 33.4 PG (27.0-34.0); MEAN CORPUSCULAR HGB CONC 34.7 % (32.0-36.0); MEAN PLATELET VOLUME 8.3 FL (7.0-11.0); MONO % 8.2 % (0.0-8.0); MONOCYTE # 0.5 TH/MM3 (0-0.9); NEUT % 57.6 % (16.0-70.0); PLATELET COUNT 197 TH/MM3 (150-450); RED BLOOD COUNT 3.63 MIL/MM3 (4.50-5.90); RED CELL DISTRIBUTION WIDTH 14.4 % (11.6-17.2)
--- NOTE | 2017-10-31 07:47 | HHI.PR ---
Subjective Remarks Follow-up A. fib with RVR./Chest pain. Plan for ablation. However patient coagulated Plavix and Coumadin. Discussed with Dr. Menchaca continue anticoagulation. Plan for patient tomorrow not today. Patient had diarrhea yesterday however no more diarrhea today and feels better. No chest pain or shortness of breath overnight. Objective Vitals Vital Signs Date Time Temp Pulse Resp B/P (MAP) Pulse Ox O2 Delivery O2 Flow Rate FiO2 10/31/17 05:00 50 10/31/17 04:00 46 10/31/17 04:00 98.5 48 16 120/55 (76) 98 10/31/17 03:00 47 10/31/17 02:00 49 10/31/17 01:00 46 10/31/17 00:00 98.8 57 18 131/58 (82) 98 10/31/17 00:00 45 10/30/17 23:00 57 10/30/17 22:00 50 10/30/17 21:00 48 10/30/17 20:00 98.2 53 16 117/54 (75) 99 10/30/17 20:00 53 10/30/17 19:00 99 Room Air 10/30/17 18:00 58 10/30/17 17:00 64 10/30/17 16:00 97.8 60 18 131/58 (82) 99 10/30/17 16:00 62 10/30/17 15:00 56 10/30/17 14:00 52 10/30/17 13:00 56 10/30/17 12:00 98.2 50 18 116/50 (72) 98 10/30/17 12:00 48 10/30/17 11:00 50 10/30/17 10:00 92 10/30/17 09:00 64 10/30/17 08:00 65 10/30/17 08:00 97.9 61 16 124/63 (83) 97 I/O 10/30/17 10/30/17 10/30/17 10/31/17 10/31/17 10/31/17 07:00 15:00 23:00 07:00 15:00 23:00 Intake Total 240 ml 680 ml 480 ml Output Total 475 ml 900 ml 650 ml Balance -235 ml -220 ml -170 ml Intake Oral 240 ml 680 ml 480 ml Output Urine Total 475 ml 900 ml 650 ml # Bowel Movements 3 Result Diagram: 10/31/17 0550 10/31/17 0550 Imaging Last Impressions Chest X-Ray 10/18/172020 Signed Impressions: Service Date/Time: Wednesday, October 18, 2017 20:29 - CONCLUSION: Recurrent or persistent bibasilar airspace disease. Theron Webb MD Objective Remarks GENERAL: pleasant elderly male, appears in nad. SKIN: Warm and dry. CARDIOVASCULAR: Irregularly irregular, no murmurs appreciated. RESPIRATORY: No accessory muscle use. Clear to auscultation. Breath sounds equal bilaterally. GASTROINTESTINAL: Abdomen soft, non-tender, nondistended. Hepatic and splenic margins not palpable. MUSCULOSKELETAL: Extremities without clubbing, cyanosis, or edema. No obvious deformities. NEUROLOGICAL: Awake and alert. No obvious cranial nerve deficits. Motor grossly within normal limits. Five out of 5 muscle strength in the arms and legs. Normal speech. PSYCHIATRIC: Appropriate mood and affect; insight and judgment normal. Procedures None A/P Assessment and Plan Pleasant 87-year-old male with medical history significant for coronary artery disease, A. fib on Coumadin, hypertension and hyperlipidemia who presented to [place] ED complaining of rapid heartbeat and palpitations. The patient was discharged on October 11 for an admission of A. fib with RVR. A. fib with RVR/CP presented with atrial fib with RVR w intermittent bradycardia Troponin negative 3 s/p cardiac cath with drug eluding stent to LAD. on ASA ( for 30 days , then continue plavix and coumadin. Dr. Barlow following and recommends cardiac ablation Wed on amiodarone, pharmacy consulted for Coumadin mgt. BB low dose AILYN resolved Hypocalcemia replaced, stable Hypertension/hyperlipidemia continue home meds Diarrhea: Received imodium, on lactinex. Diarrhea resolved. DVT prophylaxis: Coumadin Discharge Planning Scheduled for cardiac ablation for 11/01/[address] Barlow[address] Discussed with Dr Barlow continue anticoagulation at this time. Corrie Gurrola MD October 31, 2017 07:47
[2017-10-31] MEDS: METOPROLOL TARTRATE 25 MG TAB PO SCH ×2 (08:37→21:27)
[2017-10-31] MEDS: CLOPIDOGREL 75 MG TAB PO SCH (08:37)
[2017-10-31] MEDS: PANTOPRAZOLE SOD 20 MG DELAYED RELEASE TAB PO SCH (08:37)
[2017-10-31] MEDS: LACTOBACILLUS ACIDOPHILUS TAB PO SCH ×2 (08:37→21:28)
[2017-10-31] MEDS: CALCIUM CARBONATE 1.25 GM (CA 500 MG) TAB PO SCH ×2 (08:37→21:28)
[2017-10-31] MEDS: LISINOPRIL 5 MG TAB PO SCH (08:37)
[2017-10-31] MEDS: SODIUM CHLORIDE 0.9% FLUSH 10 ML FLUSH IV FLUSH SCH ×2 (08:38→21:29)
[2017-10-31] MEDS: DOCUSATE SODIUM 50 MG/SENNA 8.6 MG TAB PO SCH ×2 (08:38→21:29)
[2017-10-31] MEDS: FLUOROMETHOLONE 0.1% OPHT SUSP 5 ML BTL EACH EYE PRN (08:38)
[2017-10-31] MEDS: DORZOLAMIDE 2% OPTH SOLN 200 DROP/10 ML BTLO EACH EYE SCH ×3 (08:38→17:02)
[2017-10-31] MEDS: AMIODARONE 200 MG TAB PO SCH (08:38)
[2017-10-31] MEDS: ASPIRIN 81 MG CHEW TAB CHEW SCH (08:38)
[2017-10-31] MEDS: WARFARIN SOD 2.5 MG TAB PO SCH (08:40)
[2017-10-31] MEDS: ALPRAZolam 1 MG TAB PO PRN (21:27)
[2017-10-31] MEDS: ATORVASTATIN 40 MG TAB PO SCH (21:27)
[2017-11-01] VITALS (26 sets, daily range): BP systolic 107–123; BP diastolic 45–62; PULSE 49–99; RESP 12–20; TEMP 96.5–98.6; O2SAT 98–100
[2017-11-01 06:43] LABS: PROTHROMBIN TIME - PATIENT 20.5 SEC (9.8-11.6)
--- NOTE | 2017-11-01 07:34 | HHI.PR ---
Subjective Remarks Follow-up A. fib with RVR./Chest pain. Patient is status post ablation today. Complaining of some chest pain after ablation no nausea vomiting no diarrhea constipation. No fever or chills. Objective Vitals Vital Signs Date Time Temp Pulse Resp B/P (MAP) Pulse Ox O2 Delivery O2 Flow Rate FiO2 11/01/17 06:34 51 11/01/17 05:12 49 11/01/17 04:30 98.6 51 17 107/52 (70) 99 11/01/17 04:00 59 11/01/17 03:00 99 11/01/17 02:00 96 11/01/17 01:12 94 11/01/17 00:00 82 10/31/17 23:41 98.5 86 18 104/67 (79) 98 10/31/17 23:00 88 10/31/17 22:00 92 10/31/17 21:00 70 10/31/17 20:00 58 10/31/17 19:40 98.8 60 18 122/63 (82) 96 10/31/17 19:40 Room Air 10/31/17 19:00 65 10/31/17 16:00 98.4 58 18 111/50 (70) 96 10/31/17 16:00 54 10/31/17 15:00 68 10/31/17 14:00 62 10/31/17 13:00 50 10/31/17 12:00 48 10/31/17 12:00 98.1 47 16 111/56 (74) 99 10/31/17 11:00 52 10/31/17 10:00 74 10/31/17 09:00 62 10/31/17 08:00 45 10/31/17 08:00 97.8 56 16 117/57 (77) 97 10/31/17 07:45 Room Air I/O 10/31/17 10/31/17 10/31/17 11/01/17 11/01/17 11/01/17 07:00 15:00 23:00 07:00 15:00 23:00 Intake Total 480 ml 1020 ml 240 ml Output Total 650 ml 950 ml 575 ml Balance -170 ml 70 ml -335 ml Intake Oral 480 ml 1020 ml 240 ml Output Urine Total 650 ml 950 ml 575 ml # Bowel Movements 1 Result Diagram: 10/31/17 0550 10/31/17 0550 Imaging Last Impressions Chest X-Ray 10/18/172020 Signed Impressions: Service Date/Time: Wednesday, October 18, 2017 20:29 - CONCLUSION: Recurrent or persistent bibasilar airspace disease. Theron Webb MD Objective Remarks GENERAL: Pleasant elderly male, in bed appears tired however not in apparent distress. SKIN: Warm and dry. CARDIOVASCULAR: Irregularly irregular, no murmurs appreciated. RESPIRATORY: No accessory muscle use. Clear to auscultation. Breath sounds equal bilaterally. GASTROINTESTINAL: Abdomen soft, non-tender, nondistended. Hepatic and splenic margins not palpable. MUSCULOSKELETAL: Extremities without clubbing, cyanosis, or edema. No obvious deformities. NEUROLOGICAL: Awake and alert. No obvious cranial nerve deficits. Motor grossly within normal limits. Five out of 5 muscle strength in the arms and legs. Normal speech. PSYCHIATRIC: Appropriate mood and affect; insight and judgment normal. Procedures Status post ablation by Dr. Barlow 11/01/17 s/p cardiac cath with drug eluding stent to LAD. A/P Assessment and Plan Pleasant 87-year-old male with medical history significant for coronary artery disease, A. fib on Coumadin, hypertension and hyperlipidemia who presented to [place] ED complaining of rapid heartbeat and palpitations. The patient was discharged on October 11 for an admission of A. fib with RVR. A. fib with RVR/CP Status post ablation by Dr. Barlow 11/01/17 presented with atrial fib with RVR w intermittent bradycardia Troponin negative 3 s/p cardiac cath with drug eluding stent to LAD. on ASA ( for 30 days , then continue plavix and coumadin. Dr. Barlow following and recommends cardiac ablation Mon on amiodarone, pharmacy consulted for Coumadin mgt. BB low dose AILYN resolved Hypocalcemia replaced, stable Hypertension/hyperlipidemia continue home meds Diarrhea: Received imodium, on lactinex. Diarrhea resolved. DVT prophylaxis: Coumadin Discharge Planning S/p cardiac ablation for Mon11/01/[address] Barlow. Discharge when cleared by cardiology. Corrie Gurrola MD November 01, 2017 07:34
[2017-11-01] MEDS: DORZOLAMIDE 2% OPTH SOLN 200 DROP/10 ML BTLO EACH EYE SCH ×3 (09:00→17:00)
[2017-11-01] MEDS: SODIUM CHLORIDE 0.9% FLUSH 10 ML FLUSH IV FLUSH SCH ×2 (09:00→21:15)
[2017-11-01] MEDS ORDERED: oxyCODONE/ACETAMINOPHEN 5 MG/325 MG TAB PO PRN ×2 (09:45)
[2017-11-01] MEDS ORDERED: BACITRACIN OINT 0.9 GM PKT TOP ONE (09:45)
[2017-11-01] MEDS ORDERED: LIDOCAINE HCL 1% 50 ML VIAL INFIL PRN (09:45)
[2017-11-01] MEDS ORDERED: ONDANSETRON HCL 4 MG/2 ML VIAL IV PUSH PRN (09:45)
[2017-11-01] MEDS ORDERED: ATROPINE SULFATE 1 MG/ML VIAL IV PUSH PRN (09:45)
[2017-11-01] MEDS ORDERED: SODIUM CHLOR 0.9% 250 ML INJ 250 ML IV PRN (09:45)
[2017-11-01] MEDS ORDERED: LORazepam 2 MG/ML VIAL IV PUSH PRN (09:45)
[2017-11-01] MEDS ORDERED: METOCLOPRAMIDE HCL 10 MG/2 ML VIAL IV PUSH PRN (09:45)
--- NOTE | 2017-11-01 09:56 | CATHPROC ---
Patient Name: Teddy Aragon Study #: [id number] Initial MD: Nataliya Barlow Date of : 1930 Study Date: 11/01/2017 Cardiac Catheterization Report 11/01/2017 9:56:29 AM Financial #: [id number] 1 of 8 Patient Name: Teddy Aragon Study #: [id number] Initial MD: Nataliya Barlow Date of : 1930 Study Date: 11/01/2017 Entire Case Report Patient Information Patient Name TC Date of 1930 Age 87 years Financial # [id number] Gender M AlternateID Lab Number 2 Room Number 245 Height (in) 66.0 Height (cm) 167.6 BSA 1.79 Weight (lbs) 154.4 Weight (kg) 70.2 Patient Address/Phone Number Home Address [facility] Home Phone Number [facility] [id number] Study Information Study Number Admission Scheduled Start Study Start [id number] Oct 25 2017 11:17AM 11/01/2017 Nov 01 2017 6:48AM [place] Service Electrophysiology Study Admit Source Facility Department Other [facility] Physician and Clinical Staff Initial Nataliya Cruz [employer] Omid Chan,RT(R) Other Anesthesia, WAFER PRODUCTION LEAD WORKER Recorder Shakila Panchal,RN Scrub Maryann Crockett,RT(R) TECH2 Procedures Performed Procedure Location (Site) Vessel Name ICE CATHETER INSERT RA Atruim RF Ablation LT. ATRIUM LT. ATRIUM Equipment Time Reinforcing Steel Worker Wire Mesh Description Size Mfg Part Number Used/Scraped NEEDLE, TRANSSEPTAL NRG 98 [id number] 08:06 [facility] Used C1 *[id number] [employer]/ EP [id number] 08:06 KIT, TRANSDUCER / AFIB Used PACER *[id number] CATHETER, TACTICATH ABLAT BUNDLE 08:06 BUNDLE-[employer] Used 65 BUNDLE *[id number] BUNDLE 11/01/2017 9:56:29 AM Financial #: [id number] 2 of 8 Patient Name: Teddy Aragon Study #: [id number] Initial MD: Nataliya Barlow Date of : 1930 Study Date: 11/01/2017 [id number] CATHETER, FR7 OPTIMA SPIRAL 08:06 BUNDLE-[employer] FR7 *[id number]- Used BUNDLE BUNDLE [id number] 08:06 BUNDLE-[employer] CATHETER, JSN, QUAD BUNDLE FR 5 *[id number]- Used BUNDLE [id number] 08:06 BUNDLE-[employer] CATHETER, JSN, QUAD BUNDLE FR 5 *[id number]- Used BUNDLE [id number] SET, COOL POINT TUBING 08:06 BUNDLE-[employer] *[id number]- Used BUNDLE BUNDLE SHEATH, FR8.5 STEERABLE SM 08:06 BUNDLE-[facility] 71CM [id number] Used 71CM BUNDLE [id number] 09:36 C[employer] MEDICAL VASCADE, FR5 CLOSURE SYSTEM FR 5 Used *[id number] 09:36 [employer] MED[employer] VASCADE, FR6 CLOSURE SYSTEM FR 6\\7 Used *[id number] 09:35 C[employer] MEDICAL VASCADE, FR6 CLOSURE SYSTEM FR 6\\7 Used *[id number] 09:35 C[employer]A MEDICAL VASCADE, FR6 CLOSURE SYSTEM FR 6\\7 Used *[id number] 09:35 C[employer]A MEDICAL VASCADE, FR6 CLOSURE SYSTEM FR 6\\7 Used *[id number] COVER, TRANSDUCER CABLE 612-113 08:06 [employer] Used ACUNAV *[id number] 08:06 CORDIS/PACER SHEATH, FR10 BREN 11CM FR 10 Used *[id number] 08:06 CORDIS/PACER SHEATH, FR9 BREN 11CM FR 9 [id number] Used [id number] 08:06 [employer] PACK, CCL CUSTOM * Used *[id number] 08:06 MEDLINE PACER FORBES, LIMB * 2530 *[id number] Used [id number] 08:06 [employer] MEDICAL SHEATH, FR4.5 PRELUDE 11CM FR 4.5 Used [id number] 08:06 NAMIC TUBING, HIGH PRESSURE 48" 48" Used *[id number] [id number] 08:06 NAMIC TUBING, HIGH PRESSURE 48" 48" Used *[id number] [id number] 08:06 [facility] BLANKET,WARM AIR CCL * Used *[id number] 08:06 [employer] MEDICAL ELECTRODE KIT, PAM X SURFACE * Used *[id number] 381050 08:06 [employer] MEDICAL SHEATH, EPS, FR6 FAST CATH FR 6 Used *[id number] 08:06 [employer] MEDICAL SHEATH, EPS, FR7 FAST CATH FR 7 [id number] Used [id number] 08:06 [employer] [employer] MEDICAL SHEATH, EPS, FR8 FAST CATH FR 8 Used *[id number] CATHETER, ACUNAV FR10 ICE [id number] 08:22 JUDIT FR 10 Used (JUDIT) *[id number] [facility] PAD, ELECTROSURGICAL 08:06 * [id number] *[id number] Used SURGICAL GROUNDING (BLUE) 11/01/2017 9:56:29 AM Financial #: [id number] Patient Name: Teddy Aragon Study #: [id number] Initial MD: Nataliya Barlow Date of : 1930 Study Date: 11/01/2017 Insurance Information Insurance Payor [facility], Medicare Third Democrat Third Democrat Number MEDICARE A B MCRAB Medication Medication Total Dose (Bolus/Oral) Medication Total Dosage/Unit 1% XYLOCAINE 40 mL HEPARIN 6000 units Medications (Bolus/Oral) Medication Time Given Dosage/Unit Administered By Reason 1% XYLOCAINE 11/01/2017 8:15:13 AM 20 mL Nataliya Barlow 20 mL 1% XYLOCAINE given in lab by Nataliya Barlow in Left Groin via Subcutaneous. 1% XYLOCAINE 11/01/2017 8:19:06 AM 20 mL Nataliya Barlow 20 mL 1% XYLOCAINE given in lab by Nataliya Barolw in Right Groin via Subcutaneous. HEPARIN 11/01/2017 8:25:18 AM 6000 units Nataliya Barlow 6000 units HEPARIN given in lab by Nataliya Barlow via Peripheral IV. Medication (Drip) Medication Time Given Dosage/Unit Concentration/Unit Diluent (ml) Solution ISUPREL 11/01/2017 9:17:12 AM 10 mcg/min 1 mg 250 NaCl .9 10 mcg/min ISUPREL given in lab by Nataliya Barlow via Peripheral IV. Pump/Drip Flow = 150 ml/hr using NaCl .9 with a concentration of 1 mg in 250 ml. ISUPREL DRIP STOPPED 11/01/2017 9:26:56 AM 0 units/hr 0 0 units/hr ISUPREL DRIP STOPPED given in lab by Nataliya Barlow. Pump/Drip Flow = 0 ml/hr using [Soluti on Name]. 11/01/2017 9:56:29 AM Financial #: [id number] 4 of 8 Patient Name: Teddy Aragon Study #: [id number] Initial MD: Nataliya Barlow Date of : 1930 Study Date: 11/01/2017 Initial Case Assessment Cardiovascular HR Rhythm NIBP Chest Pain 47 SB 110/60 0 Edema Present Skin color Skin None Normal Warm Dry Circulatory - Right Pulses Dorsalis Pedis 1 Scale (0,1,2,3,4,d) Circulatory - Left Pulses Dorsalis Pedis 1 Scale (0,1,2,3,4,d) Neurological State Oriented to time-place- Alert Moves all extremities person Respiration - General Respiration Rate (B/min) 18 Chronological Log Time Study Chronological Log 7:10:37 Patient arrived via Bed. 7:13:42 Patient Name, D.O.B, / Armband Verified By R.N. 7:13:43 Pre-op and post- op instructions given; patient acknowledges understanding of instructions. 7:13:44 Consent signed by the physician and the patient and verified by the [facility] staff. 7:13:45 Patient has been NPO for More than 6Hrs. 7:13:46 Skin Breakdown- none per patient 7:13:48 Patient Warmer Placed on the Table. 7:13:49 Disposable Defibrillator Pads Placed On Patient. 7:13:51 Emir Prominences Protected 7:44:10 anes intubating now 7:50:00 14F NAIR CATH INSERTED BY RANULFO SEARS CLEAR YELLOW URINE RETURN 8:00:27 paged 11/01/2017 9:56:29 AM Financial #: [id number] 5 of 8 Patient Name: Teddy Aragon Study #: [id number] Initial MD: Nataliya Barlow Date of : 1930 Study Date: 11/01/2017 8:00:41 A # 22 IV was noted in the Forearm (right). Grade = 0 8:01:00 A # 20 IV was noted in the Antecubital (left). Grade = 0 8:01:10 History and physical on the chart or being dictated. Assessment: Initial Case, HR=47 BPM, Rhythm=SB, FGTS=454/60 mmhg, Chest Pain=0, Edema=None, Col or=Normal, Skin = Warm, Dry Right Pulses: Gurinder Ped=1 8:01:11 Left Pulses: Gurinder Ped=1 Neurological: State=Alert, Ox3, [place] Respiration: Resp=18 B/min 8:01:38 MD responded 8:03:11 Table restraints applied according to hospital policy 8:03:13 Bilateral groins prepped with 2% chlorhexidine, and draped after a 3 minute waiting time. 8:06:31 MD arrived. Time Out. Correct patient, procedure, procedure equipment, site and side verified with physicia n present. Time 8:09:34 concurred by MD, individual staff and WAFER PRODUCTION LEAD WORKER. Time Out #2 - Consents verified, patient in correct position, all results are labled and displa yed, safety precautions 8:09:36 taken, antibiotics administered. Time out concurred by MD, individual staff and WAFER PRODUCTION LEAD WORKER in procedu re 8:09:37 Case Start 8:10:06 HARMONY IN PROGRESS 8:13:26 HARMONY COMPLETE 8:15:13 20 mL 1% XYLOCAINE given in lab by Nataliya Barlow in Left Groin via Subcutaneous. 8:15:26 Vascular access was obtained in the Fem Vein (left). 8:15:28 Vascular access was obtained in the Fem Vein (left). 8:15:29 Vascular access was obtained in the Fem Vein (left). 8:15:31 Vascular access was obtained in the Fem Art (left). 8:16:43 A SHEATH, FR4.5 PRELUDE 11CM FR 4.5 was advanced into the Fem Art (left) using the Modified Seldinger technique. 8:18:05 A SHEATH, EPS, FR6 FAST CATH FR 6 was advanced into the Fem Vein (left) using the Modified Seldinger technique. 8:18:13 A SHEATH, EPS, FR7 FAST CATH FR 7 was advanced into the Fem Vein (left) using the Modified Seldinger technique. 8:18:16 A SHEATH, FR10 BREN 11CM FR 10 was advanced into the Fem Vein (left) using the Modified S eldinger technique. 8:19:06 20 mL 1% XYLOCAINE given in lab by Nataliya Barlow in Right Groin via Subcutaneous. 8:19:10 Vascular access was obtained in the Fem Vein (right). 8:19:12 A SHEATH, EPS, FR8 FAST CATH FR 8 was advanced into the Fem Art (right) using the Modified Seldinger technique. A CATHETER, JSN, QUAD BUNDLE FR 5 was advanced vis Fem Vein (left) and placed in the CS. Placem ent was visually 8:20:56 confirmed under fluoroscopy. A CATHETER, JSN, QUAD BUNDLE FR 5 was advanced vis Fem Vein (left) and placed in the HIS. Place ment was 8:21:29 visually confirmed under fluoroscopy. 8:21:57 CATHETER, ACUNAV FR10 ICE (Kreix) FR 10 Was Postioned. A SHEATH, FR8.5 STEERABLE SM 71CM BUNDLE 71CM was exchanged in the Fem Vein (right). This was n ecessary in 8:24:18 order to accomodate a larger catheter. 8:25:00 BAYLIS NEEDLE INSERTED 8:25:18 6000 units HEPARIN given in lab by Nataliya Barlow via Peripheral IV. 8:26:03 A eps was advanced to the right atrium and passed through the septal wall to the left atriu m. 8:26:06 BAYLIS NEEDLE REMOVED 11/01/2017 9:56:29 AM Financial #: [id number] 6 of 8 Patient Name: Teddy Aragon Study #: [id number] Initial MD: Nataliya Barlow Date of : 1930 Study Date: 11/01/2017 A CATHETER, FR7 OPTIMA SPIRAL BUNDLE FR7 was advanced vis Fem Vein (right) and placed in the L A. Placement 8:27:10 was visually confirmed under fluoroscopy. 8:27:55 MAPPING IN PROGRESS 8:32:17 Catheter was removed MAPPING A CATHETER, TACTICATH ABLAT 65 BUNDLE was advanced vis Fem Vein (right) and placed in the LA. Placement was 8:37:31 visually confirmed under fluoroscopy. 8:39:59 RF Ablation of the LT. ATRIUM with a CATHETER, TACTICATH ABLAT 65 BUNDLE. 8:41:25 ACT (Normal Range 90-180) = 359 8:42:57 ABLATION IN PROGRESS 8:57:43 Activated Clotting Time Drawn 9:09:47 ACT (Normal Range 90-180) = 352 10 mcg/min ISUPREL given in lab by Nataliya Barlow via Peripheral IV. Pump/Drip Flow = 150 ml/hr using NaCl .9 with a 9:17:12 concentration of 1 mg in 250 ml. 9:26:56 0 units/hr ISUPREL DRIP STOPPED given in lab by Nataliya Barlow. Pump/Drip Flow = 0 ml/hr us ing [Solution Name]. A SHEATH, FR9 BREN 11CM FR 9 was exchanged in the Fem Vein (right). This was necessary in or naeem to minimize 9:33:46 site leakage. 9:34:02 Catheter(s) removed without difficulty 9:49:31 ALL ACCESS SITE CLOSED WITH VASCADE 9:50:00 Sheath removed; pressure applied to access site. POST VASCADE 9:50:02 ACT (Normal Range 90-180) = 157 9:50:59 Case End 9:55:58 Sterile dressing applied to site 9:56:00 No case complications noted. 9:56:01 Cine recording checked. 9:56:08 Bedside Report will be given. 9:56:11 PACU called. Spoke to MARYANN 9:56:17 Defibrillator and ground pads removed. Skin intact. 9:56:19 [facility] End Study - Contrast Media Used In Study Contrast Total Opened (mL) Total Used (mL) Total Wasted (mL) Unspecified 0 0 0 End Study - Radiation Exposure Fluoro Time (minutes) 2.6 11/01/2017 9:56:29 AM Financial #: [id number] 7 of 8 Patient Name: Teddy Aragon Study #: [id number] Initial MD: Nataliya Barlow Date of : 1930 Study Date: 11/01/2017 End Study - Patient Disposition Complications Transferred To Interventional Outcome No Telemetry Bed successful 11/01/2017 9:56:29 AM Financial #: [id number] 8 of 8
[2017-11-01] MEDS ORDERED: DO NOT ADM ANY ANTICOAGULANT DRUGS PRN (10:20)
--- NOTE | 2017-11-01 10:31 | HHI.DS ---
Discharge Summary Admission Date October 25, 2017 at 11:17 Discharge Date: November 03, 2017 Admitting Diagnosis afibRVR (1) GERD (gastroesophageal reflux disease) ICD Code: K21.9 - GERD (gastroesophageal reflux disease) Status: Chronic (2) Hyperlipidemia ICD Code: E78.5 - Hyperlipidemia Status: Chronic (3) Hypertension ICD Code: I10 - Hypertension Status: Chronic (4) CAD (coronary artery disease) ICD Code: I25.10 - CAD (coronary artery disease) Status: Chronic (5) Chest pain ICD Code: R07.9 - Chest pain Status: Resolved (6) Atrial fibrillation with RVR ICD Code: I48.91 - Unspecified atrial fibrillation Status: Resolved (7) AILYN (acute kidney injury) ICD Code: N17.9 - Acute kidney failure, unspecified Status: Resolved (8) Paroxysmal a-fib ICD Code: I48.0 - Paroxysmal atrial fibrillation Status: Chronic (9) CKD (chronic kidney disease), stage III ICD Code: N18.3 - Chronic kidney disease, stage 3 (moderate) Status: Chronic Procedures None Brief History - From Admission 87-year-old male with a past medical history significant for CAD, atrial fibrillation on chronic articulation with Coumadin, hypertension and hyperlipidemia presents to the emergency department for the evaluation of chest palpitations. The patient reports that he was having dinner around 5 PM when he felt as though his heart was going to beat out of his chest. He took his blood pressure on his home machine and states it was high and his heart rate was elevated in the 160s. He called EMS who found the patient to be in A. fib with RVR with a heart rate between 120 and 1 60 bpm. He was given IV Cardizem with subsequent lowering of his heart rate. The patient denies any chest pain or shortness of breath. No abdominal pain. No nausea/vomiting/diarrhea. No fatigue/weakness. No lateralizing signs/symptoms. No fevers/chills. CBC/BMP: 10/31/17 0550 10/31/17 0550 Significant Findings Laboratory Tests Test 10/30/17 05:45 10/30/17 10:00 10/31/17 05:50 11/01/17 04:56 Prothrombin Time 25.8 SEC (9.8-11.6) 25.2 SEC (9.8-11.6) 20.5 SEC (9.8-11.6) Red Blood Count 3.63 MIL/MM3 (4.50-5.90) Hemoglobin 12.1 GM/DL (13.0-17.0) Hematocrit 35.0 % (39.0-51.0) Monocytes (%) (Auto) 8.2 % (0.0-8.0) Eosinophils (%) (Auto) 8.7 % (0.0-4.0) Eosinophils # (Auto) 0.5 TH/MM3 (0-0.4) Blood Urea Nitrogen 26 MG/DL (7-18) Chloride Level 109 MEQ/L (98-107) Estimat Glomerular Filtration Rate 52 ML/MIN (>89) Imaging Last Impressions Chest X-Ray 10/18/172020 Signed Impressions: Service Date/Time: Wednesday, October 18, 2017 20:29 - CONCLUSION: Recurrent or persistent bibasilar airspace disease. Theron Webb MD PE at Discharge GENERAL: jessa elderly male, appears in nad. SKIN: Warm and dry. CARDIOVASCULAR: Irregularly irregular, no murmurs appreciated. RESPIRATORY: No accessory muscle use. Clear to auscultation. Breath sounds equal bilaterally. GASTROINTESTINAL: Abdomen soft, non-tender, nondistended. Hepatic and splenic margins not palpable. MUSCULOSKELETAL: Extremities without clubbing, cyanosis, or edema. No obvious deformities. NEUROLOGICAL: Awake and alert. No obvious cranial nerve deficits. Motor grossly within normal limits. Five out of 5 muscle strength in the arms and legs. Normal speech. PSYCHIATRIC: Appropriate mood and affect; insight and judgment normal. Pt update on day of discharge Feels better. In the chair. No chest pain or shortness of breath no lightheadedness, nausea. Feels comfortable to go home. Hospital Course Pleasant 87-year-old male with medical history significant for coronary artery disease, A. fib on Coumadin, hypertension and hyperlipidemia who presented to [place] ED complaining of rapid heartbeat and palpitations. The patient was discharged on October 11 for an admission of A. fib with RVR. Patient is status post cardiac cath with drug-eluting stents to LAD is aspirated for 30 days and continue Plavix and Coumadin. Cardiology. Patient with A. fib with RVR status post ablation by Dr. Barlow 11/01/17. Patient improved discharge home in stable condition to follow-up with PCP and consultants as outpatient A. fib with RVR/CP Status post ablation by Dr. Barlow 11/01/17 presented with atrial fib with RVR w intermittent bradycardia Troponin negative 3 s/p cardiac cath with drug eluding stent to LAD. on ASA ( for 30 days , then continue plavix and coumadin. Dr. Barlow following and recommends cardiac ablation Mon on amiodarone, pharmacy consulted for Coumadin mgt. BB low dose AILYN resolved Hypocalcemia replaced, stable Hypertension/hyperlipidemia continue home meds Diarrhea: Received imodium, on lactinex. Diarrhea resolved. DVT prophylaxis: Coumadin Discharge Planning S/p cardiac ablation for Mon11/01/[address] Barlow. Patient improved. He is cleared by cardiology for discharge. Discharge home in stable condition to follow-up with PCP and consultants as outpatient. Pt Condition on Discharge: Stable Discharge Disposition: Discharge Home Discharge Time: > 30 minutes Discharge Instructions DIET: Follow Instructions for: Heart Healthy Diet Activities you can perform: Regular-No Restrictions Follow up Referrals: Cardiology - 1 Week PCP Follow-up - 1 Week New Medications: Clopidogrel (Plavix) 75 Mg Tab 75 MG PO DAILY for Blood Clot Prevention, #90 TAB Metoprolol Tartrate (Metoprolol Tartrate) 25 Mg Tab 12.5 MG PO Q12HR for Blood Pressure Management, #60 TAB Continued Medications: Alprazolam (Alprazolam) 1 Mg Tab 1 MG PO BID for Anxiety, TAB 0 Refills Amlodipine (Amlodipine) 10 Mg Tab 10 MG PO DAILY for Blood Pressure Management, #30 TAB 0 Refills Aspirin (Aspirin) 81 Mg Chew 81 MG CHEW DAILY, TAB 0 Refills Atorvastatin (Atorvastatin) 40 Mg Tab 40 MG PO HS for Cholesterol Management, #30 TAB 0 Refills Carboxymethylcellulose Sodium Opth Gel (Theratears Unit-Dose Opth Gel) 1% Gel 1 DROP EACH EYE HS PRN for DRY EYE, #1 BOX 0 Refills Dorzolamide Opth Drops (Dorzolamide Opth Drops) 2% Soln 1 DROP EACH EYE TID for Glaucoma, #1 BOTTLE 0 Refills Fluorometholone Opth Drops (Flarex Opth Drops) 0.1% Susp 1 DROP EACH EYE DAILY PRN for DRY EYE, BOTTLE 0 Refills Isosorbide Mononitrate ER (Isosorbide Mononitrate ER) 30 Mg Delonte 30 MG PO DAILY@07 for cad for 30 Days, TAB 0 Refills Ketotifen Opth Drops (ZyrTEC Itchy Eye Opth Drops) 0.025% Drops 1 DROP EACH EYE BID PRN for ALLERGIES, BOTTLE 0 Refills Omeprazole (Omeprazole) 20 Mg Tab 20 MG PO DAILY, #30 TAB 0 Refills Warfarin (Warfarin) 2.5 Mg Tab 2.5 MG PO //mon/mon for Blood Clot Prevention, #30 TAB 0 Refills Warfarin (Warfarin) 5 Mg Tab 5 MG PO mon/mon/mon for Blood Clot Prevention, #30 TAB 0 Refills Discontinued Medications: Nitroglycerin SL (Nitrostat SL) 0.4 Mg Subl 0.4 MG SL Q5M PRN for CHEST PAIN, #20 TAB 0 Refills take one tab every five minutes as needed for chest pain- upto three doses. Corrie Gurrola MD November 01, 2017 10:31
--- NOTE | 2017-11-01 11:49 | EKG ---
Date Performed: 11/01/2017 Time Performed: 10:28:43 PTAGE: 87 years EKG: Sinus rhythm POSSIBLE RIGHT VENTRICULAR CONDUCTION DELAY NONSPECIFIC T-WAVE ABNORMALITY BORDERLINE ECG PREVIOUS TRACING : 10/23/2017 04.39 DOCTOR: Goklu Gonzalez Interpretating Date/Time 11/01/2017 11:48:58
[2017-11-01] MEDS ORDERED: ONDANSETRON HCL 4 MG/2 ML VIAL IV ONE (12:00)
[2017-11-01] MEDS ORDERED: NEOSTIGMINE 5 MG/5 ML SYRINGE IV PUSH ONE (12:00)
[2017-11-01] MEDS ORDERED: ROCURONIUM INJ 50 MG/5 ML SYRINGE IV PUSH ONE (12:00)
[2017-11-01] MEDS ORDERED: ESMOLOL HCL 100 MG/10 ML VIAL IV ONE (12:00)
[2017-11-01] MEDS ORDERED: ePHEDrine/NS 25 MG/5 ML SYRINGE IV ONE (12:00)
[2017-11-01] MEDS ORDERED: PROPOFOL 200 MG/20 ML AMP IV ONE (12:00)
[2017-11-01] MEDS ORDERED: PHENYLEPH/NS 1000 MCG/10 ML SYR IV ONE (12:00)
[2017-11-01] MEDS ORDERED: GLYCOPYRROLATE 1 MG/5 ML SYRINGE IV PUSH ONE (12:00)
[2017-11-01] MEDS: ISOSORBIDE MONONITRATE 30 MG CR TAB (IMDUR) PO SCH (12:25)
[2017-11-01] MEDS: LACTOBACILLUS ACIDOPHILUS TAB PO SCH ×2 (13:30→21:13)
[2017-11-01] MEDS: PANTOPRAZOLE SOD 20 MG DELAYED RELEASE TAB PO SCH (13:30)
[2017-11-01] MEDS: ASPIRIN 81 MG CHEW TAB CHEW SCH (13:30)
[2017-11-01] MEDS: CALCIUM CARBONATE 1.25 GM (CA 500 MG) TAB PO SCH ×2 (13:30→21:13)
[2017-11-01] MEDS: AMIODARONE 200 MG TAB PO SCH (13:30)
[2017-11-01] MEDS: DOCUSATE SODIUM 50 MG/SENNA 8.6 MG TAB PO SCH ×2 (13:31→21:00)
[2017-11-01] MEDS: METOPROLOL TARTRATE 25 MG TAB PO SCH ×2 (13:31→21:13)
[2017-11-01] MEDS: CLOPIDOGREL 75 MG TAB PO SCH (13:31)
[2017-11-01] MEDS: LISINOPRIL 5 MG TAB PO SCH (13:31)
[2017-11-01] MEDS: NITROGLYCERIN 0.4 MG SL 25 TABS/BTL SL PRN (15:14)
[2017-11-01] MEDS ORDERED: WARFARIN SOD 5 MG TAB PO SCH (16:00)
[2017-11-01] MEDS: FLUOROMETHOLONE 0.1% OPHT SUSP 5 ML BTL EACH EYE PRN (17:00)
[2017-11-01] MEDS: CARBOXYMETHYLCELL SOD 0.5% OPTH SOLN 15 ML BTL EACH EYE PRN (17:00)
[2017-11-01] MEDS: ATORVASTATIN 40 MG TAB PO SCH (21:12)
[2017-11-01] MEDS: ALPRAZolam 1 MG TAB PO PRN (21:13)
[2017-11-02] VITALS (15 sets, daily range): BP systolic 110–120; BP diastolic 53–60; PULSE 45–78; RESP 14–18; TEMP 97.8–98.4; O2SAT 95–99
[2017-11-02] MEDS: ISOSORBIDE MONONITRATE 30 MG CR TAB (IMDUR) PO SCH (06:12)
[2017-11-02 07:55] LABS: INTERNATIONAL NORMALIZED RATIO 2.2 RATIO
[2017-11-02] MEDS: PANTOPRAZOLE SOD 20 MG DELAYED RELEASE TAB PO SCH (09:46)
[2017-11-02] MEDS: LACTOBACILLUS ACIDOPHILUS TAB PO SCH (09:46)
[2017-11-02] MEDS: METOPROLOL TARTRATE 25 MG TAB PO SCH (09:46)
[2017-11-02] MEDS: CLOPIDOGREL 75 MG TAB PO SCH (09:46)
[2017-11-02] MEDS: AMIODARONE 200 MG TAB PO SCH (09:46)
[2017-11-02] MEDS: SODIUM CHLORIDE 0.9% FLUSH 10 ML FLUSH IV FLUSH SCH (09:47)
[2017-11-02] MEDS: CALCIUM CARBONATE 1.25 GM (CA 500 MG) TAB PO SCH (09:47)
[2017-11-02] MEDS: ASPIRIN 81 MG CHEW TAB CHEW SCH (09:47)
[2017-11-02] MEDS: DOCUSATE SODIUM 50 MG/SENNA 8.6 MG TAB PO SCH (09:47)
[2017-11-02] MEDS: LISINOPRIL 5 MG TAB PO SCH (09:47)
[2017-11-02] MEDS: FLUOROMETHOLONE 0.1% OPHT SUSP 5 ML BTL EACH EYE PRN (09:55)
[2017-11-02] MEDS: DORZOLAMIDE 2% OPTH SOLN 200 DROP/10 ML BTLO EACH EYE SCH (09:56)
[2017-11-02] MEDS ORDERED: PLAV75TA29 PO (14:00)
[2017-11-02] MEDS ORDERED: METO25TA3 PO (14:05)
--- NOTE | 2017-11-02 18:14 | PD.CARD.PN ---
Subjective Subjective Remarks Patient was seen earlier today, late entry note Follow up for Dr. Barlow and myself No chest pain/SOB Chest pain yesterday post-procedure EKG with no changes Relieved by Morphine but not by Nitro Telemetry with sinus bradycardia Objective Vital Signs / I&O Vital Signs Date Time Temp Pulse Resp B/P (MAP) Pulse Ox O2 Delivery O2 Flow Rate FiO2 11/02/17 12:00 54 11/02/17 11:00 58 11/02/17 11:00 97.8 58 14 120/60 (80) 98 11/02/17 10:00 66 11/02/17 09:00 78 11/02/17 08:03 98.4 59 14 110/53 (72) 95 11/02/17 08:03 Room Air 11/02/17 08:00 60 11/02/17 07:00 57 11/02/17 06:01 54 11/02/17 05:43 65 11/02/17 04:06 52 11/02/17 03:27 98.2 57 18 111/54 (73) 99 11/02/17 03:00 52 11/02/17 02:00 50 11/02/17 01:00 46 11/02/17 00:11 45 11/01/17 23:00 98.2 55 20 107/45 (65) 98 11/01/17 23:00 50 11/01/17 22:10 69 11/01/17 21:00 58 11/01/17 20:06 97.5 56 18 114/57 (76) 98 11/01/17 20:06 Room Air 11/01/17 20:00 52 11/01/17 19:00 60 I/O 11/01/17 11/01/17 11/01/17 11/02/17 11/02/17 11/02/17 07:00 15:00 23:00 07:00 15:00 23:00 Intake Total 240 ml 960 ml 880 ml Output Total 575 ml 1000 ml 925 ml Balance -335 ml -40 ml -45 ml Intake Oral 240 ml 960 ml 880 ml Output Urine Total 575 ml 1000 ml 925 ml Physical Exam GENERAL: NAD, AAOx3 SKIN: Warm and dry. HEAD: Atraumatic. Normocephalic. EYES: Pupils equal and round. No scleral icterus. No injection or drainage. ENT: No nasal bleeding or discharge. Mucous membranes pink and moist. NECK: Trachea midline. No JVD. CARDIOVASCULAR: RRR RESPIRATORY: No accessory muscle use. Clear to auscultation. Breath sounds equal bilaterally. GASTROINTESTINAL: Abdomen soft, non-tender, nondistended. Hepatic and splenic margins not palpable. MUSCULOSKELETAL: Extremities without clubbing, cyanosis, or edema. No obvious deformities. B/L groin with no hematomas noted NEUROLOGICAL: Awake and alert. No obvious cranial nerve deficits. Motor grossly within normal limits. Five out of 5 muscle strength in the arms and legs. Normal speech. PSYCHIATRIC: Appropriate mood and affect; insight and judgment normal. Laboratory Laboratory Tests Test 11/02/17 06:32 Prothrombin Time 22.0 SEC Prothromb Time International Ratio 2.2 RATIO Activated Partial Thromboplast Time 31.3 SEC Assessment and Plan Problem List: (1) Atrial fibrillation with RVR ICD Codes: I48.91 - Unspecified atrial fibrillation Status: Resolved (2) Chest pain ICD Codes: R07.9 - Chest pain Status: Resolved (3) CAD (coronary artery disease) ICD Codes: I25.10 - CAD (coronary artery disease) Status: Chronic (4) Hypertension ICD Codes: I10 - Hypertension Status: Chronic (5) Hyperlipidemia ICD Codes: E78.5 - Hyperlipidemia Status: Chronic Assessment and Plan 1) Afib with RVR S/p ablation Con't Coumadin 2) Chest pain, some concerning typical components Typical chest pain, concerning for unstable angina while at rest, relieved with nitro s/p PCI of LAD with AD ASA/Plavix/Statin/SARAH-I BB low dose as bradycardic 3) Plan for ASA/Plavix/Coumadin on discharge Stop ASA in 30 days and con't on Plavix/Coumadin 4) Cardiovascularly stable for discharge Follow up with Kishan Thompson DO November 02, 2017 18:14
--- NOTE | 2017-11-02 19:17 | EKG ---
Date Performed: 11/01/2017 Time Performed: 15:05:18 PTAGE: 87 years EKG: Sinus bradycardia Since PREVIOUS TRACING , no significant change noted Normal ECG except for rate PREVIOUS TRACIN 11/01/2017 10.28.43 DOCTOR: Wilbert Dougherty Interpretating Date/Time 11/02/2017 19:17:35
--- NOTE | 2017-11-02 19:19 | EKG ---
Date Performed: 11/02/2017 Time Performed: 06:23:12 PTAGE: 87 years EKG: Sinus bradycardia rSr'(V1) - probable normal variant Nonspecific T wave flattening. Since p revious tracing, no significant change noted Borderline ECG PREVIOUS TRACING : 11/01/2017 15.05 DOCTOR: Wilbert Dougherty Interpretating Date/Time 11/02/2017 19:18:07
--- NOTE | 2017-11-02 19:20 | EKG ---
Date Performed: 11/02/2017 Time Performed: 07:57:22 PTAGE: 87 years EKG: Sinus arrhythmia rSr'(V1) - probable normal variant Nonspecific T wave flattening. Since pr evious tracing, no significant change noted Normal ECG PREVIOUS TRACING : 11/02/2017 06.23.12 DOCTOR: Wilbert Dougherty Interpretating Date/Time 11/02/2017 19:19:31
--- NOTE | 2017-11-14 15:42 | PD.CARD ---
Atrial Fibrillation Ablation PROCEDURE DATE: November 01, 2017 PROCEDURES PERFORMED: 1. Electrophysiology study on Isuprel infusion 2. CS cannulation 3. 3-D mapping 4. Transseptal approach 5. Right and left heart catheterization 6. Intracardiac echo 7. Radiofrequency ablation of atrial fibrillation 8. Pulmonary vein isolation 9. Posterior wall ablation 10. Mitral line creation 11. Anterior wall ablation INDICATIONS FOR THE PROCEDURE Mr. Aragon is a 87-year-old male with atrial fibrillation, very symptomatic , multiple ER visits and hospitalizations, recent PTCA plus stent, heart rate difficult to control, referred for electrophysiology study and ablation. The risks, the nature and the benefits of the procedure were clearly stated to him. The risks include pneumothorax, cardiac perforation, stroke, need for open heart surgery and even . The patient understood and agreed to proceed. DESCRIPTION OF THE PROCEDURE IN DETAIL As written informed consent was obtained prior to esophageal echocardiogram, the patient was kept on the table where he was prepped and draped in the usual sterile fashion. Conscious sedation was initiated and maintained throughout the procedure by the anesthesiologist. Once sedation was verified, the right and left inguinal areas were anesthetized with 2% Xylocaine. Using modified Seldinger technique, the left femoral vein was cannulated on three occasions, three guidewires were advanced. Over the wire a 6, 7 and a 10-Andorran Hemaquet were advanced. Then the left femoral artery was cannulated on one occasion, one guidewire was advanced. Over the wire a 4-Andorran Hemaquet was advanced. Then the right femoral vein was cannulated on one occasion, one guidewire was advanced. Over the wire a 8-Andorran Hemaquet was advanced. Then under fluoroscopic guidance through the 6 and 7-Andorran Hemaquet, two 5-Andorran Demar curved quadripolar electrophysiology catheters were advanced and placed around the His as well as coronary sinus. Basic interval was measured. The patient was in atrial fibrillation. Through the 10-Andorran Hemaquet, a Cordis Montero AcuNav intracardiac echo catheter was advanced and placed at the right atrium. Multiple view was obtained. There was no pericardial effusion, pulmonary vein was seen, atrial septal was visualized. Then the 8-Andorran Hemaquet in the right femoral vein was exchanged for Agilis transseptal sheath that was placed all the way to the superior vena cava. Through the sheath a Deirdre needle was advanced, then the sheath, the dilator and the needle were progressed until foci engaged. Once engaged, the needle was advanced. RF was delivered for 2 seconds. I was able to cross into the left atrium. Once the needle crossed, the dilator was advanced. Once the dilator crossed, the sheath was advanced. Once the sheath crossed, the dilator and the needle were removed. At this point I did flood the system and fluid movement was seen in the left atrium the indicates the sheath is in good position. The patient already received 6,000 units of heparin. The goal is to keep an ACT around 350 during ablation. Then through the sheath a St. Kade 20 pulse circumferential catheter was advanced. Using [employer] endocardial solution mapping system, a two- dimensional configuration of the left atrium was obtained. Points were taken at the left superior and inferior veins, right superior and inferior veins, mitral valve, and appendages. Then through the sheath a St. Kade TactiCath 65cm 3.5mm irrigated tipped mapping and radiofrequency ablation catheter was advanced. Esophageal probe was placed temperature monitoring during ablation. When it increased to 0.5 degrees Celsius above baseline, I moved to a different area of the atrium. First I did isolate the left superior and inferior vein. I did make a big nisqually around the veins. Posterior was ablated. Then a mitral line was created. Then the right superior and inferior veins were isolated. I did remap the atrium. There is no significant signal in the veins. At that point I did advance the circumferential catheter again into the vein. There was no signal into the vein, pacing from the vein showed no conduction to the atrium. Isuprel infusion was initiated at 20 mcg for over 10 minutes. No tachyarrhythmia was induced, post Isuprel no tachyarrhythmia was induced. At that point the procedure was complete. All catheters were removed, atrial septal sheath was exchanged for 9-Andorran Hemaquet, intracardiac echo showed no pericardial effusion. There is still good flow in the pulmonary vein. The patient is going to be transferred to the recovery room. No incident report. The patient tolerated the procedure. Blood loss was minimal. FINDINGS 1. Electrocardiogram: At baseline the patient was in sinus rhythm. Post procedure electrocardiogram was unchanged. 2. Basic interval: Base cycle length was around 830. AH at [90 and HV at 48 milliseconds. 3. Tachyarrhythmia: Atrial fibrillation was mapped and ablated. The ablation was successful. CONCLUSION Successful electrophysiology study, mapping, radiofrequency ablation of atrial fibrillation, pulmonary vein isolation, posterior ablation, anterior wall ablation, mitral line creation. COMMENTS AND RECOMMENDATIONS The patient is going to be transferred to the telemetry unit. Will be observed and when stable can be discharged home. Nataliya Barlow MD November 14, 2017 15:42
== END 2017-11-02 15:02 | disposition home or self-care (01) | DRG 274 ==
LOC: NEPC 19:55 → NEDA 23:39 → NEPHCDU 10-19 02:10 → HCIS 10-20 16:41 → OBSVTOIN 10-25 11:17
PROVIDERS: ADMIT Hospitalist; ATTEND Hospitalist
PROC: 027034Z Dilation of Coronary Artery, One Artery with Drug-eluting Intraluminal Device, Percutaneous Approach (ICD-10-PCS; 2017-10-24)
PROC: 4A023N7 Measurement of Cardiac Sampling and Pressure, Left Heart, Percutaneous Approach (ICD-10-PCS; 2017-10-24)
PROC: B2111ZZ Fluoroscopy of Multiple Coronary Arteries using Low Osmolar Contrast (ICD-10-PCS; 2017-10-24)
PROC: 02K83ZZ Map Conduction Mechanism, Percutaneous Approach (ICD-10-PCS; 2017-11-01)
PROC: 4A023FZ Measurement of Cardiac Rhythm, Percutaneous Approach (ICD-10-PCS; 2017-11-01)
PROC: 4A0234Z Measurement of Cardiac Electrical Activity, Percutaneous Approach (ICD-10-PCS; 2017-11-01)
PROC: 4A023N8 Measurement of Cardiac Sampling and Pressure, Bilateral, Percutaneous Approach (ICD-10-PCS; 2017-11-01)
PROC: B246ZZZ Ultrasonography of Right and Left Heart (ICD-10-PCS; 2017-11-01)
PROC: 02583ZZ Destruction of Conduction Mechanism, Percutaneous Approach (ICD-10-PCS; principal; 2017-11-01 07:30)
DX: I48.0 Paroxysmal atrial fibrillation (principal); N17.9 Acute kidney failure, unspecified; I25.110 Atherosclerotic heart disease of native coronary artery with unstable angina pectoris; E83.51 Hypocalcemia; R00.1 Bradycardia, unspecified; I12.9 Hypertensive chronic kidney disease with stage 1 through stage 4 chronic kidney disease, or unspecified chronic kidney disease; E78.5 Hyperlipidemia, unspecified; F41.9 Anxiety disorder, unspecified; M19.90 Unspecified osteoarthritis, unspecified site; H91.90 Unspecified hearing loss, unspecified ear; K21.9 Gastro-esophageal reflux disease without esophagitis; Z79.01 Long term (current) use of anticoagulants; R19.7 Diarrhea, unspecified; N18.3 Chronic kidney disease, stage 3 (moderate)
CPT/HCPCS: 71045; 80048; 80053; 82550; 82552; 83690; 83735; 84443; 84484; 85002; 85025; 85610; 85730; 87493; 92928; 93005; 93312; 93320; 93325; 93458; 93571; 93613; 93623; 93656; 93662; 96361; 96365; 96375; 96376; C1725; C1730; C1731; C1732; C1759; C1760; C1766; C1769; C1874; C1887; C1893; C2630; G0269; G0378; G8987-GP; G8988-GP; J0282; J0610; J2250; J2270; J2370; J2405; J2710; J3010; J7030; J7040; J7050; Q9967